=== PATIENT | female | born 1960 | race Caucasian/White ===

== ENCOUNTER 2019-04-21 09:25 | Outpatient (CLI) | payer OTHER, SELFPAY ==
--- NOTE | ~2019-04-21 | MMUS_ITS ---
EXAMINATION: MM screen torrey RT diag torrey LT, US axilla LT HISTORY: Palpable mass in left axilla TECHNIQUE: Left ML and bilateral MLO and cc 3-D tomosynthesis images of the breasts were performed an d synthetic 2-D images were generated. CAD analysis was submitted and interpreted. High resolution le ft axillary ultrasound was performed. COMPARISON: 11/02/2014 bilateral digital screening mammogram BREAST PARENCHYMAL COMPOSITION: The breasts are almost entirely fatty. FINDINGS: MAMMOGRAPHIC FINDINGS: The patient's chin overlies the left upper axillary region. No suspicious mass or architectural distortion, malignant calcification, skin thickening or retractio n or significant new or developing density is detected. ULTRASOUND: There is no evidence of focal abnormal solid or cystic lesion or abnormal shadowing in the left axill a. IMPRESSION: 1. No mammographic evidence of malignancy 2. Routine annual mammographic screening follow-up is recommended. BI-RADS Category 1: Negative Reviewed, dictated and finalized at location A. CLUTCH SPECIALIST IMPRESSION: 1. No mammographic evidence of malignancy 2. Routine annual mammographic screening follow-up is recommended. BI-RADS Category 1: Negative
--- NOTE | ~2019-04-21 | XR_ITS ---
EXAMINATION: XR chest 2V DATE: 04/21/2019 09:44 INDICATION: Cough. TECHNIQUE: Frontal and lateral views of the chest were obtained. COMPARISON: Chest 2 views 03/02/2018 FINDINGS: The chest demonstrates clear lungs without pneumonia, pleural effusion, or pneumothorax. Th e heart size is normal. There is old healed fracture of right sixth rib. IMPRESSION: 1. No acute cardiopulmonary disease. Reviewed, dictated and finalized at location A. GER TRADE
== END 2019-04-21 09:26 | disposition home or self-care (01) ==
LOC: CHSIMG 09:27
PROVIDERS: PCP Family Medicine; Visit Provider Family Medicine
DX: R05 Cough (principal); R22.2 Localized swelling, mass and lump, trunk
CPT/HCPCS: 71046; 76882; 77065; 77067

== ENCOUNTER 2019-08-16 08:43 | Outpatient (CLI) | payer OTHER, SELFPAY ==
--- NOTE | ~2019-08-16 | CT_ITS ---
EXAMINATION:CT chest wo con DATE: 08/16/2019 09:23 INDICATION: Pulmonary nodule. TECHNIQUE: Computed tomography (CT) of the chest was performed without intravenous contrast. Automate d exposure control and iterative reconstruction technique were employed. The dose-length product (DLP ) was 367.98 mGy-cm. COMPARISON: Chest CT 07/22/2018, 07/05/2017 FINDINGS: There is mild emphysema. There is a 3 mm nodule in right upper lobe, stable from 07/25/2018. There is a 3 mm nodule in left upper lobe, stable from 07/22/2018. There are a few scattered 2 mm nod ules in the lungs. There is a 5 mm nodule left major fissure, stable from 07/05/2017. No pleural effus ion. The heart size is normal. There are coronary artery calcifications. No pericardial effusion. The re is a small sliding hiatal hernia. There is a 3.2 cm mass in left adrenal gland measuring low-atten uation, stable from 07/05/2017, consistent with an adenoma. There are old healed bilateral rib fractur es. There is mild thoracic spondylosis. IMPRESSION: 1. Small pulmonary nodules, likely benign. 2. Mild emphysema. Reviewed, dictated and finalized at location E.
--- NOTE | ~2019-08-16 | XR_ITS ---
XR femur LT min 2V, XR knee LT min 4V 08/16/2019 09:23 (accession [id number]), 08/16/2019 09:22 (accession [id number]) INDICATION: Left knee and leg pain PROCEDURE: 2 views left femur and 4 views left knee COMPARISON: No prior studies for comparison. FINDINGS: Fracture, dislocation or subluxation is not identified. There is a transversely oriented sc rew in the distal femoral metaphysis The soft tissues appear within normal limits. No foreign bodies are identified. There is moderate-severe osteoarthritis of the left knee. IMPRESSION: 1: NO ACUTE BONE OR JOINT ABNORMALITY IDENTIFIED. 2: Moderate-severe osteoarthritis of the left knee. Reviewed, dictated and finalized at location A. IMPRESSION: 1: NO ACUTE BONE OR JOINT ABNORMALITY IDENTIFIED. 2: Moderate-severe osteoarthritis of the left knee.
--- NOTE | ~2019-08-16 | XR_ITS ---
XR tibia fibula LT 2V 08/16/2019 09:23 Indication: Left leg pain Procedure: 2 views left tibia/fibula Comparison: 10/16/2017 Findings: No acute fracture, subluxation or dislocation. There is moderate osteoarthritis of the left knee. No focal soft tissue abnormality. No radiopaque foreign bodies. Impression: 1: No acute bone or joint abnormality. Reviewed, dictated and finalized at location A. Impression: 1: No acute bone or joint abnormality.
== END 2019-08-16 08:44 | disposition home or self-care (01) ==
LOC: CHSIMG 08:45
PROVIDERS: PCP Family Medicine; Visit Provider Orthopaedic Surgery
DX: M25.562 Pain in left knee (principal); M79.652 Pain in left thigh; R05 Cough; J44.9 Chronic obstructive pulmonary disease, unspecified; F17.200 Nicotine dependence, unspecified, uncomplicated; R91.8 Other nonspecific abnormal finding of lung field
CPT/HCPCS: 71250; 73552; 73564; 73590

== ENCOUNTER 2020-02-18 08:00 | Outpatient (CLI) | payer OTHER, SELFPAY ==
--- NOTE | ~2020-02-18 | CT_ITS ---
EXAMINATION: CT abdomen pelvis w con DATE: 02/18/2020 08:49 INDICATION: Left lower quadrant abdominal pain for one month. Blood in stool 2 weeks ago. TECHNIQUE: Computed tomography (CT) of the abdomen and pelvis was performed with 100 cc Omnipaque 350 intravenous contrast. Automated exposure control and iterative reconstruction technique were employe d. Exam dose: 1377.30 mGy-cm total exam DLP. COMPARISON: 11/05/2016 CT abdomen pelvis FINDINGS: Normal heart size. The lung bases are clear of infiltrate or consolidation. No pericardial or pleural effusion. Small sliding hiatal hernia. The liver, gallbladder, bile ducts, spleen, pancreas and pancreatic duct appear normal. Normal morphology of the right adrenal gland. 2.5 x 3.3 cm left adrenal mass is noted. This was present on 11/05/2016, then measuring approximately 2.4 x 2.8 cm. This is likely an adrenal adenoma. Several 5 mm or smaller probable left renal cyst. No urinary tract calculus or hydroureteronephrosis. The urinary bladder is evacuated. Status post hys terectomy. There is atherosclerotic calcification of the abdominal aorta and iliac arteries and calcification of the origins of the renal arteries. No abdominal aortic aneurysm. No intraperitoneal or retroperitoneal or pelvic mass lesion or adenopathy or ascites is detected. There is sigmoid colon diverticulosis; no CT evidence of diverticulitis. Normal appendix. No bowel obstruction, bowel wall thickening, pneumatosis or intraperitoneal free air . No suspicious osteolytic or osteoblastic lesions are noted. IMPRESSION: Sigmoid diverticulosis; no CT evidence of diverticulitis Small sliding hiatal hernia Chronic left adrenal mass Reviewed, dictated and finalized at Location A. Reviewed, dictated and finalized at location A. ING SAW OPERATOR
[2020-02-18 08:25] LABS: Estimated Glomerular Filt Rate 54
== END 2020-02-18 08:01 | disposition home or self-care (01) ==
LOC: CHSIMG 08:01
PROVIDERS: PCP Family Medicine; Visit Provider Family Medicine
DX: R10.9 Unspecified abdominal pain (principal); R19.7 Diarrhea, unspecified
CPT/HCPCS: 36415; 74177; 82565; Q9965; Q9967

== ENCOUNTER 2022-03-18 12:20 | Emergency (ER) | payer OTHER, SELFPAY ==
--- NOTE | ~2022-03-18 | XR_ITS ---
EXAMINATION: XR shoulder RT min 2V DATE: 03/18/2022 13:08 INDICATION: Acromioclavicular joint separation TECHNIQUE: AP internally and externally rotated, AP oblique externally rotated and transscapular Y vi ews of the right shoulder were obtained. COMPARISON: Chest radiograph dated 04/21/2019 FINDINGS: Normal alignment. No acute fracture. Old fracture deformity of the posterior right sixth rib. Mild gl enohumeral and moderate acromioclavicular osteoarthritis. Visualized portions of the right lung are c lear. Soft tissues are unremarkable. IMPRESSION: Moderate glenohumeral and moderate acromioclavicular osteoarthritis. No acute osseous abnormality. Reviewed, dictated and finalized at location A. RING MACHINE FEEDER IMPRESSION: Moderate glenohumeral and moderate acromioclavicular osteoarthritis. No acute o sseous abnormality.
--- NOTE | ~2022-03-18 | CT_ITS ---
EXAMINATION: CT cervical spine wo con DATE: 03/18/2022 13:17 INDICATION: Chronic neck pain. Right upper extremity pain and numbness. TECHNIQUE: Computed tomography (CT) of the cervical spine was performed without intravenous contrast. Automated exposure control and iterative reconstruction technique were employed. The dose-length pro duct was 550.72 mGy-cm. COMPARISON: None FINDINGS: There is mild emphysema. There is mild kyphosis of cervical spine. Vertebral body heights a re normal. There is mildly decreased disc height at C5-C6 and C6-C7. The following disc levels are sp ecifically discussed: C2-C3: There is mild bilateral uncovertebral joint osteoarthritis. There is mild bilateral facet join t osteoarthritis. There is no neural foraminal stenosis. There is no central canal stenosis. C3-C4: There is mild left uncovertebral joint osteoarthritis. There is severe bilateral facet joint o steoarthritis. There is mild bilateral neural foraminal stenosis. There is mild central canal stenosi s. C4-C5: There is no uncovertebral joint osteoarthritis. There is mild right and severe left facet join t osteoarthritis. There is mild left neural foraminal stenosis. There is mild central canal stenosis. C5-C6: There is severe right and moderate left uncovertebral joint osteoarthritis. There is mild bila teral facet joint osteoarthritis. There is mild right neural foraminal stenosis. There is mild centra l canal stenosis. C6-C7: There is mild bilateral uncovertebral joint osteoarthritis. There is mild bilateral facet join t osteoarthritis. There is no neural foraminal stenosis. There is mild central canal stenosis. C7-T1: There is no uncovertebral joint osteoarthritis. There is mild right and moderate left facet willa int osteoarthritis. There is mild left neural foraminal stenosis. There is no central canal stenosis. IMPRESSION: 1. Mild cervical spondylosis. Reviewed, dictated and finalized at location A. TECHNICIAN
[2022-03-18 12:20] VITALS: BP 160/108; PULSE 83; PULSE 88; RESP 20; TEMP 36.4; O2SAT 98
[2022-03-18 12:32] VITALS: BP 160/108; PULSE 88; RESP 20; TEMP 36.4; O2SAT 98
--- NOTE | 2022-03-18 12:44 | ED.UPPEXIN ---
HPI - Extremity Injury (Upper) General Chief Complaint: Extremity Injury, Upper Stated Complaint: right arm pain Time Seen by Provider: 03/18/22 12:30 Source: patient Mode of arrival: ambulatory Limitations: no limitations History of Present Illness HPI narrative: 61-YEAR-OLD WHITE FEMALE WITH HISTORY OF CHRONIC NECK SHOULDER PAIN PERCOCET 3 TIMES A DAY PLANES INCREASING PAIN FROM HER USUAL 7 OVER 10 PAIN 10 10 OVER THE LAST 3 DAYS AFTER USING A NAIL GUN ALL DAY LONG 3 DAYS AGO AND TRYING TO LIFT A 4 GRIFFIN UP ON A TRAILER 2 DAYS AGO. THIS IS THE EXACT SAME PAIN SHE HAS IN HER NECK HER SHOULDER RADIATING DOWN HER ARM BUT JUST MUCH WORSE. DENIES ANY CHANGE IN HER CHRONIC COUGH. SHE HAS SHORTNESS OF BREATH JUST BECAUSE OF THE PAIN. SHE LAST TOOK PERCOCET THIS MORNING BEFORE COMING THE EMERGENCY DEPARTMENT. SHE SAYS IS NOT HELPING. SHE SAYS HER RIGHT HAND FEELS NUMB OF TODAY. MD complaint: injury to: right, shoulder (NECK), arm, elbow and forearm Place: home Severity: severe Severity scale (1-10): 10 Relieving factors: none Exacerbating factors: movement of extremity Associated symptoms: weakness, numbness and neck pain Related Data Home Medications Medication Instructions Recorded Confirmed clopidogrel 75 mg tablet 75 mg PO DAILY 03/18/22 03/18/22 hydrocodone 10 mg-acetaminophen 1 tablet PO TID 03/18/22 03/18/22 325 mg tablet pantoprazole 40 mg tablet,delayed 40 mg PO DAILY 03/18/22 03/18/22 release Allergies Allergy/AdvReac Type Severity Reaction Status Date / Time codeine Allergy Unknown Unknown Verified 03/18/22 12:27 morphine Allergy Unknown Unknown Verified 03/18/22 12:27 Penicillins Allergy Unknown Unknown Verified 03/18/22 12:27 Review of Systems Review of Systems: All systems reviewed & are unremarkable except as noted in HPI and below Constitutional: Constitutional: Reports no additional constitutional complaints, Denies fever(s) and Denies headache(s) Eyes: Eyes: Reports no additional eye complaints ENT: Reports system reviewed and no additional complaints, except as documented Cardiovascular: Cardiovascular: Denies chest pain, Denies rapid heart rate, Denies lightheadedness and Denies dyspnea on exertion Respiratory: Respiratory: Reports as per HPI, Reports no additional respiratory complaints, Denies pain with cough and Denies dyspnea Gastrointestinal: Gastrointestinal: Denies diarrhea, Denies nausea and Denies vomiting Musculoskeletal: Musculoskeletal: Reports no additional musculoskeletal complaints and Reports as per HPI Neurologic: Reports as per HPI [facility] Past Medical History Medical History (Updated 03/18/22 @ 13:56 by Woody Hemphill MD) Anxiety Constipation Depression Emphysema (subcutaneous) (surgical) resulting from a procedure Headache Osteoporosis Shortness of breath Sleep apnea Sleep disorder Tricompartment osteoarthritis of left knee Weight gain Family History Family History Other Hypertension Social History Social History (Updated 08/16/19 @ 15:03 by Dina Jefferson, RT(R)) Smoking packs per day: 1 Smoking cigarettes per day: 20.0 Years smoked: 20 Smoking pack-years: 20.00 Smoking status: Current every day smoker Alcohol intake: never Comments CARDIAC STENT 3 MONTHS AGO Exam Narrative: PATIENT LOOKS MUCH OLDER THAN STATED AGE 61. R DISTRESS TEARFUL COMPLAINING OF RIGHT SIDE OF HER NECK AND SHOULDER PAIN RADIATING DOWN TO HER RIGHT FOREARM. SHE HAS FULL RANGE OF MOTION OF HER NECK AND ARM. SHE HAS TENDERNESS DIFFUSELY HER NECK AND HER RIGHT TRAPEZIUS IN HER SHOULDER AND UPPER ARM. DELTOID AND DERM IS INTACT. IS DECREASED SENSATION OF HER HAND SUBJECTIVELY. RADIAL PULSES +2. LUNGS ARE CLEAR HEART IS REGULAR RATE AND RHYTHM WITHOUT MURMURS GALLOPS OR RUBS. EXTREMITIES NO CYANOSIS CLUBBING EYES CONJUNCTIVA PINK SCLERA NONICTERIC OROPHARYNX IS CLEAR WITH MOIST MUCOUS MEMBR
[2022-03-18] MEDS: HYDROmorphone HCL INJ (*CRX) 2 MG/ML VIAL 1 MG IM (12:47)
--- NOTE | 2022-03-18 12:51 | ECG_ITS ---
Measurements Intervals [place] Rate: 68 P: 67 SD: 114 QRS: 99 QRSD: 89 T: 71 QT: 391 QTc: 417 Interpretive Statements SINUS RHYTHM WITH SHORT SD INTERVAL ATRIAL PREMATURE COMPLEX RIGHT AXIS DEVIATION INCOMPLETE RIGHT BUNDLE BRANCH BLOCK BASELINE WANDER- I, II BORDERLINE ECG NO PREVIOUS ECG AVAILABLE FOR COMPARISON Electronically Signed On 03-18-2022 12:57:19 RESPIRATORY CARE INSTRUCTOR by Celso Truong D.O.
[2022-03-18 13:16] VITALS: BP 161/101; PULSE 82; RESP 18
== END 2022-03-18 13:59 | disposition home or self-care (01) ==
PROVIDERS: Emergency Provider Emergency Medicine; PCP Family Medicine
DX: M19.011 Primary osteoarthritis, right shoulder (principal); M47.812 Spondylosis without myelopathy or radiculopathy, cervical region; F17.210 Nicotine dependence, cigarettes, uncomplicated; Z79.02 Long term (current) use of antithrombotics/antiplatelets; Z95.5 Presence of coronary angioplasty implant and graft
CPT/HCPCS: 72125; 73030; 93005; 96372; 99284; J1170

== ENCOUNTER 2022-03-22 16:17 | Emergency (ER) | payer OTHER, SELFPAY ==
[2022-03-22 16:18] VITALS: BP 173/103; PULSE 90; RESP 20; TEMP 36.3; O2SAT 96
--- NOTE | 2022-03-22 16:32 | ED.UPPEXIN ---
HPI - Extremity Injury (Upper) General Chief Complaint: Extremity Problem,Nontraumatic Stated Complaint: pain in R arm and R hip Time Seen by Provider: 03/22/22 16:31 Source: patient Mode of arrival: ambulatory Limitations: no limitations History of Present Illness HPI narrative: 61-year-old female with a history of smoking,anxiety /depression presented to the ER on 03/18/2022 for right /shoulder/ upper extremity pain. She had a CT of the neck which revealed mild cervical spondylosis. She had an x-ray of the shoulder which revealed glenohumeral and acromioclavicular joint arthritis. The patient takes [place]/Percocet on a routine basis and ran out of her medicines. She received Dilaudid on 03/18/2022. She presents to the ER with ongoing right neck/ shoulder and upper extremity pain. 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 MD complaint: injury to: right, shoulder, arm, forearm and wrist Onset (ago): week(s) Other injuries: none Handedness: right Place: work Relieving factors: immobilization Exacerbating factors: movement of extremity Associated symptoms: denies other symptoms Related Data Home Medications Medication Instructions Recorded Confirmed clopidogrel 75 mg tablet 75 mg PO DAILY 03/18/22 03/22/22 hydrocodone 10 mg-acetaminophen 1 tablet PO TID 03/18/22 03/22/22 325 mg tablet pantoprazole 40 mg tablet,delayed 40 mg PO DAILY 03/18/22 03/22/22 release Allergies Allergy/AdvReac Type Severity Reaction Status Date / Time codeine Allergy Unknown Unknown Verified 03/18/22 12:27 morphine Allergy Unknown Unknown Verified 03/18/22 12:27 Penicillins Allergy Unknown Unknown Verified 03/18/22 12:27 Review of Systems Review of Systems: All systems reviewed & are unremarkable except as noted in HPI and below Constitutional: Constitutional: Reports as per HPI and Reports no additional constitutional complaints Eyes: Eyes: Reports as per HPI and Reports no additional eye complaints ENT: Reports system reviewed and no additional complaints, except as documented and Reports as per HPI Cardiovascular: Cardiovascular: Reports as per HPI and Reports no additional cardiovascular complaints Respiratory: Respiratory: Reports as per HPI, Reports cough and Reports dyspnea Gastrointestinal: Gastrointestinal: Reports as per HPI and Reports no additional gastrointestinal complaints Genitourinary: Genitourinary: Reports no additional female genitourinary complaints and Reports as per HPI Musculoskeletal: Musculoskeletal: Reports no additional musculoskeletal complaints and Reports as per HPI Integumentary/Breasts: Skin/Breast: Reports system reviewed and no additional complaints, except as docu and Reports as per HPI Neurologic: Reports system reviewed and no additional complaints, except as documented and Reports as per HPI Psychiatric: Psychiatric: Reports no additional psychiatric complaints and Reports as per HPI Endocrine: Endocrine: Reports no additional endocrine complaints and Reports as per HPI Hematologic/Lymphatic: Hematologic/Lymphatic: Reports no additional hematologic/lymphatic complaints and Reports as per HPI Allergic/Immunologic: Allergic/Immunologic: Reports no additional allergic/immunologic complaints and Reports as per HPI PMFSH Past Medical History Medical History Anxiety Constipation Depression Emphysema (subcutaneous) (surgical) resulting from a procedure Headache Osteoporosis Shortness of breath Sleep apnea Sleep disorder Tricompartment osteoarthritis of left knee Weight gain Family History Family History Other Hypertension Social History Social History Smoking packs per day: 1 Smoking cigarettes per day: 20.0 Years smoked: 20 Smoking pack-years: 20.00 Smoking status: Current every day smoker Alcohol intake:
[2022-03-22] MEDS: KETOROLAC 30 MG/ML VIAL (*BKC) IM (16:51)
[2022-03-22] MEDS: HYDROcodone/acetaminophen (*CRX) 5-325 MG TABLET 1 TAB PO (16:52)
[2022-03-22 17:04] VITALS: BP 178/91; PULSE 90; RESP 20; TEMP 37.1; O2SAT 98
== END 2022-03-22 17:45 | disposition home or self-care (01) ==
PROVIDERS: Emergency Provider Internal Medicine Critical Care Medicine
DX: M47.812 Spondylosis without myelopathy or radiculopathy, cervical region (principal); M19.011 Primary osteoarthritis, right shoulder; Z79.02 Long term (current) use of antithrombotics/antiplatelets; F41.9 Anxiety disorder, unspecified; F32.A Depression, unspecified; M81.0 Age-related osteoporosis without current pathological fracture; F17.210 Nicotine dependence, cigarettes, uncomplicated
CPT/HCPCS: 96372; 99283; A9270; J1885

== ENCOUNTER 2022-05-24 09:55 | Outpatient (CLI) | payer OTHER, SELFPAY ==
--- NOTE | ~2022-05-24 | MM_ITS ---
EXAMINATION: MM diagnostic torrey BI w justine HISTORY: Right breast pain. Painful blister-like lump on nipple for 2 days TECHNIQUE: ML, MLO and CC 3-D tomosynthesis images of both breasts were performed and synthetic 2-D i mages were generated. CAD analysis was submitted and interpreted. COMPARISON: April 21, 2019bilateral screening mammogram BREAST PARENCHYMAL COMPOSITION: The breasts are almost entirely fatty. FINDINGS: No suspicious mass or architectural distortion, malignant calcification, skin thickening or retraction or significant new or developing density is detected. Consider biopsy of the nipple lesion as clinically appropriate. IMPRESSION: 1. No mammographic evidence of malignancy; routine annual mammographic screening is recommended. 2. Consider nipple biopsy as clinically appropriate BI-RADS Category 1: Negative Reviewed, dictated and finalized at location A. IMPRESSION: 1. No mammographic evidence of malignancy; routine annual mammographic screenin g is recommended. 2. Consider nipple biopsy as clinically appropriate BI-RADS Category 1: Negative
== END 2022-05-24 09:56 | disposition home or self-care (01) ==
LOC: CHSIMG 09:57
PROVIDERS: PCP Family Medicine; Visit Provider Family Medicine
DX: N64.4 Mastodynia (principal)
CPT/HCPCS: 77062; 77066; G0279

== ENCOUNTER 2022-08-14 18:17 | Inpatient (IN) | payer OTHER, SELFPAY ==
[2022-08-14] VITALS (13 sets, daily range): BP systolic 154–170; BP diastolic 80–82; PULSE 71–105; RESP 17–20; TEMP 36.3; O2SAT 88–98; BMI 45.7
--- NOTE | ~2022-08-14 | XR_ITS ---
XR chest 2V DATE: 08/16/2022 10:14 INDICATION: Hypoxia TECHNIQUE: PA and lateral views COMPARISON: 08/14/2022 portable AP chest FINDINGS: No pulmonary infiltrate or consolidation. Heart size appears within normal range. No pleura l effusion or pulmonary vascular congestion or pneumothorax is detected. There is osteopenia. Old healed posterolateral right sixth rib fracture. IMPRESSION: No active cardiopulmonary disease Reviewed, dictated and finalized at location []
--- NOTE | ~2022-08-14 | XR_ITS ---
EXAMINATION: XR chest 1V portable INDICATION: Shortness of breath TECHNIQUE: Portable AP chest at 1852 hours COMPARISON: 04/21/2019 FINDINGS: The lungs are free of acute opacities. No pleural effusion or pneumothorax. The cardiomedia stinal silhouette is normal. A healed right sixth rib fracture is noted. IMPRESSION: 1. No acute cardiopulmonary abnormality. Reviewed, dictated and finalized at location F.
--- NOTE | 2022-08-14 18:41 | ECG_ITS ---
Measurements Intervals [place] Rate: 101 P: 53 DE: 122 QRS: 83 QRSD: 91 T: 58 QT: 342 QTc: 444 Interpretive Statements SINUS TACHYCARDIA WITH OCCASIONAL SUPRAVENTRICULAR PREMATURE COMPLEXES POSSIBLE RIGHT VENTRICULAR CONDUCTION DELAY [RSR (QR) IN V1/V2] ABNORMAL RHYTHM ECG COMPARED TO ECG 03/18/2022 12:51:29 HEART RATE IS INCREASED Electronically Signed On 08-15-2022 16:23:13 CDT by Bartolo Hester M.D.
--- NOTE | 2022-08-14 18:50 | ED.GENADULT ---
HPI - General Adult General Chief complaint: Shortness of Breath/Dyspnea Stated complaint: fatigue; fluid retention Time Seen by Provider: 08/14/22 18:29 History of Present Illness HPI narrative: the patient is a 62-year-old whom with history of COPD on inhalers but not nebulizer therapy or oxygen at home. She continues to smoke cigarettes. Last COPD exacerbation was 1 month ago which 1 she was placed on steroids and antibiotics. Osteoarthritis on [place] 10 mg, obstructive sleep apnea, anxiety, depression, coronary artery disease status post stent placement following a myocardial infarction, on Plavix therapy. He last saw her chemical educator yesterday who prescribed furosemide which she started today for mild pedal edema. The patient presents with a 7 day history of feeling weak and tired, sleepy, fatigued at home. She does have shortness of breath and has a cough productive of yellow phlegm with audible wheezing, and hoarse voice. Her oral intake has decreased over the last few days. Four days ago she had an episode of emesis with coughing but none since. Does have a headache. No rhinorrhea or nasal congestion. No significant chest pain, occasional sharp pain in the left sternal region lasts a few seconds. No abdominal pain. No diarrhea or constipation. No urinary symptoms. No fevers or chills or diaphoresis. Related Data Home Medications Medication Instructions Recorded Confirmed clopidogrel 75 mg tablet 75 mg PO DAILY 03/18/22 03/22/22 hydrocodone 10 mg-acetaminophen 1 tablet PO TID 03/18/22 03/22/22 325 mg tablet pantoprazole 40 mg tablet,delayed 40 mg PO DAILY 03/18/22 03/22/22 release Allergies Allergy/AdvReac Type Severity Reaction Status Date / Time codeine Allergy Unknown Unknown Verified 03/18/22 12:27 morphine Allergy Unknown Unknown Verified 03/18/22 12:27 Penicillins Allergy Unknown Unknown Verified 03/18/22 12:27 Review of Systems Review of Systems: All systems reviewed & are unremarkable except as noted in HPI and below Constitutional: Constitutional: Denies chills, Denies excessive sweating, Reports fatigue, Denies fever(s), Denies headache(s) and Reports weakness ( Generalized) Comments: excessive somnolence Eyes: Eyes: Denies change in vision and Denies photophobia ENT: Denies dysphagia, Denies dizziness, Reports headache(s), Denies lip swelling, Denies nasal congestion, Denies sore throat and Denies tongue swelling Cardiovascular: Cardiovascular: Reports chest pain ( sharp, lasts a few seconds, intermittent), Denies syncope, Denies rapid heart rate and Reports dyspnea Respiratory: Respiratory: Reports chest congestion, Reports cough ( productive of yellow sputum), Reports dyspnea and Reports wheezing Gastrointestinal: Gastrointestinal: Denies abdominal pain, Denies constipation, Denies dysphagia, Denies diarrhea, Denies nausea and Reports vomiting ( occasional) Genitourinary: Genitourinary: Denies hematuria, Denies urinary frequency, Denies dysuria and Denies urinary urgency Musculoskeletal: Musculoskeletal: Denies back pain, Denies myalgias, Denies arthralgias, Denies joint swelling and Denies numbness Integumentary/Breasts: Skin/Breast: Denies pruritus, Denies erythema and Denies rash Neurologic: Denies confusion, Denies dizziness, Denies syncope, Reports headache(s), Denies focal weakness, Denies numbness and Reports weakness Psychiatric: Psychiatric: Denies anxiety and Denies confusion Endocrine: Endocrine: Denies excessive sweating and Reports fatigue Hematologic/Lymphatic: Hematologic/Lymphatic: Denies easy bleeding and Denies easy bruising Allergic/Immunologic: Allergic/Immunologic: Denies lip swelling, Denies tongue swelling and Reports wheezing PMFSH Past Medical History Medical History Anxiety Constipation Depression Emphysema (subcutaneous) (surgical) resulting from a procedure Headache Osteoporosis Shortness o
[2022-08-14 18:53] LABS: Basophils Absolute Auto 0.06 K/mm3 (0.00-0.10); Basophils Percent Auto 0.4 % (0.0-1.0); Eosinophils Absolute Auto 0.01 K/mm3 (0.02-0.50); Eosinophils Percent Auto 0.1 % (1.0-6.0); Hematocrit 44.6 % (35.0-49.0); Hemoglobin 13.9 g/dL (12.0-15.0); Immature Granulocyte Percent A 0.6 % (0.0-0.0); Lymphocytes Percent Auto 6.6 % (18.0-42.0); Mean Corpuscular HGB Conc 31.2 g/dL (32.0-36.0); Mean Corpuscular Hemoglobin 26.1 pg (27.0-31.0); Mean Corpuscular Volume 83.7 fL (78.0-102.0); Monocytes Absolute Auto 0.76 K/mm3 (0.10-0.90); Monocytes Percent Auto 4.6 % (2.0-11.0); Neutrophils Absolute Auto 14.6 K/mm3 (1.7-7.2); Neutrophils Percent Auto 87.7 % (50.0-70.0); Platelet Count Result 309 K/mm3 (150-420); Red Blood Count 5.33 M/mm3 (4.20-5.40); Red Cell Distribution Width 13.4 % (11.6-14.4); White Blood Count 16.6 K/mm3 (4.8-10.8)
[2022-08-14 18:59] LABS: D Dimer 0.37 mg/L (0.19-0.50)
[2022-08-14 19:00] LABS: Device ROOM AIR; HCO3 ABG 28.1 mmol/L (23-29); Modified Allen's Test Pass; Oxygen Content ABG 18.4 %vol (16.0-22.0); Oxygen Saturation ABG 91.8 % (95-97); Oxyhemoglobin 87.6 % (94-100); PCO2 ABG 44.7 mmHg (35-45); PO2 ABG 52.5 mmHg (80-90); Site Drawn RIGHT RADIAL; pH ABG 7.42 (7.35-7.45)
--- NOTE | 2022-08-14 19:04 | PC.NURSE ---
Report to RODNEY Mckinney who assumes care of pt at this time.
[2022-08-14 19:05] LABS: Magnesium 1.9 mg/dL (1.8-2.4); Troponin I 13.1 ng/L (0.00-60.4)
[2022-08-14] MEDS: BENZONATATE 100 MG CAPSULE PO (19:07)
[2022-08-14] MEDS: methylPREDNISolone SOD SUCC 125 MG VIAL IV PUSH (19:07)
[2022-08-14] MEDS: guaiFENesin/DEXTROMETHORPHAN 5 ML UDC 10 ML PO (19:07)
[2022-08-14] MEDS: MAGNESIUM SULF 2 GM/WATER 50ML 2 GM/50 ML BAG IVPB (19:08)
[2022-08-14 19:10] LABS: Alanine Aminotransferase 19 U/L (14-59); Alkaline Phosphatase 152 U/L (46-116); Anion Gap 7 mmol/L (8-16); Aspartate Amino Transferase 23 U/L (15-37); Bilirubin,Total 0.5 mg/dL (0.00-1.00); Blood Urea Nitrogen 5 mg/dL (7-18); Calcium 8.9 mg/dL (8.5-10.1); Carbon Dioxide 32 mmol/L (21-32); Chloride 94 mmol/L (98-108); Estimated CRCL calculation 77 ml/min; Estimated Glomerular Filt Rate > 60; Glucose 161 mg/dL (70-99); Lactic Acid Reflex 2.4 mmol/L (0.4-2.0); NT Pro B Type Natriuretic Pept 775 pg/mL (0-125); Osmolality Calculated 276 mOsm/kg (285-295); Potassium 4.2 mmol/L (3.5-5.1); Sodium 133 mmol/L (136-145); Total Protein 7.5 g/dL (6.4-8.2)
[2022-08-14] MEDS: IPRATROPIUM 0.5 MG/ALBUTEROL SULFATE 2.5 MG AMPUL.NEB 3 ML INHALATION (19:28)
[2022-08-14] MEDS: SODIUM CHLORIDE 0.9% IV 1,000 ML 999 ML IV CONT (19:28)
[2022-08-14 19:38] LABS: Influenza A QL RT-PCR Negative (Negative); Influenza B QL RT-PCR Negative (Negative); SARS-CoV-2 RNA PCR Negative (Negative)
[2022-08-14 19:40] LABS: RSV RNA, RT-PCR Negative (Negative); Strep Group A RT-PCR NOT DETECTED (Negative)
[2022-08-14 20:08] LABS: Erythrocyte Sedimentation Rate 6 mm/hr (0-20)
[2022-08-14] MEDS: cefTRIAXone 2 GM/NS 100 ML 2 GM/100 ML BAG IVPB (20:16)
[2022-08-14] MEDS: AZITHROMYCIN 500 MG/NS 250 ML 500 MG/250 ML BAG 250 MG IVPB (21:02)
--- NOTE | 2022-08-14 21:04 | PC.NURSE ---
pt left with azithromycin and fluids running through IV
[2022-08-14 21:49] LABS: Reflex Lactic Acid Yes or No Add Lactic
[2022-08-14 22:27] LABS: Lactic Acid 1.2 mmol/L (0.4-2.0)
--- NOTE | 2022-08-14 23:15 | ADMGEN ---
Addendum entered by Twyla Dillon LPN 08/14/22 23:16: admission time 2109 Original Note: This patient, Karina Ricks, was admitted to 2nd Floor Room 205-2. Patient oriented to hospital policies and general routines including ID bracelet, bed and alarms, visiting hours, pain management, procedures, bathroom and other care routines, personal items, smoking policy, room service/diet, and visiting hours. Information on how to activate the Rapid Response Team has been discussed. Patient are encouraged to report perceived risks to care and to ask questions if they do not understand what they are told or what they should do.
[2022-08-15] VITALS (19 sets, daily range): BP systolic 136–151; BP diastolic 68–86; PULSE 76–134; RESP 18–22; TEMP 36.2–36.3; O2SAT 87–97
[2022-08-15] MEDS: IPRATROPIUM 0.5 MG/ALBUTEROL SULFATE 2.5 MG AMPUL.NEB 3 ML INHALATION ×6 (00:27→23:22)
[2022-08-15 05:11] LABS: Hematocrit 45.4 % (35.0-49.0); Hemoglobin 13.8 g/dL (12.0-15.0); Mean Corpuscular HGB Conc 30.4 g/dL (32.0-36.0); Mean Corpuscular Hemoglobin 25.6 pg (27.0-31.0); Mean Corpuscular Volume 84.2 fL (78.0-102.0); Platelet Count Result 277 K/mm3 (150-420); Red Blood Count 5.39 M/mm3 (4.20-5.40); Red Cell Distribution Width 13.4 % (11.6-14.4)
[2022-08-15] MEDS: methylPREDNISolone SOD SUCC 40 MG VIAL IV PUSH ×3 (05:21→20:41)
--- NOTE | 2022-08-15 05:21 | PC.NURSE ---
Pt given Solumedrol 40 mg IVP as ordered.
[2022-08-15 05:23] LABS: Anion Gap 9 mmol/L (8-16); Blood Urea Nitrogen 5 mg/dL (7-18); Calcium 8.5 mg/dL (8.5-10.1); Carbon Dioxide 30 mmol/L (21-32); Chloride 97 mmol/L (98-108); Estimated CRCL calculation 86 ml/min; Estimated Glomerular Filt Rate > 60; Glucose 175 mg/dL (70-99); Osmolality Calculated 283 mOsm/kg (285-295); Sodium 136 mmol/L (136-145)
--- NOTE | 2022-08-15 09:24 | PM.IMHP ---
H&P: HPI History of Present Illness Date/Time: 08/15/22 09:24 Chief Complaint: COPD exacerbation Narrative: ? This is a 62-year-old being admitted for COPD exacerbation patient is a daily smoker was a nebulizer at home patient was satting 88% on admission was placed on 2 L of oxygen patient has a past medical history obstructive sleep apnea, anxiety, depression, coronary artery disease, osteoarthritis, patient has had stents placed and a heart attack she was seen recently by spring former was placed on Lasix in which she has not gotten filled from the pharmacy. Patient is complaining of some weakness headache swelling and shortness of breath. Patient will be started on some IV antibiotics, nebulizers around the clock, she is currently on oxygen, we will do some IV Lasix to try to diurese her and have received physical therapy and occupational therapy and attempt to wean her off of the oxygen. Review of Systems Review of Systems: Shortness of breath, and weakness All systems reviewed & are unremarkable except as noted in HPI and below PMFSH Past Medical History Medical History (Updated 08/19/22 @ 11:06 by Carlee Tyler APRN) Anxiety Chronic obstructive pulmonary disease (COPD) Constipation Depression Emphysema (subcutaneous) (surgical) resulting from a procedure Headache Hypokalemia Osteoporosis Shortness of breath Sleep apnea Sleep disorder Tricompartment osteoarthritis of left knee Weight gain Family History Family History Other Hypertension Social History Social History Smoking packs per day: 1 Smoking cigarettes per day: 20.0 Years smoked: 20 Smoking pack-years: 20.00 Smoking status: Current every day smoker Alcohol intake: never Substance use: unknown Lack of Transportation: No Lack of Food: Never True Current Housing: I Have Housing Concerned About Future Housing: No Difficulty Paying Gas/Electric Bills: No Difficulty Paying for Meds: No Currently Unemployed: No Education: High School Diploma/GED Difficulty w/ Childcare or Family Care: No Spiritual care concerns: No Comments Past medical At time as signature, I have reviewed and agree with nursing past medical, social, surgical and family history. Please see nursing chart for further information. There is no relevant family history pertinent to the presenting complaint. Meds Home Medications and Allergies Home Medications Medication Instructions Recorded Confirmed Type clopidogrel 75 mg tablet 75 mg PO DAILY 03/18/22 08/14/22 History hydrocodone 10 mg-acetaminophen 1 tablet PO TID 03/18/22 08/14/22 History 325 mg tablet pantoprazole 40 mg tablet,delayed 40 mg PO DAILY 03/18/22 08/14/22 History release albuterol sulfate 90 mcg/actuation 2 inh inhalation PRN PRN Dyspnea 08/14/22 08/15/22 History aerosol inhaler aripiprazole 5 mg tablet 5 mg PO HS 08/14/22 08/15/22 History aspirin 81 mg tablet,delayed 81 mg PO DAILY 08/14/22 08/14/22 History release ergocalciferol (vitamin D2) 1,250 1,250 mcg PO DAILY 08/14/22 08/14/22 History mcg (50,000 unit) capsule (Vitamin D2) ferrous sulfate 325 mg (65 mg 325 mg DAILY 08/14/22 08/14/22 History iron) tablet (FeroSul) hydrochlorothiazide 25 mg tablet 25 mg DAILY 08/14/22 08/14/22 History levothyroxine 75 mcg tablet 75 mcg PO DAILY 08/14/22 08/14/22 History meloxicam 15 mg tablet 15 mg PO DAILY 08/14/22 08/14/22 History prednisone 20 mg tablet 20 mg PO DAILY 08/14/22 08/14/22 History promethazine 25 mg tablet 25 mg PO Q4H PRN NAUSEA/VOMITING 08/14/22 08/15/22 History propranolol 10 mg tablet 10 mg PO DAILY 08/14/22 08/14/22 History simvastatin 40 mg tablet 40 mg PO DAILY 08/14/22 08/14/22 History paroxetine HCl 40 mg tablet 60 mg PO DAILY 08/15/22 08/15/22 History Nebulizer Machine #1 ea 08/19/22 Rx buspirone 10 mg tablet 1
[2022-08-15] MEDS: SIMVASTATIN 10 MG TABLET 40 MG PO (10:10)
[2022-08-15] MEDS: ASPIRIN 81 MG ENTERIC TABLET PO (10:10)
[2022-08-15] MEDS: PANTOPRAZOLE SODIUM IV 40 MG VIAL IV PUSH (10:10)
[2022-08-15] MEDS: FUROSEMIDE INJ 20 MG/2 ML VIAL IV PUSH (10:10)
[2022-08-15] MEDS: POTASSIUM CHLORIDE 20 MEQ TABLET PO (10:11)
[2022-08-15] MEDS: hydroCHLOROthiazide 25 MG TABLET BY MOUTH (10:11)
[2022-08-15] MEDS: FERROUS SULFATE 324 MG TABLET BY MOUTH (10:11)
[2022-08-15] MEDS: CLOPIDOGREL BISULFATE 75 MG TABLET PO (10:11)
[2022-08-15] MEDS: PARoxetine 20 MG TABLET 60 MG PO (10:59)
[2022-08-15] MEDS: PROPRANOLOL HCL 10 MG TABLET PO (10:59)
[2022-08-15 12:03] LABS: PCO2 ABG 57.1 mmHg (35.0-45.0); PO2 ABG 77.4 mmHg (80.0-100.0); Total Hemoglobin 15.3 g/dL (12.0-18.0); pH ABG 7.342 (7.350-7.450)
[2022-08-15 12:04] LABS: Device NASAL CANNULA; Modified Allen's Test Pass; Site Drawn LEFT RADIAL
[2022-08-15] MEDS: AZITHROMYCIN 500 MG/NS 250 ML 500 MG/250 ML BAG 250 MG IVPB (19:01)
[2022-08-15] MEDS: ACETAMINOPHEN 325 MG TABLET 650 MG PO (20:40)
[2022-08-15] MEDS: ARIPiprazole 5 MG TABLET PO (20:40)
[2022-08-16] VITALS (17 sets, daily range): BP systolic 119–148; BP diastolic 71–94; PULSE 72–108; RESP 18–20; TEMP 36.1–36.4; O2SAT 89–97
[2022-08-16] MEDS: ONDANSETRON INJ 4 MG/2 ML VIAL IV PUSH (02:27)
[2022-08-16 04:54] LABS: Base Excess ABG 6.1 mmol/L (0-2); HCO3 ABG 33.8 mmol/L (23-29); Oxygen Content ABG 17.8 %vol (16.0-22.0); Oxygen Saturation ABG 87.6 % (95-97); Oxyhemoglobin 86.7 % (94-100); PCO2 ABG 61.7 mmHg (35-45); PO2 ABG 53.5 mmHg (80-90); Total Hemoglobin 14.6 g/dL (12.0-18.0); pH ABG 7.36 (7.35-7.45)
[2022-08-16 04:56] LABS: Device ROOM AIR; Hematocrit 44.2 % (35.0-49.0); Hemoglobin 13.5 g/dL (12.0-15.0); Mean Corpuscular HGB Conc 30.5 g/dL (32.0-36.0); Mean Corpuscular Hemoglobin 26.2 pg (27.0-31.0); Mean Corpuscular Volume 85.7 fL (78.0-102.0); Mean Platelet Volume 10.2 fl (9.2-11.8); Modified Allen's Test Pass; Platelet Count Result 329 K/mm3 (150-420); Red Blood Count 5.16 M/mm3 (4.20-5.40); Red Cell Distribution Width 13.4 % (11.6-14.4); Site Drawn LEFT RADIAL
[2022-08-16 05:10] LABS: Anion Gap 4 mmol/L (8-16); Blood Urea Nitrogen 14 mg/dL (7-18); Calcium 9.1 mg/dL (8.5-10.1); Carbon Dioxide 35 mmol/L (21-32); Chloride 97 mmol/L (98-108); Estimated CRCL calculation 75 ml/min; Estimated Glomerular Filt Rate > 60; Glucose 154 mg/dL (70-99); Osmolality Calculated 285 mOsm/kg (285-295); Potassium 4.1 mmol/L (3.5-5.1); Sodium 136 mmol/L (136-145)
--- NOTE | 2022-08-16 05:45 | PC.NURSE ---
Maik Bob NP, contacted regarding pt's critical WBC of 21.0; No new orders at this time.
[2022-08-16] MEDS: LEVOTHYROXINE SODIUM 75 MCG TABLET PO (05:53)
[2022-08-16] MEDS: methylPREDNISolone SOD SUCC 40 MG VIAL IV PUSH ×3 (05:53→20:44)
[2022-08-16] MEDS: IPRATROPIUM 0.5 MG/ALBUTEROL SULFATE 2.5 MG AMPUL.NEB 3 ML INHALATION ×2 (06:49→11:23)
[2022-08-16] MEDS: PROPRANOLOL HCL 10 MG TABLET PO (09:37)
[2022-08-16] MEDS: PANTOPRAZOLE SODIUM IV 40 MG VIAL IV PUSH (09:38)
[2022-08-16] MEDS: SIMVASTATIN 10 MG TABLET 40 MG PO (09:38)
[2022-08-16] MEDS: POTASSIUM CHLORIDE 20 MEQ TABLET PO (09:38)
[2022-08-16] MEDS: FUROSEMIDE INJ 20 MG/2 ML VIAL IV PUSH (09:38)
[2022-08-16] MEDS: ASPIRIN 81 MG ENTERIC TABLET PO (09:39)
[2022-08-16] MEDS: hydroCHLOROthiazide 25 MG TABLET BY MOUTH (09:39)
[2022-08-16] MEDS: FERROUS SULFATE 324 MG TABLET BY MOUTH (09:39)
[2022-08-16] MEDS: PARoxetine 20 MG TABLET 60 MG PO (09:39)
[2022-08-16] MEDS: CLOPIDOGREL BISULFATE 75 MG TABLET PO (09:39)
[2022-08-16] MEDS: polyethylene glycoL 3350 17 GM POWD.PACK PO (09:45)
--- NOTE | 2022-08-16 12:50 | WPDPN ---
Progress Note: A&P Assessment and Plan (1) Acute exacerbation of chronic obstructive pulmonary disease: Code(s): J44.1 - Chronic obstructive pulmonary disease with (acute) exacerbation Status: Acute Assessment and Plan: breathing treatment duo nebs changed to xopenex IV steroids IV antibiotics Oxygen check labs Elevated wBC 21 may be due to steroid CXR no pneumonia (2) Acute bronchitis with chronic obstructive pulmonary disease (COPD): Code(s): J44.0 - Chronic obstructive pulmonary disease with (acute) lower respiratory infection; J20.9 - Acute bronchitis, unspecified Status: Acute Assessment and Plan: breathing treatment duo nebs changed to xopenex IV steroids IV antibiotics Oxygen check labs (3) Hypoxia: Code(s): R09.02 - Hypoxemia Status: Acute Assessment and Plan: breathing treatment duo nebs changed to xopenex IV steroids IV antibiotics Oxygen check labs (4) Generalized weakness: Code(s): R53.1 - Weakness Status: Acute Assessment and Plan: Up to recliner chair for meals (5) Hypokalemia: Code(s): E87.6 - Hypokalemia Status: Acute Assessment and Plan: oral Potassium ordered monitor labs Subjective Date/time seen: 08/16/22 12:50 Interval history: Patient is not feeling well today and continues to require oxygen. Patient with movement has tachycardia and with coughing Chest xray does not show any pneumonia or pleural effusion . Patient will have a walk study completed today and is encouraged to use a IS. Patient has poor color and she is coughing up a lot and starting to cough up phlegm. I will continue to keep breathing treatment and steroids for patient today WBC increased which may be due to steroid use We will continue to monitro Exam Narrative: GENERAL:Illl-appearing, well-nourished, and in acute distress. HEAD:Normocephalic, atraumatic. EYES: PERRLA and EOMI. ENT: Nares clear, no rhinorrhea or epistaxis. Mucous membranes moist. CHEST: Course with wheezing to auscultation. mild respiratory distress occasionally HEART: Tachycardic rate and rhythm. . Normal peripheral pulses. ABDOMEN: Soft, nontender, nondistended, normal active bowel sounds. EXTREMITIES: Normal range of motion. No edema. SKIN: Warm, dry, no rash. NEURO: No focal deficits. Alert and oriented x3. Objective Data Vital Signs Vital Signs: Vital Signs - 24 hr 08/15/22 15:16 08/15/22 15:30 08/15/22 16:00 Temperature 97.1 F L Pulse Rate 88 88 96 Respiratory Rate 18 18 18 Blood Pressure 136/82 Pulse Oximetry 90 94 93 Oxygen Delivery Nasal Cannula Oxygen Flow Rate 2 2 08/15/22 16:00 08/15/22 19:35 08/15/22 19:50 Temperature Pulse Rate 100 94 100 Respiratory Rate 18 18 Blood Pressure Pulse Oximetry 89 L 92 Oxygen Delivery Oxygen Flow Rate 2 08/15/22 20:00 08/15/22 20:00 08/15/22 20:00 Temperature Pulse Rate 134 H 100 Respiratory Rate 18 Blood Pressure Pulse Oximetry 94 96 Oxygen Delivery Nasal Cannula Nasal Cannula Oxygen Flow Rate 1 2 08/15/22 23:23 08/15/22 23:31 08/15/22 23:00 Temperature Pulse Rate 76 76 Respiratory Rate 18 18 Blood Pressure Pulse Oximetry 92 92 94 Oxygen Delivery Nasal Cannula Oxygen Flow Rate 1 08/16/22 00:00 08/16/22 00:00 08/16/22 04:00 Temperature 97.5 F L Pulse Rate 76 79 100 Respiratory Rate 18 Blood Pressure 133/76 Pulse Oximetry 92 Oxygen Delivery Room Air Oxygen Flow Rate 08/16/22 06:50 08/16/22 07:01 08/16/22 07:38 Temperature Pulse Rate 74 95 102 H Respiratory Rate 18 18 18 Blood Pressure Pulse Oximetry 89 L 97 95 Oxygen Delivery Oxygen Flow Rate 3 08/16/22 09:37 08/16/22 11:33 08/16/22 08:00 Temperature 97 F L Pulse Rate 108 H 76 108 H Respiratory Rate 18 19 Blood Pressure 148/94 H Pulse Oximetry 92 91 Oxygen Delivery Nasal Cannula Oxygen Flow Rate 2 2
[2022-08-16] MEDS: AZITHROMYCIN 500 MG/NS 250 ML 500 MG/250 ML BAG 250 MG IVPB (18:24)
[2022-08-16] MEDS: LEVALBUTEROL NEB 1.25 MG/3 ML INHALATION ×2 (18:27→23:18)
[2022-08-16] MEDS: ARIPiprazole 5 MG TABLET PO (20:44)
--- NOTE | 2022-08-16 22:40 | PC.NURSE ---
Pt assisted to BR c SBA and use of a walker to steady herself to use BR, Pt tolerated walking well, urinated, and then back to chair. Pt then given sponge bath c warm soapy bath towels and clean sheets and clean gown placed on pt. Pt stated thank you so much for helping clean me and reports feeling so much better p having clean sheets and a bath. Pt back to bed per self, O2 in place at 1L and call bautista at pt side.
[2022-08-17] VITALS (19 sets, daily range): BP systolic 127–145; BP diastolic 56–93; PULSE 71–110; RESP 18–20; TEMP 36.2–36.6; O2SAT 89–99
[2022-08-17] MEDS: methylPREDNISolone SOD SUCC 40 MG VIAL IV PUSH ×3 (04:53→20:45)
[2022-08-17 05:17] LABS: Hematocrit 45.5 % (35.0-49.0); Hemoglobin 13.4 g/dL (12.0-15.0); Mean Corpuscular HGB Conc 29.5 g/dL (32.0-36.0); Mean Corpuscular Hemoglobin 25.1 pg (27.0-31.0); Mean Corpuscular Volume 85.4 fL (78.0-102.0); Mean Platelet Volume 9.9 fl (9.2-11.8); Platelet Count Result 323 K/mm3 (150-420); Red Blood Count 5.33 M/mm3 (4.20-5.40); Red Cell Distribution Width 13.3 % (11.6-14.4)
[2022-08-17] MEDS: LEVALBUTEROL NEB 1.25 MG/3 ML INHALATION ×4 (05:24→23:32)
[2022-08-17 05:27] LABS: Anion Gap 4 mmol/L (8-16); Blood Urea Nitrogen 18 mg/dL (7-18); Calcium 9.1 mg/dL (8.5-10.1); Carbon Dioxide 37 mmol/L (21-32); Chloride 96 mmol/L (98-108); Estimated CRCL calculation 77 ml/min; Estimated Glomerular Filt Rate > 60; Glucose 140 mg/dL (70-99); Osmolality Calculated 287 mOsm/kg (285-295); Potassium 4.3 mmol/L (3.5-5.1); Sodium 137 mmol/L (136-145)
[2022-08-17] MEDS: LEVOTHYROXINE SODIUM 75 MCG TABLET PO (06:28)
[2022-08-17] MEDS: POTASSIUM CHLORIDE 20 MEQ TABLET PO (08:28)
[2022-08-17] MEDS: PANTOPRAZOLE SODIUM IV 40 MG VIAL IV PUSH (08:28)
[2022-08-17] MEDS: polyethylene glycoL 3350 17 GM POWD.PACK PO (08:28)
[2022-08-17] MEDS: FUROSEMIDE INJ 20 MG/2 ML VIAL IV PUSH (08:28)
[2022-08-17] MEDS: SIMVASTATIN 10 MG TABLET 40 MG PO (08:29)
[2022-08-17] MEDS: FERROUS SULFATE 324 MG TABLET BY MOUTH (08:29)
[2022-08-17] MEDS: PROPRANOLOL HCL 10 MG TABLET PO (08:30)
[2022-08-17] MEDS: PARoxetine 20 MG TABLET 60 MG PO (08:30)
[2022-08-17] MEDS: hydroCHLOROthiazide 25 MG TABLET BY MOUTH (08:30)
[2022-08-17] MEDS: ASPIRIN 81 MG ENTERIC TABLET PO (08:30)
[2022-08-17] MEDS: CLOPIDOGREL BISULFATE 75 MG TABLET PO (08:30)
[2022-08-17] MEDS: ACETAMINOPHEN 325 MG TABLET 650 MG PO (08:31)
--- NOTE | 2022-08-17 11:00 | PM.IMPN ---
Progress Note: A&P Assessment and Plan (1) Acute exacerbation of chronic obstructive pulmonary disease: Code(s): J44.1 - Chronic obstructive pulmonary disease with (acute) exacerbation Status: Acute Assessment and Plan: breathing treatment duo nebs changed to xopenex IV steroids IV antibiotics Oxygen check labs Elevated wBC 21 may be due to steroid CXR no pneumonia (2) Acute bronchitis with chronic obstructive pulmonary disease (COPD): Code(s): J44.0 - Chronic obstructive pulmonary disease with (acute) lower respiratory infection; J20.9 - Acute bronchitis, unspecified Status: Acute Assessment and Plan: breathing treatment duo nebs changed to xopenex IV steroids IV antibiotics Oxygen check labs (3) Hypoxia: Code(s): R09.02 - Hypoxemia Status: Acute Assessment and Plan: breathing treatment duo nebs changed to xopenex IV steroids IV antibiotics Oxygen check labs (4) Generalized weakness: Code(s): R53.1 - Weakness Status: Acute Assessment and Plan: Up to recliner chair for meals (5) Hypokalemia: Code(s): E87.6 - Hypokalemia Status: Acute Assessment and Plan: oral Potassium ordered monitor labs Subjective Date/time seen: 08/17/22 11:00 Interval history: Patient is looking a lot better but lungs are still very course and wheezing with oxygen required. Patient is anxious to go home but I am afraid she will be right back in the emergecy room we will keep patient to continue to monitor . Plan is to continue breathing treatment and to make sure that patient is stable for discharge. Patient may possible be ready tomorrow heart rate is not as tachy when she get up out of the bed yesterday I switched patient from duo nebs to Xopenex. Exam Narrative: GENERAL:Illl-appearing, well-nourished, and in acute distress. HEAD:Normocephalic, atraumatic. EYES: PERRLA and EOMI. ENT: Nares clear, no rhinorrhea or epistaxis. Mucous membranes moist. CHEST: Course with wheezing to auscultation. mild respiratory distress occasionally HEART: Tachycardic rate and rhythm. . Normal peripheral pulses. ABDOMEN: Soft, nontender, nondistended, normal active bowel sounds. EXTREMITIES: Normal range of motion. No edema. SKIN: Warm, dry, no rash. NEURO: No focal deficits. Alert and oriented x3. Objective Data Vital Signs Vital Signs: Vital Signs - 24 hr 08/16/22 11:33 08/16/22 12:00 08/16/22 16:00 Temperature Pulse Rate 76 94 87 Respiratory Rate 18 Blood Pressure Pulse Oximetry 92 Oxygen Delivery Oxygen Flow Rate 2 08/16/22 16:00 08/16/22 18:28 08/16/22 18:33 Temperature 97.3 F L Pulse Rate 92 76 75 Respiratory Rate 18 20 20 Blood Pressure 119/71 Pulse Oximetry 91 96 96 Oxygen Delivery Nasal Cannula Oxygen Flow Rate 1 1 08/16/22 19:24 08/16/22 19:27 08/16/22 23:05 Temperature Pulse Rate 84 94 72 Respiratory Rate 20 Blood Pressure Pulse Oximetry 92 Oxygen Delivery Nasal Cannula Oxygen Flow Rate 1 08/16/22 23:19 08/16/22 23:27 08/17/22 00:00 Temperature 97.1 F L Pulse Rate 86 86 83 Respiratory Rate 20 20 20 Blood Pressure 127/79 Pulse Oximetry 94 94 92 Oxygen Delivery Nasal Cannula Oxygen Flow Rate 1 1 1 08/17/22 04:00 08/17/22 05:24 08/17/22 05:30 Temperature Pulse Rate 71 86 85 Respiratory Rate 20 20 Blood Pressure Pulse Oximetry 95 95 Oxygen Delivery Oxygen Flow Rate 1 1 08/17/22 08:00 08/17/22 08:00 08/17/22 08:30 Temperature 98 F Pulse Rate 82 88 84 Respiratory Rate 18 Blood Pressure 140/90 Pulse Oximetry 90 Oxygen Delivery Nasal Cannula Oxygen Flow Rate 1 08/17/22 10:36 Temperature 97.8 F Pulse Rate 78 Respiratory Rate 20 Blood Pressure 134/56 L Pulse Oximetry 93 Oxygen Delivery Nasal Cannula Oxygen Flow Rate 1 Intake/Output Intake/Output: Intake & Output 08/14/22 08/15/22 08/16/22
--- NOTE | 2022-08-17 16:23 | PC.NURSE ---
Pt is A&O x3 and walking well in room c her walker per self and has no difficulty. She wanted a shower and pt set up c assist to shower. She had no difficulty showering and bathing self. Pt back to chair s assist and call bautista in reach.
[2022-08-17] MEDS: AZITHROMYCIN 500 MG/NS 250 ML 500 MG/250 ML BAG 250 MG IVPB (18:58)
[2022-08-17] MEDS: ARIPiprazole 5 MG TABLET PO (20:45)
[2022-08-18] VITALS (16 sets, daily range): BP systolic 138–168; BP diastolic 90–94; PULSE 65–97; RESP 16–20; TEMP 36.2–36.6; O2SAT 90–96
[2022-08-18] MEDS: LEVALBUTEROL NEB 1.25 MG/3 ML INHALATION ×4 (04:53→23:22)
[2022-08-18 05:44] LABS: Basophils Absolute Auto 0.01 K/mm3 (0.00-0.10); Basophils Percent Auto 0.1 % (0.0-1.0); Hematocrit 43.1 % (35.0-49.0); Hemoglobin 13.4 g/dL (12.0-15.0); Immature Granulocyte Absolute 0.08 K/mm3 (0.00-0.00); Immature Granulocyte Percent A 0.9 % (0.0-0.0); Lymphocytes Percent Auto 12.7 % (18.0-42.0); Mean Corpuscular HGB Conc 31.1 g/dL (32.0-36.0); Mean Corpuscular Volume 83.7 fL (78.0-102.0); Mean Platelet Volume 9.8 fl (9.2-11.8); Monocytes Absolute Auto 0.42 K/mm3 (0.10-0.90); Monocytes Percent Auto 4.9 % (2.0-11.0); Neutrophils Percent Auto 81.4 % (50.0-70.0); Platelet Count Result 294 K/mm3 (150-420); Red Blood Count 5.15 M/mm3 (4.20-5.40); Red Cell Distribution Width 13.2 % (11.6-14.4); White Blood Count 8.6 K/mm3 (4.8-10.8)
[2022-08-18 06:05] LABS: Alanine Aminotransferase 19 U/L (14-59); Albumin Level 2.8 g/dL (3.4-5.0); Alkaline Phosphatase 101 U/L (46-116); Anion Gap 2 mmol/L (8-16); Aspartate Amino Transferase 13 U/L (15-37); Bilirubin,Total 0.3 mg/dL (0.00-1.00); Blood Urea Nitrogen 17 mg/dL (7-18); Calcium 8.9 mg/dL (8.5-10.1); Carbon Dioxide 36 mmol/L (21-32); Chloride 96 mmol/L (98-108); Estimated CRCL calculation 81 ml/min; Estimated Glomerular Filt Rate > 60; Glucose 152 mg/dL (70-99); Magnesium 1.8 mg/dL (1.8-2.4); Osmolality Calculated 282 mOsm/kg (285-295); Potassium 4.2 mmol/L (3.5-5.1); Sodium 134 mmol/L (136-145); Total Protein 6.6 g/dL (6.4-8.2)
[2022-08-18] MEDS: LEVOTHYROXINE SODIUM 75 MCG TABLET PO (06:28)
[2022-08-18] MEDS: SIMVASTATIN 10 MG TABLET 40 MG PO (08:13)
[2022-08-18] MEDS: polyethylene glycoL 3350 17 GM POWD.PACK PO (08:13)
[2022-08-18] MEDS: PARoxetine 20 MG TABLET 60 MG PO (08:13)
[2022-08-18] MEDS: hydroCHLOROthiazide 25 MG TABLET BY MOUTH (08:15)
[2022-08-18] MEDS: ASPIRIN 81 MG ENTERIC TABLET PO (08:15)
[2022-08-18] MEDS: PROPRANOLOL HCL 10 MG TABLET PO (08:15)
[2022-08-18] MEDS: CLOPIDOGREL BISULFATE 75 MG TABLET PO (08:16)
[2022-08-18] MEDS: POTASSIUM CHLORIDE 20 MEQ TABLET PO (08:17)
[2022-08-18] MEDS: predniSONE 40 MG, predniSONE 10 MG 50 MG PO (08:17)
[2022-08-18] MEDS: FERROUS SULFATE 324 MG TABLET BY MOUTH (08:20)
--- NOTE | 2022-08-18 09:12 | PM.IMPN ---
Progress Note: A&P Assessment and Plan (1) Acute exacerbation of chronic obstructive pulmonary disease: Code(s): J44.1 - Chronic obstructive pulmonary disease with (acute) exacerbation Status: Acute Assessment and Plan: CXR was independently reviewed by myself and no infectious process is noted. Continue with Xopenex scheduled Q6 hrs Steroids switched to oral yesterday. Continue today and plan to discharge home with a taper dose most likely tomorrow. IV abx of Azithromycin switched today to po 500 mg. Today is day #4 of abx therapy. Pt. maintaining saturations on room air with sats of 90-91%. Continue to monitor sats and provide prn oxygen. Will need 6 minute walk test tomorrow to determine if she needs home oxygen. Continue to monitor daily labs. WBC has returned to normal today at 8.6. (2) Acute bronchitis with chronic obstructive pulmonary disease (COPD): Code(s): J44.0 - Chronic obstructive pulmonary disease with (acute) lower respiratory infection; J20.9 - Acute bronchitis, unspecified Status: Chronic Assessment and Plan: See Plan for problem #1 (3) Hypoxia: Code(s): R09.02 - Hypoxemia Status: Resolved Assessment and Plan: Resolved using plan for #1. (4) Generalized weakness: Code(s): R53.1 - Weakness Status: Acute Assessment and Plan: Pt. has been independently ambulatory with a walker to ambulate and does so with a steady gait. Suspect weakness was from hypoxic state. (5) Hypokalemia: Code(s): E87.6 - Hypokalemia Status: Resolved Assessment and Plan: Resolved with Potassium of 4.2 this AM. Will recheck in AM prior to discharge. (6) Nicotine abuse: Code(s): Z72.0 - Tobacco use Status: Acute Assessment and Plan: 50 year pack smoker of cigarettes. Pt. has been without nicotine now for four days. She has refused the patch but is determined to stop smoking upon return home. Education regarding smoking cessation, the damage to the body caused by exposure to cigarette smoke and the physiology of COPD was explained to the patient and she was counseled and encouraged to cease. Time Spent With Patient Time with patient: 15 - 25 minutes Subjective Date/time seen: 08/18/22 09:12 Interval history: This pleasant 62-year-old female patient was examined at the bedside today in interval assessment after being admitted to the hospital for COPD exacerbation, acute bronchitis, hypoxia, generalized weakness, and hypokalemia. patient was reclining supplemental oxygenation this she does not normally require home upon admission and has been weaned from that over the course of the past couple of days. She reports that she is breathing easy year and does not feel as dyspneic as she normally does. Patient has oxygen saturations that are maintaining in the low 90s, 90-91% on room air, however she is winded when she gets up and ambulates. Patient states she slept poorly last evening and agrees that she is not ready to go home today. Patient's steroids were switched to oral dosing yesterday and we are switching the remainder of her IV medications to oral today. She will stay until tomorrow and be evaluated with a 6 minutes for home oxygen need. At this time she denies any chest pain, dyspnea, nausea, vomiting, diarrhea headache, dizziness or lightheadedness. Review of Systems Review of Systems: A 12 point review of systems was performed and is otherwise negative except as noted in HPI All systems reviewed & are unremarkable except as noted in HPI and below Exam Const: General: comfortable and no acute distress HENMT: Face/Nose/Sinus: Normal nares present Mouth: Yes moist mucous membranes Eyes: General: appearance normal, both eyes and all related structures Sclera: sclerae normal Pupils: Equal, round and reactive pupils present EOM: EOMs intact bilaterally Neck: Neck: supple and no JVD Resp: Eff
[2022-08-18] MEDS: FUROSEMIDE 20 MG TABLET PO (09:55)
[2022-08-18] MEDS: PANTOPRAZOLE 40 MG TABLET PO (09:55)
--- NOTE | 2022-08-18 11:51 | PC.NURSE ---
pt is up in chair, pt is aware and agreeable to staying for the 6 minute walk and that her meds have all been changed to po, visitor in room, call light in reach
[2022-08-18] MEDS: AZITHROMYCIN 250 MG TABLET 500 MG PO (17:27)
--- NOTE | 2022-08-18 18:20 | PC.NURSE ---
resp here and six minute walk done at this time.
--- NOTE | 2022-08-18 19:16 | SIXMINWLK ---
Beginning of study while pt standing 1811-HR 97, Sat 96% First minute of walking 1812- HR 115, Sat 93% 2nd minute of walking 1813- HR 113, Sat 92% 3rd minute of walking 1814-HR 117, Sat 94% 4th minute of walking 1815-HR 128, Sat 93% 5th minute of walking 1816-HR 133, Sat 95% 6th minute of walking 1817-HR 126, Sat 92% Pt talked the entire time while walking. There was a bit of dyspnea observed, but it appeared more due to lack of physical activity on a daily basis than dyspnea due to low oxygen.
[2022-08-18] MEDS: ARIPiprazole 5 MG TABLET PO (20:01)
[2022-08-19] VITALS (7 sets, daily range): BP systolic 138–157; BP diastolic 82–95; PULSE 61–92; RESP 16–20; TEMP 36–36.1; O2SAT 92–96
--- NOTE | 2022-08-19 05:01 | PC.NURSE ---
On 08/19/22, the TRAVEL REGISTERED NURSE PACU, Twyla Dillon, provided care and completed [facility] documentation on this patient. I have reviewed the TRAVEL REGISTERED NURSE PACU's documentation and agree with the findings.
[2022-08-19 05:12] LABS: Basophils Absolute Auto 0.04 K/mm3 (0.00-0.10); Basophils Percent Auto 0.4 % (0.0-1.0); Eosinophils Absolute Auto 0.02 K/mm3 (0.02-0.50); Eosinophils Percent Auto 0.2 % (1.0-6.0); Hematocrit 47.6 % (35.0-49.0); Hemoglobin 14.7 g/dL (12.0-15.0); Immature Granulocyte Absolute 0.14 K/mm3 (0.00-0.00); Immature Granulocyte Percent A 1.4 % (0.0-0.0); Lymphocytes Absolute Auto 3.73 K/mm3 (1.10-4.50); Lymphocytes Percent Auto 36.2 % (18.0-42.0); Mean Corpuscular HGB Conc 30.9 g/dL (32.0-36.0); Mean Corpuscular Hemoglobin 25.9 pg (27.0-31.0); Mean Platelet Volume 9.8 fl (9.2-11.8); Monocytes Absolute Auto 0.91 K/mm3 (0.10-0.90); Monocytes Percent Auto 8.8 % (2.0-11.0); Neutrophils Absolute Auto 5.5 K/mm3 (1.7-7.2); Platelet Count Result 323 K/mm3 (150-420); Red Blood Count 5.67 M/mm3 (4.20-5.40); Red Cell Distribution Width 13.3 % (11.6-14.4); White Blood Count 10.3 K/mm3 (4.8-10.8)
[2022-08-19] MEDS: LEVALBUTEROL NEB 1.25 MG/3 ML INHALATION (05:21)
[2022-08-19 05:22] LABS: Alanine Aminotransferase 23 U/L (14-59); Alkaline Phosphatase 107 U/L (46-116); Anion Gap 5 mmol/L (8-16); Aspartate Amino Transferase 13 U/L (15-37); Bilirubin,Total 0.3 mg/dL (0.00-1.00); Blood Urea Nitrogen 17 mg/dL (7-18); Calcium 8.9 mg/dL (8.5-10.1); Carbon Dioxide 37 mmol/L (21-32); Chloride 96 mmol/L (98-108); Estimated CRCL calculation 75 ml/min; Estimated Glomerular Filt Rate > 60; Glucose 120 mg/dL (70-99); Osmolality Calculated 288 mOsm/kg (285-295); Potassium 3.4 mmol/L (3.5-5.1); Sodium 138 mmol/L (136-145); Total Protein 6.8 g/dL (6.4-8.2)
[2022-08-19] MEDS: LEVOTHYROXINE SODIUM 75 MCG TABLET PO (06:29)
--- NOTE | 2022-08-19 07:13 | HOMEO2EVAL ---
Addendum entered by Kelly Costa, OUTDOOR ILLUMINATING ENGINEER 08/19/22 07:13: Home 02 evaluation performed by Alpa Acosta Original Note: Evaluation was performed at [facility] Home Oxygen Evaluation RC: Home Oxygen (O2) Evaluation Start: 08/16/22 11:09 Freq: ONCE Status: Active Protocol: RPE Activity Type Activity Date Activity User E-sign Co-sign Detail Recorded Client Recorded Date Recorded By Document 08/18/22 18:26 RAFAEL [id number] 08/18/22 18:37 RAFAEL 08/18/22 18:26 Home O2 Evaluation [Oxygen] -Test Phase Exercise -Oxygen Delivery Room Air [Pulse Oximetry] -Pulse Oximetry (90-100 %) 96 [Pulse Rate] -Pulse Rate (60-100 beats/min) 97 [Evaluation] -Activity Tolerance Excellent -Rating of Perceived Dyspnea (PD) +2 Mild, Some Difficulty, Noticeable to the Observer -Rate of Perceived Exertion (PE) 7 Query Text:Click the Protocol Button to View the RPE Scale [Exercise] -Ambulation Distance (feet) 2,296 -Ambulation Distance (meters) 699.78 [Comments] -Home Oxygen Evaluation Comments Beginning of study while pt standing 1811- HR 97, Sat 96% First minute of walking- HR 115, Sat 93% 2nd minute of walking- HR 113 , Sat 92% 3rd minute of walking-HR 117, Sat 94% 4th minute of walking-HR 128, Sat 93% 5th minute of walking-HR 133, Sat 95% 6th minute of walking-HR 126, Sat 92% Pt talked the entire time while walking. There was a bit of dyspnea observed, but it appeared more due to lack of physical activity on a daily basis than dyspnea due to low oxygen. [Charges] -Treatment Charges O2 Evaluation - Inpatient
[2022-08-19] MEDS: polyethylene glycoL 3350 17 GM POWD.PACK PO (08:57)
[2022-08-19] MEDS: PROPRANOLOL HCL 10 MG TABLET PO (08:57)
[2022-08-19] MEDS: PANTOPRAZOLE 40 MG TABLET PO (08:57)
[2022-08-19] MEDS: FERROUS SULFATE 324 MG TABLET BY MOUTH (08:57)
[2022-08-19] MEDS: predniSONE 40 MG, predniSONE 10 MG 50 MG PO (08:58)
[2022-08-19] MEDS: PARoxetine 20 MG TABLET 60 MG PO (08:58)
[2022-08-19] MEDS: CLOPIDOGREL BISULFATE 75 MG TABLET PO (08:59)
[2022-08-19] MEDS: ASPIRIN 81 MG ENTERIC TABLET PO (08:59)
[2022-08-19] MEDS: SIMVASTATIN 10 MG TABLET 40 MG PO (08:59)
[2022-08-19] MEDS: hydroCHLOROthiazide 25 MG TABLET BY MOUTH (09:00)
[2022-08-19] MEDS: FUROSEMIDE 20 MG TABLET PO (09:00)
[2022-08-19] MEDS: POTASSIUM CHLORIDE 20 MEQ TABLET PO (09:00)
[2022-08-19 10:00] LABS: Base Excess ABG 2.9 mEq/l (+/-2.0); HCO3 ABG 30.3 mEq/l (22.0-26.0); Oxygen Saturation ABG 94.5 % (95.0-100.0)
[2022-08-19] MEDS: POTASSIUM CHLORIDE 20 MEQ ER TABLET PO (10:36)
--- NOTE | 2022-08-19 11:16 | PM.DS ---
DS: Admitting Diagnosis Discharge Date 08/19/2022 Admitting Diagnosis Shortness of breath DS: Discharge Diagnosis Discharge Diagnosis Plan COPD exacerbation CHF exacerbation DS: Summary Hospital Course Reason for hospitalization: SOB Hospital Course: Ms. Ricks is a 62-year-old female who presented emergency room with complaints of increasing shortness of breath and fluid retention. Patient had recently been seen by her cnc machine programmer for edema and had been given 4 days of oral Lasix and 2 days of oral potassium. Patient states she got the medications filled, but was unable to start them because by the time her got them back home she was too short of breath and needed to be taken to the hospital. Patient states that she had significant edema to bilateral feet and legs up to her knees. Patient states she has a known history of coronary artery disease status post stent placement and congestive heart failure. Patient states she also has a known history of COPD. Patient states she had been having increasing shortness of breath but denied any cough with sputum production. Initially patient was placed on IV steroids, as well as nebulizer treatments, and azithromycin as well as Rocephin. Patient was placed on oral Lasix and potassium that she was supposed to be taking at home and had significant improvement in her edema. Throughout the hospitalization patient states that her shortness of breath significantly improved and at this point time she feels at baseline and is ready for discharge home. Did discuss in depth with patient that she will be placed on daily Lasix as well as potassium and she needs to call her cnc machine programmer for a follow-up since initially the Lasix and potassium more only supposed to be short-term. Patient was also given a prescription for a nebulizer as well as DuoNeb treatments that can be utilized every 6 hours as needed for shortness of breath or wheezing. Patient did undergo a 6 minute walk test to be evaluated for home oxygen and it was noted that patient did not need home oxygen at this time. At this point time patient is ready for discharge she will follow-up with her primary care provider within the next month and her cnc machine programmer as soon as possible. Patient is discharged in stable and improved condition. Status at Discharge Overall status at discharge: patient is back to baseline Time Spent with Patient Time attestation: Total time spent providing and/or coordinating discharge services: 45 minutes Exam Narrative: Constitutional: Patient is well-nourished in no acute distress. Patient is alert and oriented x3 HEENT: Moist mucous membranes. No scleral icterus. No lymphadenopathy. Neck: No carotid bruits noted no JVD noted Lungs: Lung sounds are decreased to auscultation bilaterally. No accessory muscle use. No rhonchi, rales, or wheezes noted. Cardiovascular: Apical pulse is regular rate and rhythm. S1-S2 noted, no S3 or S4 noted. No gallops, murmurs, or rubs noted. Abdomen: Soft, round, and nontender. No palpable masses. Extremities: No edema noted to bilateral lower extremities and patient agrees that her lower extremities no longer show any edema. Nontender. Skin: No rashes or lesions. Warm and dry. Skin is intact. Neurological: No focal neurological deficits. Cranial nerves II-XII grossly intact. Psychiatric: Cooperative, appropriate mood, and affect DS: Data Data Completed and Pending Completed studies during hospitalization: patient had laboratories and chest x-rays performed during hospitalization. Pending studies at discharge: None Labs on day of discharge: Labs from last 24 hours 08/19/22 08/15/22 04:55 11:05 WBC 10.3 RBC 5.67 H Hgb 14.7 Hct 47.6 MCV 84.0 MCH 25.9 L MCHC 30.9 L RDW 13.3 Plt Count 323 MPV 9.8 Immature Gran % (Auto) 1.4 H Neut % (Auto) 53.0 Lymph % (Auto) 36.2 [place] % (Auto) 8.8 Eos % (Auto) 0.2 L
--- NOTE | 2022-08-19 12:41 | PC.NURSE ---
Pt discharged to home with vss, steady gait, SOB resolved. Medication instructions given to pt. Pt taken to family car via WC by RN.
--- NOTE | 2022-08-20 10:13 | PC.NURSE ---
Pt states she received and understood her discharge instructions. Pt also states they took very good care of me, I was very happy with my stay there .
== END 2022-08-19 11:40 | disposition home or self-care (01) | DRG 140 ==
LOC: CHSED 20:05 → CHS2ND 20:51
PROVIDERS: Nurse Practitioner Adult Health; Nurse Practitioner Family; Admitting Provider Internal Medicine; Emergency Provider Emergency Medicine; PCP Family Medicine; Visit Provider Internal Medicine
DX: J44.1 Chronic obstructive pulmonary disease with (acute) exacerbation (principal); I50.9 Heart failure, unspecified; E87.6 Hypokalemia; J20.9 Acute bronchitis, unspecified; J44.0 Chronic obstructive pulmonary disease with (acute) lower respiratory infection; R09.02 Hypoxemia; M17.12 Unilateral primary osteoarthritis, left knee; M81.0 Age-related osteoporosis without current pathological fracture; G47.30 Sleep apnea, unspecified; F17.210 Nicotine dependence, cigarettes, uncomplicated; F41.9 Anxiety disorder, unspecified; F32.A Depression, unspecified; Z79.02 Long term (current) use of antithrombotics/antiplatelets; Z79.82 Long term (current) use of aspirin
CPT/HCPCS: 36415; 36600; 71045; 71046; 80048; 80053; 82805; 83605; 83735; 83880; 84484; 85025; 85027; 85380; 85652; 86140; 87040; 87637; 87651; 93005; 94618; 94640; 96361; 96365; 96367; 96374; 96375; 96376; 99285; A9270; C9113; G0378; G0379; J0456; J0696; J1940; J2405; J2920; J2930; J3475; J7030; J7512

== ENCOUNTER 2022-09-06 07:13 | Outpatient (CLI) | payer OTHER, SELFPAY ==
[2022-09-06 08:51] LABS: Alanine Aminotransferase 21 U/L (14-59); Albumin Level 3.1 g/dL (3.4-5.0); Alkaline Phosphatase 141 U/L (46-116); Anion Gap 7 mmol/L (8-16); Aspartate Amino Transferase 17 U/L (15-37); Bilirubin,Total 0.4 mg/dL (0.00-1.00); Blood Urea Nitrogen 9 mg/dL (7-18); Calcium 9.1 mg/dL (8.5-10.1); Carbon Dioxide 35 mmol/L (21-32); Chloride 91 mmol/L (98-108); Cholesterol 241 mg/dL (0-200); Estimated Glomerular Filt Rate > 60; Glucose 107 mg/dL (70-99); HDL Direct 78 mg/dL (40-60); LDL Cholesterol Calculated 142 mg/dL (<130); NT Pro B Type Natriuretic Pept 108 pg/mL (0-125); Osmolality Calculated 274 mOsm/kg (285-295); Potassium 3.9 mmol/L (3.5-5.1); Sodium 133 mmol/L (136-145); Total Protein 6.6 g/dL (6.4-8.2); Triglycerides 103 mg/dL (0-150)
== END 2022-09-06 07:14 | disposition home or self-care (01) ==
LOC: CHSLAB 07:18
PROVIDERS: PCP Family Medicine
DX: E78.2 Mixed hyperlipidemia (principal); I50.33 Acute on chronic diastolic (congestive) heart failure; Z79.899 Other long term (current) drug therapy
CPT/HCPCS: 36415; 80053; 80061; 83880

== ENCOUNTER 2022-09-19 18:05 | Emergency (ER) | payer OTHER, SELFPAY ==
--- NOTE | ~2022-09-19 | XR_ITS ---
EXAMINATION: XR abdomen obstructive series DATE: 09/19/2022 18:55 INDICATION: Constipation. TECHNIQUE: Upright and supine views of the abdomen on 3 radiographs were obtained. COMPARISON: CT abdomen and pelvis 02/18/2020 FINDINGS: There are no dilated loops of bowel. There is a small volume of stool in the colon. No free intraperitoneal gas. IMPRESSION: 1. Normal bowel gas pattern. Reviewed, dictated and finalized at location E.
[2022-09-19 18:19] VITALS: BP 165/108; PULSE 68; RESP 20; TEMP 36.7; O2SAT 98
[2022-09-19] MEDS: ONDANSETRON HCL ODT 4 MG TABLET PO (18:40)
--- NOTE | 2022-09-19 19:01 | ED.NAVMDI ---
HPI - Nausea/Vomiting/Diarrhea General Chief complaint: Nausea/Vomiting/Diarrhea Stated complaint: constipated, vomitting Time Seen by Provider: 09/19/22 18:07 Source: patient Mode of arrival: ambulatory Limitations: no limitations History of Present Illness HPI Narrative: This is a 62-year-old female that has had constipation for the last 5 days and today has developed some nausea and vomiting, the patient has history of chronic pain and is currently on narcotics for pain control. Otherwise there is no abdominal pain no flank pain no dysuria no fever chills no chest pain or shortness of breath. MD elicited complaint: nausea Onset (ago): day(s) Related Data Home Medications Medication Instructions Recorded Confirmed clopidogrel 75 mg tablet 75 mg PO DAILY 03/18/22 09/19/22 hydrocodone 10 mg-acetaminophen 1 tablet PO TID 03/18/22 09/19/22 325 mg tablet pantoprazole 40 mg tablet,delayed 40 mg PO DAILY 03/18/22 09/19/22 release albuterol sulfate 90 mcg/actuation 2 inh inhalation PRN PRN Dyspnea 08/14/22 09/19/22 aerosol inhaler aripiprazole 5 mg tablet 5 mg PO HS 08/14/22 09/19/22 aspirin 81 mg tablet,delayed 81 mg PO DAILY 08/14/22 09/19/22 release ergocalciferol (vitamin D2) 1,250 1,250 mcg PO 2XW 08/14/22 09/19/22 mcg (50,000 unit) capsule (Vitamin D2) ferrous sulfate 325 mg (65 mg 325 mg DAILY 08/14/22 09/19/22 iron) tablet (FeroSul) hydrochlorothiazide 25 mg tablet 25 mg DAILY 08/14/22 09/19/22 levothyroxine 75 mcg tablet 75 mcg PO DAILY 08/14/22 09/19/22 meloxicam 15 mg tablet 15 mg PO DAILY 08/14/22 09/19/22 promethazine 25 mg tablet 25 mg PO Q4H PRN NAUSEA/VOMITING 08/14/22 09/19/22 propranolol 10 mg tablet 10 mg PO DAILY 08/14/22 09/19/22 simvastatin 40 mg tablet 40 mg PO DAILY 08/14/22 09/19/22 paroxetine HCl 40 mg tablet 60 mg PO DAILY 08/15/22 09/19/22 diazepam 10 mg tablet 10 mg PO BID 09/19/22 09/19/22 Allergies Allergy/AdvReac Type Severity Reaction Status Date / Time codeine Allergy Severe Anaphylaxis Verified 09/19/22 18:24 Penicillins Allergy Severe Anaphylaxis Verified 09/19/22 18:24 morphine Allergy Unknown Unknown Verified 09/19/22 18:24 Review of Systems Review of Systems: All systems reviewed & are unremarkable except as noted in HPI and below PMFSH Past Medical History Medical History Anxiety Chronic obstructive pulmonary disease (COPD) Constipation Depression Emphysema (subcutaneous) (surgical) resulting from a procedure Headache Hypokalemia Osteoporosis Shortness of breath Sleep apnea Sleep disorder Tricompartment osteoarthritis of left knee Weight gain Family History Family History Other Hypertension Social History Social History Smoking packs per day: 1 Smoking cigarettes per day: 20.0 Years smoked: 20 Smoking pack-years: 20.00 Smoking status: Current every day smoker Alcohol intake: never Substance use: unknown Lack of Transportation: No Lack of Food: Never True Current Housing: I Have Housing Concerned About Future Housing: No Difficulty Paying Gas/Electric Bills: No Difficulty Paying for Meds: No Currently Unemployed: No Education: High School Diploma/GED Difficulty w/ Childcare or Family Care: No Spiritual care concerns: No Exam Const: General: healthy appearing Nutritional Appearance: well nourished Orientation/consciousness: patient oriented x3 Limitations: no limitations Neck: Neck: normal visual inspection Chest: Chest palpation & inspection: normal inspection of the chest Resp: Effort & Inspection: normal respiratory effort Cardio: Rate: regular rate Rhythm: regular rhythm GI: GI Palp: Yes Soft to palpation Auscultation: normal bowel sounds Urinary Catheter: Urinary Catheter: patent and draining Back/Spine/Pelvis: Back: no
[2022-09-19 19:27] VITALS: BP 162/62; PULSE 72; RESP 16; O2SAT 97
== END 2022-09-19 19:29 | disposition home or self-care (01) ==
PROVIDERS: Emergency Provider Emergency Medicine; PCP Family Medicine
DX: K59.03 Drug induced constipation (principal); R11.2 Nausea with vomiting, unspecified; J43.9 Emphysema, unspecified; F17.210 Nicotine dependence, cigarettes, uncomplicated; Z79.891 Long term (current) use of opiate analgesic; Z79.82 Long term (current) use of aspirin; Z79.1 Long term (current) use of non-steroidal anti-inflammatories (NSAID)
CPT/HCPCS: 74019; 99283; A9270

== ENCOUNTER 2022-09-23 14:39 | Emergency (ER) | payer OTHER, SELFPAY ==
[2022-09-23 14:53] VITALS: BP 152/93; PULSE 74; RESP 20; TEMP 36.3; O2SAT 96
--- NOTE | 2022-09-23 14:55 | ED.GENADULT ---
HPI - General Adult General Chief complaint: Shortness of Breath/Dyspnea Stated complaint: Fatigue Time Seen by Provider: 09/23/22 14:46 History of Present Illness HPI narrative: 62yo woman history of COPD, CHF, presenst with increased sleepiness and wheezing, which improves with her home nebulized albuterol. No cough or fever or chest pain. No leg swelling or pain so she thinks probably not her CHF. ROS notable for intermittent dysphagia when eating beef and increased vocal hoarseness. Related Data Home Medications Medication Instructions Recorded Confirmed clopidogrel 75 mg tablet 75 mg PO DAILY 03/18/22 09/19/22 hydrocodone 10 mg-acetaminophen 1 tablet PO TID 03/18/22 09/19/22 325 mg tablet pantoprazole 40 mg tablet,delayed 40 mg PO DAILY 03/18/22 09/19/22 release albuterol sulfate 90 mcg/actuation 2 inh inhalation PRN PRN Dyspnea 08/14/22 09/19/22 aerosol inhaler aripiprazole 5 mg tablet 5 mg PO HS 08/14/22 09/19/22 aspirin 81 mg tablet,delayed 81 mg PO DAILY 08/14/22 09/19/22 release ergocalciferol (vitamin D2) 1,250 1,250 mcg PO 2XW 08/14/22 09/19/22 mcg (50,000 unit) capsule (Vitamin D2) ferrous sulfate 325 mg (65 mg 325 mg DAILY 08/14/22 09/19/22 iron) tablet (FeroSul) hydrochlorothiazide 25 mg tablet 25 mg DAILY 08/14/22 09/19/22 levothyroxine 75 mcg tablet 75 mcg PO DAILY 08/14/22 09/19/22 meloxicam 15 mg tablet 15 mg PO DAILY 08/14/22 09/19/22 promethazine 25 mg tablet 25 mg PO Q4H PRN NAUSEA/VOMITING 08/14/22 09/19/22 propranolol 10 mg tablet 10 mg PO DAILY 08/14/22 09/19/22 simvastatin 40 mg tablet 40 mg PO DAILY 08/14/22 09/19/22 paroxetine HCl 40 mg tablet 60 mg PO DAILY 08/15/22 09/19/22 diazepam 10 mg tablet 10 mg PO BID 09/19/22 09/19/22 Allergies Allergy/AdvReac Type Severity Reaction Status Date / Time codeine Allergy Severe Anaphylaxis Verified 09/19/22 18:24 Penicillins Allergy Severe Anaphylaxis Verified 09/19/22 18:24 morphine Allergy Unknown Unknown Verified 09/19/22 18:24 Review of Systems Constitutional: Constitutional: Denies fever(s) ENT: Reports dysphagia Cardiovascular: Cardiovascular: Denies chest pain Respiratory: Respiratory: Reports dyspnea and Reports wheezing Gastrointestinal: Gastrointestinal: Denies abdominal pain PMFSH Past Medical History Medical History Anxiety Chronic obstructive pulmonary disease (COPD) Constipation Depression Emphysema (subcutaneous) (surgical) resulting from a procedure Headache Hypokalemia Osteoporosis Shortness of breath Sleep apnea Sleep disorder Tricompartment osteoarthritis of left knee Weight gain Family History Family History Other Hypertension Social History Social History Smoking packs per day: 1 Smoking cigarettes per day: 20.0 Years smoked: 20 Smoking pack-years: 20.00 Smoking status: Current every day smoker Alcohol intake: never Substance use: unknown Lack of Transportation: No Lack of Food: Never True Current Housing: I Have Housing Concerned About Future Housing: No Difficulty Paying Gas/Electric Bills: No Difficulty Paying for Meds: No Currently Unemployed: No Education: High School Diploma/GED Difficulty w/ Childcare or Family Care: No Spiritual care concerns: No Exam Const: General: healthy appearing and no acute distress Nutritional Appearance: well nourished Eyes: Conjunctivae: conjunctivae normal Neck: Neck: no meningeal signs Resp: Effort & Inspection: normal respiratory effort and not labored Other: very slight expiratory wheezing left lung, excellent air movement Cardio: Rate: regular rate Rhythm: regular rhythm GI: Inspection: non-distended Skin: General skin exam: normal color, no jaundice and no pallor Neuro: General: patient oriented x3, moves all extr
[2022-09-23 15:10] VITALS: O2SAT 96
[2022-09-23 15:14] VITALS: BP 127/70; PULSE 74; RESP 22; TEMP 36.8; O2SAT 97
== END 2022-09-23 15:25 | disposition home or self-care (01) ==
PROVIDERS: Emergency Provider Emergency Medicine; PCP Family Medicine
DX: J44.1 Chronic obstructive pulmonary disease with (acute) exacerbation (principal); R13.10 Dysphagia, unspecified; I50.9 Heart failure, unspecified; F17.210 Nicotine dependence, cigarettes, uncomplicated; Z79.891 Long term (current) use of opiate analgesic; Z79.82 Long term (current) use of aspirin
CPT/HCPCS: 99283

== ENCOUNTER 2023-02-01 22:46 | Emergency (ER) | payer OTHER, SELFPAY ==
[2023-02-01] VITALS (11 sets, daily range): BP systolic 130–135; BP diastolic 91–94; PULSE 71–79; RESP 15–22; TEMP 36.2; O2SAT 72–97
--- NOTE | ~2023-02-01 | XR_ITS ---
EXAMINATION: XR chest 2V DATE: 02/01/2023 23:36 INDICATION: Shortness of breath TECHNIQUE: AP and lateral views of the chest are obtained. COMPARISON: 08/16/2022 FINDINGS: The lungs are free of acute opacities. No pleural effusion or pneumothorax. The cardiomedia stinal silhouette is normal. There is mild thoracic spondylosis. IMPRESSION: 1. No acute cardiopulmonary abnormality. Reviewed, dictated and finalized at location F. GAN CLERK
--- NOTE | ~2023-02-01 | CT_ITS ---
EXAMINATION: CTA chest PE protocol DATE: 02/02/2023 02:25 INDICATION: Shortness of breath, COVID 19 positive TECHNIQUE: Computed tomography angiography (CTA) of the chest was performed with 100 mL Omnipaque-350 intravenous contrast timed to evaluate the pulmonary arteries. Coronal maximum intensity projection 3D-reconstructions were created by the technologist. The dose-length product (DLP) was 926.87 mGy-cm. Automated exposure control and iterative reconstruction technique were employed. COMPARISON: None. FINDINGS: The pulmonary arteries are well-opacified. No pulmonary embolism is identified. There are a irspace opacities of the lower lobes and right middle lobe. There is mild bilateral hilar and mediast inal lymphadenopathy. The heart size is normal. No pleural effusion or pneumothorax. There is a small sliding hiatal hernia. There is mild thoracic spondylosis. There is a 3.7 cm low-density mass of the left adrenal gland, consistent with an adenoma. IMPRESSION: 1. No pulmonary embolus. 2. Airspace opacities of the lower lobes and right middle lobe, consistent with pneumonia. 3. Mediastinal and bilateral hilar lymphadenopathy, likely reactive. Reviewed, dictated and finalized at location A. OLATOR OPERATOR
--- NOTE | 2023-02-01 22:48 | ED.URI ---
HPI - URI/Sore Throat General Chief Complaint: Upper Respiratory Infection Stated Complaint: cold s/s Time Seen by Provider: 02/01/23 22:47 Source: patient Mode of arrival: ambulatory Limitations: physical limitation History of Present Illness HPI Narrative: 62 yo F with PMHx of COPD, CHF, obesity, chronic pain, presents to ED complaining of being sick for 3 days. Said she is short of breath, coughing up yellow sputum, sleeping excessively, and having a headache that she described as migraine . On arrival her O2 sat was 72% on room air, which improved to 94% on 4L O2. She said she does not use O2 at home. She continues to smoke but stopped 2 days ago due to this illness. MD elicited complaint: cough Pertinent past history: COPD Onset (ago): day(s) Consistency: constant Severity: severe Description of mucous: yellow Able to tolerate fluids by mouth: Yes Exacerbating factors: nothing Relieving factors: nothing Associated symptoms: headache and shortness of breath Related Data Home Medications Medication Instructions Recorded Confirmed clopidogrel 75 mg tablet 75 mg PO DAILY 03/18/22 02/01/23 pantoprazole 40 mg tablet,delayed 40 mg PO DAILY 03/18/22 02/01/23 release albuterol sulfate 90 mcg/actuation 2 inh inhalation PRN PRN Dyspnea 08/14/22 02/01/23 aerosol inhaler aripiprazole 5 mg tablet 5 mg PO HS 08/14/22 02/01/23 aspirin 81 mg tablet,delayed 81 mg PO DAILY 08/14/22 02/01/23 release ergocalciferol (vitamin D2) 1,250 1,250 mcg PO 2XW 08/14/22 02/01/23 mcg (50,000 unit) capsule (Vitamin D2) hydrochlorothiazide 25 mg tablet 25 mg DAILY 08/14/22 02/01/23 levothyroxine 75 mcg tablet 75 mcg PO DAILY 08/14/22 02/01/23 propranolol 10 mg tablet 10 mg PO DAILY 08/14/22 02/01/23 simvastatin 40 mg tablet 40 mg PO DAILY 08/14/22 02/01/23 paroxetine HCl 40 mg tablet 60 mg PO DAILY 08/15/22 02/01/23 Allergies Allergy/AdvReac Type Severity Reaction Status Date / Time codeine Allergy Severe Anaphylaxis Verified 02/01/23 22:51 Penicillins Allergy Severe Anaphylaxis Verified 02/01/23 22:51 morphine Allergy Unknown Unknown Verified 02/01/23 22:51 Review of Systems Constitutional: Constitutional: Reports as per HPI and Reports no additional constitutional complaints Eyes: Eyes: Reports as per HPI and Reports no additional eye complaints ENT: Reports system reviewed and no additional complaints, except as documented and Reports as per HPI Cardiovascular: Cardiovascular: Reports as per HPI and Reports no additional cardiovascular complaints Respiratory: Respiratory: Reports as per HPI and Reports no additional respiratory complaints Gastrointestinal: Gastrointestinal: Reports as per HPI and Reports no additional gastrointestinal complaints Genitourinary: Genitourinary: Reports as per HPI Musculoskeletal: Musculoskeletal: Reports no additional musculoskeletal complaints and Reports as per HPI Integumentary/Breasts: Skin/Breast: Reports system reviewed and no additional complaints, except as docu and Reports as per HPI Neurologic: Reports system reviewed and no additional complaints, except as documented and Reports as per HPI Psychiatric: Psychiatric: Reports no additional psychiatric complaints and Reports as per HPI Endocrine: Endocrine: Reports no additional endocrine complaints and Reports as per HPI Hematologic/Lymphatic: Hematologic/Lymphatic: Reports no additional hematologic/lymphatic complaints and Reports as per HPI Allergic/Immunologic: Allergic/Immunologic: Reports no additional allergic/immunologic complaints and Reports as per HPI PMFSH Past Medical History Medical History Anxiety Chronic obstructive pulmonary disease (COPD) Constipation Depression Emphysema (subcutaneous) (surgical) resulting from a procedure Headache Hypokalemia Osteoporosis Shortness of breath Sleep apnea Sleep disorder Tricompartment osteoarthritis of left knee Weight
--- NOTE | 2023-02-01 22:50 | ECG_ITS ---
Measurements Intervals [place] Rate: 76 P: 65 WV: 127 QRS: 100 QRSD: 91 T: 71 QT: 374 QTc: 421 Interpretive Statements SINUS RHYTHM RIGHT AXIS DEVIATION INCOMPLETE RIGHT BUNDLE BRANCH BLOCK BASELINE ARTIFACT- I, II, III, AVR, AVL, AVF, V1-V3 BORDERLINE ECG COMPARED TO ECG 08/14/2022 18:35:58 SINUS RHYTHM NOW PRESENT INCOMPLETE RIGHT BUNDLE-BRANCH BLOCK NOW PRESENT Electronically Signed On 02-02-2023 9:23:44 INVEST[employer]ATOR [employer]UE by Celso Truong D.O.
[2023-02-01 23:14] LABS: Base Excess ABG 6.2 mmol/L (0-2); Carboxyhemoglobin 1.7 % (0-1.5); HCO3 ABG 32.9 mmol/L (23-29); Methemoglobin ABG 0.1 % (0-1.5); Oxygen Content ABG 17.9 %vol (16.0-22.0); Oxygen Saturation ABG 92.5 % (95-97); Oxyhemoglobin 90.8 % (94-100); PCO2 ABG 55.8 mmHg (35-45); PO2 ABG 65.2 mmHg (80-90); Reduced Hemoglobin 7.4 % (0-1.5); pH ABG 7.39 (7.35-7.45)
[2023-02-01] MEDS: methylPREDNISolone SOD SUCC 125 MG VIAL IV PUSH (23:16)
[2023-02-01] MEDS: IPRATROPIUM 0.5 MG/ALBUTEROL SULFATE 2.5 MG AMPUL.NEB 3 ML INHALATION (23:16)
[2023-02-01 23:22] LABS: Hematocrit 44.3 % (35.0-49.0); Hemoglobin 13.4 g/dL (12.0-15.0); Mean Corpuscular HGB Conc 30.2 g/dL (32.0-36.0); Mean Corpuscular Hemoglobin 24.5 pg (27.0-31.0); Mean Platelet Volume 10.4 fl (9.2-11.8); Platelet Count Result 243 K/mm3 (150-420); Red Blood Count 5.47 M/mm3 (4.20-5.40); Red Cell Distribution Width 14.5 % (11.6-14.4); White Blood Count 5.4 K/mm3 (4.8-10.8)
[2023-02-01 23:32] LABS: Device NASAL CANNULA; Modified Allen's Test Pass; Site Drawn RIGHT RADIAL
[2023-02-01 23:43] LABS: Lactic Acid Reflex 1.1 mmol/L (0.4-2.0)
[2023-02-01] MEDS: levoFLOXacin 750 MG/D5W 150 ML 750 MG/150 ML BAG 100 MG IVPB (23:46)
[2023-02-01 23:47] LABS: Alanine Aminotransferase 26 U/L (14-59); Albumin Level 2.7 g/dL (3.4-5.0); Alkaline Phosphatase 145 U/L (46-116); Anion Gap 3 mmol/L (8-16); Aspartate Amino Transferase 24 U/L (15-37); Bilirubin,Total 0.4 mg/dL (0.00-1.00); Blood Urea Nitrogen 8 mg/dL (7-18); Calcium 8.7 mg/dL (8.5-10.1); Carbon Dioxide 36 mmol/L (21-32); Chloride 95 mmol/L (98-108); Estimated CRCL calculation 68 ml/min; Estimated Glomerular Filt Rate > 60; Glucose 116 mg/dL (70-99); NT Pro B Type Natriuretic Pept 1206 pg/mL (0-125); Osmolality Calculated 277 mOsm/kg (285-295); Potassium 3.7 mmol/L (3.5-5.1); Sodium 134 mmol/L (136-145); Total Protein 7.3 g/dL (6.4-8.2); Troponin I 13.1 ng/L (0.00-60.4)
[2023-02-01 23:50] LABS: D Dimer 0.68 mg/L (0.19-0.50)
[2023-02-02] VITALS (26 sets, daily range): BP systolic 116–143; BP diastolic 68–86; PULSE 62–89; RESP 13–20; TEMP 36.6; O2SAT 84–97
[2023-02-02 00:04] LABS: Influenza A QL RT-PCR Negative (Negative); Influenza B QL RT-PCR Negative (Negative); SARS-CoV-2 RNA PCR Positive (Negative)
[2023-02-02 00:05] LABS: RSV RNA, RT-PCR Negative (Negative)
[2023-02-02] MEDS: FUROSEMIDE INJ 40 MG/4 ML VIAL IV PUSH (02:58)
== END 2023-02-02 05:15 | disposition short-term general hospital (02) ==
PROVIDERS: Emergency Provider Emergency Medicine; PCP Pediatrics
DX: U07.1 COVID-19 (principal); J44.1 Chronic obstructive pulmonary disease with (acute) exacerbation; J96.02 Acute respiratory failure with hypercapnia; J96.01 Acute respiratory failure with hypoxia; I50.9 Heart failure, unspecified; F17.210 Nicotine dependence, cigarettes, uncomplicated
CPT/HCPCS: 36415; 36600; 71046; 71275; 80053; 82375; 82805; 83050; 83605; 83880; 84484; 85027; 85380; 87637; 93005; 94640; 96365; 96374; 96375; 99291; J1940; J1956; J2930; Q9967

== ENCOUNTER 2023-05-02 01:41 | Observation (INO) | payer OTHER, SELFPAY ==
[2023-05-02] VITALS (9 sets, daily range): BP systolic 139–143; BP diastolic 78–110; PULSE 71–92; RESP 20–24; TEMP 35.8–36.6; O2SAT 89–97; BMI 47.0
--- NOTE | ~2023-05-02 | XR_ITS ---
Portable chest x-ray Comparison: 02/01/2023 Clinical History: Dyspnea Findings: Lungs are clear, without focal consolidation or pleural effusion. Cardiomediastinal silho uette is stable. Bones and soft tissues are unremarkable. Impression: Clear lungs. Reviewed, dictated and finalized at location . ACT INSTRUCTOR Impression: Clear lungs.
--- NOTE | 2023-05-02 01:44 | ECG_ITS ---
Measurements Intervals [place] Rate: 78 P: VA: 0 QRS: 91 QRSD: 94 T: 67 QT: 391 QTc: 447 Interpretive Statements SINUS RHYTHM WITH FREQUENT PACS BORDERLINE RIGHT AXIS DEVIATION [QRS AXIS > 90] INCOMPLETE RIGHT BUNDLE BRANCH BLOCK [90+ ms QRS DURATION, TERMINAL R IN V1/V2, 40+ ms S IN I/aVL/V4/V5/V6] ABNORMAL ECG COMPARED TO ECG 02/01/2023 22:58:18 MORE PACS, NO OTHER SIGNIFICANT CHANGE Electronically Signed On 05-02-2023 12:06:46 CHOCOLATE DIPPER by Bartolo Hester M.D.
[2023-05-02] MEDS: IPRATROPIUM 0.5 MG/ALBUTEROL SULFATE 2.5 MG AMPUL.NEB 3 ML INHALATION ×2 (01:53→05:36)
[2023-05-02] MEDS: MAGNESIUM SULF 2 GM/WATER 50ML 2 GM/50 ML BAG IVPB ×2 (02:03→09:14)
--- NOTE | 2023-05-02 02:08 | ED.SOB ---
HPI - SOB/Dyspnea General Chief Complaint: Shortness of Breath/Dyspnea Stated Complaint: shortness of breath Time Seen by Provider: 05/02/23 01:43 Source: patient and EMS Mode of arrival: EMS Limitations: physical limitation and clinical condition History of Present Illness HPI Narrative: This is a 62-year-old female that called EMS because of respiratory distress was having difficulty with breathing found to have O2 saturations in the 50s was on her home O2 3L, patient continues to use tobacco had some chest tightness some with some no coughing no abdominal pain no fever chills no nausea vomiting. EMS gave the patient a breathing treatment and IV steroids Rinne O2 sats responded came up to the 90s. MD elicited complaint: shortness of breath, cough and pain with inspiration Pertinent past history: COPD and congestive heart failure Onset (ago): hour(s) Context: smoke/fume exposure Timing: constant Severity: similar to previous episodes Exacerbating factors: coughing, inspiration and talking Relieving factors: oxygen, bronchodilators and upright position Known history of: COPD and congestive heart failure Associated symptoms: cough Treatment prior to arrival: oxygen and bronchodilator Related Data Home Medications Medication Instructions Recorded Confirmed clopidogrel 75 mg tablet 75 mg PO DAILY 03/18/22 02/01/23 pantoprazole 40 mg tablet,delayed 40 mg PO DAILY 03/18/22 02/01/23 release albuterol sulfate 90 mcg/actuation 2 inh inhalation PRN PRN Dyspnea 08/14/22 02/01/23 aerosol inhaler aripiprazole 5 mg tablet 5 mg PO HS 08/14/22 02/01/23 aspirin 81 mg tablet,delayed 81 mg PO DAILY 08/14/22 02/01/23 release ergocalciferol (vitamin D2) 1,250 1,250 mcg PO 2XW 08/14/22 02/01/23 mcg (50,000 unit) capsule (Vitamin D2) hydrochlorothiazide 25 mg tablet 25 mg DAILY 08/14/22 02/01/23 levothyroxine 75 mcg tablet 75 mcg PO DAILY 08/14/22 02/01/23 propranolol 10 mg tablet 10 mg PO DAILY 08/14/22 02/01/23 simvastatin 40 mg tablet 40 mg PO DAILY 08/14/22 02/01/23 paroxetine HCl 40 mg tablet 60 mg PO DAILY 08/15/22 02/01/23 Allergies Allergy/AdvReac Type Severity Reaction Status Date / Time codeine Allergy Severe Anaphylaxis Verified 02/01/23 22:51 Penicillins Allergy Severe Anaphylaxis Verified 02/01/23 22:51 morphine Allergy Unknown Unknown Verified 02/01/23 22:51 Review of Systems Review of Systems: All systems reviewed & are unremarkable except as noted in HPI and below PMFSH Past Medical History Medical History Anxiety Chronic obstructive pulmonary disease (COPD) Constipation Depression Emphysema (subcutaneous) (surgical) resulting from a procedure Headache Hypokalemia Osteoporosis Shortness of breath Sleep apnea Sleep disorder Tricompartment osteoarthritis of left knee Weight gain Family History Family History Other Hypertension Social History Social History Smoking packs per day: 1 Smoking cigarettes per day: 20.0 Years smoked: 20 Smoking pack-years: 20.00 Smoking status: Current every day smoker Alcohol intake: never Substance use: unknown Lack of Transportation: No Lack of Food: Never True Current Housing: I Have Housing Concerned About Future Housing: No Difficulty Paying Gas/Electric Bills: No Difficulty Paying for Meds: No Currently Unemployed: No Education: High School Diploma/GED Difficulty w/ Childcare or Family Care: No Spiritual care concerns: No Exam Const: General: no acute distress and ill appearing Nutritional Appearance: obese Orientation/consciousness: patient oriented x3 Limitations: no limitations HENMT: Head: normal to inspection Neck: Neck: normal visual inspection, no lymphadenopathy and no meningeal signs Chest: Chest palpation & inspection: normal inspection o
[2023-05-02 02:09] LABS: Basophils Absolute Auto 0.06 K/mm3 (0.00-0.10); Basophils Percent Auto 0.6 % (0.0-1.0); Eosinophils Absolute Auto 0.09 K/mm3 (0.02-0.50); Hematocrit 41.9 % (35.0-49.0); Hemoglobin 12.1 g/dL (12.0-15.0); Immature Granulocyte Absolute 0.03 K/mm3 (0.00-0.00); Immature Granulocyte Percent A 0.3 % (0.0-0.0); Lymphocytes Absolute Auto 1.82 K/mm3 (1.10-4.50); Lymphocytes Percent Auto 19.5 % (18.0-42.0); Mean Corpuscular HGB Conc 28.9 g/dL (32.0-36.0); Mean Corpuscular Volume 76.3 fL (78.0-102.0); Mean Platelet Volume 9.5 fl (9.2-11.8); Monocytes Absolute Auto 0.73 K/mm3 (0.10-0.90); Monocytes Percent Auto 7.8 % (2.0-11.0); Neutrophils Absolute Auto 6.6 K/mm3 (1.7-7.2); Neutrophils Percent Auto 70.8 % (50.0-70.0); Platelet Count Result 256 K/mm3 (150-420); Red Blood Count 5.49 M/mm3 (4.20-5.40); Red Cell Distribution Width 16.4 % (11.6-14.4); White Blood Count 9.3 K/mm3 (4.8-10.8)
[2023-05-02 02:27] LABS: D Dimer 0.37 mg/L (0.19-0.50); Partial Thromboplastin Time 27.9 SEC (23.90-30.70); Prothrombin Time 10.8 Seconds (9.50-12.10)
[2023-05-02 02:35] LABS: Base Excess ABG 7.3 mmol/L (0-2); HCO3 ABG 35.9 mmol/L (23-29); Oxygen Content ABG 16.8 %vol (16.0-22.0); Oxyhemoglobin 88.5 % (94-100); PO2 ABG 65.6 mmHg (80-90); Total Hemoglobin 13.5 g/dL (12.0-18.0); pH ABG 7.32 (7.35-7.45)
[2023-05-02 02:39] LABS: PCO2 ABG 70.6 mmHg (35-45)
[2023-05-02 02:40] LABS: Device NASAL CANNULA; Modified Allen's Test Pass; Site Drawn LEFT RADIAL
[2023-05-02 02:50] LABS: SARS-CoV-2 RNA PCR Negative (Negative)
[2023-05-02 02:53] LABS: Alanine Aminotransferase 19 U/L (14-59); Albumin Level 2.7 g/dL (3.4-5.0); Alkaline Phosphatase 132 U/L (46-116); Anion Gap 4 mmol/L (8-16); Aspartate Amino Transferase 15 U/L (15-37); Bilirubin,Total 0.5 mg/dL (0.00-1.00); Blood Urea Nitrogen 11 mg/dL (7-18); Calcium 8.8 mg/dL (8.5-10.1); Carbon Dioxide 36 mmol/L (21-32); Chloride 94 mmol/L (98-108); Estimated CRCL calculation 84 ml/min; Estimated Glomerular Filt Rate > 60; Glucose 152 mg/dL (70-99); Magnesium 1.7 mg/dL (1.8-2.4); NT Pro B Type Natriuretic Pept 577 pg/mL (0-125); Osmolality Calculated 280 mOsm/kg (285-295); Potassium 3.6 mmol/L (3.5-5.1); Sodium 134 mmol/L (136-145); Troponin I 10.2 ng/L (0.00-60.4)
[2023-05-02 02:54] LABS: Influenza A QL RT-PCR Negative (Negative); Influenza B QL RT-PCR Negative (Negative); RSV RNA, RT-PCR Negative (Negative)
[2023-05-02 02:59] LABS: Lactic Acid Reflex 0.9 mmol/L (0.4-2.0)
--- NOTE | 2023-05-02 03:55 | ADMGEN ---
This patient, Karina Ricks, was admitted to 2nd Floor Room 202-2. Patient oriented to hospital policies and general routines including ID bracelet, bed and alarms, visiting hours, pain management, procedures, bathroom and other care routines, personal items, smoking policy, room service/diet, and visiting hours. Information on how to activate the Rapid Response Team has been discussed. Patient encouraged to report perceived risks to care and to ask questions if they do not understand what they are told or what they should do.
[2023-05-02] MEDS: levoFLOXacin 500 MG/D5W 100 ML 500 MG/100 ML BAG 100 MG IVPB (04:08)
--- NOTE | 2023-05-02 04:18 | PC.NURSE ---
Patient states her PCP is Lilia Reilly out of [place]. Unable to update PCP in chart.
--- NOTE | 2023-05-02 04:20 | PC.NURSE ---
Pt states she had been on a trip to [place], and forgot her O2. She has been SOB x 4 days. Upon return home, pt states her SPO2 was at 96%, but she was still feeling SOB, applied O2 and called for EMS. Pt also states that she has an appointment with outside salesman on Friday d/t familial issue, is hoping to be discharged by then.
[2023-05-02] MEDS: methylPREDNISolone SOD SUCC 40 MG VIAL IV PUSH (05:06)
[2023-05-02] MEDS: LEVOTHYROXINE SODIUM 75 MCG TABLET PO (05:39)
[2023-05-02] MEDS: PARoxetine 20 MG TABLET 60 MG PO (09:15)
[2023-05-02] MEDS: CLOPIDOGREL BISULFATE 75 MG TABLET PO (09:15)
[2023-05-02] MEDS: PANTOPRAZOLE 40 MG TABLET PO (09:15)
[2023-05-02] MEDS: AZITHROMYCIN 250 MG TABLET 500 MG PO (09:15)
[2023-05-02] MEDS: busPIRone HCL 5 MG TABLET 10 MG PO (09:16)
[2023-05-02] MEDS: ASPIRIN 81 MG ENTERIC TABLET PO (09:16)
[2023-05-02] MEDS: SIMVASTATIN 10 MG TABLET 40 MG PO (09:16)
[2023-05-02] MEDS: hydroCHLOROthiazide 25 MG TABLET BY MOUTH (09:16)
[2023-05-02 10:13] LABS: Base Excess ABG 6.1 mmol/L (0-2); HCO3 ABG 34.6 mmol/L (23-29); Oxygen Content ABG 17.7 %vol (16.0-22.0); Oxyhemoglobin 89.1 % (94-100); PCO2 ABG 68.2 mmHg (35-45); PO2 ABG 64.9 mmHg (80-90); Total Hemoglobin 14.1 g/dL (12.0-18.0); pH ABG 7.32 (7.35-7.45)
[2023-05-02 10:14] LABS: Basophils Absolute Auto 0.01 K/mm3 (0.00-0.10); Basophils Percent Auto 0.2 % (0.0-1.0); Eosinophils Absolute Auto 0.01 K/mm3 (0.02-0.50); Eosinophils Percent Auto 0.2 % (1.0-6.0); Hematocrit 46.3 % (35.0-49.0); Immature Granulocyte Absolute 0.03 K/mm3 (0.00-0.00); Immature Granulocyte Percent A 0.5 % (0.0-0.0); Lymphocytes Absolute Auto 0.45 K/mm3 (1.10-4.50); Lymphocytes Percent Auto 7.8 % (18.0-42.0); Mean Corpuscular HGB Conc 28.1 g/dL (32.0-36.0); Mean Corpuscular Hemoglobin 21.3 pg (27.0-31.0); Mean Corpuscular Volume 75.8 fL (78.0-102.0); Mean Platelet Volume 9.6 fl (9.2-11.8); Monocytes Absolute Auto 0.03 K/mm3 (0.10-0.90); Monocytes Percent Auto 0.5 % (2.0-11.0); Neutrophils Absolute Auto 5.2 K/mm3 (1.7-7.2); Neutrophils Percent Auto 90.8 % (50.0-70.0); Platelet Count Result 275 K/mm3 (150-420); Red Blood Count 6.11 M/mm3 (4.20-5.40); Red Cell Distribution Width 16.2 % (11.6-14.4); White Blood Count 5.8 K/mm3 (4.8-10.8)
[2023-05-02 10:15] LABS: Device NASAL CANNULA; Modified Allen's Test Pass; Site Drawn LEFT RADIAL
[2023-05-02] MEDS: PROPRANOLOL HCL 20 MG TABLET PO (10:28)
--- NOTE | 2023-05-02 10:33 | PM.SD2 ---
Same Day Admit/Disch: HPI History of Present Illness Chief complaint: COPD EXACERBATION PNEUMONIA Narrative: Karina Ricks is a 62 year old female with a significant past medical history of chronic back pain, migraines, depression, anxiety, COPD, emphysema,hypertension, diverticulosis, hyperlipidemia, history of stage IV cervical cancer, hypothyroidism, hysterectomy, current every day smoker, marijuana abuse who presents to the hospital with chief complaint shortness of breath/dyspnea. She states that the onset of her shortness of breath was 4 days ago when she was in [place]. She states that it is very hard to travel with her oxygen tanks and did not take her oxygen tanks there to [place]. She has states that she has had a cough, congestion, shortness of breath, fever, headache, vomiting initially. Most of the symptoms have subsided. when she got back home she was still having quite a bit of shortness of breath and tried nebulized treatments x2 which did not give her much relief prompting her to get an evaluation here in the hospital. Workup in the hospital included a chest x-ray which did not show any focal consolidation or pleural effusion. Labs today included white blood cell count of 5.8, D-dimer was 0.37, initial blood gas shown a pH of 7.32, pCO2 of 70.6, PO2 of 65.6, bicarb was 35.9, sodium was 134, chloride 94, blood sugars ranging 116-152, serum osmolarity was 280, magnesium was 1.7, proBNP was 577, albumin was 2.7. Respiratory panel was negative for influenza a and B, RSV, and COVID. Blood cultures were obtained and are pending. Patient was given 2 g of Mag, DuoNeb treatments, a dose of Levaquin while in the ED. on examination today patient is alert and oriented x3, sitting in the bed. She denies any fever, chills, nausea, vomiting, diarrhea, abdominal pain, lightheadedness, dizziness, visual changes, headache, chest pain, or shortness of breath. She is currently on 3 L nasal cannula which she wears at baseline. She does not appear to be in any respiratory distress. She states that she is feeling much better than when she 1st came in and is requesting to go home as she has a legal matter that she has to get home to and deal with. Patient does have a nebulizer at home. She is stable for discharge at this time. I will send her home on a Solu-Medrol Dosepak and 5 days azithromycin this is been shown to help prevent COPD exacerbation. I did speak to the patient about smoking cessation and she says that she is wanting to quit. She has been a smoker for over 50 years, at least 1 pack per day. She says that she has cut back to half a pack per day and still smokes marijuana. I will send her home with a prescription for nicotine patches. [facility] Past Medical History Medical History Anxiety Chronic back pain Chronic obstructive pulmonary disease (COPD) Constipation Depression Diverticulosis Emphysema (subcutaneous) (surgical) resulting from a procedure Headache Hx of cervical cancer Hypokalemia Hypothyroidism Migraines Nicotine abuse Osteoporosis Shortness of breath Sleep apnea Sleep disorder Tricompartment osteoarthritis of left knee Weight gain Surgical History Surgical History H/O chest tube placement H/O right wrist surgery S/P ORIF (open reduction internal fixation) fracture left femur Family History Family History Other Hypertension Social History Social History Smoking packs per day: 0.5 Smoking cigarettes per day: 10.0 Years smoked: 40 Smoking pack-years: 20.00 Smoking status: Current every day smoker Tobacco type: cigarettes Second hand tobacco smoke exposure: Yes Additional smoking assessment comments: states she is trying to quit. Alcohol intake: never Substance use:
[2023-05-02 10:38] LABS: Alanine Aminotransferase 23 U/L (14-59); Albumin Level 2.8 g/dL (3.4-5.0); Alkaline Phosphatase 145 U/L (46-116); Anion Gap 7 mmol/L (8-16); Aspartate Amino Transferase 18 U/L (15-37); Bilirubin,Total 0.5 mg/dL (0.00-1.00); Blood Urea Nitrogen 10 mg/dL (7-18); Calcium 8.8 mg/dL (8.5-10.1); Carbon Dioxide 33 mmol/L (21-32); Chloride 93 mmol/L (98-108); Estimated CRCL calculation 87 ml/min; Estimated Glomerular Filt Rate > 60; Glucose 203 mg/dL (70-99); Magnesium 2.4 mg/dL (1.8-2.4); NT Pro B Type Natriuretic Pept 429 pg/mL (0-125); Osmolality Calculated 281 mOsm/kg (285-295); Potassium 4.4 mmol/L (3.5-5.1); Sodium 133 mmol/L (136-145); Total Protein 7.7 g/dL (6.4-8.2)
--- NOTE | 2023-05-02 11:45 | PC.NURSE ---
Patient discharged to home with personal portable O2 @ 3L per nasal cannula. Agreeable to all discharge instructions, verbalizes understanding. Assisted into personal vehicle for transport home.
--- NOTE | 2023-05-05 11:22 | PC.NURSE ---
Patient returned and was admitted 05/03/23
== END 2023-05-02 11:45 | disposition home or self-care (01) ==
LOC: CHSED 03:13 → CHS2ND 07:24
PROVIDERS: Admitting Provider Internal Medicine; Emergency Provider Emergency Medicine; Visit Provider Internal Medicine
DX: J96.02 Acute respiratory failure with hypercapnia (principal); J96.01 Acute respiratory failure with hypoxia; J44.1 Chronic obstructive pulmonary disease with (acute) exacerbation; Z99.81 Dependence on supplemental oxygen; F41.9 Anxiety disorder, unspecified; I11.0 Hypertensive heart disease with heart failure; I50.9 Heart failure, unspecified; G89.29 Other chronic pain; E78.5 Hyperlipidemia, unspecified; M54.9 Dorsalgia, unspecified; F32.A Depression, unspecified; K57.90 Diverticulosis of intestine, part unspecified, without perforation or abscess without bleeding; Z20.822 Contact with and (suspected) exposure to COVID-19; G43.909 Migraine, unspecified, not intractable, without status migrainosus; M81.0 Age-related osteoporosis without current pathological fracture; R94.31 Abnormal electrocardiogram [ECG] [EKG]; F17.210 Nicotine dependence, cigarettes, uncomplicated; F12.10 Cannabis abuse, uncomplicated; Z85.41 Personal history of malignant neoplasm of cervix uteri; Z90.710 Acquired absence of both cervix and uterus; Z79.02 Long term (current) use of antithrombotics/antiplatelets; Z79.51 Long term (current) use of inhaled steroids; Z79.82 Long term (current) use of aspirin; Z79.899 Other long term (current) drug therapy
CPT/HCPCS: 36415; 36600; 71045; 80053; 82805; 83605; 83735; 83880; 84484; 85025; 85380; 85610; 85730; 87040; 87637; 93005; 94640; 96365; 96367; 96375; 99285; A9270; G0378; G0379; J1956; J2920; J3475

== ENCOUNTER 2023-05-03 12:32 | Observation (INO) | payer OTHER, SELFPAY ==
[2023-05-03] VITALS (39 sets, daily range): BP systolic 134–164; BP diastolic 77–114; PULSE 61–97; RESP 12–36; TEMP 36.3–36.8; O2SAT 55–100; BMI 46.3
--- NOTE | ~2023-05-03 | XR_ITS ---
XR chest 1V portable 05/03/2023 12:48 Indication: Shortness of breath Procedure: AP portable chest Comparison: Comparison to multiple prior studies sequentially, with oldest reviewed study dated 09/2022. Findings: Cardiomegaly with mild pulmonary vascular congestion. No pleural effusion or pneumothorax. Impression: 1: Cardiomegaly with mild pulmonary vascular congestion. Reviewed, dictated and finalized at location A. M REP Impression: 1: Cardiomegaly with mild pulmonary vascular congestion.
--- NOTE | ~2023-05-03 | CT_ITS ---
EXAMINATION: CTA chest PE protocol DATE: 05/04/2023 13:29 CENTRAL LAB TECHNICIAN INDICATION: Shortness of breath. TECHNIQUE: Computed tomography angiography (CTA) of the chest was performed with 100 mL Omnipaque-350 intravenous contrast timed to evaluate the pulmonary arteries. Coronal maximum intensity projection 3D-reconstructions were created by the technologist. The dose-length product was 1048.13 mGy-cm. Auto mated exposure control and iterative reconstruction technique were employed. COMPARISON: CT dated 02/02/2023. FINDINGS: Study limited by contrast bolus timing. No large central pulmonary embolism. Enlarged pulmo nary arteries consistent with pulmonary hypertension. Borderline heart size. No thoracic lymphadenopa thy. No significant pleural or pericardial effusion. Small hiatal hernia. There is emphysema. No endo bronchial lesions. No focal airspace consolidation. IMPRESSION: 1. No large central pulmonary embolism. Evaluation of peripheral pulmonary arteries limited. 2: Emphysema. Reviewed, dictated and finalized at location A. RAL LAB TECHNICIAN IMPRESSION: 1. No large central pulmonary embolism. Evaluation of peripheral pulmonary cindy oksana limited. 2: Emphysema.
[2023-05-03] MEDS: methylPREDNISolone SOD SUCC 125 MG VIAL IV PUSH (12:33)
[2023-05-03] MEDS: IPRATROPIUM 0.5 MG/ALBUTEROL SULFATE 2.5 MG AMPUL.NEB 3 ML INHALATION ×2 (12:35→12:50)
--- NOTE | 2023-05-03 12:40 | ECG_ITS ---
Measurements Intervals [place] Rate: 76 P: 62 ND: 122 QRS: 88 QRSD: 93 T: 63 QT: 366 QTc: 413 Interpretive Statements SINUS RHYTHM WITH OCCASIONAL SUPRAVENTRICULAR PREMATURE COMPLEXES BASELINE ARTIFACT INCOMPLETE RIGHT BUNDLE BRANCH BLOCK [90+ ms QRS DURATION, TERMINAL R IN V1/V2, 40+ ms S IN I/aVL/V4/V5/V6] BORDERLINE ECG COMPARED TO ECG 05/02/2023 01:45:05 NO SIGNIFICANT CHANGES Electronically Signed On 05-03-2023 14:50:21 HOUSEHOLD REFRIGERATION MECHANIC by Ankit Cleveland M.D.
[2023-05-03 13:06] LABS: Base Excess ABG 6.5 mmol/L (0-2); Carboxyhemoglobin 2.1 % (0-1.5); HCO3 ABG 37.7 mmol/L (23-29); Methemoglobin ABG 0.4 % (0-1.5); Oxygen Content ABG 20.2 %vol (16.0-22.0); Oxygen Saturation ABG 99.5 % (95-97); PO2 ABG 252.8 mmHg (80-90); Reduced Hemoglobin 0.5 % (0-1.5); Total Hemoglobin 14.4 g/dL (12.0-18.0); pH ABG 7.23 (7.35-7.45)
[2023-05-03 13:07] LABS: Basophils Absolute Auto 0.03 K/mm3 (0.00-0.10); Basophils Percent Auto 0.2 % (0.0-1.0); Eosinophils Absolute Auto 0.01 K/mm3 (0.02-0.50); Eosinophils Percent Auto 0.1 % (1.0-6.0); Hematocrit 45.9 % (35.0-49.0); Hemoglobin 12.9 g/dL (12.0-15.0); Immature Granulocyte Absolute 0.07 K/mm3 (0.00-0.00); Immature Granulocyte Percent A 0.5 % (0.0-0.0); Lymphocytes Absolute Auto 1.55 K/mm3 (1.10-4.50); Lymphocytes Percent Auto 10.5 % (18.0-42.0); Mean Corpuscular HGB Conc 28.1 g/dL (32.0-36.0); Mean Corpuscular Hemoglobin 21.8 pg (27.0-31.0); Mean Corpuscular Volume 77.4 fL (78.0-102.0); Mean Platelet Volume 9.4 fl (9.2-11.8); Monocytes Percent Auto 4.8 % (2.0-11.0); Neutrophils Absolute Auto 12.3 K/mm3 (1.7-7.2); Neutrophils Percent Auto 83.9 % (50.0-70.0); Platelet Count Result 349 K/mm3 (150-420); Red Blood Count 5.93 M/mm3 (4.20-5.40); Red Cell Distribution Width 16.2 % (11.6-14.4); White Blood Count 14.7 K/mm3 (4.8-10.8)
[2023-05-03 13:07] LABS: PCO2 ABG 91.9 mmHg (35-45)
[2023-05-03 13:08] LABS: Device NASAL CANNULA; Modified Allen's Test Pass; Site Drawn RIGHT BRACHIAL
--- NOTE | 2023-05-03 13:11 | ED.SOB ---
HPI - SOB/Dyspnea General Chief Complaint: Shortness of Breath/Dyspnea Stated Complaint: COPD exasperation Time Seen by Provider: 05/03/23 12:37 Source: patient Mode of arrival: ambulatory Limitations: physical limitation History of Present Illness HPI Narrative: patient is a 60-year-old female with significant past medical history presents today for acute respiratory exacerbation. Patient has a history COPD and was just recently released from the hospital yesterday. She was here for the same reason for her acute respiratory exacerbation. She has flare-up episodes consistently. She continues to smoke even though she has such severe COPD. After given DuoNebs and pre non-rebreather mask her oxygen saturation went up to the upper 90s. She is on 3L O2 [place] at home. MD elicited complaint: shortness of breath Pertinent past history: COPD and congestive heart failure Onset (ago): hour(s) Context: occurred during exertion Timing: constant Severity: moderate Exacerbating factors: movement and coughing Relieving factors: oxygen, bronchodilators and upright position Known history of: COPD and congestive heart failure Associated symptoms: wheezing Treatment prior to arrival: oxygen Related Data Home oxygen amount: 3 liters Home Medications Medication Instructions Recorded Confirmed clopidogrel 75 mg tablet 75 mg PO DAILY 03/18/22 05/02/23 pantoprazole 40 mg tablet,delayed 40 mg PO DAILY 03/18/22 05/02/23 release albuterol sulfate 90 mcg/actuation 2 inh inhalation PRN PRN Dyspnea 08/14/22 05/02/23 aerosol inhaler aripiprazole 5 mg tablet 5 mg PO HS 08/14/22 05/02/23 aspirin 81 mg tablet,delayed 81 mg PO DAILY 08/14/22 05/02/23 release ergocalciferol (vitamin D2) 1,250 1,250 mcg PO 2XW 08/14/22 05/02/23 mcg (50,000 unit) capsule (Vitamin D2) hydrochlorothiazide 25 mg tablet 25 mg DAILY 08/14/22 05/02/23 levothyroxine 75 mcg tablet 75 mcg PO DAILY 08/14/22 05/02/23 propranolol 10 mg tablet 20 mg PO DAILY 08/14/22 05/02/23 simvastatin 40 mg tablet 40 mg PO DAILY 08/14/22 05/02/23 paroxetine HCl 40 mg tablet 60 mg PO DAILY 08/15/22 05/02/23 Allergies Allergy/AdvReac Type Severity Reaction Status Date / Time codeine Allergy Severe Anaphylaxis Verified 05/03/23 12:39 Penicillins Allergy Severe Anaphylaxis Verified 05/03/23 12:39 morphine Allergy Unknown Unknown Verified 05/03/23 12:39 Review of Systems Review of Systems: All systems reviewed & are unremarkable except as noted in HPI and below Constitutional: Constitutional: Reports as per HPI Eyes: Eyes: Reports no additional eye complaints ENT: Reports system reviewed and no additional complaints, except as documented Cardiovascular: Cardiovascular: Reports no additional cardiovascular complaints Respiratory: Respiratory: Reports as per HPI, Reports dyspnea and Reports wheezing Gastrointestinal: Gastrointestinal: Reports no additional gastrointestinal complaints Genitourinary: Genitourinary: Reports no additional female genitourinary complaints Musculoskeletal: Musculoskeletal: Reports no additional musculoskeletal complaints Integumentary/Breasts: Skin/Breast: Reports system reviewed and no additional complaints, except as docu Neurologic: Reports system reviewed and no additional complaints, except as documented Psychiatric: Psychiatric: Reports no additional psychiatric complaints Endocrine: Endocrine: Reports no additional endocrine complaints Hematologic/Lymphatic: Hematologic/Lymphatic: Reports no additional hematologic/lymphatic complaints Allergic/Immunologic: Allergic/Immunologic: Reports no additional allergic/immunologic complaints PMFSH Past Medical History Medical History Anxiety Chronic back pain Chronic obstructive pulmonary disease (COPD) Constipation Depression Diverticulosis Emphysema (subcutaneous) (surgical) resulting from a procedure Headache Hx of cervical cancer Hypokalem
[2023-05-03 13:21] LABS: Alanine Aminotransferase 27 U/L (14-59); Albumin Level 2.9 g/dL (3.4-5.0); Alkaline Phosphatase 139 U/L (46-116); Anion Gap 4 mmol/L (8-16); Aspartate Amino Transferase 20 U/L (15-37); Bilirubin,Total 0.4 mg/dL (0.00-1.00); Blood Urea Nitrogen 12 mg/dL (7-18); Calcium 8.9 mg/dL (8.5-10.1); Carbon Dioxide 39 mmol/L (21-32); Chloride 94 mmol/L (98-108); Estimated CRCL calculation 80 ml/min; Estimated Glomerular Filt Rate > 60; Glucose 144 mg/dL (70-99); Osmolality Calculated 286 mOsm/kg (285-295); Potassium 4.3 mmol/L (3.5-5.1); Sodium 137 mmol/L (136-145); Total Protein 7.7 g/dL (6.4-8.2)
[2023-05-03 16:40] LABS: Base Excess ABG 10.2 mmol/L (0-2); HCO3 ABG 40.6 mmol/L (23-29); Oxygen Content ABG 17.6 %vol (16.0-22.0); Oxygen Saturation ABG 92.9 % (95-97); Oxyhemoglobin 91.3 % (94-100); PO2 ABG 71.3 mmHg (80-90); Total Hemoglobin 13.7 g/dL (12.0-18.0); pH ABG 7.28 (7.35-7.45)
[2023-05-03 16:46] LABS: Modified Allen's Test Pass; Site Drawn LEFT RADIAL
[2023-05-03 16:47] LABS: Device BIPAP; PCO2 ABG 87.8 mmHg (35-45)
[2023-05-03 16:48] LABS: Expiratory Pressure 5 cmH2O; Inspiratory Pressure 12 cmH2O
--- NOTE | 2023-05-03 18:10 | ADMGEN ---
This patient, Karina Ricks, was admitted to 2nd Floor Room 205-1. Patient/family oriented to hospital policies and general routines including ID bracelet, bed and alarms, visiting hours, pain management, procedures, bathroom and other care routines, personal items, smoking policy, room service/diet, and visiting hours. Information on how to activate the Rapid Response Team has been discussed. Patient/Family are encouraged to report perceived risks to care and to ask questions if they do not understand what they are told or what they should do.
--- NOTE | 2023-05-03 18:20 | PC.NURSE ---
Upon arrival to the floor, vocational rehabilitation technician assisted patient to the restroom and into the bed. Pt 02 saturation was 55% on 6l nasal cannula. Notified. Pt was encouraged to take slow deep breaths. brought bipap to bedside and told patient that after she eats she needs to wear the bipap throughout the night.
[2023-05-03] MEDS: busPIRone HCL 5 MG TABLET 10 MG PO (20:31)
[2023-05-03] MEDS: ARIPiprazole 5 MG TABLET PO (20:31)
[2023-05-03] MEDS: NICOTINE (*PBKC) 21 MG PATCH 1 PATCH TRANSDERM (20:36)
[2023-05-04] VITALS (11 sets, daily range): BP systolic 155–162; BP diastolic 74–79; PULSE 65–95; RESP 14–28; TEMP 36.3–36.9; O2SAT 65–100
--- NOTE | 2023-05-04 00:24 | PC.NURSE ---
Dr. Hunter notified regarding pt's SAO2 of 88% and wheezing. New orders were received for duoneb treatments q 6 hrs.
[2023-05-04] MEDS: IPRATROPIUM 0.5 MG/ALBUTEROL SULFATE 2.5 MG AMPUL.NEB 3 ML INHALATION ×3 (00:25→10:12)
[2023-05-04] MEDS: methylPREDNISolone SOD SUCC 125 MG VIAL IV PUSH (03:35)
[2023-05-04] MEDS: ALBUTEROL SULFATE NEB 2.5 MG/3 ML INH 7.5 MG INHALATION (03:35)
[2023-05-04] MEDS: ACETAMINOPHEN 500 MG TABLET 1000 MG PO ×2 (03:43→09:25)
--- NOTE | 2023-05-04 05:26 | PCRCNOTE ---
Pt wore bipap throughout night with some challenges.Setting 02/11 BUR 12 with bleed in of 3-4L. Pt SpO2 post bipap placement was in mid 90s. Pt started to have coarse wheeze, desat, labored breathing, and start stating she could breath. Sched nebs ordered and given; respiratory changes to Ti. Despite neb given and bipap change, some time later pt complain of not being able to breath with audible wheeze and labored breathing. RT commun. with nursing about steroid. Nursing touch base with physician about med. RT commun. with physician w/ request for cont. neb, bipap settings change, and sched. neb to Q4. Pt states that they do have issues with claustrophobia and anxiety, but appear to be colin. bipap better post cont. neb and bipap change. Bipap setting 23/08 BUR 12 w/ 3-4 bleed. I have been trying keep pt SpO2 88-94% due to her being a retainer.
[2023-05-04] MEDS: LEVOTHYROXINE SODIUM 75 MCG TABLET PO (05:46)
--- NOTE | 2023-05-04 07:54 | PM.IMHP ---
H&P: HPI History of Present Illness Date/Time: 05/04/23 07:54 Chief Complaint: Shortness of breath/ dyspnea Narrative: this is a 62-year-old female with a significant past medical history of chronic back pain, migraines, depression, anxiety, COPD, emphysema, hypertension, diverticulosis, hyperlipidemia, history of stage IV cervical cancer status post hysterectomy, hypothyroidism, every day smoker, marijuana abuse who presents to the hospital with chief complaint of shortness of breath and dyspnea. She was recently discharged on 05/02/2023 for this same complaint. At that time she you was noncompliant with her oxygen at home and went to [place] without her O2 tanks. When she got back home she was still having quite a bit of shortness of breath and tried nebulized treatments x2 which did not give her much relief causing her to present to the hospital at that point she had a chest x-ray during that admission which was negative for any focal consolidation or pleural effusion. Her blood gas was showing a CO2 of 70.6 as well on that admission. She was given DuoNebs, Levaquin, 2 g of Mag while inpatient. She was sent home on Solu-Medrol Dosepak, azithromycin, and instructed to continue her DuoNebs. She then presented after midnight today with worsening shortness of breath and dyspnea. She continues to smoke even though she has severe COPD and was currently in an acute COPD exacerbation. [facility] Past Medical History Medical History Anxiety Chronic back pain Chronic obstructive pulmonary disease (COPD) Constipation Depression Diverticulosis Emphysema (subcutaneous) (surgical) resulting from a procedure Headache Hx of cervical cancer Hypokalemia Hypothyroidism Migraines Nicotine abuse Osteoporosis Shortness of breath Sleep apnea Sleep disorder Tricompartment osteoarthritis of left knee Weight gain Surgical History Surgical History H/O chest tube placement H/O right wrist surgery S/P ORIF (open reduction internal fixation) fracture left femur Family History Family History Other Hypertension Social History Social History Smoking packs per day: 0.5 Smoking cigarettes per day: 10.0 Years smoked: 40 Smoking pack-years: 20.00 Smoking status: Current every day smoker Tobacco type: cigarettes Second hand tobacco smoke exposure: Yes Additional smoking assessment comments: states she is trying to quit. Alcohol intake: never Substance use: never Substance use type: does not use Last use: today Do You Feel Safe in your Home?: Yes Lack of Transportation: No Lack of Food: Never True Current Housing: I Have Housing Concerned About Future Housing: No Difficulty Paying Gas/Electric Bills: No Difficulty Paying for Meds: No Currently Unemployed: No Education: High School Diploma/GED Difficulty w/ Childcare or Family Care: No Spiritual care concerns: No Meds Home Medications and Allergies Home Medications Medication Instructions Recorded Confirmed Type clopidogrel 75 mg tablet 75 mg PO DAILY 03/18/22 05/03/23 History pantoprazole 40 mg tablet,delayed 40 mg PO DAILY 03/18/22 05/03/23 History release albuterol sulfate 90 mcg/actuation 2 inh inhalation PRN PRN Dyspnea 08/14/22 05/03/23 History aerosol inhaler aripiprazole 5 mg tablet 5 mg PO HS 08/14/22 05/03/23 History aspirin 81 mg tablet,delayed 81 mg PO DAILY 08/14/22 05/03/23 History release ergocalciferol (vitamin D2) 1,250 1,250 mcg PO 2XW 08/14/22 05/03/23 History mcg (50,000 unit) capsule (Vitamin D2) hydrochlorothiazide 25 mg tablet 25 mg PO DAILY 08/14/22 05/03/23 History levothyroxine 75 mcg tablet 75 mcg PO DAILY 08/14/22 05/03/23 History propranolol 10 mg tablet 20 mg PO DAILY 08/14/2205/03
[2023-05-04 07:59] LABS: Base Excess ABG 11.7 mmol/L (0-2); HCO3 ABG 42.1 mmol/L (23-29); Oxygen Content ABG 17.3 %vol (16.0-22.0); Oxygen Saturation ABG 91.5 % (95-97); PO2 ABG 66.5 mmHg (80-90); Total Hemoglobin 13.7 g/dL (12.0-18.0)
[2023-05-04 08:05] LABS: Device BIPAP; Modified Allen's Test Pass; PCO2 ABG 88.2 mmHg (35-45); Site Drawn LEFT RADIAL
[2023-05-04 08:06] LABS: Expiratory Pressure 5 cmH2O; Inspiratory Pressure 12 cmH2O
[2023-05-04 08:10] LABS: Basophils Absolute Auto 0.01 K/mm3 (0.00-0.10); Basophils Percent Auto 0.1 % (0.0-1.0); Hematocrit 43.9 % (35.0-49.0); Hemoglobin 12.3 g/dL (12.0-15.0); Immature Granulocyte Absolute 0.05 K/mm3 (0.00-0.00); Immature Granulocyte Percent A 0.6 % (0.0-0.0); Lymphocytes Absolute Auto 0.62 K/mm3 (1.10-4.50); Mean Corpuscular Hemoglobin 21.9 pg (27.0-31.0); Mean Corpuscular Volume 78.3 fL (78.0-102.0); Mean Platelet Volume 10.1 fl (9.2-11.8); Monocytes Absolute Auto 0.12 K/mm3 (0.10-0.90); Monocytes Percent Auto 1.6 % (2.0-11.0); Neutrophils Absolute Auto 6.9 K/mm3 (1.7-7.2); Neutrophils Percent Auto 89.7 % (50.0-70.0); Platelet Count Result 301 K/mm3 (150-420); Red Blood Count 5.61 M/mm3 (4.20-5.40); White Blood Count 7.7 K/mm3 (4.8-10.8)
--- NOTE | 2023-05-04 08:17 | PC.NURSE ---
Pt changed from bipap to nc for breakfast. Initial 02 saturation was 65% on 3l. Increased oxygen to 5l nc. Pt slowly improved to 92%.
[2023-05-04 08:34] LABS: Alanine Aminotransferase 24 U/L (14-59); Albumin Level 2.8 g/dL (3.4-5.0); Alkaline Phosphatase 124 U/L (46-116); Anion Gap 3 mmol/L (8-16); Aspartate Amino Transferase 13 U/L (15-37); Bilirubin,Total 0.4 mg/dL (0.00-1.00); Blood Urea Nitrogen 14 mg/dL (7-18); Calcium 8.9 mg/dL (8.5-10.1); Carbon Dioxide 39 mmol/L (21-32); Chloride 95 mmol/L (98-108); Estimated CRCL calculation 80 ml/min; Estimated Glomerular Filt Rate > 60; Glucose 153 mg/dL (70-99); Osmolality Calculated 287 mOsm/kg (285-295); Potassium 4.4 mmol/L (3.5-5.1); Sodium 137 mmol/L (136-145); Total Protein 7.2 g/dL (6.4-8.2)
[2023-05-04] MEDS: PANTOPRAZOLE 40 MG TABLET PO (09:25)
[2023-05-04] MEDS: SIMVASTATIN 10 MG TABLET 40 MG PO (09:25)
[2023-05-04] MEDS: NICOTINE (*PBKC) 21 MG PATCH 1 PATCH TRANSDERM (09:25)
[2023-05-04] MEDS: hydroCHLOROthiazide 25 MG TABLET BY MOUTH (09:26)
[2023-05-04] MEDS: busPIRone HCL 5 MG TABLET 10 MG PO (09:26)
[2023-05-04] MEDS: PARoxetine 20 MG TABLET 60 MG PO (09:26)
[2023-05-04] MEDS: ASPIRIN 81 MG ENTERIC TABLET PO (09:26)
[2023-05-04] MEDS: CLOPIDOGREL BISULFATE 75 MG TABLET PO (09:26)
[2023-05-04] MEDS: PROPRANOLOL HCL 20 MG TABLET PO (09:30)
[2023-05-04] MEDS: methylPREDNISolone SOD SUCC 125 MG VIAL 60 MG IV PUSH (10:13)
--- NOTE | 2023-05-04 12:37 | PM.TDS ---
Transfer Discharge Sum: Prov Provider Date of admission: 05/03/23 17:13 Primary care physician: UNKNOWN,DOCTOR Admitting clinician: Anselmo Corley MD Attending physician on admission: Montserrat Raymond Attending physician on discharge: Montserrat Raymond Discharging clinician: Montserrat Raymond Anticipated date of transfer: 05/04/23 Receiving physician/facility: [facility], Dr. Barcenas accepting DS: Admitting Diagnosis Discharge Date 05/03/24 Admitting Diagnosis acute respiratory failure with hypoxia and hypercapnia COPD exacerbation dyspnea CHF hypertension hyperlipidemia hypothyroidism marijuana abuse tobacco abuse Transfer Discharge Sum: Med Medications Active and Home Medications: Home Medications clopidogrel 75 mg tablet 75 mg PO DAILY 03/18/22 [History Confirmed 05/03/23] pantoprazole 40 mg tablet,delayed release 40 mg PO DAILY 03/18/22 [History Confirmed 05/03/23] albuterol sulfate 90 mcg/actuation aerosol inhaler 2 inh inhalation PRN PRN Dyspnea 08/14/22 [History Confirmed 05/03/23] aripiprazole 5 mg tablet 5 mg PO HS 08/14/22 [History Confirmed 05/03/23] aspirin 81 mg tablet,delayed release 81 mg PO DAILY 08/14/22 [History Confirmed 05/03/23] ergocalciferol (vitamin D2) 1,250 mcg (50,000 unit) capsule (Vitamin D2) 1,250 mcg PO 2XW 08/14/22 [History Confirmed 05/03/23] hydrochlorothiazide 25 mg tablet 25 mg PO DAILY 08/14/22 [History Confirmed 05/03/23] levothyroxine 75 mcg tablet 75 mcg PO DAILY 08/14/22 [History Confirmed 05/03/23] propranolol 10 mg tablet 20 mg PO DAILY 08/14/22 [History Confirmed 05/03/23] simvastatin 40 mg tablet 40 mg PO DAILY 08/14/22 [History Confirmed 05/03/23] paroxetine HCl 40 mg tablet 60 mg PO DAILY 08/15/22 [History Confirmed 05/03/23] Nebulizer Machine #1 ea 08/19/22 [Rx Confirmed 05/03/23] buspirone 10 mg tablet 10 mg PO BID #1 tablet 08/19/22 [Rx Confirmed 05/03/23] ipratropium 0.5 mg-albuterol 3 mg (2.5 mg base)/3 mL nebulization soln 3 ml inhalation Q6H PRN shortness of breath or wheezing #90 mL 08/19/22 [Rx Confirmed 05/03/23] azithromycin 500 mg tablet 500 mg PO DAILY 5 days #5 tabs 05/02/23 [Rx Confirmed 05/03/23] nicotine 21 mg/24 hr daily transdermal patch 1 patch transdermal DAILY quit smoking #28 ea 05/02/23 [Rx Confirmed 05/03/23] Active Medications Acetaminophen (Acetaminophen 500 Mg Tablet) 1,000 mg PO Q6H PRN PRN Reason: Mild Pain (1-3) or Fever Last Admin: 05/04/23 09:25 Dose: 1,000 mg Albuterol/Ipratropium (Ipratropium 0.5 Mg/Albuterol Sulfate 2.5 Mg Ampul.Neb 3 Ml) 3 ml INHALATION Q4HRT ON LICENSE OF [facility] Last Admin: 05/04/23 10:12 Dose: 3 ml Aripiprazole (Aripiprazole 5 Mg Tablet) 5 mg PO HS ON LICENSE OF [facility] Last Admin: 05/03/23 20:31 Dose: 5 mg Aspirin (Aspirin 81 Mg Enteric Tablet) 81 mg PO DAILY ON LICENSE OF [facility] Last Admin: 05/04/23 09:26 Dose: 81 mg Buspirone HCl (Buspirone Hcl 5 Mg Tablet) 10 mg PO Q12HR ON LICENSE OF [facility] Last Admin: 05/04/23 09:26 Dose: 10 mg Clopidogrel Bisulfate (Clopidogrel Bisulfate 75 Mg Tablet) 75 mg PO DAILY ON LICENSE OF [facility] Last Admin: 05/04/23 09:26 Dose: 75 mg Hydrochlorothiazide (Hydrochlorothiazide 25 Mg Tablet) 25 mg BY MOUTH DAILY ON LICENSE OF [facility] Last Admin: 05/04/23 09:26 Dose: 25 mg Levothyroxine Sodium (Levothyroxine Sodium 75 Mcg Tablet) 75 mcg PO DAILY@0630 ON LICENSE OF [facility] Last Admin: 05/04/23 05:46 Dose: 75 mcg Methylprednisolone Sodium Succinate (Methylprednisolone Sod Succ 125 Mg Vial) 60 mg IV PUSH BID ON LICENSE OF [facility] Last Admin: 05/04/23 10:13 Dose: 60 mg Nicotine (Nicotine (*Pbkc) 21 Mg Patch) 1 patch TRANSDERM DAILY ON LICENSE OF [facility] Last Admin: 05/04/23 09:25 Dose: 1 patch Pantoprazole Sodium (Pantoprazole 40 Mg Tablet) 40 mg PO DAILY ON LICENSE OF [facility] Last Admin: 05/04/23 09:25 Dose: 40 mg Paroxetine HCl (Paroxetine 20 Mg Tablet) 60 mg PO DAILY THANG Last Admin: 05/04/23 09:26 Dose: 60 mg Propranolol HCl (Propranolol Hcl 20 Mg Tablet) 20 mg PO DAILY THANG Last Admin: 05/04/23 09:30 Dose: 20 mg Simvastatin (Simvastatin 10 Mg Tablet) 40 mg PO DAILY ON LICENSE OF [facility] Last A
--- NOTE | 2023-05-04 14:08 | PC.NURSE ---
Pt assisted to bsc with bipap in place. 02 saturation dropped to mid 60's and slowly raised to high 80/low 90's over about 4 minutes.
--- NOTE | 2023-05-04 14:25 | PC.NURSE ---
[facility].
[2023-05-04 15:18] LABS: Base Excess ABG 11.2 mmol/L (0-2); HCO3 ABG 40.2 mmol/L (23-29); Oxygen Content ABG 17.9 %vol (16.0-22.0); Oxygen Saturation ABG 97.1 % (95-97); Oxyhemoglobin 95.9 % (94-100); PO2 ABG 97.5 mmHg (80-90); Total Hemoglobin 13.2 g/dL (12.0-18.0); pH ABG 7.34 (7.35-7.45)
[2023-05-04 15:19] LABS: PCO2 ABG 76.9 mmHg (35-45)
[2023-05-04 15:20] LABS: Device BIPAP; Expiratory Pressure 5 cmH2O; Inspiratory Pressure 12 cmH2O; Modified Allen's Test Pass; Site Drawn RIGHT RADIAL
--- NOTE | 2023-05-04 15:30 | PC.NURSE ---
Report given to [facility]. Pt escorted out via stretcher with bipap and rt staff.
[2023-05-04 15:41] LABS: SARS-CoV-2 RNA PCR Negative (Negative)
[2023-05-04 15:42] LABS: Influenza A QL RT-PCR Negative (Negative); Influenza B QL RT-PCR Negative (Negative); RSV RNA, RT-PCR Negative (Negative)
== END 2023-05-04 15:30 | disposition short-term general hospital (02) ==
LOC: CHSED 13:41 → CHS2ND 17:18
PROVIDERS: Nurse Practitioner Acute Care; Admitting Provider Internal Medicine; Emergency Provider Family Medicine; Visit Provider Internal Medicine
DX: J96.02 Acute respiratory failure with hypercapnia (principal); J96.01 Acute respiratory failure with hypoxia; J44.1 Chronic obstructive pulmonary disease with (acute) exacerbation; F41.9 Anxiety disorder, unspecified; F32.A Depression, unspecified; G89.29 Other chronic pain; M54.9 Dorsalgia, unspecified; Z20.822 Contact with and (suspected) exposure to COVID-19; Z99.81 Dependence on supplemental oxygen; I11.0 Hypertensive heart disease with heart failure; I50.9 Heart failure, unspecified; I45.10 Unspecified right bundle-branch block; E78.5 Hyperlipidemia, unspecified; E03.9 Hypothyroidism, unspecified; M81.0 Age-related osteoporosis without current pathological fracture; M19.90 Unspecified osteoarthritis, unspecified site; F17.210 Nicotine dependence, cigarettes, uncomplicated; F12.90 Cannabis use, unspecified, uncomplicated; Z79.02 Long term (current) use of antithrombotics/antiplatelets; Z79.51 Long term (current) use of inhaled steroids; Z79.82 Long term (current) use of aspirin; Z79.899 Other long term (current) drug therapy
CPT/HCPCS: 36415; 36600; 71045; 71275; 80053; 82375; 82805; 83050; 83735; 85025; 85380; 87637; 93005; 94640; 96374; 96375; 99285; A9270; G0378; G0379; J0696; J2930; Q9967

== ENCOUNTER 2023-05-04 16:36 | Inpatient (IN) | payer OTHER, SELFPAY ==
[2023-05-04] VITALS (11 sets, daily range): BP systolic 139–146; BP diastolic 74–84; PULSE 74–100; RESP 18–23; TEMP 36.7–36.9; O2SAT 93–100; BMI 51.8
--- NOTE | ~2023-05-04 | US_ITS ---
EXAMINATION: US venous doppler [facility] DATE: 05/07/2023 14:08 INDICATION: Left chest pain. Deep vein thrombosis. TECHNIQUE: Grayscale ultrasound images without and with compression and Doppler ultrasound images of the bilateral lower extremity veins were obtained. COMPARISON: None. FINDINGS: The visualized portions of right common femoral vein, profunda (deep) femoral vein, femoral vein, pop liteal vein, posterior tibial veins, and greater saphenous vein outflow are patent. The peroneal vein s are not well visualized. The visualized portions of left common femoral vein, profunda femoral vein, femoral vein, popliteal v ein, posterior tibial veins, and greater saphenous vein outflow are patent. The peroneal veins are no t well visualized. IMPRESSION: 1. No deep venous thrombosis. Reviewed, dictated and finalized at location A. PRESSER
--- NOTE | 2023-05-04 16:21 | PM.IMHP ---
H&P: HPI History of Present Illness Date/Time: 05/04/23 16:20 Chief Complaint: Hypercapnic respiratory failure. Narrative: This is a morbidly obese female smoker with chronic respiratory failure on home oxygen, chronic obstructive pulmonary disease, obstructive sleep apnea, coronary artery disease, hypertension, hyperlipidemia, hypothyroidism, cervical cancer, depression, and anxiety who is being directly admitted to the IMU from an outside hospital for further treatment and evaluation of hypercapnic respiratory failure. The patient provides the following history. She recently traveled to [place] but did not take her oxygen tanks with her and over the course of that stay she became increasingly short of breath from baseline. When she returned home she started using her oxygen again and today couple of nebulizer treatments however was still short of breath and she sought treatment at the ED had an outside facility on 05/02/2023. ABG at that time showed a pH of 7.32 and a pCO2 of 70.6; chest x-ray was negative for acute process. She was treated with DuoNebs and magnesium sulfate with improvement. She requested discharge the same day as she had a legal matter to attend to; she was given prescriptions for a Medrol Dosepak and azithromycin. She returned to the ER a little over 24 hours after discharge with continued shortness of breath and ABG at that time showed a pH of 7.23, pCO2 91.9, HC03 37.7. She was started on BiPAP with some improvement her blood gas and she was admitted for further treatment. This morning her blood gases remained relatively unchanged and she is being transferred to [place] in this setting. At the time my evaluation, she is resting comfortably and reports feeling better. She has a chronic cough which is occasionally productive and that is unchanged. She denies fever, chills, sweats, sinus congestion, sore throat, chest pain, pleuritic pain, nausea, vomiting, diarrhea, lower extremity edema, and calf pain. Of note, the patient has not had a cigarette since and she intends to keep on with smoking cessation. Review of Systems Review of Systems: Twelve systems were reviewed and are negative except for as per HPI. [facility] Past Medical History Medical History Anxiety Cervical cancer Chronic back pain Chronic obstructive pulmonary disease Chronic respiratory failure with hypoxia, on home oxygen therapy Coronary artery disease Depression Diverticulosis Hypothyroidism Migraines Morbid obesity Nicotine abuse Obstructive sleep apnea Osteoarthritis Osteoporosis Surgical History Surgical History History of cardiac catheterization History of chest tube placement History of coronary artery stent placement History of hysterectomy History of open reduction and internal fixation (ORIF) procedure Repair left femur fracture. History of surgery on right wrist Family History Family History Other Hypertension Social History Social History (Updated 05/04/23 @ 21:04 by Lyubov Richmond PA-C) Social History: Surrogate medical decision maker: Ana Maria Ross, sibling. Code status: Full code. Smoking packs per day: 2 Smoking cigarettes per day: 40.0 Years smoked: 38 Smoking pack-years: 76.00 Smoking status: Former smoker Tobacco type: cigarettes Second hand tobacco smoke exposure: Yes Additional smoking assessment comments: Patient states she quit smoking last . Alcohol intake: never Substance use: current Substance use type: marijuana Last use: today Do You Feel Safe in your Home?: Yes Lack of Transportation: No Lack of Food: Never True Current Housing: I Have Housing Concerned About Future Housing: No Difficulty Paying Gas/Electric Bills: No Difficulty Paying for Meds: No Currently Unemployed: No
--- NOTE | 2023-05-04 16:25 | ADMGEN ---
This patient, Karina Ricks, was admitted to IMU Room 210-01. Patient/family oriented to hospital policies and general routines including ID bracelet, bed and alarms, visiting hours, pain management, procedures, bathroom and other care routines, personal items, smoking policy, room service/diet, and visiting hours. Information on how to activate the Rapid Response Team has been discussed. Patient/Family are encouraged to report perceived risks to care and to ask questions if they do not understand what they are told or what they should do.
[2023-05-04 17:04] LABS: Base Excess ABG 12.1 mEq/l (+/-2.0); Carboxyhemoglobin 0.4 % THb (0-2.0); Fractional Inspired Oxygen 32 %; HCO3 ABG 40.7 mEq/l (22.0-26.0); Methemoglobin ABG 0.4 %THb (0-1.5); Oxygen Content ABG 17.2 %vol (16.0-22.0); Oxygen Saturation ABG 91.8 % (95.0-100.0); Oxyhemoglobin 91.8 % THb (90.0-100.0); PO2 ABG 66.8 mmHg (80.0-100.0); PO2 FiO2 Ratio Arterial Blood 2.09 %; Reduced Hemoglobin 7.4 %THb (0-5.0); Total Hemoglobin 13.3 g/dL (12.0-18.0); pH ABG 7.364 (7.350-7.450)
[2023-05-04 17:09] LABS: Device BIPAP; Site Drawn RIGHT RADIAL
[2023-05-04 17:10] LABS: Expiratory Pressure 5 cmH2O; Inspiratory Pressure 17 cmH2O
[2023-05-04] MEDS: IPRATROPIUM 0.5 MG/ALBUTEROL SULFATE 2.5 MG AMPUL.NEB 3 ML INHALATION (20:50)
[2023-05-04 21:14] LABS: Hemoglobin A1C 6.5 % (<5.7)
[2023-05-04] MEDS: INSULIN ASPART (*BKC) 100 UNITS/ML SUB-Q (21:32)
[2023-05-04] MEDS: oxyCODONE/ACETAMINOPHEN (*CRX) 10-325 MG TABLET 1 TAB PO (21:33)
[2023-05-04] MEDS: guaiFENesin 12 HR 600 MG TABCR 1200 MG PO (21:33)
[2023-05-04] MEDS: ARIPiprazole 5 MG TABLET PO (21:33)
[2023-05-04] MEDS: busPIRone HCL 10 MG TABLET PO (21:34)
[2023-05-04 21:35] LABS: Glucose Point of Care 210 mg/dl (65-105)
[2023-05-04 21:56] LABS: Glucose Point of Care 222 mg/dl (65-105)
[2023-05-04] MEDS: methylPREDNISolone SOD SUCC 125 MG VIAL 60 MG IV PUSH (23:38)
[2023-05-05] VITALS (26 sets, daily range): BP systolic 131–180; BP diastolic 73–97; PULSE 66–102; RESP 12–23; TEMP 36–36.6; O2SAT 93–99
--- NOTE | 2023-05-05 | ECHO_ITS ---
Patient Info Name: Karina Ricks Age: 62 years : 1960 Gender: Female Ht: 62 in Wt: 283 lbs BSA: 2.45 m2 HR: 80 bpm BP: 143 / 79 mmHg Heart Rhythm: Sinus Rhythm Technical Quality: Fair Exam Date: 05/05/2023 2:21 PM Exam Location: Echo Lab Patient Status: Inpatient Admit Date: 05/05/2023 Staff Ordering Physician: Lyubov Richmond PA-C Salt Machine Operator: Key Hurst RDCS Attending Provider: Panfilo Barcenas MD Referring Physician: Yi MARTINEZ; Exam Type: CA echo dop bubble study w con Study Info Indications - pulmonary hypertension Complete two-dimentional, color flow and Doppler transthoracic echocardiogram is performed with agitated saline and with contrast to opacify the left ventricle and to improve the delineation of the left ventricle endocardial borders. Contrast/Agitated Saline Contrast/Ag. Saline: Agitated Saline Amount: 20.00 ml Administered By: Chantelle Morel RDCS Existing IV Access: Yes IV Access Condition: patent with no signs of infiltration Contrast/Ag. Saline: Definity Amount: 2.00 ml Administered By: Key Hurst RDCS Existing IV Access: Yes IV Access Condition: patent with no signs of infiltration Summary 1. Technically challenging exam because of obesity, definity contrast utilized. 2. Normal left and right ventricular size and contractility. 3. No valvular dysfunction identified. 4. Saline contrast injection demonstrates no [id number] shunting or evidence of pulmonary AV shunting. 5. Lack of tricuspid regurgitation precludes estimation of pulmonary artery pressure. 6. No other stigmata of significant pulmonary hypertension seen. Left Ventricle Left ventricular chamber dimension is normal. Left ventricular systolic function is hyperdynamic, estimated at >70%. The left ventricular diastolic function is normal. Right Ventricle Right ventricular chamber dimension is normal. Left Atria Left atrial chamber dimension is normal. Right Atria Right atrial chamber dimension is normal. Atrial Septum Intact interatrial septum visualized by agitated saline imaging. Aortic Valve The aortic valve is normal. Pulmonic Valve The pulmonic valve is not well visualized. Mitral Valve The mitral valve has normal leaflets. Tricuspid Valve The tricuspid valve leaflets are normal. Pericardium/Pleural The pericardium appears normal. Aorta The aortic root size at the sinus of Valsalva is normal. Left Ventricular Outflow Tract Name Value Normal LVOT 2D LVOT Diameter 1.9 cm LVOT Doppler LVOT Peak Gradient 5 mmHg LVOT Mean Gradient 3 mmHg LVOT VTI 23 cm LVOT VTI/AV VTI Ratio 0.9 LVOT Stroke Volume 66 ml LVOT CO 5.5 l/min LVOT CI 2.3 l/min/m2 Pulmonic Valve Name Value Normal
[2023-05-05] MEDS: IPRATROPIUM 0.5 MG/ALBUTEROL SULFATE 2.5 MG AMPUL.NEB 3 ML INHALATION ×4 (02:00→19:24)
[2023-05-05 04:42] LABS: Hematocrit 44.3 % (37.0-47.0); Hemoglobin 12.1 g/dL (12.0-15.0); Mean Corpuscular HGB Conc 27.3 g/dl (32-36); Mean Corpuscular Hemoglobin 21.8 pg (26-34); Mean Corpuscular Volume 79.7 fl (80-100); Mean Platelet Volume 9.9 fl (7.4-10.4); Platelet Count Result 312 k/mm3 (150-375); Red Blood Count 5.56 M/mm3 (4.2-5.4); Red Cell Distribution Width 16.4 % (11.5-14.5); White Blood Count 9.7 K/mm3 (4.5-10.0)
[2023-05-05 05:18] LABS: Blood Urea Nitrogen 17 mg/dL (7-17); Calcium 9.2 mg/dL (8.4-10.2); Carbon Dioxide > 40 mmol/L (22-30); Chloride 90 mmol/L (98-107); Estimated CRCL calculation 106 ml/min; Estimated Glomerular Filt Rate > 60; Glucose 142 mg/dL (65-110); Magnesium 2.1 mg/dL (1.6-2.3); Sodium 135 mmol/L (137-145)
[2023-05-05 05:27] LABS: Thyroid Stimulating Hormone Reflex 0.146 uIU/mL (0.465-4.68)
[2023-05-05] MEDS: methylPREDNISolone SOD SUCC 125 MG VIAL 60 MG IV PUSH ×3 (05:31→20:46)
[2023-05-05] MEDS: LEVOTHYROXINE SODIUM 75 MCG TABLET PO (05:32)
[2023-05-05] MEDS: oxyCODONE/ACETAMINOPHEN (*CRX) 10-325 MG TABLET 1 TAB PO ×4 (05:32→23:05)
[2023-05-05 05:44] LABS: Alveolar/Arterial O2 Gradient 59.5 mmHg; Base Excess ABG 11.2 mEq/l (+/-2.0); Carboxyhemoglobin 0.9 % THb (0-2.0); Fractional Inspired Oxygen 32 %; HCO3 ABG 40.6 mEq/l (22.0-26.0); Methemoglobin ABG 0.3 %THb (0-1.5); Oxygen Content ABG 17.5 %vol (16.0-22.0); Oxygen Saturation ABG 93.3 % (95.0-100.0); Oxyhemoglobin 92.8 % THb (90.0-100.0); PCO2 ABG 79.9 mmHg (35.0-45.0); PO2 ABG 75.2 mmHg (80.0-100.0); PO2 FiO2 Ratio Arterial Blood 2.35 %; Site Drawn RIGHT RADIAL; Total Hemoglobin 13.4 g/dL (12.0-18.0); pH ABG 7.324 (7.350-7.450)
[2023-05-05 05:45] LABS: Device NON-INVASIVE VENT; Modified Allen's Test Pass; Non-Invasive Expiratory Pressure 5 CMH2O; Non-Invasive Inspiratory Pressure 17 CMH2O; Non-Invasive Vent Rate 12 /MIN
[2023-05-05 07:15] LABS: Free T4 Free Thyroxine Reflex 1.17 ng/dL (0.78-2.19)
[2023-05-05 08:08] LABS: Total Triiodothyronine (T3) 0.85 NG/ML (0.97-1.69)
[2023-05-05 09:16] LABS: Glucose Point of Care 176 mg/dl (65-105)
--- NOTE | 2023-05-05 09:19 | P.PNIM_ITS ---
Progress Note: A&P Assessment and Plan (1) Acute respiratory failure with hypoxia and hypercapnia: Code(s): J96.01 - Acute respiratory failure with hypoxia; J96.02 - Acute respiratory failure with hypercapnia Status: Inactive Assessment and Plan: 05/05/2023: * patient was transferred from [place] due to respiratory acidosis and need for pulmonary consult * continue azithromycin and Rocephin per Pulmonary recommendation * continue DuoNebs * chest PT ordered * continue Solu-Medrol q.4 hours 60 mg IV * continue with BiPAP * patient will need a BiPAP for home use, will defer to Pulmonary for that * plan for echo today (2) COPD exacerbation: Code(s): J44.1 - Chronic obstructive pulmonary disease with (acute) exacerbation Status: Acute Assessment and Plan: 05/05/2023: * patient wears 3 L nasal cannula at baseline, she does not own a CPAP or a BiPAP * CO2 retention * pulmonology consulted * currently on BiPAP, will await further instruction from pulmonary standpoint * see above plan of care (3) Hyperglycemia: Code(s): R73.9 - Hyperglycemia, unspecified Status: Acute Assessment and Plan: 05/05/2023: * blood glucose ranging 142-222 * last hemoglobin A1c 6.5 * continue Accu-Cheks AC and HS * continue moderate dose sliding scale insulin * patient currently not on any home medications * blood sugar can be further elevated due to chronic steroids over the past month (4) Chronic respiratory failure with hypoxia, on home oxygen therapy: Code(s): J96.11 - Chronic respiratory failure with hypoxia; Z99.81 - Dependence on supplemental oxygen Status: Chronic Assessment and Plan: see above plan of care (5) Obstructive sleep apnea: Code(s): G47.33 - Obstructive sleep apnea (adult) (pediatric) Status: Chronic Assessment and Plan: see above plan of care (6) Depression: Code(s): F32.9 - Major depressive disorder, single episode, unspecified Status: Chronic Assessment and Plan: 05/05/2023: * Paxil and Abilify continued (7) Chronic back pain: Code(s): M54.9 - Dorsalgia, unspecified; G89.29 - Other chronic pain Status: Acute Assessment and Plan: 05/05/2023: * Percocet ordered 1 tab p.o. q.i.d. (8) Anxiety: Code(s): F41.9 - Anxiety disorder, unspecified Status: Chronic Assessment and Plan: 05/05/2023: * continue BuSpar (9) Nicotine abuse: Code(s): Z72.0 - Tobacco use Status: Acute Assessment and Plan: 05/05/2023 * patient is a half pack per day smoker times 50 years * nicotine patch ordered (10) Hypothyroidism: Code(s): E03.9 - Hypothyroidism, unspecified Status: Acute Assessment and Plan: 05/05/2023: * TSH 0.146, free T4 1.17, total T3 0.85 * will hold Synthroid * she will need further labs and testing on an outpatient basis (11) Morbid obesity: Code(s): E66.01 - Morbid (severe) obesity due to excess calories Status: Chronic Assessment and Plan: 05/05/2023: * BMI 52.1, 129.1 kg Time Spent With Patient Time with patient: Greater than 35 minutes Subjective Date/time seen: 05/05/23 09:19 Interval history: 05/04/23: (forwarded from chart) Karina Ricks is a 62 year old female with a significant past medical history of chronic back pain, migraines, depression, anxiety, COPD, emphysema, hypertension, diverticulosis, hyperlipidemia, history of s
--- NOTE | 2023-05-05 09:19 | PM.IMPN ---
Progress Note: A&P Assessment and Plan (1) Acute respiratory failure with hypoxia and hypercapnia: Code(s): J96.01 - Acute respiratory failure with hypoxia; J96.02 - Acute respiratory failure with hypercapnia Status: Inactive Assessment and Plan: 05/05/2023: patient was transferred from [place] due to respiratory acidosis and need for pulmonary consult continue azithromycin and Rocephin per Pulmonary recommendation continue DuoNebs chest PT ordered continue Solu-Medrol q.4 hours 60 mg IV continue with BiPAP patient will need a BiPAP for home use, will defer to Pulmonary for that plan for echo today (2) COPD exacerbation: Code(s): J44.1 - Chronic obstructive pulmonary disease with (acute) exacerbation Status: Acute Assessment and Plan: 05/05/2023: patient wears 3 L nasal cannula at baseline, she does not own a CPAP or a BiPAP CO2 retention pulmonology consulted currently on BiPAP, will await further instruction from pulmonary standpoint see above plan of care (3) Hyperglycemia: Code(s): R73.9 - Hyperglycemia, unspecified Status: Acute Assessment and Plan: 05/05/2023: blood glucose ranging 142-222 last hemoglobin A1c 6.5 continue Accu-Cheks AC and HS continue moderate dose sliding scale insulin patient currently not on any home medications blood sugar can be further elevated due to chronic steroids over the past month (4) Chronic respiratory failure with hypoxia, on home oxygen therapy: Code(s): J96.11 - Chronic respiratory failure with hypoxia; Z99.81 - Dependence on supplemental oxygen Status: Chronic Assessment and Plan: see above plan of care (5) Obstructive sleep apnea: Code(s): G47.33 - Obstructive sleep apnea (adult) (pediatric) Status: Chronic Assessment and Plan: see above plan of care (6) Depression: Code(s): F32.9 - Major depressive disorder, single episode, unspecified Status: Chronic Assessment and Plan: 05/05/2023: Paxil and Abilify continued (7) Chronic back pain: Code(s): M54.9 - Dorsalgia, unspecified; G89.29 - Other chronic pain Status: Acute Assessment and Plan: 05/05/2023: Percocet ordered 1 tab p.o. q.i.d. (8) Anxiety: Code(s): F41.9 - Anxiety disorder, unspecified Status: Chronic Assessment and Plan: 05/05/2023: continue BuSpar (9) Nicotine abuse: Code(s): Z72.0 - Tobacco use Status: Acute Assessment and Plan: 05/05/2023 patient is a half pack per day smoker times 50 years nicotine patch ordered (10) Hypothyroidism: Code(s): E03.9 - Hypothyroidism, unspecified Status: Acute Assessment and Plan: 05/05/2023: TSH 0.146, free T4 1.17, total T3 0.85 will hold Synthroid she will need further labs and testing on an outpatient basis (11) Morbid obesity: Code(s): E66.01 - Morbid (severe) obesity due to excess calories Status: Chronic Assessment and Plan: 05/05/2023: BMI 52.1, 129.1 kg Time Spent With Patient Time with patient: Greater than 35 minutes Subjective Date/time seen: 05/05/23 09:19 Interval history: 05/04/23: (forwarded from chart) Karina Ricks is a 62 year old female with a significant past medical history of chronic back pain, migraines, depression, anxiety, COPD, emphysema, hypertension, diverticulosis, hyperlipidemia, history of stage IV cervical cancer status post hysterectomy, hypothyroidism, every day smoker, marijuana abuse who presents to the hospital with chief complaint of shortness of breath and dyspnea.? She was recently discharged on 05/02/2023? for this same complaint.? At that time she you was noncompliant with her oxygen at home and went to [place] without her O2 tanks.? When she got back home she was still having quite a bit of shortness of breath and tried nebulized treatments x2 which
[2023-05-05] MEDS: SIMVASTATIN 20 MG TABLET 40 MG PO (09:46)
[2023-05-05] MEDS: AZITHROMYCIN 250 MG TABLET PO (09:47)
[2023-05-05] MEDS: PARoxetine 20 MG TABLET 60 MG PO (09:47)
[2023-05-05] MEDS: POTASSIUM CHLORIDE 20 MEQ ER TABLET PO (09:47)
[2023-05-05] MEDS: PANTOPRAZOLE 40 MG TABLET PO (09:47)
[2023-05-05] MEDS: busPIRone HCL 10 MG TABLET PO ×2 (09:47→20:45)
[2023-05-05] MEDS: CLOPIDOGREL BISULFATE 75 MG TABLET PO (09:47)
[2023-05-05] MEDS: PROPRANOLOL HCL 20 MG TABLET PO (09:47)
[2023-05-05] MEDS: hydroCHLOROthiazide 25 MG TABLET PO (09:48)
[2023-05-05] MEDS: ASPIRIN 81 MG ENTERIC TABLET PO (09:48)
[2023-05-05] MEDS: guaiFENesin 12 HR 600 MG TABCR 1200 MG PO ×2 (09:58→20:45)
[2023-05-05] MEDS: NICOTINE (*PBKC) 21 MG PATCH 1 PATCH TRANSDERM (09:58)
[2023-05-05 12:54] LABS: Glucose Point of Care 174 mg/dl (65-105)
[2023-05-05] MEDS: PERFLUTREN LIPID MICROSPHERES 1.5 ML VIAL DILUTED TO 10 ML TOTAL VOLUME IV PUSH (15:00)
--- NOTE | 2023-05-05 16:38 | IVDEFINITY ---
Prior to administration of IV Definity the patient was educated on the risks and benefits of the imaging enhancing agent including potential adverse side effects. The patient verbalized understanding. Allergies were verified. No exclusion criteria were identified and at least one of the following inclusion criteria were met: 1) physician request, 2) patient technically difficult to image (per the [place] [employer] guidelines of two or more segments not discernable within the apical view), or 3) questionable left ventricular function. ?
[2023-05-05] MEDS: INSULIN ASPART (*BKC) 100 UNITS/ML SUB-Q (16:42)
[2023-05-05 17:03] LABS: Glucose Point of Care 223 mg/dl (65-105)
[2023-05-05 20:39] LABS: Glucose Point of Care 173 mg/dl (65-105)
[2023-05-05] MEDS: ARIPiprazole 5 MG TABLET PO (20:45)
[2023-05-06] VITALS (30 sets, daily range): BP systolic 137–213; BP diastolic 70–134; PULSE 71–95; RESP 12–27; TEMP 35.8–36.6; O2SAT 82–99
[2023-05-06 01:03] LABS: Alveolar/Arterial O2 Gradient 48.7 mmHg; Base Excess ABG 15.6 mEq/l (+/-2.0); Carboxyhemoglobin 0.7 % THb (0-2.0); Fractional Inspired Oxygen 32 %; HCO3 ABG 45.9 mEq/l (22.0-26.0); Methemoglobin ABG 0.4 %THb (0-1.5); Oxygen Content ABG 18.5 %vol (16.0-22.0); Oxygen Saturation ABG 93.9 % (95.0-100.0); Oxyhemoglobin 93.6 % THb (90.0-100.0); PO2 ABG 77.3 mmHg (80.0-100.0); PO2 FiO2 Ratio Arterial Blood 2.42 %; Reduced Hemoglobin 5.3 %THb (0-5.0); pH ABG 7.339 (7.350-7.450)
[2023-05-06 01:05] LABS: Modified Allen's Test Pass; PCO2 ABG 87.3 mmHg (35.0-45.0); Site Drawn RIGHT RADIAL
[2023-05-06 01:06] LABS: Device NON-INVASIVE VENT; Non-Invasive Vent Rate 12 /MIN
[2023-05-06 01:07] LABS: Non-Invasive Expiratory Pressure 5 CMH2O; Non-Invasive Inspiratory Pressure 17 CMH2O
[2023-05-06] MEDS: IPRATROPIUM 0.5 MG/ALBUTEROL SULFATE 2.5 MG AMPUL.NEB 3 ML INHALATION ×4 (01:10→19:43)
--- NOTE | 2023-05-06 01:53 | PC.NURSE ---
Pt's bipap alarmed. RN to bedside. Pt confused and unsteady on her feet. Stat ABG obtained and Dr. Daily notified. Bipap settings changed per Dr. Daily. Pt called her friend Allan. RN explained situation to him with pt's permission. Allan states if this is a nursing problem, I will transfer her to [place]. RN explained again that the issue is the increase in CO2. Allan states I will come up there if this is a nursing problem. Allan was advised that pt could have one visitor and that if the pt's condition changed, her son, Kerwin, who is the next of kin, would be notified.
[2023-05-06] MEDS: methylPREDNISolone SOD SUCC 125 MG VIAL 60 MG IV PUSH ×3 (03:05→13:53)
[2023-05-06 03:14] LABS: Alveolar/Arterial O2 Gradient 58.7 mmHg; Base Excess ABG 17.2 mEq/l (+/-2.0); Carboxyhemoglobin 0.5 % THb (0-2.0); Fractional Inspired Oxygen 32 %; HCO3 ABG 47.5 mEq/l (22.0-26.0); Methemoglobin ABG 0.3 %THb (0-1.5); Oxygen Content ABG 17.1 %vol (16.0-22.0); Oxygen Saturation ABG 90.2 % (95.0-100.0); Oxyhemoglobin 90.8 % THb (90.0-100.0); PO2 ABG 65.1 mmHg (80.0-100.0); PO2 FiO2 Ratio Arterial Blood 2.03 %; Reduced Hemoglobin 8.4 %THb (0-5.0); Total Hemoglobin 13.4 g/dL (12.0-18.0); pH ABG 7.344 (7.350-7.450)
[2023-05-06 03:15] LABS: Device NON-INVASIVE VENT; Modified Allen's Test Pass; PCO2 ABG 89.2 mmHg (35.0-45.0); Site Drawn RIGHT RADIAL
[2023-05-06 03:16] LABS: Non-Invasive Expiratory Pressure 5 CMH2O; Non-Invasive Inspiratory Pressure 19 CMH2O; Non-Invasive Vent Rate 20 /MIN
--- NOTE | 2023-05-06 05:10 | PM.EVENT ---
Event Note Event Note Event Note: Nursing staff called as the patient was found to have older BiPAP apart and was not on BiPAP. The patient had the ?deer in headlights look?. The patient was having decreased breath sounds in all pichardo. She seemed to have increased work of breathing. Her only complaint was being thirsty and was upset that the nursing staff would not let her drink as much water as she wanted. The patient's behavior was also changing patient was becoming anxious and restless. She seemed more confused. She was more difficult to redirect. Stat ABG was performed which demonstrated worsening pCO2. A changes were made to BiPAP from 17/5 to 19/5 with an increase in rate up to 18. The patient was re-evaluated afterwards your ABG demonstrated worsening pCO2 and pH was stable. However the patient was becoming more difficult to redirect and seemed more confused. Although the patient was alert and oriented to person place and year she was confused as to the month. She had incontinence of her bladder with for the 1st time. I went to the bedside and made adjustments to the BiPAP and discuss patient's case with both respiratory therapy and nursing staff. After multiple adjustments of BiPAP patient's tidal volumes had improved with pressures of 22/8 and her rate was increased to 24. Repeat ABG was performed about an hour and half to 2 hours later. The patient was more difficult to arouse at that time but her pCO2 improved down to 71 and her pH was stable. Patient was arousable with the attempt of the repeat ABG and mentation seemed relatively stable. Patient was reporting headache at the time and blood pressures were noted to be elevated at 188/117 was even higher values noted in the opposite arm. An order was given for hydralazine with p.r.n. hydralazine ordered every 4 hours as needed for systolic blood pressures greater than 160. Patient's blood pressures were not elevated like this previously. 1. Acute on chronic hypercapnic hypoxic respiratory failure--continue q.6 hours IV Solu-Medrol. ABG was repeated will continue continue BiPAP. Patient remains NPO. Patient is still at high risk for potential intubation. Continue scheduled nebulizer treatments. 2. Uncontrolled hypertension--will provide IV hydralazine as needed. Patient will likely need addition of oral antihypertensive therapy. The patient's home hydrochlorothiazide had been placed on hold on admission due to hyponatremia. 75 minutes spent in critical care activities. Due to a high probability of clinically significant, life threatening deterioration, the patient required my highest level of preparedness to intervene emergently and I personally spent this critical care time directly and personally managing the patient. This critical care time included obtaining a history; examining the patient; pulse oximetry; ordering and review of studies; arranging urgent treatment with development of a management plan; evaluation of patient's response to treatment; frequent reassessment; and discussions with other providers. It was exclusive of separately billable procedures and treating other patients and teaching time. Please see Assessment and Plan section and the rest of the note for further information on patient assessment and treatment.
[2023-05-06 05:15] LABS: Alveolar/Arterial O2 Gradient 65.5 mmHg; Base Excess ABG 9.9 mEq/l (+/-2.0); Carboxyhemoglobin 0.3 % THb (0-2.0); Fractional Inspired Oxygen 30 %; HCO3 ABG 38.2 mEq/l (22.0-26.0); Methemoglobin ABG 0.3 %THb (0-1.5); Oxygen Content ABG 16.5 %vol (16.0-22.0); Oxygen Saturation ABG 90.8 % (95.0-100.0); Oxyhemoglobin 90.1 % THb (90.0-100.0); PO2 ABG 64.7 mmHg (80.0-100.0); PO2 FiO2 Ratio Arterial Blood 2.16 %; Reduced Hemoglobin 9.3 %THb (0-5.0); pH ABG 7.348 (7.350-7.450)
[2023-05-06 05:18] LABS: Device NON-INVASIVE VENT; Modified Allen's Test Pass; PCO2 ABG 71.2 mmHg (35.0-45.0); Site Drawn RIGHT RADIAL
[2023-05-06 05:19] LABS: Non-Invasive Expiratory Pressure 8 CMH2O; Non-Invasive Inspiratory Pressure 22 CMH2O; Non-Invasive Vent Rate 24 /MIN
[2023-05-06 08:19] LABS: Glucose Point of Care 177 mg/dl (65-105)
[2023-05-06] MEDS: guaiFENesin 12 HR 600 MG TABCR 1200 MG PO ×2 (09:05→21:18)
[2023-05-06] MEDS: PANTOPRAZOLE 40 MG TABLET PO (09:06)
[2023-05-06] MEDS: hydroCHLOROthiazide 25 MG TABLET PO (09:06)
[2023-05-06] MEDS: CLOPIDOGREL BISULFATE 75 MG TABLET PO (09:06)
[2023-05-06] MEDS: PARoxetine 20 MG TABLET 60 MG PO (09:06)
[2023-05-06] MEDS: POTASSIUM CHLORIDE 20 MEQ ER TABLET PO (09:06)
[2023-05-06] MEDS: busPIRone HCL 10 MG TABLET PO ×2 (09:06→21:17)
[2023-05-06] MEDS: SIMVASTATIN 20 MG TABLET 40 MG PO (09:06)
[2023-05-06] MEDS: ASPIRIN 81 MG ENTERIC TABLET PO (09:06)
[2023-05-06] MEDS: PROPRANOLOL HCL 20 MG TABLET PO (09:07)
[2023-05-06] MEDS: AZITHROMYCIN 250 MG TABLET PO (09:07)
[2023-05-06] MEDS: TOLNAFTATE 1% POWDER 45 GM BTL 1 APPLIC TOPICAL ×2 (09:21→21:18)
--- NOTE | 2023-05-06 11:47 | P.PNIM_ITS ---
Progress Note: A&P Assessment and Plan (1) Acute respiratory failure with hypoxia and hypercapnia: Code(s): J96.01 - Acute respiratory failure with hypoxia; J96.02 - Acute respiratory failure with hypercapnia Status: Inactive Assessment and Plan: 05/05/2023: * patient was transferred from [place] due to respiratory acidosis and need for pulmonary consult * continue azithromycin and Rocephin per Pulmonary recommendation * continue DuoNebs * chest PT ordered * continue Solu-Medrol q.4 hours 60 mg IV * continue with BiPAP * patient will need a BiPAP for home use, will defer to Pulmonary for that * plan for echo today 05/06/2023: * Echo today showing normal EF of greater than 70, no pulmonary hypertension or diastolic dysfunction * Pulmonology consulted as she will need of BiPAP for at-home use and will need to be followed by first line production supervisor outpatient * Continue with current treatment plan * CTA of the chest was negative for any PE * Pulmonology is ordering venous Dopplers to check for DVTs * Patient switched to oral prednisone this morning Solu-Medrol was discontinued * Will continue azithromycin and Rocephin * Pulmonary made some BiPAP changes for tonight we will repeat ABG in the mo rning. (2) COPD exacerbation: Code(s): J44.1 - Chronic obstructive pulmonary disease with (acute) exacerbation Status: Acute Assessment and Plan: 05/05/2023: * patient wears 3 L nasal cannula at baseline, she does not own a CPAP or a BiPAP * CO2 retention * pulmonology consulted * currently on BiPAP, will await further instruction from pulmonary standpoint * see above plan of care 05/06/2023: * Continue with current treatment (3) Hyperglycemia: Code(s): R73.9 - Hyperglycemia, unspecified Status: Acute Assessment and Plan: 05/05/2023: * blood glucose ranging 142-222 * last hemoglobin A1c 6.5 * continue Accu-Cheks AC and HS * continue moderate dose sliding scale insulin * patient currently not on any home medications * blood sugar can be further elevated due to chronic steroids over the past month 05/06/2023: * Continue current treatment plan (4) Chronic respiratory failure with hypoxia, on home oxygen therapy: Code(s): J96.11 - Chronic respiratory failure with hypoxia; Z99.81 - Dependence on supple mental oxygen Status: Chronic Assessment and Plan: see above plan of care (5) Obstructive sleep apnea: Code(s): G47.33 - Obstructive sleep apnea (adult) (pediatric) Status: Chronic Assessment and Plan: see above plan of care (6) Depression: Code(s): F32.9 - Major depressive disorder, single episode, unspecified Status: Chronic Assessment and Plan: 05/05/2023: * Paxil and Abilify continued 05/06/2023: * Continue with current treatment (7) Chronic back pain: Code(s): M54.9 - Dorsalgia, unspecified; G89.29 - Other chronic pain Status: Acute Assessment and Plan: 05/05/2023: * Percocet ordered 1 tab p.o. q.i.d. 05/06/2023: * Continue with current treatment plan (8) Anxiety: Code(s): F41.9 - Anxiety disorder, unspecified Status: Chronic Assessment and Plan: 05/05/2023: * continue BuSpar 05/06/2023: * Continue with current treatment plan (9) Nicotine abuse: Code(s): Z72.0 - Tobacco use Status: Acute Assessment and Plan: 05/05/2023 * patient is a half pack per day smoker times 50 years *
--- NOTE | 2023-05-06 11:47 | PM.IMPN ---
Progress Note: A&P Assessment and Plan (1) Acute respiratory failure with hypoxia and hypercapnia: Code(s): J96.01 - Acute respiratory failure with hypoxia; J96.02 - Acute respiratory failure with hypercapnia Status: Inactive Assessment and Plan: 05/05/2023: patient was transferred from [place] due to respiratory acidosis and need for pulmonary consult continue azithromycin and Rocephin per Pulmonary recommendation continue DuoNebs chest PT ordered continue Solu-Medrol q.4 hours 60 mg IV continue with BiPAP patient will need a BiPAP for home use, will defer to Pulmonary for that plan for echo today 05/06/2023: Echo today showing normal EF of greater than 70, no pulmonary hypertension or diastolic dysfunction Pulmonology consulted as she will need of BiPAP for at-home use and will need to be followed by research aide outpatient Continue with current treatment plan CTA of the chest was negative for any PE Pulmonology is ordering venous Dopplers to check for DVTs Patient switched to oral prednisone this morning Solu-Medrol was discontinued Will continue azithromycin and Rocephin Pulmonary made some BiPAP changes for tonight we will repeat ABG in the morning. (2) COPD exacerbation: Code(s): J44.1 - Chronic obstructive pulmonary disease with (acute) exacerbation Status: Acute Assessment and Plan: 05/05/2023: patient wears 3 L nasal cannula at baseline, she does not own a CPAP or a BiPAP CO2 retention pulmonology consulted currently on BiPAP, will await further instruction from pulmonary standpoint see above plan of care 05/06/2023: Continue with current treatment (3) Hyperglycemia: Code(s): R73.9 - Hyperglycemia, unspecified Status: Acute Assessment and Plan: 05/05/2023: blood glucose ranging 142-222 last hemoglobin A1c 6.5 continue Accu-Cheks AC and HS continue moderate dose sliding scale insulin patient currently not on any home medications blood sugar can be further elevated due to chronic steroids over the past month 05/06/2023: Continue current treatment plan (4) Chronic respiratory failure with hypoxia, on home oxygen therapy: Code(s): J96.11 - Chronic respiratory failure with hypoxia; Z99.81 - Dependence on supplemental oxygen Status: Chronic Assessment and Plan: see above plan of care (5) Obstructive sleep apnea: Code(s): G47.33 - Obstructive sleep apnea (adult) (pediatric) Status: Chronic Assessment and Plan: see above plan of care (6) Depression: Code(s): F32.9 - Major depressive disorder, single episode, unspecified Status: Chronic Assessment and Plan: 05/05/2023: Paxil and Abilify continued 05/06/2023: Continue with current treatment (7) Chronic back pain: Code(s): M54.9 - Dorsalgia, unspecified; G89.29 - Other chronic pain Status: Acute Assessment and Plan: 05/05/2023: Percocet ordered 1 tab p.o. q.i.d. 05/06/2023: Continue with current treatment plan (8) Anxiety: Code(s): F41.9 - Anxiety disorder, unspecified Status: Chronic Assessment and Plan: 05/05/2023: continue BuSpar 05/06/2023: Continue with current treatment plan (9) Nicotine abuse: Code(s): Z72.0 - Tobacco use Status: Acute Assessment and Plan: 05/05/2023 patient is a half pack per day smoker times 50 years nicotine patch ordered 05/06/2023: Continue with current treatment plan (10) Hypothyroidism: Code(s): E03.9 - Hypothyroidism, unspecified Status: Acute Assessment and Plan: 05/05/2023: TSH 0.146, free T4 1.17, total T3 0.85 will hold Synthroid she will need further labs and testing on an outpatient basis 05/06/2023: Continue with current treatment plan (11) Morbid obesity: Code(s): E66.01 - Morbid (severe) obesity due to excess calories
[2023-05-06 12:08] LABS: Glucose Point of Care 156 mg/dl (65-105)
[2023-05-06 13:14] LABS: Alveolar/Arterial O2 Gradient 70.1 mmHg; Base Excess ABG 17.4 mEq/l (+/-2.0); Fractional Inspired Oxygen 30 %; HCO3 ABG 45.5 mEq/l (22.0-26.0); Oxygen Content ABG 17.4 %vol (16.0-22.0); Oxygen Saturation ABG 91.4 % (95.0-100.0); Oxyhemoglobin 90.4 % THb (90.0-100.0); PO2 FiO2 Ratio Arterial Blood 2.07 %; Total Hemoglobin 13.7 g/dL (12.0-18.0); pH ABG 7.433 (7.350-7.450)
[2023-05-06 13:16] LABS: Device NON-INVASIVE VENT; Modified Allen's Test Pass; Non-Invasive Inspiratory Pressure 22 CMH2O; Non-Invasive Vent Rate 24 /MIN; PCO2 ABG 69.6 mmHg (35.0-45.0); Site Drawn RIGHT RADIAL
[2023-05-06 13:17] LABS: Non-Invasive Expiratory Pressure 8 CMH2O
--- NOTE | 2023-05-06 15:20 | PM.CNPUL ---
Assessment and Plan Assessment and plan (1) Chronic respiratory failure with hypoxia, on home oxygen therapy: Code(s): J96.11 - Chronic respiratory failure with hypoxia; Z99.81 - Dependence on supplemental oxygen Status: Chronic (2) Acute respiratory failure with hypercapnia: Code(s): J96.02 - Acute respiratory failure with hypercapnia Status: Acute Assessment and Plan: The patient, a 62-year-old female with a history of severe obesity and COPD, has been treated at [facility] for an acute exacerbation of her chronic hypercapnic respiratory failure and associated breathlessness. Despite treatment, her symptoms, including shortness of breath and hypercapnic respiratory failure, have persisted for several weeks. Recent arterial blood gas tests show normal pH but elevated pCO2 levels. It is my suspicion that her chronic hypercapnic respiratory failure is more likely due to obesity hypoventilation rather than COPD. Unfortunately, there are no available pulmonary function tests for reference. A chest CT scan reveals mild emphysematous changes. The patient's treatment plan will involve continued BiPAP support with adjusted settings, which she will use at night and as needed during the day. I have discontinued her IV steroids and will transition her to oral prednisone starting tomorrow morning. She will be screened for MRSA and a lower extremity study will be conducted to rule out DVT. Her current antibiotic regimen will be maintained. Given the persistence of her hypercapnic respiratory failure, she will likely need home ventilatory support. I will continue to monitor her condition and provide updates. (3) Morbid obesity: Code(s): E66.01 - Morbid (severe) obesity due to excess calories Status: Chronic (4) Obstructive sleep apnea: Code(s): G47.33 - Obstructive sleep apnea (adult) (pediatric) Status: Chronic (5) COPD exacerbation: Code(s): J44.1 - Chronic obstructive pulmonary disease with (acute) exacerbation Status: Acute (6) Anxiety: Code(s): F41.9 - Anxiety disorder, unspecified Status: Chronic History of Present Illness History of Present Illness Consult date: 05/06/23 Chief complaint: Hypercapnic respiratory failure Narrative: A 62-year-old female, with a medical history that includes severe obesity, COPD, chronic back pain, migraines, depression, anxiety, emphysema, hypertension, hyperlipidemia, stage IV cervical cancer (post-hysterectomy), hypothyroidism, and marijuana abuse, was transferred from [facility] due to respiratory failure. She has been experiencing shortness of breath for several weeks and was previously treated at [facility] for similar symptoms. Despite in-house and at-home treatments, her [id number] hypercapnic respiratory failure did not improve, leading to her readmission at [facility]. Her current treatment plan includes nebulized bronchodilators, antibiotics, IV steroids, and BiPAP support for her respiratory failure. Presently, she remains on BiPAP support, with recent arterial blood gases revealing normal pH but elevated pCO2 at 69 mmHg. The patient reports some improvement in her breathing and has been using the BiPAP support consistently. The patient has a known history of COPD and has been using maintenance bronchodilators. She underwent a sleep study around 4-5 years ago but did not receive any treatment following this. Unfortunately, the records of this sleep study and any pulmonary function tests are unavailable for review. A recent chest CT scan revealed mild emphysematous changes without any lung infiltrates or evidence of a pulmonary embolism. An echocardiogram showed a normal ejection fraction (EF) and a moderately enlarged left atrium, and probably normal pulmonary artery systolic pressure. Review of Systems Review of Systems: All systems reviewed & are unremarkable except as noted in HPI and below (HPI and
[2023-05-06] MEDS: hydrALAZINE HCL 20 MG/ML VIAL 10 MG IV PUSH ×2 (16:38→21:18)
[2023-05-06 17:08] LABS: Glucose Point of Care 181 mg/dl (65-105)
[2023-05-06 19:53] LABS: Glucose Point of Care 223 mg/dl (65-105)
[2023-05-06] MEDS: ARIPiprazole 5 MG TABLET PO (21:17)
[2023-05-06] MEDS: INSULIN ASPART (*BKC) 100 UNITS/ML SUB-Q (21:18)
[2023-05-07] VITALS (28 sets, daily range): BP systolic 121–182; BP diastolic 63–127; PULSE 63–96; RESP 16–22; TEMP 35.5–36.5; O2SAT 91–100
[2023-05-07] MEDS: IPRATROPIUM 0.5 MG/ALBUTEROL SULFATE 2.5 MG AMPUL.NEB 3 ML INHALATION ×5 (01:53→20:47)
[2023-05-07 08:13] LABS: Glucose Point of Care 152 mg/dl (65-105)
[2023-05-07] MEDS: PROPRANOLOL HCL 20 MG TABLET PO (08:46)
[2023-05-07] MEDS: guaiFENesin 12 HR 600 MG TABCR 1200 MG PO ×2 (08:46→21:29)
[2023-05-07] MEDS: PARoxetine 20 MG TABLET 60 MG PO (08:47)
[2023-05-07] MEDS: hydroCHLOROthiazide 25 MG TABLET PO (08:47)
[2023-05-07] MEDS: POTASSIUM CHLORIDE 20 MEQ ER TABLET PO (08:47)
[2023-05-07] MEDS: SIMVASTATIN 20 MG TABLET 40 MG PO (08:47)
[2023-05-07] MEDS: AZITHROMYCIN 250 MG TABLET PO (08:47)
[2023-05-07] MEDS: busPIRone HCL 10 MG TABLET PO ×2 (08:47→21:29)
[2023-05-07] MEDS: CLOPIDOGREL BISULFATE 75 MG TABLET PO (08:48)
[2023-05-07] MEDS: PANTOPRAZOLE 40 MG TABLET PO (08:48)
[2023-05-07] MEDS: predniSONE 20 MG TABLET 40 MG PO (08:48)
[2023-05-07] MEDS: ASPIRIN 81 MG ENTERIC TABLET PO (08:48)
[2023-05-07 08:49] LABS: Fractional Inspired Oxygen 32 %; HCO3 VBG 40.6 mEq/l (24.0-30.0); PO2 VBG 35.2 mmHg (35.0-45.0)
[2023-05-07] MEDS: TOLNAFTATE 1% POWDER 45 GM BTL 1 APPLIC TOPICAL ×2 (08:49→21:30)
[2023-05-07 08:54] LABS: Basophils Percent Auto 0.2 % (0.2-1.2); Hematocrit 51.4 % (37.0-47.0); Hemoglobin 14.3 g/dL (12.0-15.0); Immature Granulocyte Absolute 0.04 K/mm3 (0.00-0.031); Immature Granulocyte Percent A 0.5 % (0-0.5); Lymphocytes Absolute Auto 1.31 K/mm3 (0.9-3.2); Lymphocytes Percent Auto 15.1 % (18.3-44.2); Mean Corpuscular HGB Conc 27.8 g/dl (32-36); Mean Corpuscular Hemoglobin 21.8 pg (26-34); Mean Corpuscular Volume 78.5 fl (80-100); Mean Platelet Volume 9.7 fl (7.4-10.4); Monocytes Absolute Auto 0.7 K/mm3 (0.1-0.6); Monocytes Percent Auto 7.6 % (2.6-8.5); Neutrophils Absolute Auto 6.7 K/mm3 (1.3-6.7); Neutrophils Percent Auto 76.6 % (45.5-73.1); Platelet Count Result 326 k/mm3 (150-375); Red Blood Count 6.55 M/mm3 (4.2-5.4); Red Cell Distribution Width 18.5 % (11.5-14.5); White Blood Count 8.7 K/mm3 (4.5-10.0)
[2023-05-07 08:54] LABS: pH VBG 7.416 (7.300-7.400)
[2023-05-07 08:55] LABS: PCO2 VBG 64.7 mmHg (42.0-48.0)
[2023-05-07 08:56] LABS: Device NASAL CANNULA
[2023-05-07 09:18] LABS: Alanine Aminotransferase 20 U/L (6-35); Albumin Level 3.7 g/dL (3.5-5.1); Alkaline Phosphatase 97 U/L (38-126); Aspartate Amino Transferase 20 U/L (14-36); Bilirubin,Total 0.8 mg/dL (0.2-1.3); Blood Urea Nitrogen 22 mg/dL (7-17); Calcium 9.5 mg/dL (8.4-10.2); Carbon Dioxide > 40 mmol/L (22-30); Chloride 91 mmol/L (98-107); Estimated CRCL calculation 101 ml/min; Estimated Glomerular Filt Rate > 60; Glucose 175 mg/dL (65-110); Magnesium 2.3 mg/dL (1.6-2.3); Phosphorus 3.4 mg/dL (2.5-4.5); Sodium 134 mmol/L (137-145)
[2023-05-07 09:57] LABS: Anisocytosis 1+ (NORMAL); Hypochromasia 1+ (NORMAL); Platelet Estimate Adequate (Adequate)
[2023-05-07 09:58] LABS: Schistocytes None Seen (NORMAL)
--- NOTE | 2023-05-07 10:44 | PM.PNPUL ---
Progress Note: A&P Assessment and Plan (1) Acute respiratory failure with hypercapnia: Code(s): J96.02 - Acute respiratory failure with hypercapnia Status: Acute Assessment and Plan: The patient, a 62-year-old female with a history of severe obesity and COPD, has been treated at [facility] for an acute exacerbation of her chronic hypercapnic respiratory failure and associated breathlessness. Despite treatment, her symptoms, including shortness of breath and hypercapnic respiratory failure, have persisted for several weeks. Recent arterial blood gas tests show normal pH but elevated pCO2 levels. It is my suspicion that her chronic hypercapnic respiratory failure is more likely due to obesity hypoventilation rather than COPD. Unfortunately, there are no available pulmonary function tests for reference. A chest CT scan reveals mild emphysematous changes. The patient's treatment plan will involve continued BiPAP support with adjusted settings, which she will use at night and as needed during the day. She will continue with current antibiotic regimen and oral steroid regimen for now. Given the clinical scenario, this case is consistent with obesity hypoventilation syndrome, which refers to the combination of obesity and hypoventilation that may lead to hypercapnia. To manage this condition the patient is a candidate for noninvasive ventilatory support at home. Unlike the traditional usage of BiPAP support, this different mode of treatment provides consistent ventilatory support adapted to the patient's needs, enhancing CO2 elimination, improving symptoms and quality of life associated with obesity hypoventilation and also decreases rate of hospitalizations. (2) Chronic respiratory failure with hypoxia, on home oxygen therapy: Code(s): J96.11 - Chronic respiratory failure with hypoxia; Z99.81 - Dependence on supplemental oxygen Status: Chronic (3) Morbid obesity: Code(s): E66.01 - Morbid (severe) obesity due to excess calories Status: Chronic (4) COPD exacerbation: Code(s): J44.1 - Chronic obstructive pulmonary disease with (acute) exacerbation Status: Acute Subjective Date/time seen: 05/07/23 10:44 Interval history: Patient has no new respiratory symptoms. Slept well last night on BiPAP. About to transition to nasal cannula this a.m. Review of Systems Review of Systems: All systems reviewed & are unremarkable except as noted in HPI and below (HPI and below) Exam Narrative: GENERAL APPEARANCE: Well developed, well nourished, alert and cooperative, and appears to be in in mild respiratory distress while on BiPAP support SKIN: Inspection of the skin reveals no rashes, ulcerations or petechiae. HEENT: Sclerae anicteric and conjunctivae pink and moist. Extraocular movements were intact and pupils were equal, round, and reactive to light. NECK: Supple. There was no thyroid enlargement, and no tenderness, or masses were felt. LUNGS: Clear lungs bilaterally, rare wheezes CARDIAC: There was a regular rate and rhythm without any murmurs, gallops, rubs. ABDOMEN: Soft and nontender with normal bowel sounds. There was no organomegaly. LYMPH NODES: No lymphadenopathy was appreciated in the neck. EXTREMITIES: No cyanosis, clubbing or edema. NEUROLOGIC: Alert and oriented x 3. Normal affect. Objective Data Vital Signs Vital Signs: Vital Signs - 24 hr 05/06/23 11:16 05/06/23 12:30 05/06/23 13:00 Temperature 35.8 C L Pulse Rate 74 81 Respiratory Rate 27 H 25 H 24 H Blood Pressure 186/134 H Pulse Oximetry 97 93 Oxygen Delivery BiPAP Oxygen Flow Rate Fraction of Inspired Oxygen 05/06/23 13:20 05/06/23 12:00 05/06/23 12:00 Temperature Pulse Rate 89 77 77 Respiratory Rate 23 H 23 H Blood Pressure Pulse Oximetry 93 Oxygen Delivery BiPAP Oxygen Flow Rate Fraction of Inspired Oxygen 30 05/06/23 16:28 05/06/23 16:50 05/06/23 14:00 Tem
[2023-05-07] MEDS: hydrALAZINE HCL 20 MG/ML VIAL 10 MG IV PUSH (12:20)
--- NOTE | 2023-05-07 12:23 | P.PNIM_ITS ---
Progress Note: A&P Assessment and Plan (1) Acute respiratory failure with hypoxia and hypercapnia: Code(s): J96.01 - Acute respiratory failure with hypoxia; J96.02 - Acute respiratory failure with hypercapnia Status: Acute Assessment and Plan: 05/05/2023: * patient was transferred from [place] due to respiratory acidosis and need for pulmonary consult * continue azithromycin and Rocephin per Pulmonary recommendation * continue DuoNebs * chest PT ordered * continue Solu-Medrol q.4 hours 60 mg IV * continue with BiPAP * patient will need a BiPAP for home use, will defer to Pulmonary for that * plan for echo today 05/06/2023: * Echo today showing normal EF of greater than 70, no pulmonary hypertension or diastolic dysfunction * Pulmonology consulted as she will need of BiPAP for at-home use and will need to be followed by clutch mechanic outpatient * Continue with current treatment plan * CTA of the chest was negative for any PE * Pulmonology is ordering venous Dopplers to check for DVTs * Patient switched to oral prednisone this morning Solu-Medrol was discontinued * Will continue azithromycin and Rocephin * Pulmonary made some BiPAP changes for tonight we will repeat ABG in the [facility]. 05/07: VBG was obtained while patient was still on appt, overall slightly alkalotic with pCO2 of 64.7 and bicarb 40.6. Ordered afternoon ABG as patient seemed slightly somnolent/drowsy while on nasal cannula Pulmonary documents patient will likely need AVAPS on discharge but currently he settings are for BiPAP. (2) COPD exacerbation: Code(s): J44.1 - Chronic obstructive pulmonary disease with (acute) exacerbation Status: Acute Assessment and Plan: 05/05/2023: * patient wears 3 L nasal cannula at baseline, she does not own a CPAP or a BiPAP * CO2 retention * pulmonology consulted * currently on BiPAP, will await further instruction from pulmonary standpoint * see above plan of care 05/06/2023: * Continue with current treatment 05/07: patient with extensive wheeze and end-expiratory slight grunt. Ordered IV magnesium to relax smooth muscles around airways pulmonology increased frequency of DuoNebs to q.4 (3) Hyperglycemia: Code(s): R73.9 - Hyperglycemia, unspecified Status: Acute Assessment and Plan: 05/05/2023: * blood glucose ranging 142-222 * last hemoglobin A1c 6.5 * continue Accu-Cheks AC and HS * continue moderate dose sliding scale insulin * patient currently not on any home medications * blood sugar can be further elevated due to chronic steroids over the past month 05/06/2023: * Continue current treatment plan 05/07: poor oral intake, add IV fluids (4) Chronic respiratory failure with hypoxia, on home oxygen therapy: Code(s): J96.11 - Chronic respiratory failure with hypoxia; Z99.81 - Dependence on supplemental oxygen Status: Chronic Assessment and Plan: see above plan of care (5) Obstructive sleep apnea: Code(s): G47.33 - Obstructive sleep apnea (adult) (pediatric) Status: Chronic Assessment and Plan: see above plan of care (6) Depression: Code(s): F32.9 - Major depressive disorder, single episode, unspecified Status: Chronic Assessment and Plan: 05/05/2023: * Paxil and Abilify continued 05/06/2023: * Continue with current treatment (7) Chronic back pain: Code(s): M54.9 - Dorsalgia, unspecified; G89.29 - Other chronic pain Status: Acute Assessment and Plan:
--- NOTE | 2023-05-07 12:23 | PM.IMPN ---
Progress Note: A&P Assessment and Plan (1) Acute respiratory failure with hypoxia and hypercapnia: Code(s): J96.01 - Acute respiratory failure with hypoxia; J96.02 - Acute respiratory failure with hypercapnia Status: Acute Assessment and Plan: 05/05/2023: patient was transferred from [place] due to respiratory acidosis and need for pulmonary consult continue azithromycin and Rocephin per Pulmonary recommendation continue DuoNebs chest PT ordered continue Solu-Medrol q.4 hours 60 mg IV continue with BiPAP patient will need a BiPAP for home use, will defer to Pulmonary for that plan for echo today 05/06/2023: Echo today showing normal EF of greater than 70, no pulmonary hypertension or diastolic dysfunction Pulmonology consulted as she will need of BiPAP for at-home use and will need to be followed by television host outpatient Continue with current treatment plan CTA of the chest was negative for any PE Pulmonology is ordering venous Dopplers to check for DVTs Patient switched to oral prednisone this morning Solu-Medrol was discontinued Will continue azithromycin and Rocephin Pulmonary made some BiPAP changes for tonight we will repeat ABG in the morning. 05/07: VBG was obtained while patient was still on appt, overall slightly alkalotic with pCO2 of 64.7 and bicarb 40.6. Ordered afternoon ABG as patient seemed slightly somnolent/drowsy while on nasal cannula Pulmonary documents patient will likely need AVAPS on discharge but currently he settings are for BiPAP. (2) COPD exacerbation: Code(s): J44.1 - Chronic obstructive pulmonary disease with (acute) exacerbation Status: Acute Assessment and Plan: 05/05/2023: patient wears 3 L nasal cannula at baseline, she does not own a CPAP or a BiPAP CO2 retention pulmonology consulted currently on BiPAP, will await further instruction from pulmonary standpoint see above plan of care 05/06/2023: Continue with current treatment 05/07: patient with extensive wheeze and end-expiratory slight grunt. Ordered IV magnesium to relax smooth muscles around airways pulmonology increased frequency of DuoNebs to q.4 (3) Hyperglycemia: Code(s): R73.9 - Hyperglycemia, unspecified Status: Acute Assessment and Plan: 05/05/2023: blood glucose ranging 142-222 last hemoglobin A1c 6.5 continue Accu-Cheks AC and HS continue moderate dose sliding scale insulin patient currently not on any home medications blood sugar can be further elevated due to chronic steroids over the past month 05/06/2023: Continue current treatment plan 05/07: poor oral intake, add IV fluids (4) Chronic respiratory failure with hypoxia, on home oxygen therapy: Code(s): J96.11 - Chronic respiratory failure with hypoxia; Z99.81 - Dependence on supplemental oxygen Status: Chronic Assessment and Plan: see above plan of care (5) Obstructive sleep apnea: Code(s): G47.33 - Obstructive sleep apnea (adult) (pediatric) Status: Chronic Assessment and Plan: see above plan of care (6) Depression: Code(s): F32.9 - Major depressive disorder, single episode, unspecified Status: Chronic Assessment and Plan: 05/05/2023: Paxil and Abilify continued 05/06/2023: Continue with current treatment (7) Chronic back pain: Code(s): M54.9 - Dorsalgia, unspecified; G89.29 - Other chronic pain Status: Acute Assessment and Plan: 05/05/2023: Percocet ordered 1 tab p.o. q.i.d. 05/06/2023: Continue with current treatment plan (8) Anxiety: Code(s): F41.9 - Anxiety disorder, unspecified Status: Chronic Assessment and Plan: 05/05/2023: continue BuSpar 05/06/2023: Continue with current treatment plan (9) Nicotine abuse: Code(s): Z72.0 - Tobacco use Status: Acute Assessment and Plan: 05/05/2023 patient is a
[2023-05-07 12:54] LABS: Glucose Point of Care 122 mg/dl (65-105)
[2023-05-07 14:40] LABS: Alveolar/Arterial O2 Gradient 93.3 mmHg; Base Excess ABG 11.9 mEq/l (+/-2.0); Fractional Inspired Oxygen 32 %; HCO3 ABG 38.2 mEq/l (22.0-26.0); Oxygen Content ABG 19.7 %vol (16.0-22.0); Oxygen Saturation ABG 94.6 % (95.0-100.0); Oxyhemoglobin 92.8 % THb (90.0-100.0); PCO2 ABG 55.1 mmHg (35.0-45.0); PO2 ABG 70.4 mmHg (80.0-100.0); Total Hemoglobin 15.1 g/dL (12.0-18.0); pH ABG 7.459 (7.350-7.450)
[2023-05-07 14:41] LABS: Device NASAL CANNULA; Modified Allen's Test Pass; Site Drawn RIGHT RADIAL
[2023-05-07] MEDS: MAGNESIUM SULF 2 GM/WATER 50ML 2 GM/50 ML BAG IVPB (14:48)
[2023-05-07] MEDS: LACTATED RINGERS 1,000 ML 100 ML IV CONT (14:48)
[2023-05-07 16:07] LABS: Glucose Point of Care 150 mg/dl (65-105)
[2023-05-07 20:34] LABS: Glucose Point of Care 126 mg/dl (65-105)
[2023-05-07] MEDS: BUDESONIDE RESPULE NEB 0.5 MG/2 ML AMP INHALATION (20:46)
[2023-05-07] MEDS: ARIPiprazole 5 MG TABLET PO (21:29)
[2023-05-07 23:36] LABS: MRSA (PCR) DETECTED (NOT DETECTE)
[2023-05-08] VITALS (28 sets, daily range): BP systolic 109–150; BP diastolic 47–85; PULSE 69–103; RESP 12–20; TEMP 36.5–36.7; O2SAT 92–100
[2023-05-08] MEDS: LACTATED RINGERS 1,000 ML 100 ML IV CONT (02:52)
[2023-05-08 08:22] LABS: Glucose Point of Care 117 mg/dl (65-105)
[2023-05-08] MEDS: BUDESONIDE RESPULE NEB 0.5 MG/2 ML AMP INHALATION ×2 (08:34→20:20)
[2023-05-08] MEDS: IPRATROPIUM 0.5 MG/ALBUTEROL SULFATE 2.5 MG AMPUL.NEB 3 ML INHALATION ×4 (08:34→20:20)
--- NOTE | 2023-05-08 09:03 | PM.PNPUL ---
Progress Note: A&P Assessment and Plan (1) Acute respiratory failure with hypercapnia: Code(s): J96.02 - Acute respiratory failure with hypercapnia Status: Acute Assessment and Plan: The patient, a 62-year-old female with a history of severe obesity and COPD, has been treated at [facility] for an acute exacerbation of her chronic hypercapnic respiratory failure and associated breathlessness. Despite treatment, her symptoms, including shortness of breath and hypercapnic respiratory failure, have persisted for several weeks. Recent arterial blood gas tests show normal pH but elevated pCO2 levels. It is my suspicion that her chronic hypercapnic respiratory failure is more likely due to obesity hypoventilation rather than COPD. Unfortunately, there are no available pulmonary function tests for reference. A chest CT scan reveals mild emphysematous changes. No evidence of DVT in lower extremities study The patient's treatment plan will involve continued BiPAP support with adjusted settings, which she will use at night and as needed during the day. Continue with a current prednisone regimen, nebulized Pulmicort nebulized short-acting bronchodilators; out of bed to chair. Await approval of home ventilator. Will follow along with you. (2) Chronic respiratory failure with hypoxia, on home oxygen therapy: Code(s): J96.11 - Chronic respiratory failure with hypoxia; Z99.81 - Dependence on supplemental oxygen Status: Chronic (3) Morbid obesity: Code(s): E66.01 - Morbid (severe) obesity due to excess calories Status: Chronic (4) COPD exacerbation: Code(s): J44.1 - Chronic obstructive pulmonary disease with (acute) exacerbation Status: Acute Subjective Date/time seen: 05/08/23 09:03 Interval history: Patient has no new respiratory symptoms. She stated she feels better today. Use BiPAP support last night. Not using BiPAP support during the day. Request for home ventilator has been submitted. Review of Systems Review of Systems: All systems reviewed & are unremarkable except as noted in HPI and below (HPI and below) Exam Narrative: GENERAL APPEARANCE: Well developed, well nourished, alert and cooperative, and appears to be in in mild respiratory distress while on BiPAP support SKIN: Inspection of the skin reveals no rashes, ulcerations or petechiae. HEENT: Sclerae anicteric and conjunctivae pink and moist. Extraocular movements were intact and pupils were equal, round, and reactive to light. NECK: Supple. There was no thyroid enlargement, and no tenderness, or masses were felt. LUNGS: Clear lungs bilaterally, rare wheezes CARDIAC: There was a regular rate and rhythm without any murmurs, gallops, rubs. ABDOMEN: Soft and nontender with normal bowel sounds. There was no organomegaly. LYMPH NODES: No lymphadenopathy was appreciated in the neck. EXTREMITIES: No cyanosis, clubbing or edema. NEUROLOGIC: Alert and oriented x 3. Normal affect. Objective Data Vital Signs Vital Signs: Vital Signs - 24 hr 05/07/23 10:00 05/07/23 11:14 05/07/23 11:49 Temperature 35.9 C L Pulse Rate 70 63 89 Respiratory Rate 20 20 Blood Pressure 182/127 H Pulse Oximetry 94 Oxygen Delivery Oxygen Flow Rate Fraction of Inspired Oxygen 05/07/23 11:57 05/07/23 12:00 05/07/23 12:00 Temperature Pulse Rate 81 85 81 Respiratory Rate 20 20 Blood Pressure Pulse Oximetry 94 Oxygen Delivery Nasal Cannula Oxygen Flow Rate 3 Fraction of Inspired Oxygen 30 05/07/23 15:44 05/07/23 16:11 05/07/23 16:11 Temperature 35.5 C L Pulse Rate 71 96 Respiratory Rate 22 H 20 Blood Pressure 143/84 H Pulse Oximetry 94 94 Oxygen Delivery Nasal Cannula Oxygen Flow Rate 3 Fraction of Inspired Oxygen 05/07/23 16:19 05/07/23 16:00 05/07/23 16:00 Temperature Pulse Rate 92 73 92 Respiratory Rate 20 20 Blood Pressure Pulse Oximetry 94 Oxygen Deliver
[2023-05-08] MEDS: SIMVASTATIN 20 MG TABLET 40 MG PO (09:08)
[2023-05-08] MEDS: PROPRANOLOL HCL 20 MG TABLET PO (09:08)
[2023-05-08] MEDS: guaiFENesin 12 HR 600 MG TABCR 1200 MG PO ×2 (09:08→20:02)
[2023-05-08] MEDS: ASPIRIN 81 MG ENTERIC TABLET PO (09:08)
[2023-05-08] MEDS: predniSONE 20 MG TABLET 40 MG PO (09:08)
[2023-05-08] MEDS: busPIRone HCL 10 MG TABLET PO ×2 (09:09→20:02)
[2023-05-08] MEDS: AZITHROMYCIN 250 MG TABLET PO (09:09)
[2023-05-08] MEDS: TOLNAFTATE 1% POWDER 45 GM BTL 1 APPLIC TOPICAL ×2 (09:09→20:10)
[2023-05-08] MEDS: PARoxetine 20 MG TABLET 60 MG PO (09:09)
[2023-05-08] MEDS: PANTOPRAZOLE 40 MG TABLET PO (09:09)
[2023-05-08] MEDS: POTASSIUM CHLORIDE 20 MEQ ER TABLET PO (09:09)
[2023-05-08] MEDS: CLOPIDOGREL BISULFATE 75 MG TABLET PO (09:09)
[2023-05-08] MEDS: hydroCHLOROthiazide 25 MG TABLET PO (09:09)
[2023-05-08 11:46] LABS: Glucose Point of Care 147 mg/dl (65-105)
--- NOTE | 2023-05-08 12:02 | HOMEO2EVAL ---
Evaluation was performed at [facility]
--- NOTE | 2023-05-08 12:15 | P.PNIM_ITS ---
Progress Note: A&P Assessment and Plan (1) Acute respiratory failure with hypoxia and hypercapnia: Code(s): J96.01 - Acute respiratory failure with hypoxia; J96.02 - Acute respiratory failure with hypercapnia Status: Acute Assessment and Plan: 05/05/2023: * patient was transferred from [place] due to respiratory acidosis and need for pulmonary consult * continue azithromycin and Rocephin per Pulmonary recommendation * continue DuoNebs * chest PT ordered * continue Solu-Medrol q.4 hours 60 mg IV * continue with BiPAP * patient will need a BiPAP for home use, will defer to Pulmonary for that * plan for echo today 05/06/2023: * Echo today showing normal EF of greater than 70, no pulmonary hypertension or diastolic dysfunction * Pulmonology consulted as she will need of BiPAP for at-home use and will need to be followed by double spindle shaper operator outpatient * Continue with current treatment plan * CTA of the chest was negative for any PE * Pulmonology is ordering venous Dopplers to check for DVTs * Patient switched to oral prednisone this morning Solu-Medrol was discontinued * Will continue azithromycin and Rocephin * Pulmonary made some BiPAP changes for tonight we will repeat ABG in the morning. 05/07: VBG was obtained while patient was still on appt, overall slightly alkalotic with pCO2 of 64.7 and bicarb 40.6. Ordered afternoon ABG as patient seemed slightly somnolent/drowsy while on nasal cannula Pulmonary documents patient will likely need AVAPS on discharge but currently he settings are for BiPAP. : awaiting home noninvasive ventilator availability, hopefully discharge tomorrow?? (2) COPD exacerbation: Code(s): J44.1 - Chronic obstructive pulmonary disease with (acute) exacerbation Status: Acute Assessment and Plan: 05/05/2023: * patient wears 3 L nasal cannula at baseline, she does not own a CPAP or a BiPAP * CO2 retention * pulmonology consulted * currently on BiPAP, will await further instruction from pulmonary standpoint * see above plan of care 05/06/2023: * Continue with current treatment 05/07: patient with extensive wheeze and end-expiratory slight grunt. Ordered IV magnesium to relax smooth muscles around airways pulmonology increased frequency of DuoNebs to q.4 : work of breathing and wheezing is better than yesterday, ventilator changes made by pulmonology, awaiting AVAPS for home (3) Hyperglycemia: Code(s): R73.9 - Hyperglycemia, unspecified Status: Acute Assessment and Plan: 05/05/2023: * blood glucose ranging 142-222 * last hemoglobin A1c 6.5 * continue Accu-Cheks AC and HS * continue moderate dose sliding scale insulin * patient currently not on any home medications * blood sugar can be further elevated due to chronic steroids over the past month 05/06/2023: * Continue current treatment plan 05/07: poor oral intake, add IV fluids : Improving but still slightly elevated glucose before meals. Patient eating and drinking well, IV fluids discontinued. (4) Chronic respiratory failure with hypoxia, on home oxygen therapy: Code(s): J96.11 - Chronic respiratory failure with hypoxia; Z99.81 - Dependence on supplemental oxygen Status: Chronic Assessment and Plan: see above plan of care (5) Obstructive sleep apnea: Code(s): G47.33 - Obstructive sleep apnea (adult) (pediatric) Status: Chronic Assessment and Plan: see above plan of care (6) Depression: Code(s): F32.9 - Major depressive d
--- NOTE | 2023-05-08 12:15 | PM.IMPN ---
Progress Note: A&P Assessment and Plan (1) Acute respiratory failure with hypoxia and hypercapnia: Code(s): J96.01 - Acute respiratory failure with hypoxia; J96.02 - Acute respiratory failure with hypercapnia Status: Acute Assessment and Plan: 05/05/2023: patient was transferred from [place] due to respiratory acidosis and need for pulmonary consult continue azithromycin and Rocephin per Pulmonary recommendation continue DuoNebs chest PT ordered continue Solu-Medrol q.4 hours 60 mg IV continue with BiPAP patient will need a BiPAP for home use, will defer to Pulmonary for that plan for echo today 05/06/2023: Echo today showing normal EF of greater than 70, no pulmonary hypertension or diastolic dysfunction Pulmonology consulted as she will need of BiPAP for at-home use and will need to be followed by front office coordinator outpatient Continue with current treatment plan CTA of the chest was negative for any PE Pulmonology is ordering venous Dopplers to check for DVTs Patient switched to oral prednisone this morning Solu-Medrol was discontinued Will continue azithromycin and Rocephin Pulmonary made some BiPAP changes for tonight we will repeat ABG in the morning. 05/07: VBG was obtained while patient was still on appt, overall slightly alkalotic with pCO2 of 64.7 and bicarb 40.6. Ordered afternoon ABG as patient seemed slightly somnolent/drowsy while on nasal cannula Pulmonary documents patient will likely need AVAPS on discharge but currently he settings are for BiPAP. : awaiting home noninvasive ventilator availability, hopefully discharge tomorrow?? (2) COPD exacerbation: Code(s): J44.1 - Chronic obstructive pulmonary disease with (acute) exacerbation Status: Acute Assessment and Plan: 05/05/2023: patient wears 3 L nasal cannula at baseline, she does not own a CPAP or a BiPAP CO2 retention pulmonology consulted currently on BiPAP, will await further instruction from pulmonary standpoint see above plan of care 05/06/2023: Continue with current treatment 05/07: patient with extensive wheeze and end-expiratory slight grunt. Ordered IV magnesium to relax smooth muscles around airways pulmonology increased frequency of DuoNebs to q.4 : work of breathing and wheezing is better than yesterday, ventilator changes made by pulmonology, awaiting AVAPS for home (3) Hyperglycemia: Code(s): R73.9 - Hyperglycemia, unspecified Status: Acute Assessment and Plan: 05/05/2023: blood glucose ranging 142-222 last hemoglobin A1c 6.5 continue Accu-Cheks AC and HS continue moderate dose sliding scale insulin patient currently not on any home medications blood sugar can be further elevated due to chronic steroids over the past month 05/06/2023: Continue current treatment plan 05/07: poor oral intake, add IV fluids : Improving but still slightly elevated glucose before meals. Patient eating and drinking well, IV fluids discontinued. (4) Chronic respiratory failure with hypoxia, on home oxygen therapy: Code(s): J96.11 - Chronic respiratory failure with hypoxia; Z99.81 - Dependence on supplemental oxygen Status: Chronic Assessment and Plan: see above plan of care (5) Obstructive sleep apnea: Code(s): G47.33 - Obstructive sleep apnea (adult) (pediatric) Status: Chronic Assessment and Plan: see above plan of care (6) Depression: Code(s): F32.9 - Major depressive disorder, single episode, unspecified Status: Chronic Assessment and Plan: 05/05/2023: Paxil and Abilify continued 05/06/2023: Continue with current treatment (7) Chronic back pain: Code(s): M54.9 - Dorsalgia, unspecified; G89.29 - Other chronic pain Status: Acute Assessment and Plan: 05/05/2023: Percocet ordered 1 tab p.o. q.i.d. 05/06/2023: Continue with current treatment plan
--- NOTE | 2023-05-08 14:13 | PCRCNOTE ---
PAPER WORK FAXED TO [facility] FOR TRILOGY SET UP, WAITING FOR APPROVAL.
[2023-05-08 16:27] LABS: Glucose Point of Care 195 mg/dl (65-105)
[2023-05-08] MEDS: ARIPiprazole 5 MG TABLET PO (20:02)
[2023-05-08 21:00] LABS: Glucose Point of Care 151 mg/dl (65-105)
[2023-05-09] VITALS (24 sets, daily range): BP systolic 100–134; BP diastolic 66–87; PULSE 69–98; RESP 14–22; TEMP 36.4–36.7; O2SAT 92–100
[2023-05-09 07:47] LABS: Basophils Percent Auto 0.1 % (0.2-1.2); Eosinophils Percent Auto 0.5 % (0-4.4); Hematocrit 45.4 % (37.0-47.0); Hemoglobin 12.8 g/dL (12.0-15.0); Immature Granulocyte Absolute 0.04 K/mm3 (0.00-0.031); Immature Granulocyte Percent A 0.5 % (0-0.5); Lymphocytes Absolute Auto 2.45 K/mm3 (0.9-3.2); Lymphocytes Percent Auto 27.9 % (18.3-44.2); Mean Corpuscular HGB Conc 28.2 g/dl (32-36); Mean Corpuscular Hemoglobin 21.7 pg (26-34); Mean Corpuscular Volume 76.9 fl (80-100); Mean Platelet Volume 9.7 fl (7.4-10.4); Monocytes Absolute Auto 0.7 K/mm3 (0.1-0.6); Monocytes Percent Auto 8.1 % (2.6-8.5); Neutrophils Absolute Auto 5.5 K/mm3 (1.3-6.7); Neutrophils Percent Auto 62.9 % (45.5-73.1); Platelet Count Result 346 k/mm3 (150-375); White Blood Count 8.8 K/mm3 (4.5-10.0)
[2023-05-09 07:59] LABS: Alanine Aminotransferase 17 U/L (6-35); Albumin Level 3.3 g/dL (3.5-5.1); Alkaline Phosphatase 84 U/L (38-126); Anion Gap 0 mmol/L (8-16); Aspartate Amino Transferase 18 U/L (14-36); Blood Urea Nitrogen 19 mg/dL (7-17); Calcium 8.7 mg/dL (8.4-10.2); Carbon Dioxide 39 mmol/L (22-30); Chloride 94 mmol/L (98-107); Estimated CRCL calculation 101 ml/min; Estimated Glomerular Filt Rate > 60; Glucose 119 mg/dL (65-110); Magnesium 2.2 mg/dL (1.6-2.3); Potassium 3.7 mmol/L (3.4-5.0); Sodium 133 mmol/L (137-145)
[2023-05-09 08:15] LABS: Glucose Point of Care 114 mg/dl (65-105)
[2023-05-09 08:17] LABS: Hypochromasia 1+ (NORMAL); Platelet Estimate Adequate (Adequate); Schistocytes None Seen (NORMAL)
[2023-05-09] MEDS: IPRATROPIUM 0.5 MG/ALBUTEROL SULFATE 2.5 MG AMPUL.NEB 3 ML INHALATION ×4 (08:35→20:15)
[2023-05-09] MEDS: BUDESONIDE RESPULE NEB 0.5 MG/2 ML AMP INHALATION ×2 (08:35→20:15)
[2023-05-09] MEDS: predniSONE 10 MG TABLET 30 MG PO (08:58)
[2023-05-09] MEDS: CLOPIDOGREL BISULFATE 75 MG TABLET PO (08:58)
[2023-05-09] MEDS: ASPIRIN 81 MG ENTERIC TABLET PO (08:58)
[2023-05-09] MEDS: POTASSIUM CHLORIDE 20 MEQ ER TABLET PO (08:59)
[2023-05-09] MEDS: SIMVASTATIN 20 MG TABLET 40 MG PO (08:59)
[2023-05-09] MEDS: PARoxetine 20 MG TABLET 60 MG PO (08:59)
[2023-05-09] MEDS: guaiFENesin 12 HR 600 MG TABCR 1200 MG PO ×2 (08:59→21:01)
[2023-05-09] MEDS: busPIRone HCL 10 MG TABLET PO ×2 (08:59→21:01)
[2023-05-09] MEDS: PANTOPRAZOLE 40 MG TABLET PO (08:59)
[2023-05-09] MEDS: hydroCHLOROthiazide 25 MG TABLET PO (08:59)
[2023-05-09] MEDS: PROPRANOLOL HCL 20 MG TABLET PO (08:59)
[2023-05-09] MEDS: TOLNAFTATE 1% POWDER 45 GM BTL 1 APPLIC TOPICAL ×2 (09:02→21:02)
--- NOTE | 2023-05-09 09:58 | PM.PNPUL ---
Progress Note: A&P Assessment and Plan (1) Acute respiratory failure with hypercapnia: Code(s): J96.02 - Acute respiratory failure with hypercapnia Status: Acute Assessment and Plan: The patient, a 62-year-old female with a history of severe obesity and COPD, has been treated at [facility] for an acute exacerbation of her chronic hypercapnic respiratory failure and associated breathlessness. Despite treatment, her symptoms, including shortness of breath and hypercapnic respiratory failure, have persisted for several weeks. Recent arterial blood gas tests show normal pH but elevated pCO2 levels. It is my suspicion that her chronic hypercapnic respiratory failure is more likely due to obesity hypoventilation rather than COPD. Unfortunately, there are no available pulmonary function tests for reference. A chest CT scan reveals mild emphysematous changes. No evidence of DVT in lower extremities study. Respiratory status improving slowly. While waiting for approval of home ventilator will continue with current regimen. Will follow along with you. (2) Chronic respiratory failure with hypoxia, on home oxygen therapy: Code(s): J96.11 - Chronic respiratory failure with hypoxia; Z99.81 - Dependence on supplemental oxygen Status: Chronic (3) Morbid obesity: Code(s): E66.01 - Morbid (severe) obesity due to excess calories Status: Chronic (4) COPD exacerbation: Code(s): J44.1 - Chronic obstructive pulmonary disease with (acute) exacerbation Status: Acute Subjective Date/time seen: 05/09/23 09:58 Interval history: Patient has no new respiratory symptoms. Spends most of the day on just nasal cannula. Using BiPAP support at night. Less shortness of breath and less coughing. Afebrile Review of Systems Review of Systems: All systems reviewed & are unremarkable except as noted in HPI and below (HPI and below) Exam Narrative: GENERAL APPEARANCE: Well developed, well nourished, alert and cooperative, and appears to be in in mild respiratory distress while on BiPAP support SKIN: Inspection of the skin reveals no rashes, ulcerations or petechiae. HEENT: Sclerae anicteric and conjunctivae pink and moist. Extraocular movements were intact and pupils were equal, round, and reactive to light. NECK: Supple. There was no thyroid enlargement, and no tenderness, or masses were felt. LUNGS: Clear lungs bilaterally, rare wheezes CARDIAC: There was a regular rate and rhythm without any murmurs, gallops, rubs. ABDOMEN: Soft and nontender with normal bowel sounds. There was no organomegaly. LYMPH NODES: No lymphadenopathy was appreciated in the neck. EXTREMITIES: No cyanosis, clubbing or edema. NEUROLOGIC: Alert and oriented x 3. Normal affect. Objective Data Vital Signs Vital Signs: Vital Signs - 24 hr 05/08/23 11:52 05/08/23 12:31 05/08/23 12:39 Temperature 36.5 C Pulse Rate 70 73 75 Respiratory Rate 16 20 20 Blood Pressure 118/80 Pulse Oximetry 100 Oxygen Delivery Oxygen Flow Rate Fraction of Inspired Oxygen 05/08/23 12:00 05/08/23 12:00 05/08/23 14:00 Temperature Pulse Rate 69 75 78 Respiratory Rate 20 Blood Pressure Pulse Oximetry 100 Oxygen Delivery Nasal Cannula Oxygen Flow Rate 3 Fraction of Inspired Oxygen 30 05/08/23 16:00 05/08/23 16:00 05/08/23 16:00 Temperature 36.6 C Pulse Rate 69 69 82 Respiratory Rate 20 12 Blood Pressure 132/82 Pulse Oximetry 100 97 Oxygen Delivery Nasal Cannula Oxygen Flow Rate 3 Fraction of Inspired Oxygen 30 05/08/23 16:53 05/08/23 17:00 05/08/23 18:00 Temperature Pulse Rate 82 86 98 Respiratory Rate 20 20 Blood Pressure Pulse Oximetry Oxygen Delivery Oxygen Flow Rate Fraction of Inspired Oxygen 05/08/23 20:22 05/08/23 20:22 05/08/23 20:22 Temperature Pulse Rate 96 96 96 Respiratory Rate 18 18 Blood Pressure Pulse Oximetry 95 95 Oxygen
--- NOTE | 2023-05-09 11:31 | P.PNIM_ITS ---
Progress Note: A&P Assessment and Plan (1) Acute respiratory failure with hypoxia and hypercapnia: Code(s): J96.01 - Acute respiratory failure with hypoxia; J96.02 - Acute respiratory failure with hypercapnia Status: Acute Assessment and Plan: 05/05/2023: * patient was transferred from [place] due to respiratory acidosis and need for pulmonary consult * continue azithromycin and Rocephin per Pulmonary recommendation * continue DuoNebs * chest PT ordered * continue Solu-Medrol q.4 hours 60 mg IV * continue with BiPAP * patient will need a BiPAP for home use, will defer to Pulmonary for that * plan for echo today 05/06/2023: * Echo today showing normal EF of greater than 70, no pulmonary hypertension or diastolic dysfunction * Pulmonology consulted as she will need of BiPAP for at-home use and will need to be followed by reverse unit operator fisherman outpatient * Continue with current treatment plan * CTA of the chest was negative for any PE * Pulmonology is ordering venous Dopplers to check for DVTs * Patient switched to oral prednisone this morning Solu-Medrol was discontinued * Will continue azithromycin and Rocephin * Pulmonary made some BiPAP changes for tonight we will repeat ABG in the morning. 05/07: VBG was obtained while patient was still on appt, overall slightly alkalotic with pCO2 of 64.7 and bicarb 40.6. Ordered afternoon ABG as patient seemed slightly somnolent/drowsy while on nasal cannula Pulmonary documents patient will likely need AVAPS on discharge but currently he settings are for BiPAP. : awaiting home noninvasive ventilator availability 05/08: pulmonology ordering noninvasive ventilator today, wants patient to receive equipment at the hospital and utilize it while obtaining ApneaLink prior to discharge. Unknown when device may be delivered. Continue supplemental oxyg enation (2) COPD exacerbation: Code(s): J44.1 - Chronic obstructive pulmonary disease with (acute) exacerbation Status: Acute Assessment and Plan: 05/05/2023: * patient wears 3 L nasal cannula at baseline, she does not own a CPAP or a BiPAP * CO2 retention * pulmonology consulted * currently on BiPAP, will await further instruction from pulmonary standpoint * see above plan of care 05/06/2023: * Continue with current treatment 05/07: patient with extensive wheeze and end-expiratory slight grunt. Ordered IV magnesium to relax smooth muscles around airways pulmonology increased frequency of DuoNebs to q.4 : work of breathing and wheezing is better than yesterday, ventilator changes made by pulmonology, awaiting AVAPS for home 05/08: nonlabored work of breathing tolerated BiPAP overnight, on nasal cannula during the day (3) Hyperglycemia: Code(s): R73.9 - Hyperglycemia, unspecified Status: Acute Assessment and Plan: 05/05/2023: * blood glucose ranging 142-222 * last hemoglobin A1c 6.5 * continue Accu-Cheks AC and HS * continue moderate dose sliding scale insulin * patient currently not on any home medications * blood sugar can be further elevated due to chronic steroids over the past month 05/06/2023: * Continue current treatment plan 05/07: poor oral intake, add IV fluids : Improving but still slightly elevated glucose before meals. Patient eating and drinking well, IV fluids discontinued. (4) Chronic respiratory failure with hypoxia, on home oxygen therapy: Code(s): J96.11 - Chronic respiratory failure with hypoxia; Z99.81 - Dependence on supplemental oxygen Status: Chronic As
--- NOTE | 2023-05-09 11:31 | PM.IMPN ---
Progress Note: A&P Assessment and Plan (1) Acute respiratory failure with hypoxia and hypercapnia: Code(s): J96.01 - Acute respiratory failure with hypoxia; J96.02 - Acute respiratory failure with hypercapnia Status: Acute Assessment and Plan: 05/05/2023: patient was transferred from [place] due to respiratory acidosis and need for pulmonary consult continue azithromycin and Rocephin per Pulmonary recommendation continue DuoNebs chest PT ordered continue Solu-Medrol q.4 hours 60 mg IV continue with BiPAP patient will need a BiPAP for home use, will defer to Pulmonary for that plan for echo today 05/06/2023: Echo today showing normal EF of greater than 70, no pulmonary hypertension or diastolic dysfunction Pulmonology consulted as she will need of BiPAP for at-home use and will need to be followed by nurse examiner outpatient Continue with current treatment plan CTA of the chest was negative for any PE Pulmonology is ordering venous Dopplers to check for DVTs Patient switched to oral prednisone this morning Solu-Medrol was discontinued Will continue azithromycin and Rocephin Pulmonary made some BiPAP changes for tonight we will repeat ABG in the morning. 05/07: VBG was obtained while patient was still on appt, overall slightly alkalotic with pCO2 of 64.7 and bicarb 40.6. Ordered afternoon ABG as patient seemed slightly somnolent/drowsy while on nasal cannula Pulmonary documents patient will likely need AVAPS on discharge but currently he settings are for BiPAP. : awaiting home noninvasive ventilator availability 05/08: pulmonology ordering noninvasive ventilator today, wants patient to receive equipment at the hospital and utilize it while obtaining ApneaLink prior to discharge. Unknown when device may be delivered. Continue supplemental oxygenation (2) COPD exacerbation: Code(s): J44.1 - Chronic obstructive pulmonary disease with (acute) exacerbation Status: Acute Assessment and Plan: 05/05/2023: patient wears 3 L nasal cannula at baseline, she does not own a CPAP or a BiPAP CO2 retention pulmonology consulted currently on BiPAP, will await further instruction from pulmonary standpoint see above plan of care 05/06/2023: Continue with current treatment 05/07: patient with extensive wheeze and end-expiratory slight grunt. Ordered IV magnesium to relax smooth muscles around airways pulmonology increased frequency of DuoNebs to q.4 : work of breathing and wheezing is better than yesterday, ventilator changes made by pulmonology, awaiting AVAPS for home 05/08: nonlabored work of breathing tolerated BiPAP overnight, on nasal cannula during the day (3) Hyperglycemia: Code(s): R73.9 - Hyperglycemia, unspecified Status: Acute Assessment and Plan: 05/05/2023: blood glucose ranging 142-222 last hemoglobin A1c 6.5 continue Accu-Cheks AC and HS continue moderate dose sliding scale insulin patient currently not on any home medications blood sugar can be further elevated due to chronic steroids over the past month 05/06/2023: Continue current treatment plan 05/07: poor oral intake, add IV fluids : Improving but still slightly elevated glucose before meals. Patient eating and drinking well, IV fluids discontinued. (4) Chronic respiratory failure with hypoxia, on home oxygen therapy: Code(s): J96.11 - Chronic respiratory failure with hypoxia; Z99.81 - Dependence on supplemental oxygen Status: Chronic Assessment and Plan: see above plan of care (5) Obstructive sleep apnea: Code(s): G47.33 - Obstructive sleep apnea (adult) (pediatric) Status: Chronic Assessment and Plan: see above plan of care (6) Depression: Code(s): F32.9 - Major depressive disorder, single episode, unspecified Status: Chronic Assessment and Plan: 05/05/2023: Gwen continued
[2023-05-09 12:31] LABS: Glucose Point of Care 145 mg/dl (65-105)
--- NOTE | 2023-05-09 14:43 | PCRCNOTE ---
UPDATE ON HOME NIV...NEW ORDER FORM SIGNED AND FAXED BACK TO [facility] FOR ASTRAL NIV, TRILOGY NIV NOT AVAILABLE. PT APPROVED, AWAITING SETUP. CONTACT SORAYA AT [facility] FOR ASSIST AT DISCHARGE, CELL # [phone]
--- NOTE | 2023-05-09 14:55 | PC.NURSE ---
Attempted to call report on the pt Ena RN at lunch at this time. Staff will have RN call upon return from lunch
--- NOTE | 2023-05-09 16:34 | PC.NURSE ---
Called the Nitesh WASHROOM OPERATOR to clarify if the pt [facility] et SPO2 monitoring. Per Nitesh WASHROOM OPERATOR send the pt with SPO2 only. geological technical officer given report on events. The pt is enroute with no manifestations of distress noted.
[2023-05-09 17:12] LABS: Glucose Point of Care 139 mg/dl (65-105)
[2023-05-09 20:11] LABS: Glucose Point of Care 167 mg/dl (65-105)
[2023-05-09] MEDS: ARIPiprazole 5 MG TABLET PO (21:01)
[2023-05-10] VITALS (14 sets, daily range): BP systolic 105–114; BP diastolic 72–74; PULSE 71–102; RESP 2–20; TEMP 36.1–36.6; O2SAT 92–97
[2023-05-10] MEDS: BUDESONIDE RESPULE NEB 0.5 MG/2 ML AMP INHALATION ×2 (07:31→21:13)
[2023-05-10] MEDS: IPRATROPIUM 0.5 MG/ALBUTEROL SULFATE 2.5 MG AMPUL.NEB 3 ML INHALATION ×4 (07:32→21:11)
[2023-05-10 07:45] LABS: Glucose Point of Care 140 mg/dl (65-105)
[2023-05-10] MEDS: hydroCHLOROthiazide 25 MG TABLET PO (08:23)
[2023-05-10] MEDS: predniSONE 10 MG TABLET 30 MG PO (08:23)
[2023-05-10] MEDS: ASPIRIN 81 MG ENTERIC TABLET PO (08:27)
[2023-05-10] MEDS: PROPRANOLOL HCL 20 MG TABLET PO (08:27)
[2023-05-10] MEDS: POTASSIUM CHLORIDE 20 MEQ ER TABLET PO (08:27)
[2023-05-10] MEDS: PANTOPRAZOLE 40 MG TABLET PO (08:27)
[2023-05-10] MEDS: CLOPIDOGREL BISULFATE 75 MG TABLET PO (08:27)
[2023-05-10] MEDS: busPIRone HCL 10 MG TABLET PO ×2 (08:27→20:54)
[2023-05-10] MEDS: PARoxetine 20 MG TABLET 60 MG PO (08:28)
[2023-05-10] MEDS: guaiFENesin 12 HR 600 MG TABCR 1200 MG PO ×2 (08:28→20:54)
[2023-05-10] MEDS: TOLNAFTATE 1% POWDER 45 GM BTL 1 APPLIC TOPICAL ×2 (08:28→20:54)
[2023-05-10] MEDS: SIMVASTATIN 20 MG TABLET 40 MG PO (08:28)
[2023-05-10 11:33] LABS: Glucose Point of Care 146 mg/dl (65-105)
[2023-05-10] MEDS: ARIPiprazole 5 MG TABLET PO (20:54)
[2023-05-10 21:04] LABS: Glucose Point of Care 187 mg/dl (65-105)
[2023-05-11] VITALS (14 sets, daily range): BP systolic 106–123; BP diastolic 65–89; PULSE 76–106; RESP 16–23; TEMP 36.2–36.3; O2SAT 95–97
[2023-05-11] MEDS: BUDESONIDE RESPULE NEB 0.5 MG/2 ML AMP INHALATION ×2 (07:24→21:04)
[2023-05-11] MEDS: IPRATROPIUM 0.5 MG/ALBUTEROL SULFATE 2.5 MG AMPUL.NEB 3 ML INHALATION ×4 (07:24→21:04)
[2023-05-11 07:41] LABS: Glucose Point of Care 116 mg/dl (65-105)
[2023-05-11] MEDS: hydroCHLOROthiazide 25 MG TABLET PO (08:15)
[2023-05-11] MEDS: POTASSIUM CHLORIDE 20 MEQ ER TABLET PO (08:15)
[2023-05-11] MEDS: PARoxetine 20 MG TABLET 60 MG PO (08:15)
[2023-05-11] MEDS: predniSONE 10 MG TABLET 30 MG PO (08:15)
[2023-05-11] MEDS: guaiFENesin 12 HR 600 MG TABCR 1200 MG PO ×2 (08:16→20:36)
[2023-05-11] MEDS: PROPRANOLOL HCL 20 MG TABLET PO (08:16)
[2023-05-11] MEDS: SIMVASTATIN 20 MG TABLET 40 MG PO (08:16)
[2023-05-11] MEDS: TOLNAFTATE 1% POWDER 45 GM BTL 1 APPLIC TOPICAL ×2 (08:17→21:00)
[2023-05-11] MEDS: ASPIRIN 81 MG ENTERIC TABLET PO (08:17)
[2023-05-11] MEDS: CLOPIDOGREL BISULFATE 75 MG TABLET PO (08:17)
[2023-05-11] MEDS: busPIRone HCL 10 MG TABLET PO ×2 (08:17→20:36)
[2023-05-11] MEDS: PANTOPRAZOLE 40 MG TABLET PO (08:17)
[2023-05-11 11:46] LABS: Glucose Point of Care 154 mg/dl (65-105)
--- NOTE | 2023-05-11 11:54 | PC.NURSE ---
This nurse was made aware that the patient had guests who brought the patient marijuana edibles. Patient was offering staff members edibles because they didn't taste good . Patient educated regarding policy of marijuana use and possession on property. When this nurse asked if patient was in the possession of marijuana edibles patient stated, I just chewed them up and spit them out because they tasted nasty . Patient voiced understanding when educated that possession and use of marijuana is not permitted per policy. Patient visitors were not present in the room at the time of education but patient noted she would inform any visitors that marijuana is not permitted on the property.
--- NOTE | 2023-05-11 11:56 | PM.IMPN ---
Progress Note: A&P Assessment and Plan (1) Acute respiratory failure with hypoxia and hypercapnia: Code(s): J96.01 - Acute respiratory failure with hypoxia; J96.02 - Acute respiratory failure with hypercapnia Status: Acute Assessment and Plan: 05/08: pulmonology ordering noninvasive ventilator today, wants patient to receive equipment at the hospital and utilize it while obtaining ApneaLink prior to discharge. Unknown when device may be delivered. Continue supplemental oxygenation 05/10: Unchanged plan (2) COPD exacerbation: Code(s): J44.1 - Chronic obstructive pulmonary disease with (acute) exacerbation Status: Acute Assessment and Plan: 05/08: nonlabored work of breathing tolerated BiPAP overnight, on nasal cannula during the day (3) Hyperglycemia: Code(s): R73.9 - Hyperglycemia, unspecified Status: Acute Assessment and Plan: : Improving but still slightly elevated glucose before meals. Patient eating and drinking well, IV fluids discontinued. (4) Chronic respiratory failure with hypoxia, on home oxygen therapy: Code(s): J96.11 - Chronic respiratory failure with hypoxia; Z99.81 - Dependence on supplemental oxygen Status: Chronic Assessment and Plan: see above plan of care (5) Obstructive sleep apnea: Code(s): G47.33 - Obstructive sleep apnea (adult) (pediatric) Status: Chronic Assessment and Plan: see above plan of care (6) Depression: Code(s): F32.9 - Major depressive disorder, single episode, unspecified Status: Chronic Assessment and Plan: 05/05/2023: Paxil and Abilify continued 05/06/2023: Continue with current treatment (7) Chronic back pain: Code(s): M54.9 - Dorsalgia, unspecified; G89.29 - Other chronic pain Status: Acute Assessment and Plan: 05/05/2023: Percocet ordered 1 tab p.o. q.i.d. 05/06/2023: Continue with current treatment plan (8) Anxiety: Code(s): F41.9 - Anxiety disorder, unspecified Status: Chronic Assessment and Plan: 05/05/2023: continue BuSpar 05/06/2023: Continue with current treatment plan (9) Nicotine abuse: Code(s): Z72.0 - Tobacco use Status: Acute Assessment and Plan: 05/05/2023 patient is a half pack per day smoker times 50 years nicotine patch ordered 05/06/2023: Continue with current treatment plan (10) Hypothyroidism: Code(s): E03.9 - Hypothyroidism, unspecified Status: Acute Assessment and Plan: 05/05/2023: TSH 0.146, free T4 1.17, total T3 0.85 will hold Synthroid she will need further labs and testing on an outpatient basis 05/06/2023: Continue with current treatment plan (11) Morbid obesity: Code(s): E66.01 - Morbid (severe) obesity due to excess calories Status: Chronic Assessment and Plan: 05/05/2023: BMI 52.1, 129.1 kg 05/07: Poor appetite, poor oral fluid intake, start IV fluids. : IV fluids discontinued, patient eating and drinking well Time Spent With Patient Time with patient: 15 - 25 minutes Subjective Date/time seen: 05/11/23 11:56 Interval history: Patient denied any needs or events overnight. She will call tomorrow about home non-invasive ventilator. Plan will be to perform ApneaLink with home machine then DC on Friday. Charge nurse notified me that patient's friend brought in THC edibles that patient was using and offering to staff. Charge nurse spoke to patient regarding this. Review of Systems Review of Systems: All systems reviewed & are unremarkable except as noted in HPI and below Exam Narrative: GENERAL: nonlabored respirations, patient Awake alert oriented and appearing much better HEAD: Normocephalic, atraumatic. ENT:? Mucous membranes dry. CHEST: normal respiratory rate, mostly clear throughout. Supplemental oxygen remains in place by nasal cannula and by Pap ma
[2023-05-11 16:48] LABS: Glucose Point of Care 145 mg/dl (65-105)
[2023-05-11] MEDS: ARIPiprazole 5 MG TABLET PO (20:36)
[2023-05-11] MEDS: INSULIN ASPART (*BKC) 100 UNITS/ML SUB-Q (20:37)
[2023-05-11 20:53] LABS: Glucose Point of Care 205 mg/dl (65-105)
[2023-05-12] VITALS (10 sets, daily range): BP systolic 104; BP diastolic 63; PULSE 77–94; RESP 18–20; TEMP 36.6; O2SAT 83–99
[2023-05-12 07:02] LABS: Basophils Percent Auto 0.1 % (0.2-1.2); Eosinophils Absolute Auto 0.1 K/mm3 (0-0.3); Eosinophils Percent Auto 0.7 % (0-4.4); Hematocrit 43.7 % (37.0-47.0); Hemoglobin 11.9 g/dL (12.0-15.0); Immature Granulocyte Absolute 0.08 K/mm3 (0.00-0.031); Immature Granulocyte Percent A 0.8 % (0-0.5); Lymphocytes Absolute Auto 2.36 K/mm3 (0.9-3.2); Lymphocytes Percent Auto 22.4 % (18.3-44.2); Mean Corpuscular HGB Conc 27.2 g/dl (32-36); Mean Corpuscular Hemoglobin 21.9 pg (26-34); Mean Corpuscular Volume 80.3 fl (80-100); Mean Platelet Volume 10.3 fl (7.4-10.4); Monocytes Absolute Auto 0.9 K/mm3 (0.1-0.6); Monocytes Percent Auto 8.9 % (2.6-8.5); Neutrophils Absolute Auto 7.1 K/mm3 (1.3-6.7); Neutrophils Percent Auto 67.1 % (45.5-73.1); Platelet Count Result 304 k/mm3 (150-375); Red Blood Count 5.44 M/mm3 (4.2-5.4); Red Cell Distribution Width 17.7 % (11.5-14.5); White Blood Count 10.5 K/mm3 (4.5-10.0)
[2023-05-12 07:10] LABS: Alanine Aminotransferase 24 U/L (6-35); Albumin Level 3.1 g/dL (3.5-5.1); Alkaline Phosphatase 81 U/L (38-126); Aspartate Amino Transferase 24 U/L (14-36); Bilirubin,Total 0.6 mg/dL (0.2-1.3); Blood Urea Nitrogen 18 mg/dL (7-17); Calcium 8.6 mg/dL (8.4-10.2); Carbon Dioxide > 40 mmol/L (22-30); Chloride 94 mmol/L (98-107); Estimated CRCL calculation 77 ml/min; Estimated Glomerular Filt Rate > 60; Glucose 100 mg/dL (65-110); Potassium 3.6 mmol/L (3.4-5.0); Sodium 134 mmol/L (137-145)
[2023-05-12 07:43] LABS: Glucose Point of Care 99 mg/dl (65-105)
[2023-05-12 08:28] LABS: Anisocytosis 1+ (NORMAL); Hypochromasia 1+ (NORMAL); Platelet Estimate Adequate (Adequate); Schistocytes None Seen (NORMAL)
[2023-05-12] MEDS: busPIRone HCL 10 MG TABLET PO (08:29)
[2023-05-12] MEDS: SIMVASTATIN 20 MG TABLET 40 MG PO (08:29)
[2023-05-12] MEDS: predniSONE 10 MG TABLET 30 MG PO (08:29)
[2023-05-12] MEDS: guaiFENesin 12 HR 600 MG TABCR 1200 MG PO (08:29)
[2023-05-12] MEDS: POTASSIUM CHLORIDE 20 MEQ ER TABLET PO (08:29)
[2023-05-12] MEDS: CLOPIDOGREL BISULFATE 75 MG TABLET PO (08:29)
[2023-05-12] MEDS: PROPRANOLOL HCL 20 MG TABLET PO (08:29)
[2023-05-12] MEDS: PARoxetine 20 MG TABLET 60 MG PO (08:29)
[2023-05-12] MEDS: ASPIRIN 81 MG ENTERIC TABLET PO (08:29)
[2023-05-12] MEDS: hydroCHLOROthiazide 25 MG TABLET PO (08:30)
[2023-05-12] MEDS: TOLNAFTATE 1% POWDER 45 GM BTL 1 APPLIC TOPICAL (08:30)
[2023-05-12] MEDS: PANTOPRAZOLE 40 MG TABLET PO (08:30)
[2023-05-12] MEDS: BUDESONIDE RESPULE NEB 0.5 MG/2 ML AMP INHALATION (08:57)
[2023-05-12] MEDS: IPRATROPIUM 0.5 MG/ALBUTEROL SULFATE 2.5 MG AMPUL.NEB 3 ML INHALATION (08:57)
--- NOTE | 2023-05-12 10:03 | PCNWS ---
Weekly nutritional screen. Patient is tolerating current heart healthy diet with adequate intake at 75-100%. No weight loss reported. No nutritional needs at this time.
--- NOTE | 2023-05-12 11:34 | PM.PNPUL ---
Progress Note: A&P Assessment and Plan (1) COPD exacerbation: Code(s): J44.1 - Chronic obstructive pulmonary disease with (acute) exacerbation Status: Acute Assessment and Plan: Currently she is in no respiratory distress and states she is breathing back at her baseline. She is on 2 L with saturations 98%. She states she has a cough with yellow phlegm but this is normal for her. She has been walking the halls. White blood cell count 10.5, creatinine 0.8. Today is day 8 of steroids. She has finished Antibiotics. the patient tells me that she will quit smoking. From a pulmonary perspective patient can be discharged home on these pulmonary medications: Beta agonist and muscarinic antagonist that insurance will cover (Anoro Ellipta 62.5/25 at 1 puff Q day, stiolto respimat 2.5/2.5 at 1 puff BID, bevespi aerosphere 9 mcg/4.8 at 2 puffs BID, combivent respimat at 2 puffs Q 4 HR or separate albuterol and atrovent inhalers at 2 puffs Q 4 HR). Rescue albuterol 2 puffs q.4 hours p.r.n. shortness of breath or wheezing. When she naps or sleeps noninvasive ventilator through [employer] with an astral machine and a a set rate of 14, target tidal volume 500, EPAP minimum 5. EPAP maximum 15, pressure support minimum 5, pressure support maximum 25 with 3 l bleed in. [employer] has called the patient and stated that they will come to her house today to set this up and cannot bring the machine to the hospital. Oxygen at rest and with ambulation per home O2 assessment which I have ordered. Tobacco cessation. The patient tells me she is done with cigarettes. Her significant other has gone home and thrown out all cigarettes from the house and cleaned up all ashtrays. I told her this is the most important thing that can be done for her. Follow-up in the Pulmonary Clinic in 4 weeks. I gave her our business card and informed our production scheduler. patient will need outpatient PFTs and an overnight oximetry on 3 L on her noninvasive ventilator machine. Discussed with Noble Baez, will sign off, call with questions (2) Acute respiratory failure with hypercapnia: Code(s): J96.02 - Acute respiratory failure with hypercapnia Status: Acute Assessment and Plan: The patient, a 62-year-old female with a history of severe obesity and COPD, has been treated at [facility] for an acute exacerbation of her chronic hypercapnic respiratory failure and associated breathlessness. Despite treatment, her symptoms, including shortness of breath and hypercapnic respiratory failure, have persisted for several weeks. Recent arterial blood gas tests show normal pH but elevated pCO2 levels. It is my suspicion that her chronic hypercapnic respiratory failure is more likely due to obesity hypoventilation rather than COPD. Unfortunately, there are no available pulmonary function tests for reference. A chest CT scan reveals mild emphysematous changes. No evidence of DVT in lower extremities study. 05/09/23: Respiratory status improving slowly. While waiting for approval of home ventilator will continue with current regimen. Will follow along with you. 05/12/23: patient did well on the hospital noninvasive ventilator last night. She is tolerating the mask well. When she naps or sleeps noninvasive ventilator through [employer] with an astral machine and a a set rate of 14, target tidal volume 500, EPAP minimum 5. EPAP maximum 15, pressure support minimum 5, pressure support maximum 25 with 3 l bleed in. [employer] has called the patient and stated that they will come to her house today to set this up and cannot bring the machine to the hospital. Subjective Date/time seen: 05/12/23 11:34 Interval history: A 62-year-old female, with a medical history that includes severe obesity, COPD, chronic back pain, migraines, depression, anxiety, emphysema, hypertension, hyperlipidemia, stage IV cervical cancer (post-hysterectomy), hypothyroidism, and marijuana abuse,
[2023-05-12 11:39] LABS: Glucose Point of Care 139 mg/dl (65-105)
--- NOTE | 2023-05-12 12:39 | PM.DS ---
DS: Admitting Diagnosis Discharge Date 05/12/2023 Admitting Diagnosis Acute respiratory failure with hypercapnia, COPD exacerbation, chronic respiratory failure with hypoxia on home oxygen therapy, hyperglycemia, obstructive sleep apnea DS: Discharge Diagnosis Discharge Diagnosis (1) Acute respiratory failure with hypoxia and hypercapnia: Code(s): J96.01 - Acute respiratory failure with hypoxia; J96.02 - Acute respiratory failure with hypercapnia Status: Acute (2) COPD exacerbation: Code(s): J44.1 - Chronic obstructive pulmonary disease with (acute) exacerbation Status: Acute (3) Hyperglycemia: Code(s): R73.9 - Hyperglycemia, unspecified Status: Acute (4) Chronic respiratory failure with hypoxia, on home oxygen therapy: Code(s): J96.11 - Chronic respiratory failure with hypoxia; Z99.81 - Dependence on supplemental oxygen Status: Chronic (5) Obstructive sleep apnea: Code(s): G47.33 - Obstructive sleep apnea (adult) (pediatric) Status: Chronic (6) Depression: Code(s): F32.9 - Major depressive disorder, single episode, unspecified Status: Chronic (7) Chronic back pain: Code(s): M54.9 - Dorsalgia, unspecified; G89.29 - Other chronic pain Status: Acute (8) Anxiety: Code(s): F41.9 - Anxiety disorder, unspecified Status: Chronic (9) Nicotine abuse: Code(s): Z72.0 - Tobacco use Status: Acute (10) Hypothyroidism: Code(s): E03.9 - Hypothyroidism, unspecified Status: Acute (11) Morbid obesity: Code(s): E66.01 - Morbid (severe) obesity due to excess calories Status: Chronic DS: Summary Hospital Course Hospital Course: Patient was transferred to this facility from [facility] with hypercapnic respiratory failure and COPD exacerbation requiring the use of increasing doses of BiPAP. Patient had traveled out of state but did not take her oxygen. Pulmonology was consulted and managed BIPAP settings. They also arranged for home non-invasive ventilator set up. On day of discharge home oxygen evaluation was completed and patient required 3 liters/minute of oxygen which was continued upon discharge and will be the starting point to bleed in with NIV at home. Home equipment was not available until today. Anoro be prescribed upon discharge. I contacted preferred pharmacy and they stated her insurance will cover Anoro. Time spent discussing smoking cessation with patient: more than 10 minutes Status at Discharge Cognitive/behavioral status at discharge: Awake alert oriented Functional status at discharge: independent ambulation Overall status at discharge: patient is back to baseline Time Spent with Patient Time attestation: Total time spent providing and/or coordinating discharge services: 40 minutes Time spent: Greater than 30 minutes Exam Narrative: GENERAL: nonlabored respirations, patient Awake alert oriented and appearing much better HEAD: Normocephalic, atraumatic. ENT:? Mucous membranes dry. CHEST: normal respiratory rate, mostly clear throughout. Supplemental oxygen remains in place by nasal cannula and by Pap mask overnight HEART: Regular rate and rhythm. ? Normal peripheral pulses. ABDOMEN: Soft, nontender, nondistended. bowel sounds present and equal throughout EXTREMITIES: Normal range of motion. No peripheral edema. SKIN: Warm dry normal color NEURO: awake alert oriented, moving around easily, no neurologic deficits noted PSYCH: improved mood normal affect DS: Data Data Completed and Pending Labs on day of discharge: Labs from last 24 hours 05/12/23 05/12/23 05/12/23 11:32 07:41 06:02 WBC 10.5 H RBC 5.44 H Hgb 11.9 L Hct 43.7 MCV 80.3 MCH 21.9 L MCHC 27.2 L RDW 17.7 H Plt Count 304 MPV 10.3 Immature Gran % (Auto) 0.8 H Neut % (Auto) 67.1 Lymph % (Auto) 22.4 Labette % (Auto) 8.9 H Eos % (
--- NOTE | 2023-05-12 13:43 | PCRCNOTE ---
Home O2 eval complete. Patient requires 3lpm with rest and activity. Patient has Home O2 at 3lpm with rest and activity. RN notified.
== END 2023-05-12 13:52 | disposition home or self-care (01) | DRG 133 ==
LOC: ANHIMU 05-07 15:02 → ANH3MEDSUR 05-09 16:40
PROVIDERS: Internal Medicine; Nurse Practitioner Acute Care; Physician Assistant; Admitting Provider Internal Medicine; PCP Family Medicine; Visit Provider Nurse Practitioner
DX: J96.02 Acute respiratory failure with hypercapnia (principal); E66.2 Morbid (severe) obesity with alveolar hypoventilation; J44.1 Chronic obstructive pulmonary disease with (acute) exacerbation; J96.21 Acute and chronic respiratory failure with hypoxia; I25.10 Atherosclerotic heart disease of native coronary artery without angina pectoris; I10 Essential (primary) hypertension; E78.5 Hyperlipidemia, unspecified; E03.9 Hypothyroidism, unspecified; K57.30 Diverticulosis of large intestine without perforation or abscess without bleeding; R73.9 Hyperglycemia, unspecified; M81.0 Age-related osteoporosis without current pathological fracture; M19.90 Unspecified osteoarthritis, unspecified site; M54.9 Dorsalgia, unspecified; G89.29 Other chronic pain; F32.A Depression, unspecified; F41.9 Anxiety disorder, unspecified; Z99.81 Dependence on supplemental oxygen; Z68.42 Body mass index [BMI] 45.0-49.9, adult; Z95.5 Presence of coronary angioplasty implant and graft; Z85.41 Personal history of malignant neoplasm of cervix uteri; Z87.891 Personal history of nicotine dependence; Z79.02 Long term (current) use of antithrombotics/antiplatelets; Z79.82 Long term (current) use of aspirin
CPT/HCPCS: 36415; 36600; 80048; 80053; 82375; 82803; 82805; 82948; 83036; 83050; 83735; 84100; 84439; 84443; 84480; 85025; 85027; 87641; 93970; 94002; 94003; 94618; 94640; 94660; 96375; A9270; C8929; G0378; G0379; J0360; J0696; J1815; J2930; J3475; J7120; J7512; Q9957

== ENCOUNTER 2023-09-05 09:59 | Outpatient (CLI) | payer OTHER, SELFPAY ==
[2023-09-05] VITALS (8 sets, daily range): PULSE 86–118; O2SAT 87–96
--- NOTE | 2023-09-05 11:35 | SIXMINWLK ---
Six Minute Walk Test PFT: Six Minute Walk Start: 09/05/23 10:57 Freq: Status: Active Protocol: RPE Activity Type Activity Date Activity User E-sign Co-sign Detail Recorded Client Recorded Date Recorded By Document 09/05/23 10:22 RES [id number] 09/05/23 11:29 RES Document 09/05/23 10:23 RES [id number] 09/05/23 11:35 RES Document 09/05/23 10:23 RES [id number] 09/05/23 11:29 RES Document 09/05/23 10:24 RES [id number] 09/05/23 11:35 RES Document 09/05/23 10:25 RES [id number] 09/05/23 11:35 RES Document 09/05/23 10:26 RES [id number] 09/05/23 11:35 RES Document 09/05/23 10:27 RES [id number] 09/05/23 11:35 RES Document 09/05/23 10:28 RES [id number] 09/05/23 11:35 RES 09/05/23 09/05/23 09/05/23 10:22 10:23 10:23 Six Minute Walk Gender F F F Age 63 63 63 Race White White White Test Phase Resting Exercise Exercise Oxygen Delivery Room Air Nasal Cannula Room Air Oxygen Flow Rate (L/min) 3 Fraction of Inspired Oxygen (%) 21 32 21 Pulse Oximetry (90-100 %) 93 90 88 L Pulse Rate (60-100 beats/min) 86 110 H 109 H Activity Tolerance Good Good Good Rating of Perceived Dyspnea (PD) +1 Mild, +3 Moderate +2 Mild, Some Noticeable to Difficulty, But Difficulty, the Participant Can Continue Noticeable to but Not to an the Observer Observer Rate of Perceived Exertion (1) Very Light (2-3) Light (2-3) Light Activity Activity Activity Number of Complete Laps (1 Lap = 100 Feet) Total Distance Walked (Feet) Total Distance Walked (Meters) Six Minute Walk Comments At this time I placed patient on 2 lpm due to sats of 88%. patients sats still were low at 87%. I increased patient to her home settings of 3lpm and sats increased to 90% 06/28/24 06/28/24 06/28/24 10:24 10:25 10:26 Six Minute Walk Gender F F F Age [age] Race White White White Test Phase Exercise Exercise Exercise Oxygen Delivery Nasal Cannula Nasal Cannula Nasal Cannula Oxygen Flow Rate (L/min) 3 3 3 Fraction of Inspired Oxygen (%) 32 32 32 Pulse Oximetry (90-100 %) 92 95 94 Pulse Rate (60-100 beats/min) 115 H 117 H 118 H Activity Tolerance Good Good Good Rating of Perceived Dyspnea (PD) +3 Moderate +3 Moderate +3 Moderate Difficulty, But Difficulty, But Difficulty, But Can Continue Can Continue Can Continue Rate of Perceived Exertion (2-3) Light (2-3) Light (2-3) Light Activity Activity Activity Number of Complete Laps (1 Lap = 100 Feet) Total Distance Walked (Feet) Total Distance Walked (Meters) Six Minute Walk Comments 09/05/23 09/05/23 10:27 10:28 Six Minute Walk Gender F F Age [age] Race White White Test Phase Exercise Resting Oxygen Delivery Nasal Cannula Nasal Cannula Oxygen Flow Rate (L/min) 3 3 Fraction of Inspired Oxygen (%) 32 32 Pulse Oximetry (90-100 %) 96 96 Pulse Rate (60-100 beats/min) 115 H 108 H Activity Tolerance Good Good Rating of Perceived Dyspnea (PD) +3 Moderate +3 Moderate Difficulty, But Difficulty, But Can Continue Can Continue Rate of Perceived Exertion (2-3) Light (2-3) Light Activity Activity Number of Complete Laps (1 Lap = 100 5 Feet) Total Distance Walked (Feet) 500 Total Distance Walked (Meters) 152.39 Six Minute Walk Comments
--- NOTE | 2023-09-05 11:41 | SIXMINWLK ---
Six Minute Walk Test PFT: Six Minute Walk Start: 09/05/23 10:57 Freq: Status: Active Protocol: RPE Activity Type Activity Date Activity User E-sign Co-sign Detail Recorded Client Recorded Date Recorded By Document 09/05/23 10:22 RES [id number] 09/05/23 11:29 RES Document 09/05/23 10:23 RES [id number] 09/05/23 11:35 RES Document 09/05/23 10:24 RES [id number] 09/05/23 11:29 RES Document 09/05/23 10:25 RES [id number] 09/05/23 11:35 RES Document 09/05/23 10:26 RES [id number] 09/05/23 11:35 RES Document 09/05/23 10:27 RES [id number] 09/05/23 11:35 RES Document 09/05/23 10:28 RES [id number] 09/05/23 11:35 RES Document 09/05/23 10:29 RES [id number] 09/05/23 11:35 RES Document 09/05/23 11:37 RES [id number] 09/05/23 11:37 RES Document 09/05/23 11:38 RES [id number] 09/05/23 11:40 RES Document 09/05/23 11:40 RES [id number] 09/05/23 11:40 RES Document 09/05/23 11:40 RES [id number] 09/05/23 11:41 RES 09/05/23 09/05/23 09/05/23 10:22 10:23 10:24 Six Minute Walk Gender F F F Age [age] Race White White White Test Phase Resting Exercise Exercise Oxygen Delivery Room Air Nasal Cannula Room Air Oxygen Flow Rate (L/min) 3 3 Fraction of Inspired Oxygen (%) 21 32 32 Pulse Oximetry (90-100 %) 93 90 88 L Pulse Rate (60-100 beats/min) 86 110 H 109 H Activity Tolerance Good Good Good Rating of Perceived Dyspnea (PD) +1 Mild, +3 Moderate +2 Mild, Some Noticeable to Difficulty, But Difficulty, the Participant Can Continue Noticeable to but Not to an the Observer Observer Rate of Perceived Exertion (1) Very Light (2-3) Light (2-3) Light Activity Activity Activity Number of Complete Laps (1 Lap = 100 Feet) Total Distance Walked (Feet) Total Distance Walked (Meters) Six Minute Walk Comments At this time I placed patient on 2 lpm due to sats of 88%. patients sats still were low at 87%. I increased patient to her home settings of 3lpm and sats increased to 90% 09/05/23 09/05/23 09/05/23 10:25 10:26 10:27 Six Minute Walk Gender F F F Age [age] Race White White White Test Phase Exercise Exercise Exercise Oxygen Delivery Nasal Cannula Nasal Cannula Nasal Cannula Oxygen Flow Rate (L/min) 3 3 3 Fraction of Inspired Oxygen (%) 32 32 32 Pulse Oximetry (90-100 %) 92 95 94 Pulse Rate (60-100 beats/min) 115 H 117 H 118 H Activity Tolerance Good Good Good Rating of Perceived Dyspnea (PD) +3 Moderate +3 Moderate +3 Moderate Difficulty, But Difficulty, But Difficulty, But Can Continue Can Continue Can Continue Rate of Perceived Exertion (2-3) Light (2-3) Light (2-3) Light Activity Activity Activity Number of Complete Laps (1 Lap = 100 Feet) Total Distance Walked (Feet) Total Distance Walked (Meters) Six Minute Walk Comments 09/05/23 09/05/23 09/05/23 10:28 10:29 11:37 Six Minute Walk Gender F F F Age [age] Race White White White Test Phase Exercise Resting Oxygen Delivery Nasal Cannula Nasal Cannula Oxygen Flow Rate (L/min) 3 3 Fraction of Inspired Oxygen (%) 32 32 Pulse Oximetry (90-100 %) 96 96 Pulse Rate (60-100 beats/min) 115 H 108 H Activity Tolerance Good Good Rating of Perceived Dyspnea (PD) +3 Moderate +3 Moderate Difficulty, But Difficulty, But Can Continue Can Continue Rate of Perceived Exertion (2-3) Light (2-3) Light Activity Activity Number of Complete Laps (1 Lap = 100 5 Feet) Total Distance Walked (Feet) 500 Total Distance Walked (Meters) 152.39 Six Minute Walk Comments 09/05/23 09/05/23 09/05/23 11:38 11:40 11:40 Six Minute Walk Gender F F F Age [age] Race Caucas
--- NOTE | 2023-09-08 09:11 | WPDPFTINT ---
PFT Procedure Performed PFT Procedure Performed Spirometry with Pre/Post Bronchodilator Plethysmography (Lung Vol) Diffusing Cap (DLCO) Flow Vol Loop PFT Interpretation DOS: 09/05/2023 REQUESTING: Bartolo Pham MD REASON FOR TESTING: COPD PULMONARY FUNCTION TESTS Results are reliable and reproducible. Spirometry: The pre-bronchodilator FEV1 is 0.99 L, 46%, severely reduced. The pre-bronchodilator FVC is 2.00 L, 75%, normal. The FEV1/FVC ratio is 50%, reduced consistent with airflow obstruction. After bronchodilator, the FEV1 is 1.24 L, 57%, 25% increase which is significant.. The FVC is 2.13 L after bronchodilator, 80%, +6%. The FEV1/FVC ratio is 58%. Lung volumes: The total lung capacity is 4.39, 96%, normal. The residual volume is 2.37 L, 139%, increased, consistent with air trapping. The RV/TLC is 54%. Airway resistance is increased. Diffusion: DLCO is 10, 37%, severely reduced. The DLCO/VA is 3.10, 83%, normal. Flow volume loop: The flow volume loop shows coving of the expiratory limb consistent with airflow obstruction. IMPRESSION: This study shows a severe obstructive ventilatory impairment with excellent response to bronchodilator, normal lung capacity, mild air trapping, severe diffusion impairment that normalizes for alveolar volume. No prior studies are available for comparison. Carolina Tam MD
--- NOTE | 2023-09-08 11:02 | WPDSIXMINUTE ---
Six Minute Walk Procedure Procedure Performed Pulmonary Stress Test (6 min walk) Six Minute Walk Six Minute Walk: DOS: 09/05/2023 REQUESTING: Bartolo Pham MD REASON FOR TESTING: COPD SIX MINUTE WALK This test was conducted per ATS guidelines. The initial saturation was 93% on room air, and the heart rate was 86 bpm. The patient walked with a drop in her saturation to 88% and increase in heart rate to 110 bpm at the 2 minute romeo. The tech placed oxygen at 3 L/minute. The patient completed the walk, 500 feet/152.4 meters. Final saturation was 96% and heart rate was 108 beats per minute. completing []. The saturation at the end of testing was [], and the heart rate was []. IMPRESSION: This study showed no need for supplemental O2 at rest, and a requirement ofr 3 L/min with exertion. Carolina Tam MD
--- NOTE | 2023-09-08 11:56 | SIXMINWLK ---
Six Minute Walk Test PFT: Six Minute Walk Start: 09/05/23 10:57 Freq: Status: Discharge Protocol: RPE Activity Type Activity Date Activity User E-sign Co-sign Detail Recorded Client Recorded Date Recorded By Document 09/05/23 10:22 RES [id number] 09/05/23 11:29 RES Document 09/05/23 10:24 RES [id number] 09/05/23 11:35 RES Document 09/05/23 10:23 RES [id number] 09/05/23 11:29 RES Document 09/05/23 10:23 RES [id number] 09/08/23 11:39 KLA Document 09/05/23 10:25 RES [id number] 09/05/23 11:35 RES Document 09/05/23 10:26 RES [id number] 09/05/23 11:35 RES Document 09/05/23 10:27 RES [id number] 09/05/23 11:35 RES Document 09/05/23 10:28 RES [id number] 09/05/23 11:35 RES Document 09/05/23 10:29 RES [id number] 09/05/23 11:35 RES 09/05/23 09/05/23 09/05/23 10:22 10:24 10:23 Six Minute Walk Gender F F F Age [age] Race White White White Test Phase Resting Exercise Exercise Oxygen Delivery Room Air Nasal Cannula Room Air Oxygen Flow Rate (L/min) 3 Fraction of Inspired Oxygen (%) 21 32 Pulse Oximetry (90-100 %) 93 90 88 L Pulse Rate (60-100 beats/min) 86 110 H 109 H Activity Tolerance Good Good Good Rating of Perceived Dyspnea (PD) +1 Mild, +3 Moderate +2 Mild, Some Noticeable to Difficulty, But Difficulty, the Participant Can Continue Noticeable to but Not to an the Observer Observer Rate of Perceived Exertion (1) Very Light (2-3) Light (2-3) Light Activity Activity Activity Number of Complete Laps (1 Lap = 100 Feet) Total Distance Walked (Feet) Total Distance Walked (Meters) Six Minute Walk Comments At this time I placed patient on 2 lpm due to sats of 88%. patients sats still were low at 87%. I increased patient to her home settings of 3lpm and sats increased to 90% 09/05/23 09/05/23 09/05/23 10:23 10:25 10:26 Six Minute Walk Gender F F F Age [age] Race White White White Test Phase Exercise Exercise Exercise Oxygen Delivery Nasal Cannula Nasal Cannula Nasal Cannula Oxygen Flow Rate (L/min) 2 3 3 Fraction of Inspired Oxygen (%) 32 32 Pulse Oximetry (90-100 %) 87 L 92 95 Pulse Rate (60-100 beats/min) 109 H 115 H 117 H Activity Tolerance Good Good Rating of Perceived Dyspnea (PD) +2 Mild, Some +3 Moderate +3 Moderate Difficulty, Difficulty, But Difficulty, But Noticeable to Can Continue Can Continue the Observer Rate of Perceived Exertion (2-3) Light (2-3) Light Activity Activity Number of Complete Laps (1 Lap = 100 Feet) Total Distance Walked (Feet) Total Distance Walked (Meters) Six Minute Walk Comments 09/05/23 09/05/23 09/05/23 10:27 10:28 10:29 Six Minute Walk Gender F F F Age 63 63 63 Race White White White Test Phase Exercise Exercise Resting Oxygen Delivery Nasal Cannula Nasal Cannula Nasal Cannula Oxygen Flow Rate (L/min) 3 3 3 Fraction of Inspired Oxygen (%) 32 32 32 Pulse Oximetry (90-100 %) 94 96 96 Pulse Rate (60-100 beats/min) 118 H 115 H 108 H Activity Tolerance Good Good Good Rating of Perceived Dyspnea (PD) +3 Moderate +3 Moderate +3 Moderate Difficulty, But Difficulty, But Difficulty, But Can Continue Can Continue Can Continue Rate of Perceived Exertion (2-3) Light (2-3) Light (2-3) Light Activity Activity Activity Number of Complete Laps (1 Lap = 100 5 Feet) Total Distance Walked (Feet) 500 Total Distance Walked (Meters) 152.39 Six Minute Walk Comments
== END 2023-09-05 10:00 | disposition home or self-care (01) ==
LOC: CHSCARD 10:00
PROVIDERS: Visit Provider Internal Medicine Pulmonary Disease
DX: J44.9 Chronic obstructive pulmonary disease, unspecified (principal); R94.2 Abnormal results of pulmonary function studies
CPT/HCPCS: 94060; 94618; 94726; 94729

== ENCOUNTER 2023-11-11 11:00 | Outpatient (RCR) | payer SELFPAY | END 2023-11-12 14:59 | disposition home or self-care (01) | PROVIDERS: PCP Family Medicine; Referring Provider Internal Medicine Pulmonary Disease; Visit Provider Internal Medicine Pulmonary Disease | DX: J44.9 Chronic obstructive pulmonary disease, unspecified (principal) | CPT/HCPCS: 94625 ==

== ENCOUNTER 2023-11-19 13:20 | Emergency (ER) | payer OTHER, SELFPAY ==
[2023-11-19] VITALS (9 sets, daily range): BP systolic 110–197; BP diastolic 91–110; PULSE 63–101; RESP 12–20; TEMP 36.2–36.8; O2SAT 91–97
--- NOTE | ~2023-11-19 | CT_ITS ---
EXAMINATION: CTA chest PE protocol DATE: 11/19/2023 15:05 INDICATION: Chest pain. Shortness of breath. TECHNIQUE: Computed tomography angiography (CTA) of the chest was performed with 100 mL Omnipaque-350 intravenous contrast timed to evaluate the pulmonary arteries. Coronal maximum intensity projection 3D-reconstructions were created by the technologist. Automated exposure control and iterative reconst ruction technique were employed. The dose-length product was 932.79 mGy-cm. COMPARISON: Chest CT 05/04/2023 FINDINGS: There is mild emphysema. There is mild atelectasis bilaterally. No pleural effusion. Cardio megaly is noted. No pericardial effusion. The central pulmonaries are enlarged, consistent with pulmo nary arterial hypertension. There is no pulmonary embolus. There is mild mediastinal and bilateral hi lar lymphadenopathy. There is a small sliding hiatal hernia. There is a chronic 2.7 cm mass in left a drenal gland measuring low attenuation, consistent with an adenoma. There is mild thoracic spondylosi s. IMPRESSION: 1. No pulmonary embolus. 2. Mild emphysema. 3. Mild mediastinal and bilateral hilar lymphadenopathy, likely reactive. 4. Small sliding hiatal hernia. Reviewed, dictated and finalized at location A.
--- NOTE | ~2023-11-19 | XR_ITS ---
EXAMINATION: XR chest 1V portable DATE: 11/19/2023 13:52 INDICATION: Chest pain. TECHNIQUE: A single frontal view of the chest was obtained on 2 radiographs. COMPARISON: Chest view 05/03/2023, chest CT 05/04/2023 FINDINGS: There is no pneumonia, pleural effusion, or pneumothorax. Cardiomegaly is noted. There is a n old healed rib fracture. IMPRESSION: 1. Cardiomegaly. Reviewed, dictated and finalized at location A. IMPRESSION: 1. Cardiomegaly.
--- NOTE | 2023-11-19 13:26 | ED.CHESTPAIN ---
HPI - Chest Pain General Chief Complaint: Chest Pain Stated Complaint: chest pain Time Seen by Provider: 11/19/23 13:21 Source: patient Mode of arrival: ambulatory Limitations: no limitations History of Present Illness HPI narrative: 63-year-old female, smoker, cocaine abuse with a history of hypertension, diabetes mellitus, hypothyroidism, dyslipidemia, obesity, SHANTHI, severe obstructive lung disease, GERD, arthritis with neck and back pain, CAD status post stent, CHF( HFpEF) leg swelling, colonic polyps presents to the ED with -- chest pain which woke her up from a sleep at 3:00 a.m.. The pain radiates to the jaw. She had nausea and vomiting. No shortness of breath. No lightheadedness. Pain was noted to be 8/10. Currently the pain is 5/10. The patient had a negative stress test in January of last year. The patient has been noncompliant with her medications. MD complaint: chest pain Onset (ago): hour(s) ( Started 10 hours ago) Timing of current episode: constant Prior episodes: Yes Onset: during rest Pain location: substernal Pain radiation: jaw/teeth Severity: severe Pain scale (0-10): 8 Quality: aching Relieving factors: nothing Exacerbating factors: nothing Associated symptoms: nausea and vomiting Treatment prior to arrival: none Risk Factors Coronary artery disease risk factors: diabetes, smoking history, hyperlipidemia, hypertension and cocaine use Thoracic aortic dissection risk factors: longstanding hypertension Pulmonary embolism risk factors: morbid obesity Related Data On Oral Contraceptives: No Home Medications Medication Instructions Recorded Confirmed clopidogrel 75 mg tablet 75 mg PO DAILY 03/18/22 11/19/23 pantoprazole 40 mg tablet,delayed 40 mg PO DAILY 03/18/22 11/19/23 release aripiprazole 5 mg tablet 5 mg PO HS 08/14/22 11/19/23 aspirin 81 mg tablet,delayed 81 mg PO DAILY 08/14/22 11/19/23 release ergocalciferol (vitamin D2) 1,250 1,250 mcg PO 2XW 08/14/22 11/19/23 mcg (50,000 unit) capsule (Vitamin D2) hydrochlorothiazide 25 mg tablet 25 mg PO DAILY 08/14/22 11/19/23 levothyroxine 75 mcg tablet 75 mcg PO DAILY 08/14/22 11/19/23 propranolol 10 mg tablet 20 mg PO DAILY 08/14/22 11/19/23 simvastatin 40 mg tablet 40 mg PO DAILY 08/14/22 11/19/23 paroxetine HCl 40 mg tablet 60 mg PO DAILY 08/15/22 11/19/23 Allergies Allergy/AdvReac Type Severity Reaction Status Date / Time codeine Allergy Severe Anaphylaxis Verified 11/19/23 15:03 Penicillins Allergy Severe Anaphylaxis Verified 11/19/23 15:03 morphine Allergy Unknown Unknown Verified 11/19/23 15:03 Review of Systems Review of Systems: All systems reviewed & are unremarkable except as noted in HPI and below Constitutional: Constitutional: Reports as per HPI and Reports no additional constitutional complaints Eyes: Eyes: Reports as per HPI and Reports no additional eye complaints ENT: Reports system reviewed and no additional complaints, except as documented and Reports as per HPI Cardiovascular: Cardiovascular: Reports as per HPI, Reports no additional cardiovascular complaints, Reports chest pain and Reports radiating jaw, neck or arm pain Respiratory: Respiratory: Reports as per HPI and Reports no additional respiratory complaints Gastrointestinal: Gastrointestinal: Reports as per HPI, Reports no additional gastrointestinal complaints, Reports nausea and Reports vomiting Genitourinary: Genitourinary: Reports no additional female genitourinary complaints Musculoskeletal: Musculoskeletal: Reports no additional musculoskeletal complaints and Reports as per HPI Integumentary/Breasts: Skin/Breast: Reports system reviewed and no additional complaints, except as docu and Reports as per HPI Neurologic: Reports system reviewed and no additional complaints, except as documented and Reports as per HPI Psychiatric: Psychiatric: Reports no additional psychiatric complaints, Reports as per HPI and Reports anxiety Endocrine: Endocrine:
--- NOTE | 2023-11-19 13:31 | ECG_ITS ---
Test Date: 2023-11-19 13:28:23 Measurements Intervals [place] Rate: 62 P: 74 MT: 139 QRS: 93 QRSD: 81 T: 88 QT: 408 QTc: 415 Interpretive Statements SINUS RHYTHM RIGHT AXIS DEVIATION INCOMPLETE RIGHT BUNDLE BRANCH BLOCK BASELINE ARTIFACT- I, II, III, AVR, AVL, AVF, V1-V6 BORDERLINE ECG No previous ECG available for comparison Electronically Signed On 11-19-2023 14:01:26 CDT by Celso Truong D.O.
[2023-11-19 13:59] LABS: Basophils Absolute Auto 0.04 K/mm3 (0.00-0.10); Basophils Percent Auto 0.5 % (0.0-1.0); Eosinophils Absolute Auto 0.21 K/mm3 (0.02-0.50); Eosinophils Percent Auto 2.6 % (1.0-6.0); Hematocrit 38.1 % (35.0-49.0); Hemoglobin 11.2 g/dL (12.0-15.0); Immature Granulocyte Absolute 0.05 K/mm3 (0.00-0.00); Immature Granulocyte Percent A 0.6 % (0.0-0.0); Lymphocytes Absolute Auto 2.28 K/mm3 (1.10-4.50); Lymphocytes Percent Auto 27.9 % (18.0-42.0); Mean Corpuscular HGB Conc 29.4 g/dL (32-36); Mean Corpuscular Hemoglobin 21.9 pg (27.0-31.0); Mean Corpuscular Volume 74.4 fL (78.0-102.0); Mean Platelet Volume 9.3 fl (9.2-11.8); Monocytes Percent Auto 7.4 % (2.0-11.0); Neutrophils Absolute Auto 4.98 K/mm3 (1.70-7.20); Platelet Count Result 330 K/mm3 (150-420); Red Blood Count 5.12 M/mm3 (4.20-5.40); White Blood Count 8.2 K/mm3 (4.8-10.8)
[2023-11-19] MEDS: ASPIRIN 81 MG CHEWABLE TABLET 324 MG PO (14:09)
[2023-11-19 14:14] LABS: Partial Thromboplastin Time 25.9 Sec (23.9-30.70)
--- NOTE | 2023-11-19 14:15 | PC.NURSE ---
PT REPORTS PAIN HAS IMPROVED 2/10 AT THIS TIME. PT STATES SHE IS HAVING INTERMITTENT PAIN THAT RESOLVES ON ITS OWN. SIG OTHER IS AT BEDSIDE. PT IS AWAITING RESULTS AT THIS TIME. WARM BLANKET HAS BEEN PROVIDED. WILL CONTINUE TO MONITOR.
[2023-11-19 14:19] LABS: D Dimer 0.75 mg/L (0.19-0.50)
[2023-11-19 14:23] LABS: Lactic Acid Reflex 1.3 mmol/L (0.4-2.0)
[2023-11-19 14:25] LABS: Alanine Aminotransferase 16 U/L (14-59); Albumin Level 2.9 g/dL (3.4-5.0); Alkaline Phosphatase 136 U/L (46-116); Anion Gap 6 mmol/L (4-12); Aspartate Amino Transferase 17 U/L (15-37); Bilirubin,Total 0.4 mg/dL (0.00-1.00); Blood Urea Nitrogen 9 mg/dL (7-18); Calcium 9.2 mg/dL (8.5-10.1); Carbon Dioxide 32 mmol/L (21-32); Chloride 101 mmol/L (98-108); Estimated CRCL calculation 70 ml/min; Estimated Glomerular Filt Rate > 60; Glucose 106 mg/dL (70-99); Lipase 29 U/L (16-77); NT Pro B Type Natriuretic Pept 285 pg/mL (0-125); Osmolality Calculated 286 mOsm/kg (285-295); Sodium 139 mmol/L (136-145); Total Protein 7.2 g/dL (6.4-8.2)
[2023-11-19 14:28] LABS: Troponin I 4.5 ng/L (0.00-60.4)
[2023-11-19 14:34] LABS: SARS-CoV-2 RNA PCR Negative (Negative)
[2023-11-19 14:35] LABS: Influenza A QL RT-PCR Negative (Negative); Influenza B QL RT-PCR Negative (Negative); RSV RNA, RT-PCR Negative (Negative)
[2023-11-19 14:49] LABS: Thyroid Stimulating Hormone 4.72 uIU/mL (0.36-3.74)
[2023-11-19] MEDS: LACTATED RINGERS 500 ML 999 ML IV CONT (15:26)
--- NOTE | 2023-11-19 15:30 | PC.NURSE ---
PT HAS RETURNED FROM CT, HAS IVF INFUSING ORDERED WITHOUT DIFFICULTY. SIG OTHER AT BEDSIDE. 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 PT REPORTS NO PAIN AT THIS TIME. NO RESP DISTRESS NOTED. PT IS LYING BACK ON STRETCHER WITHOUT DIFFICULTY. WILL CONTINUE TO MONITOR.
[2023-11-19 15:33] LABS: Add Urine Microscopic? NO; Appearance Urine Clear (Clear); Bilirubin Urine Negative (Negative); Blood Urine Negative (Negative); Color Urine Yellow (Yellow); Glucose Urine UA Negative (Negative); Ketones Urine Negative (Negative); Leukocyte Esterase Ur Negative LEU/UL (Negative); Nitrate Urine Negative (Negative); Protein Urine Negative (Negative); Urobilinogen Urine Negative mg/dL (0.2-1.0)
--- NOTE | 2023-11-19 15:50 | PC.NURSE ---
PT REPORTS SHE IS PAIN FREE AT THIS TIME, HAS CALLED [facility] AND HAS FOLLOW UP SCHEDULED FOR 11/30/23 AT 1300. SHE WOULD LIKE HER CHART TO BE SENT TO HER FOR FOLLOW UP. PT REPORTS SHE IS READY TO GO HOME. NAD NOTED. PT WAS AMBULATORY OUT OF BED, NO SHORTNESS OF BREATH NOTED.
--- NOTE | 2023-11-19 16:19 | PC.NURSE ---
PT IS AGREEABLE TO HAVE 2ND TROPONIN REDRAWN AT 1700. NO CHANGE IN STATUS. LIGHTS ARE OFF AT PT REQUEST, SHE IS CURRENTLY RESTING COMFORTABLY. WILL CONTINUE TO MONITOR.
--- NOTE | 2023-11-19 17:00 | ECG_ITS ---
Test Date: 2023-11-19 16:36:28 Measurements Intervals [place] Rate: 65 P: 76 CT: 138 QRS: 97 QRSD: 94 T: 78 QT: 413 QTc: 432 Interpretive Statements SINUS RHYTHM RIGHT AXIS DEVIATION INCOMPLETE RIGHT BUNDLE BRANCH BLOCK BASELINE WANDER- I, II, III, AVF, V2-V3 BORDERLINE ECG Compared to ECG 11/19/2023 13:28:23 No significant changes Electronically Signed On 11-19-2023 19:27:15 CDT by Celso Truong D.O.
--- NOTE | 2023-11-19 17:04 | PC.NURSE ---
PT REPORTS SHE DOES NOT WANT TO BE TRANSFERRED AT THIS TIME, STATES HER PAIN IS GONE, SHE IS BREATHING MUCH BETTER. SORAYA WITH [facility] CALLS, STATING A BED IS AVAILABLE AT [facility] IF PT IS WILLING TO GO. PT DECLINES TRANSFER, STATES SHE WILL WAIT FOR HER REPEAT TROPONIN RESULTS AND SIGN OUT AMA, IF SX RETURN OR WORSEN SHE WILL RETURN TO ER. PT STATES SHE ALREADY HAS A FOLLOW UP WITH CARDIOLOGY THIS MONTH. NAD NOTED. WILL CONTINUE TO MONITOR.
[2023-11-19 17:08] LABS: Troponin I 4.9 ng/L (0.00-60.4)
== END 2023-11-19 17:45 | disposition left against medical advice (07) ==
PROVIDERS: Emergency Provider Internal Medicine Critical Care Medicine; PCP Family Medicine
DX: I25.9 Chronic ischemic heart disease, unspecified (principal); I10 Essential (primary) hypertension; E11.9 Type 2 diabetes mellitus without complications; J44.9 Chronic obstructive pulmonary disease, unspecified; I25.10 Atherosclerotic heart disease of native coronary artery without angina pectoris; E03.9 Hypothyroidism, unspecified; Z87.891 Personal history of nicotine dependence; Z79.899 Other long term (current) drug therapy; Z20.822 Contact with and (suspected) exposure to COVID-19
CPT/HCPCS: 36415; 71045; 71275; 80053; 81003; 83605; 83690; 83880; 84443; 84484; 85025; 85380; 85730; 87637; 93005; 96360; 99284; A9270; J7120; Q9967

== ENCOUNTER 2023-12-31 23:55 | Observation (INO) | payer OTHER, SELFPAY ==
--- NOTE | ~2023-12-31 | XR_ITS ---
EXAMINATION: XR chest 1V portable DATE: 01/01/2024 00:32 INDICATION: Shortness of breath. TECHNIQUE: A single frontal view of the chest was obtained. COMPARISON: Chest single view 11/19/2023, chest CT 11/19/2023 FINDINGS: There is no pneumonia, pleural effusion, or pneumothorax. Cardiomegaly is noted. There are prominent pericardial fat pads. There is an old healed right rib fracture. IMPRESSION: 1. Cardiomegaly. Reviewed, dictated and finalized at location A. IMPRESSION: 1. Cardiomegaly.
--- NOTE | ~2023-12-31 | CT_ITS ---
EXAMINATION: CTA chest PE protocol DATE: 01/01/2024 11:51 INDICATION: Chest pain. Hypoxia. Dyspnea. TECHNIQUE: Computed tomography angiography (CTA) of the chest was performed with 100 mL Omnipaque-350 intravenous contrast timed to evaluate the pulmonary arteries. Coronal maximum intensity projection 3D-reconstructions were created by the technologist. Automated exposure control and iterative reconst ruction technique were employed. The dose-length product was 959.16 mGy-cm. COMPARISON: Chest CT 11/19/2023 FINDINGS: There is mild emphysema. There is mild atelectasis bilaterally. There are centrilobular nod ules and tree-in-bud opacities in the upper lobes and lower lobes. There are airspace opacities in li ngula and lateral segment right middle lobe. No pleural effusion. There is left atrial enlargement of the heart. There are coronary artery calcifications. No pericardial effusion. There is no pulmonary embolus. There is mild bilateral hilar lymphadenopathy, likely reactive. There is a small sliding hia vinayak hernia. There is a 3.5 cm mass in left adrenal gland measuring low attenuation, consistent with a n adenoma. There are old healed right rib fractures. There is mild chronic anterior wedging of multip le mid thoracic vertebral bodies. IMPRESSION: 1. No pulmonary embolus. 2. Bilateral pneumonia. 3. Mild emphysema. 4. Mild bilateral hilar lymphadenopathy, likely reactive. Reviewed, dictated and finalized at location A.
[2023-12-31 23:55] VITALS: BP 136/92; PULSE 95; RESP 36; TEMP 36.4; O2SAT 74; O2SAT 96
[2023-12-31 23:57] VITALS: BP 136/92; PULSE 90; O2SAT 95
[2024-01-01] VITALS (27 sets, daily range): BP systolic 106–141; BP diastolic 59–92; PULSE 62–90; RESP 18–20; TEMP 35.7–36.6; O2SAT 92–98; BMI 47.2
--- NOTE | 2024-01-01 00:02 | ED.SOB ---
HPI - SOB/Dyspnea General Chief Complaint: Shortness of Breath/Dyspnea Stated Complaint: shortness of breath Time Seen by Provider: 01/01/24 00:01 Source: patient Mode of arrival: ambulatory Limitations: no limitations History of Present Illness HPI Narrative: 63-year-old female with a history of ex-smoking, cocaine use, hypertension, diabetes mellitus, dyslipidemia, hypothyroidism, SHANTHI, COPD ( FEV1 of 0.99. FEV1 FVC ratio of 50%, and a positive broncho dilator response.)HFpEF, CAD status post stent, negative stress test in 2022, anxiety presented to the ED with a 4 day history of -- shortness of breath -- cough with mucopurulent sputum -- left lower pleuritic chest pain. No fever or chills no leg swelling patient thinks she got recently exposed to an upper respiratory infection. Her family members have had upper respiratory infection. The patient was noted to have an oxygen saturation of 73% on room air. The patient uses 4 liters/minute of supplemental oxygen at home. On placing her on supplemental oxygen her oxygen saturation increased to 96%. MD elicited complaint: shortness of breath, cough and pain with inspiration Pertinent past history: COPD and congestive heart failure Onset (ago): day(s) ( Four days) Context: recent illness Timing: constant Exacerbating factors: exertion Relieving factors: oxygen and bronchodilators Known history of: COPD and congestive heart failure Associated symptoms: denies other symptoms, cough, wheezing and sputum production Treatment prior to arrival: none Related Data Home oxygen amount: 4 liters Home Medications Medication Instructions Recorded Confirmed clopidogrel 75 mg tablet 75 mg PO DAILY 03/18/22 12/02/23 pantoprazole 40 mg tablet,delayed 40 mg PO DAILY 03/18/22 12/02/23 release aripiprazole 5 mg tablet 5 mg PO HS 08/14/22 12/02/23 aspirin 81 mg tablet,delayed 81 mg PO DAILY 08/14/22 12/02/23 release ergocalciferol (vitamin D2) 1,250 1,250 mcg PO 2XW 08/14/22 12/02/23 mcg (50,000 unit) capsule (Vitamin D2) hydrochlorothiazide 25 mg tablet 25 mg PO DAILY 08/14/22 12/02/23 levothyroxine 75 mcg tablet 75 mcg PO DAILY 08/14/22 12/02/23 propranolol 10 mg tablet 20 mg PO DAILY 08/14/22 12/02/23 simvastatin 40 mg tablet 40 mg PO DAILY 08/14/22 12/02/23 paroxetine HCl 40 mg tablet 60 mg PO DAILY 08/15/22 12/02/23 Allergies Allergy/AdvReac Type Severity Reaction Status Date / Time codeine Allergy Severe Anaphylaxis Verified 12/02/23 14:18 Penicillins Allergy Severe Anaphylaxis Verified 12/02/23 14:18 morphine Allergy Unknown Unknown Verified 12/02/23 14:18 Review of Systems Review of Systems: All systems reviewed & are unremarkable except as noted in HPI and below Constitutional: Constitutional: Reports as per HPI and Reports no additional constitutional complaints Eyes: Eyes: Reports as per HPI and Reports no additional eye complaints ENT: Reports system reviewed and no additional complaints, except as documented and Reports as per HPI Cardiovascular: Cardiovascular: Reports as per HPI and Reports no additional cardiovascular complaints Respiratory: Respiratory: Reports as per HPI, Reports cough, Reports dyspnea and Reports wheezing Gastrointestinal: Gastrointestinal: Reports as per HPI and Reports no additional gastrointestinal complaints Genitourinary: Genitourinary: Reports no additional female genitourinary complaints Musculoskeletal: Musculoskeletal: Reports no additional musculoskeletal complaints and Reports as per HPI Integumentary/Breasts: Skin/Breast: Reports system reviewed and no additional complaints, except as docu and Reports as per HPI Neurologic: Reports system reviewed and no additional complaints, except as documented and Reports as per HPI Psychiatric: Psychiatric: Reports no additional psychiatric complaints and Reports as per HPI Endocrine: Endocrine: Reports no additional endocrine complaints and Reports as per HPI Hematologic/Lymphatic: Hematologic/Lymphatic: Reports no additional hematologic/lymphatic complaints and Reports as per HPI Allergic/Immunologic: Allergic/Immunologic: Reports no additional allergic/immunologic complaints and Reports as per HPI [facility] Past Medical History Medical History Anxiety Cervical cancer Chronic back pain Chronic obstructive pulmonary disease Chronic respiratory failure with hypoxia, on home oxygen therapy Coronary artery disease Depression Diverticulosis Hypothyroidism Migraines Morbid obesity Nicotine abuse Obstructive sleep apnea Osteoarthritis Osteoporosis Surgical History Surgical History History of cardiac catheterization History of chest tube placement History of coronary artery stent placement History of hysterectomy History of open reduction and internal fixation (ORIF) procedure Repair left femur fracture. History of surgery on right wrist Family History Family History Other Hypertension Social History Social History Social History: Surrogate medical decision maker: Ana Maria Ross, sibling. Code status: Full code. Smoking packs per day: 2 Smoking cigarettes per day: 40.0 Years smoked: 38 Smoking pack-years: 76.00 Smoking status: Former smoker Tobacco type: cigarettes Second hand tobacco smoke exposure: Yes Additional smoking assessment comments: Patient states she quit smoking last . Alcohol intake: never Substance use: current Substance use type: marijuana Last use: today Do You Feel Safe in your Home?: Yes Lack of Transportation: No Lack of Food: Never True Current Housing: I Have Housing Concerned About Future Housing: No Difficulty Paying Gas/Electric Bills: No Difficulty Paying for Meds: No Currently Unemployed: No Education: High School Diploma/GED Difficulty w/ Childcare or Family Care: No Spiritual care concerns: No Exam Narrative: oxygen saturation of 96% on 4 L of O2. Blood pressure 136/92. heart rate of 95 Const: General: ill appearing Nutritional Appearance: well nourished Orientation/consciousness: patient oriented x3 Limitations: no limitations HENMT: Head: normal to inspection Ears: external ears normal Face/Nose/Sinus: Normal external nose present Face and sinus: normal facial exam Mouth: Yes Normal oral and palatal mucosa present Throat: posterior oropharynx normal Eyes: Conjunctivae: conjunctivae normal Pupils: Equal, round and reactive pupils present EOM: EOMs intact bilaterally Direct Ophthalmoscopy: no photophobia Neck: Neck: normal visual inspection, no lymphadenopathy and no meningeal signs Chest: Chest palpation & inspection: normal inspection of the chest Resp: Effort & Inspection: uses accessory muscles Auscultation: wheezes and diminished lung sounds Cardio: Rate: regular rate Rhythm: regular rhythm GI: GI Palp: Yes Soft to palpation Auscultation: normal bowel sounds Other: no tenderness / rigidity/ rebound. : General: Yes no CVA tenderness Back/Spine/Pelvis: Back: no CVA tenderness Skin: General skin exam: normal color Rashes: no rashes Wounds: no wounds Neuro: General: patient oriented x3, moves all extremities, no meningeal signs, no focal motor deficits and CN's II-XI intact bilaterally Cranial nerves: Yes Nystagmus not present Speech: normal speech Gait exam (Neuro): Normal gait present Extrem: General: normal to inspection and no clubbing, cyanosis or edema Psych: Mental Status: mental status grossly normal Affect: Anxious affect present Course Course Emergency Course: Worsening shortness of breath secondary to COPD/ CHF exacerbation-- Patient received DuoNeb, Lasix 20 mg, Solu-Medrol 125, Rocephin and Zithromax. Her breathing is marginally increased. Will admit her for IV antibiotics and steroids. Vital Signs Vital signs: Vital Signs Temperature 36.4 C L 12/31/23 23:55 Pulse Rate 95 12/31/23 23:55 Respiratory Rate 36 H 12/31/23 23:55 Blood Pressure 136/92 H 12/31/23 23:55 Pulse Oximetry 96 12/31/23 23:55 Oxygen Delivery Room Air 12/31/23 23:55 Oxygen Flow Rate 4 12/31/23 23:55 Temperature 36.4 C L 12/31/23 23:55 Pulse Rate 82 01/01/24 01:16 Respiratory Rate 36 H 12/31/23 23:55 Blood Pressure 130/80 01/01/24 01:16 Pulse Oximetry 96 01/01/24 01:16 Oxygen Delivery Nasal Cannula 01/01/24 01:16 Oxygen Flow Rate 5 01/01/24 01:16 MDM - SOB/Dyspnea MDM Narrative Medical decision making narrative: COPD/CHF exacerbation Differential Diagnosis Differential diagnosis: Likely community acquired pneumonia and pulmonary embolism Medical Records Attestation: I reviewed the patient's medical records. Lab Data Attestation: I reviewed the patient's lab results. 01/01/24 00:05 01/01/24 00:05 Labs: Lab Results 01/01/24 01/01/24 Range/Units 00:05 00:15 WBC 16.2 H (4.8-10.8) K/mm3 RBC 5.61 H (4.20-5.40) M/mm3 Hgb 12.4 (12.0-15.0) g/dL Hct 41.6 (35.0-49.0) % MCV 74.2 L (78.0-102.0) fL MCH 22.1 L (27.0-31.0) pg MCHC 29.8 L (32-36) g/dL RDW 15.8 H (11.6-14.4) % Plt Count 372 (150-420) K/mm3 MPV 9.8 (9.2-11.8) fl Immature Gran % (Auto) 1.9 H (0.0-0.0) % Neut % (Auto) 79.0 H (50.0-70.0) % Lymph % (Auto) 10.5 L (18.0-42.0) % [place] % (Auto) 7.4 (2.0-11.0) % Eos % (Auto) 0.8 L (1.0-6.0) % Baso % (Auto) 0.4 (0.0-1.0) % Lymph # (Auto) 1.70 (1.10-4.50) K/mm3 [place] # (Auto) 1.19 H (0.10-0.90) K/mm3 Eos # (Auto) 0.13 (0.02-0.50) K/mm3 Baso # (Auto) 0.06 (0.00-0.10) K/mm3 Abs Immat Gran (auto) 0.30 H (0.00-0.00) K/mm3 Absolute Neuts (auto) 12.81 H (1.70-7.20) K/mm3 Absolute Nucleated RBC 0.00 (0.00-0.00) K/mm3 Nucleated RBC % 0.0 (0-0.0) % Sodium 131 L (136-145) mmol/L Potassium 3.1 L (3.5-5.1) mmol/L Chloride 91 L (98-108) mmol/L Carbon Dioxide 33 H (21-32) mmol/L Anion Gap 7 (4-12) mmol/L BUN 8 (7-18) mg/dL Creatinine 1.11 H (0.55-1.02) mg/dL Estim Creat Clear Calc 57 ml/min Estimated GFR 50 L (59 - ) Glucose 152 H (70-99) mg/dL Calculated Osmolality 273 L (285-295) mOsm/kg Lactic Acid 1.1 (0.4-2.0) mmol/L Calcium 9.3 (8.5-10.1) mg/dL Total Bilirubin 0.7 (0.00-1.00) mg/dL AST 11 L (15-37) U/L ALT 14 (14-59) U/L Alkaline Phosphatase 147 H (46-116) U/L Troponin I 5.6 (0.00-60.4) ng/L NT-Pro-B Natriuret Pep 393 H (0-125) pg/mL Total Protein 8.2 (6.4-8.2) g/dL Albumin 2.9 L (3.4-5.0) g/dL Influenza A (RT-PCR) Negative (Negative) Influenza B (RT-PCR) Negative (Negative) RSV (RT-PCR) Negative (Negative) SARS-CoV-2 RNA (RT-PCR) Negative (Negative) Imaging Data Attestation: I personally reviewed and interpreted this imaging study as follows: My impression: Chest x-ray revealed cardiomegaly. No lung infiltrates noted. ECG Data EKG #1: ECG completion date: 01/01/24 ECG completion time: 00:05 Interpretation: normal sinus rhythm. Normal axis. Incomplete bundle-branch block pattern. Nonspecific T-wave inversions. Patient had a similar EKG on 11/19/2023. Discharge Plan Discharge Clinical Impression: Acute exacerbation of chronic obstructive pulmonary disease CHF exacerbation Qualifiers: Heart failure type: unspecified Qualified Code(s): I50.9 - Heart failure, unspecified Patient Disposition: Acute Care Hospital [facility] Condition: Stable Prescriptions: No Action clopidogrel 75 mg tablet 75 mg PO DAILY pantoprazole 40 mg tablet,delayed release (DR/EC) 40 mg PO DAILY aspirin 81 mg tablet,delayed release (DR/EC) 81 mg PO DAILY simvastatin 40 mg tablet 40 mg PO DAILY levothyroxine 75 mcg tablet 75 mcg PO DAILY propranolol 10 mg tablet 20 mg PO DAILY hydrochlorothiazide 25 mg tablet 25 mg PO DAILY ergocalciferol (vitamin D2) [Vitamin D2] 1,250 mcg (50,000 unit) capsule 1,250 mcg PO 2XW Rx Instructions: take friday and friday aripiprazole 5 mg tablet 5 mg PO HS paroxetine HCl 40 mg tablet 60 mg PO DAILY (DME) Nebulizer Machine See Rx Instructions .Route .MEDSUPPLY Qty: 1 0RF Rx Instructions: As directed buspirone 10 mg tablet 10 mg PO BID Qty: 1 0RF Anoro Ellipta 62.5-25 mcg/actuation blister with device 1 inh inhalation DAILY Qty: 60 6RF albuterol sulfate 90 mcg/actuation HFA aerosol inhaler 2 inh INHALATION Q4H PRN (Reason: Dyspnea or wheezing) Qty: 6.7 6RF Rx Instructions: as directed ipratropium-albuterol 0.5 mg-3 mg(2.5 mg base)/3 mL solution for nebulization 3 ml inhalation Q4H PRN (Reason: shortness of breath or wheezing) Qty: 90 3RF Follow-up/Referrals: UNKNOWN,DOCTOR [Primary Care Provider] - Time of Disposition: 01:31
--- NOTE | 2024-01-01 00:18 | ECG_ITS ---
Test Date: 2024-01-01 00:05:06 Measurements Intervals [place] Rate: 85 P: 51 [place]: 127 QRS: 86 QRSD: 101 T: 78 QT: 345 QTc: 412 Interpretive Statements SINUS RHYTHM INCOMPLETE RIGHT BUNDLE BRANCH BLOCK NONSPECIFIC T-WAVE ABNORMALITY Compared to ECG 11/19/2023 16:36:28 NO SIGNIFICANT CHANGES Electronically Signed On 01-01-2024 09:34:44 CDT by Morris Iglesias M.D.
--- NOTE | 2024-01-01 00:22 | PC.NURSE ---
COVID PCR obtained and taken to lab
[2024-01-01] MEDS: methylPREDNISolone SOD SUCC 125 MG VIAL IV PUSH (00:27)
[2024-01-01] MEDS: IPRATROPIUM 0.5 MG/ALBUTEROL SULFATE 2.5 MG AMPUL.NEB 3 ML INHALATION ×3 (00:27→16:42)
--- NOTE | 2024-01-01 00:30 | PC.NURSE ---
resting on stretcher. reports that she is starting to feel better. call light in reach
[2024-01-01 00:32] LABS: Basophils Absolute Auto 0.06 K/mm3 (0.00-0.10); Basophils Percent Auto 0.4 % (0.0-1.0); Eosinophils Absolute Auto 0.13 K/mm3 (0.02-0.50); Eosinophils Percent Auto 0.8 % (1.0-6.0); Hematocrit 41.6 % (35.0-49.0); Hemoglobin 12.4 g/dL (12.0-15.0); Immature Granulocyte Percent A 1.9 % (0.0-0.0); Lymphocytes Percent Auto 10.5 % (18.0-42.0); Mean Corpuscular HGB Conc 29.8 g/dL (32-36); Mean Corpuscular Hemoglobin 22.1 pg (27.0-31.0); Mean Corpuscular Volume 74.2 fL (78.0-102.0); Mean Platelet Volume 9.8 fl (9.2-11.8); Monocytes Absolute Auto 1.19 K/mm3 (0.10-0.90); Monocytes Percent Auto 7.4 % (2.0-11.0); Neutrophils Absolute Auto 12.81 K/mm3 (1.70-7.20); Platelet Count Result 372 K/mm3 (150-420); Red Blood Count 5.61 M/mm3 (4.20-5.40); Red Cell Distribution Width 15.8 % (11.6-14.4); White Blood Count 16.2 K/mm3 (4.8-10.8)
[2024-01-01] MEDS: cefTRIAXone 1 GM in SODIUM CHLORIDE 0.9% IV 50 ML IVPB (00:35)
[2024-01-01 00:46] LABS: Lactic Acid Reflex 1.1 mmol/L (0.4-2.0)
[2024-01-01 00:55] LABS: Alanine Aminotransferase 14 U/L (14-59); Albumin Level 2.9 g/dL (3.4-5.0); Alkaline Phosphatase 147 U/L (46-116); Anion Gap 7 mmol/L (4-12); Aspartate Amino Transferase 11 U/L (15-37); Bilirubin,Total 0.7 mg/dL (0.00-1.00); Blood Urea Nitrogen 8 mg/dL (7-18); Calcium 9.3 mg/dL (8.5-10.1); Carbon Dioxide 33 mmol/L (21-32); Chloride 91 mmol/L (98-108); Estimated CRCL calculation 57 ml/min; Estimated Glomerular Filt Rate 50; Glucose 152 mg/dL (70-99); Osmolality Calculated 273 mOsm/kg (285-295); Potassium 3.1 mmol/L (3.5-5.1); Sodium 131 mmol/L (136-145); Total Protein 8.2 g/dL (6.4-8.2); Troponin I 5.6 ng/L (0.00-60.4)
[2024-01-01 00:56] LABS: Influenza A QL RT-PCR Negative (Negative); Influenza B QL RT-PCR Negative (Negative); RSV RNA, RT-PCR Negative (Negative); SARS-CoV-2 RNA PCR Negative (Negative)
[2024-01-01 01:00] LABS: NT Pro B Type Natriuretic Pept 393 pg/mL (0-125)
[2024-01-01] MEDS: AZITHROMYCIN 500 MG/NS 250 ML 500 MG/250 ML BAG 250 MG IVPB ×2 (01:07→21:00)
--- NOTE | 2024-01-01 01:30 | PC.NURSE ---
dr campo at the bedside. wob non labored at this time. states she is feeling better. call light in reach.
--- NOTE | 2024-01-01 02:29 | ADMGEN ---
This patient, Karina Ricks, was admitted to 2nd Floor Room 203-2. Patient oriented to hospital policies and general routines including ID bracelet, bed and alarms, visiting hours, pain management, procedures, bathroom and other care routines, personal items, smoking policy, room service/diet, and visiting hours. Information on how to activate the Rapid Response Team has been discussed. Patient are encouraged to report perceived risks to care and to ask questions if they do not understand what they are told or what they should do.
[2024-01-01] MEDS: SPIRONOLACTONE 25 MG TABLET PO (02:50)
[2024-01-01] MEDS: FUROSEMIDE INJ 20 MG/2 ML VIAL IV PUSH (02:50)
[2024-01-01 05:52] LABS: Anion Gap 9 mmol/L (4-12); Blood Urea Nitrogen 9 mg/dL (7-18); Calcium 9.6 mg/dL (8.5-10.1); Carbon Dioxide 31 mmol/L (21-32); Chloride 95 mmol/L (98-108); Estimated CRCL calculation 51 ml/min; Estimated Glomerular Filt Rate 45; Glucose 204 mg/dL (70-99); Osmolality Calculated 284 mOsm/kg (285-295); Potassium 3.3 mmol/L (3.5-5.1); Sodium 135 mmol/L (136-145)
[2024-01-01 05:53] LABS: Thyroid Stimulating Hormone 0.75 uIU/mL (0.36-3.74); Troponin I < 4.0 ng/L (0.00-60.4)
[2024-01-01] MEDS: LEVOTHYROXINE SODIUM 75 MCG TABLET PO (06:35)
[2024-01-01 08:01] LABS: Glucose Point of Care 202 mg/dl (65-105)
[2024-01-01] MEDS: INSULIN HUMAN LISPRO (*BKC) 1,000 UNITS/10 ML VIAL SUB-Q (08:51)
[2024-01-01] MEDS: UMECLIDINIUM/VILANTEROL 62.5-25 MCG ELLIPTA 1 PUFF INHALATION (08:51)
[2024-01-01] MEDS: methylPREDNISolone SOD SUCC 40 MG VIAL IV PUSH ×2 (08:52→16:56)
[2024-01-01] MEDS: SIMVASTATIN 10 MG TABLET 40 MG PO (08:53)
[2024-01-01] MEDS: POTASSIUM CHLORIDE 20 MEQ ER TABLET 40 MEQ PO (08:53)
[2024-01-01] MEDS: PARoxetine 20 MG TABLET 60 MG PO (08:53)
[2024-01-01] MEDS: PANTOPRAZOLE 40 MG TABLET PO (08:53)
[2024-01-01] MEDS: CLOPIDOGREL BISULFATE 75 MG TABLET PO (08:54)
[2024-01-01] MEDS: ASPIRIN 81 MG ENTERIC TABLET PO (08:54)
[2024-01-01] MEDS: ENOXAPARIN 40 MG/0.4 ML SYRINGE SUB-Q (08:55)
[2024-01-01] MEDS: busPIRone HCL 10 MG TABLET PO ×2 (08:55→16:56)
[2024-01-01] MEDS: PROPRANOLOL HCL 20 MG TABLET PO (08:55)
--- NOTE | 2024-01-01 09:42 | P.HP_ITS ---
H&P: HPI History of Present Illness Date/Time: 01/01/24 09:42 Chief Complaint: SOB Narrative: Patient is a 63-year-old female who presented to the emergency department with worsening shortness of breath and chest pressure. Patient does have a past medical history of CAD, mi, COPD, diabetes, SHANTHI and hypothyroidism. patient stated symptoms began about 2-3 days ago after they moved her [id number] to a group home felt she had picked up a viral infection. patient endorses worsening shortness of breath, atypical chest pain inspiration, productive cough with greenish sputum. Patient denied any fever, chills, nausea, vomiting, abdominal pain, or dizziness. patient reports she does currently wear 4 L of supplemental oxygen at home however is not compliant also wears NIV at night for her SHANTHI. Patient did have leukocytosis with chest x-ray showing cardiomegaly, hyponatremia and hypokalemia likely secondary to her hydrochlorothiazide home medications. patient was given duo nebulizer, met hylprednisone, azithromycin 20 mg IV push of Lasix in the emergency department with mild improvement. patient was admitted to the medical unit for continued treatment of COPD exacerbation patient did report she stopped smoking back in April 29, 2023. Review of Systems Review of Systems: All systems reviewed & are unremarkable except as noted in HPI and below PMFSH Past Medical History Medical History (Updated 01/01/24 @ 09:53 by Carline Champagne APRN) Anxiety Cervical cancer Chronic back pain Chronic obstructive pulmonary disease Chronic respiratory failure with hypoxia, on home oxygen therapy Coronary artery disease Depression Diverticulosis Hypothyroidism Migraines Morbid obesity Nicotine abuse Obstructive sleep apnea Osteoarthritis Osteoporosis Surgical History Surgical History History of cardiac catheterization History of chest tube placement History of coronary artery stent placement History of hysterectomy History of open reduction and internal fixation (ORIF) procedure Repair left femur fracture. History of surgery on right wrist Family History Family History Other Hypertension Social History Social History Social History: Surrogate medical decision maker: Ana Maria Ross, sibling. Code status: Full code. Smoking packs per day: 1.5 Smoking cigarettes per day: 30.0 Years smoked: 40 Smoking pack-years: 60.00 Smoking status: Former smoker Tobacco type: cigarettes Second hand tobacco smoke exposure: Yes Smoking end date: 04/10/23 Additional smoking assessment comments: Patient states she quit smoking last . Alcohol intake: former Substance use: current Substance use type: marijuana Last use: 12/31/2023 Do You Feel Safe in your Home?: Yes Lack of Transportation: No Lack of Food: Sometimes True Current Housing: I Have Housing Concerned About Future Housing: No Difficulty Paying Gas/Electric Bills: No Difficulty Paying for Meds: No Currently Unemployed: No Education: Grade School Difficulty w/ Childcare or Family Care: No Spiritual care concerns: No Meds Home Medications and Allergies Home Medications Medication Instructions Recorded Confirmed Type clopidogrel 75 mg tablet 75 mg PO DAILY 03/18/22 01/01/24 History pantoprazole 40 mg tablet,delayed 40 mg PO DAILY 03/18/22 01/01/24 History release aspirin 81 mg tablet,delayed 81 mg PO DAILY 08/14/22 01/01/24 History release levothyroxine 75 mcg tablet 75 mcg PO DAILY 08/14/22 01/01/24 History propranolol 10 mg tablet 20 mg PO DAILY 08/14/22 01/01/24 History simvastatin 40 mg tablet 40 mg PO DAILY 08/14/22 01/01/24 History paroxetine HCl 40 mg tablet 60 mg PO DAILY 08/15/22 01/01/24 History Nebulizer Machine #1 ea 08/19/22 01/01/24 Rx buspirone 10 mg tablet 10 mg PO BID #1 tablet 08/19/22 01/01/24 Rx albuterol sulfate 90 mcg/actuation 2 inh inhalation Q4H PRN Dyspnea 09/02/23 01/01/24 Rx aerosol inhaler or wheezing #6.7 grams ipratropium 0.5 mg-albuterol 3 mg 3 ml inhalation Q4H PRN shortness 09/02/23 01/01/24 Rx (2.5 mg base)/3 mL nebulization of breath or wheezing #90 mL soln umeclidinium 62.5 mcg-vilanterol 1 inh inhalation DAILY #60 ea 09/02/23 01/01/24 Rx 25 mcg/actuation powdr for inhalation (Anoro Ellipta) aripiprazole 5 mg tablet 5 mg PO HS 01/01/24 01/01/24 History famotidine 40 mg tablet 40 mg PO DAILY 01/01/24 01/01/24 History ferrous sulfate 325 mg (65 mg 325 mg PO BID 01/01/24 01/01/24 History iron) tablet potassium chloride 20 mEq 20 meq PO BID 01/01/24 01/01/24 History tablet,extended release Allergies Allergy/AdvReac Type Severity Reaction Status Date / Time codeine Allergy Severe Anaphylaxis Verified 12/02/23 14:18 Penicillins Allergy Severe Anaphylaxis Verified 12/02/23 14:18 morphine Allergy Unknown Unknown Verified 12/02/23 14:18 Vital Signs Vital Signs - 24 hr 12/31/23 23:55 12/31/23 23:55 12/31/23 23:57 Temperature 97.5 F L Pulse Rate 95 90 Respiratory Rate 36 H Blood Pressure 136/92 H 136/92 H Pulse Oximetry 96 74 L 95 Oxygen Delivery Room Air Nasal Cannula Oxygen Flow Rate 4 5 01/01/24 00:01 01/01/24 00:16 01/01/24 00:40 Temperature Pulse Rate 90 90 87 Respiratory Rate Blood Pressure 141/87 H 140/73 Pulse Oximetry 94 96 95 Oxygen Delivery Nasal Cannula Nasal Cannula Nasal Cannula Oxygen Flow Rate 5 5 5 01/01/24 00:42 01/01/24 00:46 01/01/24 01:01 Temperature Pulse Rate 86 84 83 Respiratory Rate Blood Pressure 115/79 120/71 106/89 Pulse Oximetry 96 96 98 Oxygen Delivery Nasal Cannula Nasal Cannula Nasal Cannula Oxygen Flow Rate 5 5 5 01/01/24 01:16 01/01/24 01:31 01/01/24 01:46 Temperature Pulse Rate 82 82 89 Respiratory Rate 20 20 Blood Pressure 130/80 129/81 134/86 Pulse Oximetry 96 96 97 Oxygen Delivery Nasal Cannula Nasal Cannula Nasal Cannula Oxygen Flow Rate 5 5 5 01/01/24 02:01 01/01/24 03:08 01/01/24 03:26 Temperature 97.8 F 97.8 F Pulse Rate 81 68 Respiratory Rate 18 Blood Pressure 119/78 127/75 Pulse Oximetry 96 97 96 Oxygen Delivery Nasal Cannula Nasal Cannula Nasal Cannula Oxygen Flow Rate 5 4 4 01/01/24 04:00 01/01/24 07:20 01/01/24 08:00 Temperature 96.3 F L Pulse Rate 75 70 64 Respiratory Rate 20 Blood Pressure 124/92 H Pulse Oximetry 95 Oxygen Delivery Nasal Cannula Oxygen Flow Rate 4 01/01/24 08:55 Temperature Pulse Rate 70 Respiratory Rate Blood Pressure Pulse Oximetry Oxygen Delivery Oxygen Flow Rate Exam Narrative: * GENERAL: Alert and oriented x 3. No acute distress. pleasant obese female * EYES: EOMI. No scleral icterus. PERRLA. * HEENT: Moist mucous membranes. * LUNGS: mild wheezing throughout auscultation bilaterally. No accessory muscle use. * CARDIOVASCULAR: Regular rate and rhythm. No murmur. No JVD. S1-S2 * ABDOMEN: Soft, non tenderness and non-distended. No palpable masses. * EXTREMITIES: No edema. Non-tender * SKIN: No rashes or lesions. Skin warm, dry. * NEUROLOGIC: No focal neurological deficits. CN II-XII grossly intact * PSYCHIATRIC: Appropriate mood and affect. Good judgement and insight. No visual or auditory hallucinations. No suicidal or homicidal ideation. H&P: Results Labs Labs: Short CBC 01/01/24 Range/Units 00:05 WBC 16.2 H (4.8-10.8) K/mm3 Hgb 12.4 (12.0-15.0) g/dL Hct 41.6 (35.0-49.0) % Plt Count 372 (150-420) K/mm3 BMP 01/01/24 01/01/24 00:05 05:16 Sodium 131 L 135 L Potassium 3.1 L 3.3 L Chloride 91 L 95 L Carbon Dioxide 33 H 31 BUN 8 9 Creatinine 1.11 H 1.22 H Glucose 152 H 204 H Calcium 9.3 9.6 Cardiac Enzymes 01/01/24 01/01/24 Range/Units 00:05 05:16 Troponin I 5.6 < 4.0 (0.00-60.4) ng/L Liver Function 01/01/24 Range/Units 00:05 Total Bilirubin 0.7 (0.00-1.00) mg/dL AST 11 L (15-37) U/L ALT 14 (14-59) U/L Alkaline Phosphatase 147 H (46-116) U/L Albumin 2.9 L (3.4-5.0) g/dL Imaging Chest x-ray: Radiologist's impression: FINDINGS: There is no pneumonia, pleural effusion, or pneumothorax. Cardiomegaly is noted. There are prominent pericardial fat pads. There is an old healed right rib fracture. IMPRESSION: 1. Cardiomegaly. Assessment and Plan Assessment and plan (1) Chronic respiratory failure with hypoxia, on home oxygen therapy: Code(s): J96.11 - Chronic respiratory failure with hypoxia; Z99.81 - Dependence on supplemental oxygen Status: Chronic Assessment and Plan: * secondary to COPD exacerbation/76% SPO2 POA * Bronchodilators. * Chest x-ray reviewed showing cardiomegaly * incentive spirometry while awake. * steroids initiated * mucolytics * azithromycin 500 * supplemental oxygen therapy to maintain oxygen 92% (Wears 4L NC at home non- compliance) * Pneumonia and flu vaccination advised. * Pulmonary rehab if indicated. * Disease management following GOLD guidelines. * quit smoking April of 2023 * Patient wears NIV at night does not know her settings * Follow-up with um nurse as an outpatient * CTA pending to rule out PE (2) COPD exacerbation: Code(s): J44.1 - Chronic obstructive pulmonary disease with (acute) exacerbation Status: Acute Assessment and Plan: * SEE ABOVE (3) Obstructive sleep apnea: Code(s): G47.33 - Obstructive sleep apnea (adult) (pediatric) Status: Chronic Assessment and Plan: * Wears NIV at night unknown settings * noncompliant * was following with pulmonology outpatient (4) Hypothyroidism: Code(s): E03.9 - Hypothyroidism, unspecified Status: Acute Assessment and Plan: * resume levothyroxine (5) Anxiety: Code(s): F41.9 - Anxiety disorder, unspecified Status: Chronic Assessment and Plan: * Resumed home paxil and buspirone (6) Hypokalemia: Code(s): E87.6 - Hypokalemia Status: Resolved Assessment and Plan: * 3.1 POA * 80meq * F/U BMP * monitor and replenish to keep >4.0 (7) Hyponatremia: Code(s): E87.1 - Hypo-osmolality and hyponatremia Status: Acute Assessment and Plan: * likely secondary to patient's hydrochlorothiazide * patient reports leg cramps daily * discontinue will likely start low-dose BB for BP control (8) Morbid obesity: Code(s): E66.01 - Morbid (severe) obesity due to excess calories Status: Acute Assessment and Plan: * encourage increased on physical activity and lifestyle modifications * Stress monitoring and eating disorder evaluation. * encourage outpatient weight loss clinic * BMI . * Diet exercise counseling done. (9) Coronary artery disease: Code(s): I25.10 - Atherosclerotic heart disease of [place] coronary artery without angina pectoris Status: Acute Assessment and Plan: * Troponin negative * previous [place] with stent placement * CXR showing cardiomegaly * resume Plavix, statin * encourage compliance with home medications, supplemental oxygen and NIV at night (10) Hyperglycemia: Code(s): R73.9 - Hyperglycemia, unspecified Status: Acute Assessment and Plan: * elevated blood sugar 200 will be secondary to steroid administration * previous A1c 6 point current A1c 6 * was previously on metformin but stopped taking * encourage diet and exercise Plan Code status: Full code per patient DVT prophylaxis: Lovenox Stress ulcer prophylaxis: Pepcid PT/OT notes: Ambulatory Disposition: patient was admitted to the medical unit for COPD exacerbation will continue with current treatment plan patient is ambulatory and plan will be to return home at discharge patient did request information on a primary care physician patient will need medication reconciliation and follow-up. Quality VTE Prophylaxis VTE prophylaxis: pharmacologic ordered -Patient's previous records reviewed on admission -ER notes reviewed in detail on admission -discussed all findings and current treatment plan with patient/Family/POA -Consultations reviewed for recommendations -Patient's disposition for safe discharge discussed with keycase assembler Dictation performed by [employer] direct speech recognition software, therefore simonizer variants and typographical errors may occur. Hospitalist MIPS Advance Care Plan I have confirmed that the patient's Advanced Care Plan is present, code status is documented, or surrogate decision maker is listed in patient medical record.: Yes Medication Reconciliation I have utilized all available resources to obtain, update and review the patients current medications (includes all prescriptions, OTC, herbals, cannabis, and nutritional supplements).: Yes The patient is not eligible for med reconciliation; the patient is in a emergent medical situation where delaying treatment would jeopardize the patients health.: No
[2024-01-01 10:05] LABS: Magnesium 2.3 mg/dL (1.8-2.4)
[2024-01-01] MEDS: SODIUM CHLORIDE 0.9% IV 500 ML 100 ML IV CONT (10:26)
[2024-01-01] MEDS: guaiFENesin 12 HR 600 MG TABCR 1200 MG PO ×2 (10:27→21:07)
--- NOTE | 2024-01-01 11:04 | PC.NURSE ---
Patient taken down for CT via wheelchair by [employer].
--- NOTE | 2024-01-01 11:23 | PC.NURSE ---
Patient has returned from Ct scan, call light in reach and side rails up for safety
[2024-01-01 12:02] LABS: Glucose Point of Care 169 mg/dl (65-105)
[2024-01-01 17:05] LABS: Glucose Point of Care 167 mg/dl (65-105)
[2024-01-01] MEDS: ARIPiprazole 5 MG TABLET PO (21:06)
[2024-01-01] MEDS: LORATADINE 10 MG TABLET PO (21:07)
[2024-01-01 22:07] LABS: Glucose Point of Care 212 mg/dl (65-105)
[2024-01-02] VITALS (16 sets, daily range): BP systolic 100–139; BP diastolic 52–94; PULSE 63–88; RESP 16–20; TEMP 35.9–36.6; O2SAT 92–99
[2024-01-02] MEDS: IPRATROPIUM 0.5 MG/ALBUTEROL SULFATE 2.5 MG AMPUL.NEB 3 ML INHALATION ×4 (00:58→16:36)
--- NOTE | 2024-01-02 04:40 | PC.NURSE ---
Pt called and said she needed something for coughing; Irina Champagne NP, notified and orders were received for Tessalon Pearls 100 mg PO q 8 hrs PRN.
[2024-01-02] MEDS: BENZONATATE 100 MG CAPSULE PO (04:56)
[2024-01-02 05:39] LABS: Hemoglobin 11.4 g/dL (12.0-15.0); Mean Corpuscular HGB Conc 29.2 g/dL (32-36); Mean Corpuscular Hemoglobin 21.8 pg (27.0-31.0); Mean Corpuscular Volume 74.7 fL (78.0-102.0); Mean Platelet Volume 10.2 fl (9.2-11.8); Platelet Count Result 338 K/mm3 (150-420); Red Blood Count 5.22 M/mm3 (4.20-5.40); Red Cell Distribution Width 15.6 % (11.6-14.4); White Blood Count 13.1 K/mm3 (4.8-10.8)
[2024-01-02] MEDS: LEVOTHYROXINE SODIUM 75 MCG TABLET PO (05:51)
[2024-01-02 06:07] LABS: Alanine Aminotransferase 15 U/L (14-59); Albumin Level 2.3 g/dL (3.4-5.0); Alkaline Phosphatase 110 U/L (46-116); Anion Gap 7 mmol/L (4-12); Aspartate Amino Transferase 11 U/L (15-37); Bilirubin,Total 0.2 mg/dL (0.00-1.00); Blood Urea Nitrogen 15 mg/dL (7-18); Calcium 9.2 mg/dL (8.5-10.1); Carbon Dioxide 31 mmol/L (21-32); Chloride 100 mmol/L (98-108); Estimated CRCL calculation 62 ml/min; Estimated Glomerular Filt Rate 56; Glucose 148 mg/dL (70-99); Osmolality Calculated 289 mOsm/kg (285-295); Potassium 4.2 mmol/L (3.5-5.1); Sodium 138 mmol/L (136-145); Total Protein 7.2 g/dL (6.4-8.2)
--- NOTE | 2024-01-02 08:29 | P.PNIM_ITS ---
Progress Note: A&P Assessment and Plan (1) Chronic respiratory failure with hypoxia, on home oxygen therapy: Code(s): J96.11 - Chronic respiratory failure with hypoxia; Z99.81 - Dependence on supplemental oxygen Status: Chronic Assessment and Plan: * secondary to COPD exacerbation and bilateral Pneumonia/76% SPO2 POA * Bronchodilators. * Chest x-ray reviewed showing cardiomegaly * incentive spirometry while awake. * steroids initiated BID severe emphysema * mucolytics * azithromycin 500/ Rocephin * supplemental oxygen therapy to maintain oxygen 92% (Wears 4L NC at home non- compliance) * Pneumonia and flu vaccination advised. * Pulmonary rehab if indicated. * quit smoking April of 2023 * Patient wears NIV at night does not know her settings * Follow-up with engine cleaner as an outpatient * CTA No PE/bilateral Pneumonia (2) Pneumonia: Qualifiers: Laterality: left Lung location: lower lobe of lung Pneumonia type: due to unspecified organism Qualified Code(s): J18.9 - Pneumonia, unspecified organism Code(s): J18.9 - Pneumonia, unspecified organism Status: Acute Assessment and Plan: * SEE ABOVE * CTA bilateral Pneumonia * No PE * continue with azithromycin and Rocephin * will do steroids BID due to emphysema severity * encourage incentive spirometer * WBC is trending down (3) COPD exacerbation: Code(s): J44.1 - Chronic obstructive pulmonary disease with (acute) exacerbation Status: Acute Assessment and Plan: * SEE ABOVE (4) Obstructive sleep apnea: Code(s): G47.33 - Obstructive sleep apnea (adult) (pediatric) Status: Chronic Assessment and Plan: * Wears NIV at night unknown settings * noncompliant * was following with pulmonology outpatient (5) Hypothyroidism: Code(s): E03.9 - Hypothyroidism, unspecified Status: Acute Assessment and Plan: * resume levothyroxine (6) Anxiety: Code(s): F41.9 - Anxiety disorder, unspecified Status: Chronic Assessment and Plan: * Resumed home paxil and buspirone (7) Hypokalemia: Code(s): E87.6 - Hypokalemia Status: Resolved Assessment and Plan: * 3.1 POA * 80meq * F/U BMP * monitor and replenish to keep >4.0 RESOLVED (8) Hyponatremia: Code(s): E87.1 - Hypo-osmolality and hyponatremia Status: Acute Assessment and Plan: * likely secondary to patient's hydrochlorothiazide * patient reports leg cramps daily * discontinue will likely start low-dose BB for BP control RESOLVED (9) Morbid obesity: Code(s): E66.01 - Morbid (severe) obesity due to excess calories Status: Acute Assessment and Plan: * encourage increased on physical activity and lifestyle modifications * Stress monitoring and eating disorder evaluation. * encourage outpatient weight loss clinic * BMI . * Diet exercise counseling done. (10) Coronary artery disease: Code(s): I25.10 - Atherosclerotic heart disease of [place] coronary artery without angina pectoris Status: Acute Assessment and Plan: * Troponin negative * previous [place] with stent placement * CXR showing cardiomegaly * resume Plavix, statin * encourage compliance with home medications, supplemental oxygen and NIV at night 01/02/2024: * May be beneficial to start Jardiance at discharge (11) Hyperglycemia: Code(s): R73.9 - Hyperglycemia, unspecified Status: Acute Assessment and Plan: * elevated blood sugar 200 will be secondary to steroid administration * previous A1c 6 point current A1c 6 * was previously on metformin but stopped taking * encourage diet and exercise 01/02/2024: * May be beneficial to start Jardiance at discharge Plan Code status: Full code per patient DVT prophylaxis: Lovenox Stress ulcer prophylaxis: Pepcid PT/OT notes: Ambulatory Disposition: patient was admitted to the medical unit for COPD exacerbation and bilateral pneumonia will continue with current treatment plan patient is ambulatory and plan will be to return home at discharge patient did request information on a primary care physician which has been established with follow- up appointment. Time Spent With Patient Time with patient: 15 - 25 minutes Subjective Date/time seen: 01/02/24 08:29 Interval history: patient is a 63-year-old female who was admitted to the medical unit for acute on chronic respiratory failure secondary to pneumonia and COPD exacerbation 01/02/2024: Patient still with dyspnea, productive cough and atypical chest pain from coughi ng. Patient denied fever or chills. CTA did show bilateral multilobular pneumonia. Patient reports she still does not feel at her baseline. Review of Systems Review of Systems: All systems reviewed & are unremarkable except as noted in HPI and below Exam Narrative: * GENERAL: Alert and oriented x 3. No acute distress. pleasant obese female * EYES: PERRLA. * HEENT: Moist mucous membranes. * LUNGS: mild wheezing throughout auscultation diminished bilaterally. Use of accessory muscle use and productive cough * CARDIOVASCULAR: Regular rate and rhythm. No murmur. S1-S2 * ABDOMEN: Soft, non tenderness and non-distended. No palpable masses. * EXTREMITIES: Mild BLE edema. Non-tender * SKIN: No rashes or lesions. Skin warm, dry. * NEUROLOGIC: No focal neurological deficits. * PSYCHIATRIC: Appropriate mood and affect. Good judgement and insight. Objective Data Vital Signs Vital Signs: Vital Signs - 24 hr 01/01/24 08:55 01/01/24 08:30 01/01/24 11:43 Temperature Pulse Rate 70 62 Respiratory Rate 20 Blood Pressure Pulse Oximetry 96 96 Oxygen Delivery Nasal Cannula Oxygen Flow Rate 4 4 01/01/24 11:51 01/01/24 12:00 01/01/24 13:35 Temperature 96.3 F L Pulse Rate 65 75 62 Respiratory Rate 20 18 Blood Pressure 121/71 Pulse Oximetry 98 92 Oxygen Delivery Nasal Cannula Oxygen Flow Rate 4 01/01/24 16:40 01/01/24 16:50 01/01/24 16:35 Temperature Pulse Rate 68 72 82 Respiratory Rate 20 20 Blood Pressure Pulse Oximetry 95 98 Oxygen Delivery Oxygen Flow Rate 4 01/01/24 16:35 01/01/24 20:00 01/01/24 20:00 Temperature 96.6 F L 97.6 F Pulse Rate 70 64 69 Respiratory Rate 18 20 Blood Pressure 119/81 111/59 L Pulse Oximetry 95 97 Oxygen Delivery Nasal Cannula Nasal Cannula Oxygen Flow Rate 4 4 01/01/24 23:05 01/02/24 00:00 01/02/24 00:58 Temperature 97.9 F Pulse Rate 70 Respiratory Rate 19 Blood Pressure 113/67 Pulse Oximetry 97 97 Oxygen Delivery Nasal Cannula Oxygen Flow Rate 4 4 01/02/24 01:10 01/02/24 00:00 01/02/24 04:00 Temperature 96.8 F L Pulse Rate 74 70 Respiratory Rate 20 Blood Pressure 100/52 L Pulse Oximetry 99 99 Oxygen Delivery Nasal Cannula Oxygen Flow Rate 4 4 01/02/24 05:38 01/02/24 05:49 01/02/24 04:00 Temperature Pulse Rate 73 78 69 Respiratory Rate 16 18 Blood Pressure Pulse Oximetry 98 99 Oxygen Delivery Oxygen Flow Rate 4 4 01/02/24 07:26 01/02/24 07:56 Temperature 96.7 F L Pulse Rate 63 66 Respiratory Rate 18 Blood Pressure 115/63 Pulse Oximetry 97 Oxygen Delivery Nasal Cannula Oxygen Flow Rate 4 Intake/Output Intake/Output: Intake & Output 12/30/23 12/31/23 01/01/24 01/02/24 23:59 23:59 23:59 23:59 Intake Total 2410 560 Output Total 850 Balance 1560 560 Meds/Results Medications: Active Medications Generic Name Dose Route Start Last Admin Trade Name Freq PRN Reason Stop Dose Admin Acetaminophen 650 mg 01/01/24 01:31 Acetaminophen 325 Mg Tablet PO Q4H PRN Mild Pain (1-3) or Fever Albuterol/Ipratropium 3 ml 01/01/24 12:30 01/02/24 05:37 Ipratropium 0.5 Mg/Albuterol Sulfate 2.5 Mg Ampul.Neb 3 Ml INHALATION 3 ml Q6HRT THANG Administration Aripiprazole 5 mg 01/01/24 21:00 01/01/24 21:06 Aripiprazole 5 Mg Tablet PO 5 mg HS THANG Administration Aspirin 81 mg 01/01/24 09:00 01/01/24 08:54 Aspirin 81 Mg Enteric Tablet PO 81 mg DAILY THANG Administration Benzonatate 100 mg 01/02/24 04:39 01/02/24 04:56 Benzonatate 100 Mg Capsule PO 100 mg TID PRN Administration Cough Buspirone HCl 10 mg 01/01/24 09:00 01/01/24 16:56 Buspirone Hcl 10 Mg Tablet PO 10 mg BID THANG Administration Clopidogrel Bisulfate 75 mg 01/01/24 09:00 01/01/24 08:54 Clopidogrel Bisulfate 75 Mg Tablet PO 75 mg DAILY THANG Administration Dextrose 12.5 gm 01/01/24 01:49 Dextrose 50% 25 Gm/50 Ml Syringe IV PUSH PRN PRN Hypoglycemia Protocol Enoxaparin Sodium 40 mg 01/01/24 09:00 01/01/24 08:55 Enoxaparin 40 Mg/0.4 Ml Syringe SUB-Q 40 mg DAILY THANG Administration Famotidine 40 mg 01/02/24 09:00 Famotidine 20 Mg Tablet PO DAILY [facility] Ferrous Sulfate 325 mg 01/02/24 09:00 Ferrous Sulfate [address] BY MOUTH BID [facility] Glucagon 1 mg 01/01/24 01:49 Glucagon For Inj 1 Mg Vial IM PRN PRN Hypoglycemia Protocol Glucose 15 gm 01/01/24 01:49 Glucose Oral Gel 15 Gm Of Glucse In 37.5 Gm Tube PO PRN PRN Hypoglycemia Protocol Guaifenesin 1,200 mg 01/01/24 09:05 01/01/24 21:07 Guaifenesin 12 Hr 600 Mg Tabcr PO 1,200 mg Q12HR THANG Administration Dextrose 1,000 mls @ 100 mls/hr 01/01/24 01:49 Dextrose 5% 1,000 Ml IVPB PRN PRN Hypoglycemia Protocol Azithromycin 500 mg in 250 mls @ 250 mls/hr 01/01/24 20:00 01/01/24 22:02 Zithromax IVPB Infused Q24H THANG Infusion Ceftriaxone Sodium 1 gm in 50 mls @ 100 mls/hr 01/01/24 19:00 01/01/24 21:15 Rocephin 1 Gm/Ns 50 Ml IVPB Infused Q24H THANG Infusion Insulin Human Lispro 2 - 5 units 01/01/24 08:00 01/01/24 17:00 Insulin Human Lispro (*Bkc) 1,000 Units/10 Ml Vial SUB-Q Not Given TIDWM [facility] Protocol Levothyroxine Sodium 75 mcg 01/01/24 06:30 01/02/24 05:51 Levothyroxine Sodium 75 Mcg Tablet PO 75 mcg DAILY@0630 THANG Administration Loratadine 10 mg 01/01/24 21:00 01/01/24 21:07 Loratadine 10 Mg Tablet PO 10 mg QHS THANG Administration Ondansetron HCl 4 mg 01/01/24 01:31 Ondansetron Inj 4 Mg/2 Ml Vial IV PUSH Q6H PRN Nausea And Vomiting Pantoprazole Sodium 40 mg 01/01/24 09:00 01/01/24 08:53 Pantoprazole 40 Mg Tablet PO 40 mg DAILY THANG Administration Paroxetine HCl 60 mg 01/01/24 09:00 01/01/24 08:53 Paroxetine 20 Mg Tablet PO 60 mg DAILY THANG Administration Potassium Chloride 20 meq 01/02/24 09:00 Potassium Chloride 20 Meq Er Tablet PO BID THANG Propranolol HCl 20 mg 01/01/24 09:00 01/01/24 08:55 Propranolol Hcl 20 Mg Tablet PO 20 mg DAILY THANG Administration Simvastatin 40 mg 01/01/24 09:00 01/01/24 08:53 Simvastatin 10 Mg Tablet PO 40 mg DAILY THANG Administration Umeclidinium/Vilanterol 1 puff 01/01/24 09:00 01/01/24 08:51 Umeclidinium/Vilanterol 62.5-25 Mcg Ellipta INHALATION 1 puff DAILY THANG Administration Radiology Results: ITS Impressions Chest X-Ray 01/01/24 06:08 IMPRESSION: 1. Cardiomegaly. Chest CTA 01/01/24 11:59 IMPRESSION: 1. No pulmonary embolus. 2. Bilateral pneumonia. 3. Mild emphysema. 4. Mild bilateral hilar lymphadenopathy, likely reactive. Labs Labs: Laboratory Results - last 24 hr 01/01/24 01/01/24 01/01/24 05:09 05:16 11:57 WBC RBC Hgb Hct MCV MCH MCHC RDW Plt Count MPV Sodium Potassium Chloride Carbon Dioxide Anion Gap BUN Creatinine Estim Creat Clear Calc Estimated GFR Glucose POC Capillary Glucose 169 H Hemoglobin A1c 6.0 H Calculated Osmolality Calcium Magnesium 2.3 Total Bilirubin AST ALT Alkaline Phosphatase Total Protein Albumin 01/01/24 01/01/24 01/02/24 16:59 22:05 05:20 WBC 13.1 H RBC 5.22 Hgb 11.4 L Hct 39.0 MCV 74.7 L MCH 21.8 L MCHC 29.2 L RDW 15.6 H Plt Count 338 MPV 10.2 Sodium 138 Potassium 4.2 Chloride 100 Carbon Dioxide 31 Anion Gap 7 BUN 15 Creatinine 1.00 Estim Creat Clear Calc 62 Estimated GFR 56 L Glucose 148 H POC Capillary Glucose 167 H 212 H Hemoglobin A1c Calculated Osmolality 289 Calcium 9.2 Magnesium Total Bilirubin 0.2 AST 11 L ALT 15 Alkaline Phosphatase 110 Total Protein 7.2 Albumin 2.3 L Quality VTE Prophylaxis VTE prophylaxis: pharmacologic ordered -Patient's previous records reviewed on admission -ER notes reviewed in detail on admission -discussed all findings and current treatment plan with patient/Family/POA -Consultations reviewed for recommendations -Patient's disposition for safe discharge discussed with director case Dictation performed by [employer] direct speech recognition software, therefore chiller operator variants and typographical errors may occur. Hospitalist MIPS Advance Care Plan I have confirmed that the patient's Advanced Care Plan is present, code status is documented, or surrogate decision maker is listed in patient medical record.: Yes Medication Reconciliation I have utilized all available resources to obtain, update and review the patients current medications (includes all prescriptions, OTC, herbals, cannabis, and nutritional supplements).: Yes The patient is not eligible for med reconciliation; the patient is in a emergent medical situation where delaying treatment would jeopardize the patients health.: No
[2024-01-02] MEDS: UMECLIDINIUM/VILANTEROL 62.5-25 MCG ELLIPTA 1 PUFF INHALATION (08:36)
[2024-01-02] MEDS: ENOXAPARIN 40 MG/0.4 ML SYRINGE SUB-Q (08:37)
[2024-01-02] MEDS: PARoxetine 20 MG TABLET 60 MG PO (08:37)
[2024-01-02] MEDS: POTASSIUM CHLORIDE 20 MEQ ER TABLET PO ×2 (08:38→18:09)
[2024-01-02] MEDS: ASPIRIN 81 MG ENTERIC TABLET PO (08:38)
[2024-01-02] MEDS: PANTOPRAZOLE 40 MG TABLET PO (08:38)
[2024-01-02] MEDS: SIMVASTATIN 10 MG TABLET 40 MG PO (08:39)
[2024-01-02] MEDS: FERROUS SULFATE 325 MG TABLET DR BY MOUTH ×2 (08:40→18:09)
[2024-01-02] MEDS: CLOPIDOGREL BISULFATE 75 MG TABLET PO (08:40)
[2024-01-02] MEDS: guaiFENesin 12 HR 600 MG TABCR 1200 MG PO ×2 (08:40→20:25)
[2024-01-02] MEDS: FAMOTIDINE 20 MG TABLET 40 MG PO (08:40)
[2024-01-02] MEDS: PROPRANOLOL HCL 20 MG TABLET PO (08:41)
[2024-01-02] MEDS: busPIRone HCL 10 MG TABLET PO ×2 (08:42→18:09)
[2024-01-02] MEDS: methylPREDNISolone SOD SUCC 40 MG VIAL IV PUSH ×2 (08:55→18:09)
[2024-01-02 11:43] LABS: Glucose Point of Care 152 mg/dl (65-105)
[2024-01-02 17:05] LABS: Glucose Point of Care 118 mg/dl (65-105)
[2024-01-02] MEDS: ARIPiprazole 5 MG TABLET PO (20:25)
[2024-01-02] MEDS: LORATADINE 10 MG TABLET PO (20:25)
[2024-01-02] MEDS: AZITHROMYCIN 500 MG/NS 250 ML 500 MG/250 ML BAG 250 MG IVPB (20:26)
[2024-01-02 20:42] LABS: Glucose Point of Care 191 mg/dl (65-105)
[2024-01-03] VITALS (7 sets, daily range): BP systolic 116–135; BP diastolic 59–97; PULSE 58–89; RESP 16–20; TEMP 35.3–36.2; O2SAT 93–100
[2024-01-03] MEDS: IPRATROPIUM 0.5 MG/ALBUTEROL SULFATE 2.5 MG AMPUL.NEB 3 ML INHALATION ×2 (00:32→05:56)
--- NOTE | 2024-01-03 02:45 | PC.NURSE ---
assumed care. report received from Montserrat STEVENS.
[2024-01-03 05:27] LABS: Hematocrit 38.1 % (35.0-49.0); Hemoglobin 11.1 g/dL (12.0-15.0); Mean Corpuscular HGB Conc 29.1 g/dL (32-36); Mean Corpuscular Hemoglobin 21.9 pg (27.0-31.0); Mean Corpuscular Volume 75.3 fL (78.0-102.0); Mean Platelet Volume 10.6 fl (9.2-11.8); Platelet Count Result 349 K/mm3 (150-420); Red Blood Count 5.06 M/mm3 (4.20-5.40); Red Cell Distribution Width 15.8 % (11.6-14.4); White Blood Count 12.4 K/mm3 (4.8-10.8)
[2024-01-03 05:51] LABS: Alanine Aminotransferase 16 U/L (14-59); Albumin Level 2.5 g/dL (3.4-5.0); Alkaline Phosphatase 109 U/L (46-116); Anion Gap 4 mmol/L (4-12); Aspartate Amino Transferase 10 U/L (15-37); Bilirubin,Total 0.2 mg/dL (0.00-1.00); Blood Urea Nitrogen 19 mg/dL (7-18); Calcium 9.1 mg/dL (8.5-10.1); Carbon Dioxide 32 mmol/L (21-32); Chloride 102 mmol/L (98-108); Estimated CRCL calculation 64 ml/min; Estimated Glomerular Filt Rate 58; Glucose 163 mg/dL (70-99); Osmolality Calculated 292 mOsm/kg (285-295); Potassium 4.7 mmol/L (3.5-5.1); Sodium 138 mmol/L (136-145); Total Protein 7.1 g/dL (6.4-8.2)
[2024-01-03] MEDS: LEVOTHYROXINE SODIUM 75 MCG TABLET PO (05:57)
--- NOTE | 2024-01-03 07:00 | PC.NURSE ---
report given to ulisses ortiz
[2024-01-03 08:02] LABS: Glucose Point of Care 139 mg/dl (65-105)
[2024-01-03] MEDS: UMECLIDINIUM/VILANTEROL 62.5-25 MCG ELLIPTA 1 PUFF INHALATION (08:45)
[2024-01-03] MEDS: SIMVASTATIN 10 MG TABLET 40 MG PO (08:45)
[2024-01-03] MEDS: POTASSIUM CHLORIDE 20 MEQ ER TABLET PO (08:46)
[2024-01-03] MEDS: ENOXAPARIN 40 MG/0.4 ML SYRINGE SUB-Q (08:46)
[2024-01-03] MEDS: methylPREDNISolone SOD SUCC 40 MG VIAL IV PUSH (08:47)
[2024-01-03] MEDS: guaiFENesin 12 HR 600 MG TABCR 1200 MG PO (08:51)
[2024-01-03] MEDS: PARoxetine 20 MG TABLET 60 MG PO (08:51)
[2024-01-03] MEDS: busPIRone HCL 10 MG TABLET PO (08:52)
[2024-01-03] MEDS: ASPIRIN 81 MG ENTERIC TABLET PO (08:52)
[2024-01-03] MEDS: PROPRANOLOL HCL 20 MG TABLET PO (08:53)
[2024-01-03] MEDS: FAMOTIDINE 20 MG TABLET 40 MG PO (08:53)
[2024-01-03] MEDS: PANTOPRAZOLE 40 MG TABLET PO (08:53)
[2024-01-03] MEDS: FERROUS SULFATE 325 MG TABLET DR BY MOUTH (08:53)
[2024-01-03] MEDS: CLOPIDOGREL BISULFATE 75 MG TABLET PO (08:54)
[2024-01-03] MEDS: HYDROcodone/acetaminophen (*CRX) 5-325 MG TABLET 1 TAB PO (09:36)
--- NOTE | 2024-01-03 09:51 | PM.DS ---
DS: Admitting Diagnosis Discharge Date 01/03/2024 Admitting Diagnosis Acute on chronic respiratory failure with hypoxia secondary to pneumonia and COPD exacerbation DS: Discharge Diagnosis Discharge Diagnosis (1) Chronic respiratory failure with hypoxia, on home oxygen therapy: Code(s): J96.11 - Chronic respiratory failure with hypoxia; Z99.81 - Dependence on supplemental oxygen Status: Chronic (2) Pneumonia: Qualifiers: Laterality: left Lung location: lower lobe of lung Pneumonia type: due to unspecified organism Qualified Code(s): J18.9 - Pneumonia, unspecified organism Code(s): J18.9 - Pneumonia, unspecified organism Status: Acute (3) COPD exacerbation: Code(s): J44.1 - Chronic obstructive pulmonary disease with (acute) exacerbation Status: Acute (4) Obstructive sleep apnea: Code(s): G47.33 - Obstructive sleep apnea (adult) (pediatric) Status: Chronic (5) Hypothyroidism: Code(s): E03.9 - Hypothyroidism, unspecified Status: Acute (6) Anxiety: Code(s): F41.9 - Anxiety disorder, unspecified Status: Chronic (7) Hypokalemia: Code(s): E87.6 - Hypokalemia Status: Resolved (8) Hyponatremia: Code(s): E87.1 - Hypo-osmolality and hyponatremia Status: Acute (9) Morbid obesity: Code(s): E66.01 - Morbid (severe) obesity due to excess calories Status: Acute (10) Coronary artery disease: Code(s): I25.10 - Atherosclerotic heart disease of [place] coronary artery without angina pectoris Status: Acute (11) Hyperglycemia: Code(s): R73.9 - Hyperglycemia, unspecified Status: Acute Plan Disposition: patient discharged home DS: Summary Hospital Course Reason for hospitalization: acute on chronic respiratory failure with hypoxia secondary to pneumonia and COPD exacerbation Hospital Course: Patient is a 63-year-old female who presented to the emergency department with worsening shortness of breath and chest pressure. Patient does have a past medical history of CAD, mi, COPD, diabetes, SHANTHI and hypothyroidism. patient stated symptoms began about 2-3 days ago after they moved her [id number] to a detention felt she had picked up a viral infection. patient endorses worsening shortness of breath, atypical chest pain inspiration, productive cough with greenish sputum. Patient denied any fever, chills, nausea, vomiting, abdominal pain, or dizziness. patient reports she does currently wear 4 L of supplemental oxygen at home however is not compliant also wears NIV at night for her SHANTHI. Patient did have leukocytosis with chest x-ray showing cardiomegaly, hyponatremia and hypokalemia likely secondary to her hydrochlorothiazide home medications. patient was given duo nebulizer, methylprednisone, azithromycin,20 mg IV push of Lasix in the emergency department with mild improvement. patient was admitted to the medical unit for continued treatment of COPD exacerbation patient did report she stopped smoking back in April 29, 2023. due to patient's worsening hypoxia I did do a CTA to rule out pulmonary emboli which was negative however CT of chest did show bilateral pneumonia at which time I am again treatment for CAP. patient was started on azithromycin and Rocephin as well as a mucolytic, and DuoNebs. I did continue patient's steroids due to her underlying severe emphysema and COPD exacerbation. Patient was improving with medication and oxygen requirements were weaned back to her baseline 4 L nasal cannula home. patient with some hyperglycemia which could have likely been secondary to steroid however A1c was 6.0 patient previously had taking metformin but this was years ago at this time initiated patient on Jardiance for diabetes and cardiovascular benefits. Patient states that she had lost her primary as well, which we did establish her with a new primary. patient with overall improvement still with mild productive cough otherwise denied any fevers or chills leukocytosis improving. encourage medication and oxygen compliance and follow-up with her forensic locksmith. Status at Discharge Functional status at discharge: independent ambulation Overall status at discharge: patient is back to baseline Time Spent with Patient Time attestation: Total time spent providing and/or coordinating discharge services: Time spent: Greater than 30 minutes Exam Narrative: GENERAL: Alert and oriented x 3. No acute distress. pleasant obese female EYES: PERRLA. HEENT: Moist mucous membranes. LUNGS: mild wheezing throughout auscultation diminished bilaterally. Use of accessory muscle use and productive cough All improving CARDIOVASCULAR: Regular rate and rhythm. No murmur. S1-S2 ABDOMEN: Soft, non tenderness and non-distended. No palpable masses. EXTREMITIES: Mild BLE edema. Non-tender SKIN: No rashes or lesions. Skin warm, dry. NEUROLOGIC: No focal neurological deficits. PSYCHIATRIC: Appropriate mood and affect. Good judgement and insight. DS: Data Data Completed and Pending Labs on day of discharge: Labs from last 24 hours 01/03/24 01/03/24 01/02/24 07:57 04:58 20:36 WBC 12.4 H RBC 5.06 Hgb 11.1 L Hct 38.1 MCV 75.3 L MCH 21.9 L MCHC 29.1 L RDW 15.8 H Plt Count 349 MPV 10.6 Sodium 138 Potassium 4.7 Chloride 102 Carbon Dioxide 32 Anion Gap 4 BUN 19 H Creatinine 0.97 Estim Creat Clear Calc 64 Estimated GFR 58 L Glucose 163 H POC Capillary Glucose 139 H 191 H Calculated Osmolality 292 Calcium 9.1 Total Bilirubin 0.2 AST 10 L ALT 16 Alkaline Phosphatase 109 Total Protein 7.1 Albumin 2.5 L 01/02/24 01/02/24 16:57 11:36 WBC RBC Hgb Hct MCV MCH MCHC RDW Plt Count MPV Sodium Potassium Chloride Carbon Dioxide Anion Gap BUN Creatinine Estim Creat Clear Calc Estimated GFR Glucose POC Capillary Glucose 118 H 152 H Calculated Osmolality Calcium Total Bilirubin AST ALT Alkaline Phosphatase Total Protein Albumin Additional Comments Additional comments: Radiology Results: ITS Impressions Chest X-Ray 01/01/24 06:08 IMPRESSION: 1. Cardiomegaly. Chest CTA 01/01/24 11:59 IMPRESSION: 1. No pulmonary embolus. 2. Bilateral pneumonia. 3. Mild emphysema. 4. Mild bilateral hilar lymphadenopathy, likely reactive. Discharge Plan Discharge Attending physician on discharge: Eliel Corley Discharging Clinician: Carline Champagne Anticipated Discharge Date/Time: 01/03/24 09:33 Patient Disposition: Home, Self-Care Activity: may shower, unlimited and as tolerated Diet: heart healthy Discharge Instructions: You are being discharged after treatment for Pneumonia I have prescribed Oral antibiotics please take as prescribed. I have also updated your home medication list to reflect which medication to continue and which medication to stop. Please review information attached on pneumonia and when to seek medical attention. I encourage you to continue to use your Incentive spirometer and we are oxygen as prescribed. You are scheduled to have a follow-up appointment with your new primary care Physician on 01/08/24. You were found to be borderline diabetic and I have started you on Jardiance which is for diabetes as well as benefits for cardiovascular disease. How can you care for yourself at home? ? Keep track of any new symptoms or changes in your symptoms. ? Rest until you feel better. ? Be safe with medicines. Take your medicines exactly as prescribed. Call your doctor if you think you are having a problem with your medicine. ? Do not drive after taking a prescription pain medicine. ? Ensure to follow-up with primary care physician as indicated and provide updated medication list provided to you at discharge. When should you call for help? Call 911 anytime you think you may need emergency care. For example, call if: ? You passed out (lost consciousness). Call your doctor now or seek immediate medical care if: ? You have new symptoms like fever, difficulty breathing, Chest pain, vomiting, or rash. ? You have new or different pain. ? You are confused and are having trouble thinking clearly. ? Your symptoms are getting worse. Watch closely for changes in your health, and be sure to contact your doctor if: ? You do not get better as expected. Patient Instructions: Antibiotic Form, Empagliflozin (By mouth), Emphysema (DC), COPD (Chronic Obstructive Pulmonary Disease) (DC), Community Acquired Pneumonia (DC), Nutrition Guidelines for People with COPD (DC) Patient Language: Mongolian Stand Alone Forms: General Discharge Information Follow-up/Referrals: Rebeca Jansen NP [Primary Care Provider] - 01/08/24 10:45 am Lincoln,Lilia Kelley MD [Physician] - Discharge Medications: New hydrocodone-acetaminophen 5-325 mg Tablet 1 tablet PO Q6-8H PRN (Reason: Pain Rated 7-10) Qty: 20 0RF guaifenesin [Mucus Relief ER] 600 mg Tablet Extended Release 12hr 1,200 mg PO Q12HR Qty: 14 0RF prednisone 20 mg tablet 40 mg PO DAILY Qty: 6 0RF Jardiance 10 mg tablet 10 mg PO DAILY Qty: 30 0RF levofloxacin 750 mg tablet 750 mg PO DAILY Qty: 5 0RF Continued clopidogrel 75 mg tablet 75 mg PO DAILY pantoprazole 40 mg tablet,delayed release (DR/EC) 40 mg PO DAILY aspirin 81 mg tablet,delayed release (DR/EC) 81 mg PO DAILY simvastatin 40 mg tablet 40 mg PO DAILY levothyroxine 75 mcg tablet 75 mcg PO DAILY propranolol 10 mg tablet 20 mg PO DAILY paroxetine HCl 40 mg tablet 60 mg PO DAILY buspirone 10 mg tablet 10 mg PO BID Qty: 1 0RF famotidine 40 mg tablet 40 mg PO DAILY ferrous sulfate 325 mg (65 mg iron) Tablet 325 mg PO BID aripiprazole 5 mg tablet 5 mg PO HS potassium chloride 20 mEq tablet extended release 20 meq PO BID Anoro Ellipta 62.5-25 mcg/actuation blister with device 1 inh inhalation DAILY Qty: 60 6RF albuterol sulfate 90 mcg/actuation HFA aerosol inhaler 2 inh INHALATION Q4H PRN (Reason: Dyspnea or wheezing) Qty: 6.7 6RF Rx Instructions: as directed ipratropium-albuterol 0.5 mg-3 mg(2.5 mg base)/3 mL solution for nebulization 3 ml inhalation Q4H PRN (Reason: shortness of breath or wheezing) Qty: 90 3RF No Action (DME) Nebulizer Machine See Rx Instructions .Route .MEDSUPPLY Qty: 1 0RF Rx Instructions: As directed Date of admission: 01/01/24 01:31 Primary Care Provider: Rebeca Jansen Admitting Provider: Eliel Corley Attending physician on admission: Carline Champagne Condition: Stable Quality VTE Prophylaxis VTE prophylaxis: pharmacologic ordered -Patient's previous records reviewed on admission -ER notes reviewed in detail on admission -discussed all findings and current treatment plan with patient/Family/POA -Consultations reviewed for recommendations -Patient's disposition for safe discharge discussed with patient case coordinator Dictation performed by [employer] direct speech recognition software, therefore physician assistant certified variants and typographical errors may occur. Hospitalist MIPS Heart Failure (Exclusion) Patient has history of Heart Transplant or Left Ventricular Assistive Device?: No IF YES, STOP HERE Heart Failure (Qualifier) Patient has current or prior documentation of LVEF less than or equal to 40%, or mod/servere depressed LVSF?: No IF NO, STOP HERE
[2024-01-03 11:54] LABS: Glucose Point of Care 127 mg/dl (65-105)
--- NOTE | 2024-01-03 13:06 | PC.NURSE ---
Patient's IV and telemetry discontinued in anticipation of discharge. Discharge instructions given to patient and patient voiced understanding. Personal items sent home with patient. Patient left unit in w/c and left hospital property in privately owned vehicle.
== END 2024-01-03 13:00 | disposition home or self-care (01) ==
LOC: CHSED 01-01 01:31 → CHS2ND 01-01 06:13
PROVIDERS: Admitting Provider Internal Medicine; Emergency Provider Internal Medicine Critical Care Medicine; PCP Nurse Practitioner Family; Visit Provider Nurse Practitioner Family
DX: J18.9 Pneumonia, unspecified organism (principal); J96.21 Acute and chronic respiratory failure with hypoxia; J44.1 Chronic obstructive pulmonary disease with (acute) exacerbation; J44.0 Chronic obstructive pulmonary disease with (acute) lower respiratory infection; J43.9 Emphysema, unspecified; Z99.81 Dependence on supplemental oxygen; Z91.199 Patient's noncompliance with other medical treatment and regimen due to unspecified reason; I11.0 Hypertensive heart disease with heart failure; I50.30 Unspecified diastolic (congestive) heart failure; G47.33 Obstructive sleep apnea (adult) (pediatric); I25.10 Atherosclerotic heart disease of native coronary artery without angina pectoris; I25.2 Old myocardial infarction; E66.01 Morbid (severe) obesity due to excess calories; Z68.42 Body mass index [BMI] 45.0-49.9, adult; E87.6 Hypokalemia; E87.1 Hypo-osmolality and hyponatremia; E11.65 Type 2 diabetes mellitus with hyperglycemia; M54.9 Dorsalgia, unspecified; E78.5 Hyperlipidemia, unspecified; E03.9 Hypothyroidism, unspecified; M81.0 Age-related osteoporosis without current pathological fracture; M19.90 Unspecified osteoarthritis, unspecified site; G43.909 Migraine, unspecified, not intractable, without status migrainosus; K57.90 Diverticulosis of intestine, part unspecified, without perforation or abscess without bleeding; F41.9 Anxiety disorder, unspecified; F32.9 Major depressive disorder, single episode, unspecified; Z20.822 Contact with and (suspected) exposure to COVID-19; Z79.51 Long term (current) use of inhaled steroids; Z79.82 Long term (current) use of aspirin; Z79.899 Other long term (current) drug therapy; Z87.891 Personal history of nicotine dependence; Z88.0 Allergy status to penicillin; Z88.5 Allergy status to narcotic agent; Z85.41 Personal history of malignant neoplasm of cervix uteri; Z95.5 Presence of coronary angioplasty implant and graft
CPT/HCPCS: 36415; 71045; 71275; 80048; 80053; 82948; 83036; 83605; 83735; 83880; 84443; 84484; 85025; 85027; 87637; 93005; 94640; 96365; 96367; 96368; 96375; 99285; A9270; G0378; J0456; J0696; J1650; J1815; J1940; J2919; J7040; Q9967

== ENCOUNTER 2024-02-10 17:40 | Observation (INO) | payer OTHER, SELFPAY ==
[2024-02-10] VITALS (32 sets, daily range): BP systolic 98–150; BP diastolic 60–89; PULSE 73–110; RESP 14–28; TEMP 36.3–36.7; O2SAT 85–97; BMI 49.1
--- NOTE | ~2024-02-10 | XR_ITS ---
XR chest 1V portable Ordering provider: Rodrigo Novak MD History: 63 years Female with . sob . Comparison: None. FINDINGS: MEDIASTINUM: The cardiac silhouette is slightly enlarged. Congestive evelyn. LUNGS: No effusions or pneumothorax. Opacification in the left lower lobe area. Bilateral interstitia l changes. OTHER: No free air under the diaphragm. IMPRESSION: Left lower lobe atelectasis versus pneumonia. Cardiomegaly with congestive evelyn and interstitial changes which may indicate cardiac decompensation with pulmonary edema versus pneumonitis. Reviewed, dictated and finalized at location [facility] IMPRESSION: Left lower lobe atelectasis versus pneumonia. Cardiomegaly with congestive evelyn and interstitial changes which may indicate c ardiac decompensation with pulmonary edema versus pneumonitis.
--- NOTE | 2024-02-10 17:43 | ED.URI ---
HPI - URI/Sore Throat General Chief Complaint: Shortness of Breath/Dyspnea Stated Complaint: sob Time Seen by Provider: 02/10/24 17:41 Source: patient Mode of arrival: ambulatory Limitations: no limitations History of Present Illness HPI Narrative: Patient is a 63-year-old female with with shortness of breath and cough for the past 3 days. In general she does not feel well and came to the ER for further evaluation. patient has known COPD and CHF. MD elicited complaint: cough and nasal congestion Pertinent past history: COPD and other ( CHF) Onset (ago): day(s) (3) Consistency: constant Severity: moderate Pain scale (0-10): 0 Description of mucous: yellow Able to tolerate fluids by mouth: Yes Exacerbating factors: nothing Relieving factors: nothing Context: sick contacts Associated symptoms: nasal congestion, cough and shortness of breath Treatments prior to arrival: none Related Data Home Medications Medication Instructions Recorded Confirmed clopidogrel 75 mg tablet 75 mg PO DAILY 03/18/22 02/10/24 pantoprazole 40 mg tablet,delayed 40 mg PO DAILY 03/18/22 02/10/24 release aspirin 81 mg tablet,delayed 81 mg PO DAILY 08/14/22 02/10/24 release levothyroxine 75 mcg tablet 75 mcg PO DAILY 08/14/22 02/10/24 propranolol 10 mg tablet 20 mg PO DAILY 08/14/22 02/10/24 simvastatin 40 mg tablet 40 mg PO DAILY 08/14/22 02/10/24 paroxetine HCl 40 mg tablet 60 mg PO DAILY 08/15/22 02/10/24 aripiprazole 5 mg tablet 5 mg PO HS 01/01/24 02/10/24 famotidine 40 mg tablet 40 mg PO DAILY 01/01/24 02/10/24 ferrous sulfate 325 mg (65 mg 325 mg PO BID 01/01/24 02/10/24 iron) tablet potassium chloride 20 mEq 20 meq PO BID 01/01/24 02/10/24 tablet,extended release Allergies Allergy/AdvReac Type Severity Reaction Status Date / Time codeine Allergy Severe Anaphylaxis Verified 02/10/24 19:12 Penicillins Allergy Severe Anaphylaxis Verified 02/10/24 19:12 morphine Allergy Unknown Unknown Verified 02/10/24 19:12 Review of Systems Review of Systems: All systems reviewed & are unremarkable except as noted in HPI and below Constitutional: Constitutional: Reports no additional constitutional complaints Eyes: Eyes: Reports no additional eye complaints ENT: Reports system reviewed and no additional complaints, except as documented Cardiovascular: Cardiovascular: Reports no additional cardiovascular complaints Respiratory: Respiratory: Reports no additional respiratory complaints Gastrointestinal: Gastrointestinal: Reports no additional gastrointestinal complaints Genitourinary: Genitourinary: Reports no additional female genitourinary complaints Musculoskeletal: Musculoskeletal: Reports no additional musculoskeletal complaints Integumentary/Breasts: Skin/Breast: Reports system reviewed and no additional complaints, except as docu Neurologic: Reports system reviewed and no additional complaints, except as documented Psychiatric: Psychiatric: Reports no additional psychiatric complaints Endocrine: Endocrine: Reports no additional endocrine complaints Hematologic/Lymphatic: Hematologic/Lymphatic: Reports no additional hematologic/lymphatic complaints Allergic/Immunologic: Allergic/Immunologic: Reports no additional allergic/immunologic complaints PMFSH Past Medical History Medical History Anxiety Cervical cancer Chronic back pain Chronic obstructive pulmonary disease Chronic respiratory failure with hypoxia, on home oxygen therapy Coronary artery disease Depression Diverticulosis Hypothyroidism Migraines Morbid obesity Nicotine abuse Obstructive sleep apnea Osteoarthritis Osteoporosis Surgical History Surgical History History of cardiac catheterization History of chest tube placement History of coronary artery stent placement History of hysterectomy History of open reduction and internal fixation (ORIF) procedure Repair left femur fracture. History of surgery on right wrist Family History Family History Other Hypertension Social History Social History Social History: Surrogate medical decision maker: Ana Maria Vandana, sibling. Code status: Full code. Smoking packs per day: 1.5 Smoking cigarettes per day: 30.0 Years smoked: 40 Smoking pack-years: 60.00 Smoking status: Former smoker Tobacco type: cigarettes Second hand tobacco smoke exposure: Yes Smoking end date: 04/10/23 Additional smoking assessment comments: Patient states she quit smoking last . Alcohol intake: former Substance use: current Substance use type: marijuana Last use: 12/31/2023 Do You Feel Safe in your Home?: Yes Lack of Transportation: No Lack of Food: Sometimes True Current Housing: I Have Housing Concerned About Future Housing: No Difficulty Paying Gas/Electric Bills: No Difficulty Paying for Meds: No Currently Unemployed: No Education: Grade School Difficulty w/ Childcare or Family Care: No Spiritual care concerns: No Exam Const: General: ill appearing Nutritional Appearance: well nourished Orientation/consciousness: patient oriented x3 HENMT: Head: normal to inspection Ears: external ears normal Face/Nose/Sinus: Normal external nose present Eyes: Conjunctivae: conjunctivae normal Pupils: Equal, round and reactive pupils present EOM: EOMs intact bilaterally Direct Ophthalmoscopy: no photophobia Neck: Neck: normal visual inspection Chest: Chest palpation & inspection: normal inspection of the chest Resp: Effort & Inspection: abnormal respiratory effort, labored, no retractions, tachypneic and no use of accessory muscles Auscultation: not clear to auscultation bilaterally, no crackles, rales, rhonchi, wheezes, breath sounds present and diminished lung sounds Cardio: Rate: regular rate Rhythm: regular rhythm Heart sounds: no murmurs GI: Inspection: non-distended GI Palp: Yes Soft to palpation and No Tenderness to palpation present (GI) Auscultation: normal bowel sounds : General: Yes bladder normal to palpation Back/Spine/Pelvis: Back: no CVA tenderness Skin: General skin exam: normal color Rashes: no rashes Wounds: no wounds Neuro: General: patient oriented x3 Cranial nerves: Yes Nystagmus not present Speech: normal speech Extrem: General: normal to inspection Psych: Mental Status: mental status grossly normal Affect: normal affect Attitude: cooperative Course Course Emergency Course: Vital Signs Vital signs: Vital Signs Temperature 36.7 C 02/10/24 17:41 Pulse Rate 110 H 02/10/24 17:41 Respiratory Rate 22 H 02/10/24 17:41 Blood Pressure 150/89 H 02/10/24 17:41 Pulse Oximetry 90 02/10/24 17:41 Oxygen Delivery Room Air 02/10/24 17:41 Temperature 36.3 C L 02/10/24 19:01 Pulse Rate 85 02/10/24 20:46 Respiratory Rate 14 02/10/24 20:46 Blood Pressure 123/84 02/10/24 20:46 Pulse Oximetry 93 02/10/24 20:46 Oxygen Delivery Room Air 02/10/24 18:55 Oxygen Flow Rate 3 02/10/24 20:46 MDM - URI/Sore Throat MDM Narrative Medical decision making narrative: Patient is a 63-year-old female with upper respiratory complaints as well as lower respiratory complaints and we will do a respiratory workup at this time. COVID is positive. She is slightly hypoxic and we will go ahead and do further workup at this time. patient appears to have a flare of her CHF at this time as well as COPD. There is also a pneumonia process. There is hypoxemia. She will be admitted for further treatment and evaluation. Lab Data Attestation: I reviewed the patient's lab results. 02/10/24 19:22 02/10/24 19:22 Labs: Lab Results 02/10/24 02/10/24 Range/Units 17:43 19:22 WBC 8.8 (4.8-10.8) K/mm3 RBC 5.36 (4.20-5.40) M/mm3 Hgb 12.0 (12.0-15.0) g/dL Hct 39.8 (35.0-49.0) % MCV 74.3 L (78.0-102.0) fL MCH 22.4 L (27.0-31.0) pg MCHC 30.2 L (32-36) g/dL RDW 16.8 H (11.6-14.4) % Plt Count 292 (150-420) K/mm3 MPV 9.3 (9.2-11.8) fl Immature Gran % (Auto) 0.5 H (0.0-0.0) % Neut % (Auto) 83.0 H (50.0-70.0) % Lymph % (Auto) 7.9 L (18.0-42.0) % [place] % (Auto) 7.3 (2.0-11.0) % Eos % (Auto) 0.6 L (1.0-6.0) % Baso % (Auto) 0.7 (0.0-1.0) % Lymph # (Auto) 0.69 L (1.10-4.50) K/mm3 [place] # (Auto) 0.64 (0.10-0.90) K/mm3 Eos # (Auto) 0.05 (0.02-0.50) K/mm3 Baso # (Auto) 0.06 (0.00-0.10) K/mm3 Abs Immat Gran (auto) 0.04 H (0.00-0.00) K/mm3 Absolute Neuts (auto) 7.27 H (1.70-7.20) K/mm3 Absolute Nucleated RBC 0.00 (0.00-0.00) K/mm3 Nucleated RBC % 0.0 (0-0.0) % Sodium 133 L (136-145) mmol/L Potassium 3.4 L (3.5-5.1) mmol/L Chloride 96 L (98-108) mmol/L Carbon Dioxide 32 (21-32) mmol/L Anion Gap 5 (4-12) mmol/L BUN 5 L (7-18) mg/dL Creatinine 0.96 (0.55-1.02) mg/dL Estim Creat Clear Calc Not Reportable Estimated GFR 59 (59 - ) Glucose 128 H (70-99) mg/dL Calculated Osmolality 275 L (285-295) mOsm/kg Lactic Acid 1.9 (0.4-2.0) mmol/L Calcium 9.1 (8.5-10.1) mg/dL Total Bilirubin 0.6 (0.00-1.00) mg/dL AST 16 (15-37) U/L ALT 17 (14-59) U/L Alkaline Phosphatase 133 H (46-116) U/L Troponin I 9.6 (0.00-60.4) ng/L Total Protein 6.8 (6.4-8.2) g/dL Albumin 2.7 L (3.4-5.0) g/dL Influenza A (RT-PCR) Negative (Negative) Influenza B (RT-PCR) Negative (Negative) RSV (RT-PCR) Negative (Negative) SARS-CoV-2 RNA (RT-PCR) Positive A (Negative) Imaging Data Attestation: I personally reviewed and interpreted this imaging study as follows: Radiologist's impression: Chest x-ray shows IMPRESSION: Left lower lobe atelectasis versus pneumonia. Cardiomegaly with congestive evelyn and interstitial changes which may indicate cardiac decompensation with pulmonary edema versus pneumonitis ECG Data EKG #1: Attestation: I personally reviewed and interpreted this ECG as follows: ECG completion date: 02/10/24 ECG completion time: 20:37 EKG Interpretation: normal rate, sinus rhythm, no ectopy, non-specific ST changes, normal QRS, normal QT and NL axis Discharge Plan Discharge Clinical Impression: Acute exacerbation of chronic obstructive pulmonary disease, Hypoxia, COVID Pneumonia Qualifiers: Pneumonia type: due to unspecified organism Laterality: left Lung location: lower lobe of lung Qualified Code(s): J18.9 - Pneumonia, unspecified organism Acute exacerbation of CHF (congestive heart failure) Qualifiers: Heart failure type: unspecified Qualified Code(s): I50.9 - Heart failure, unspecified Patient Disposition: Acute Care Hospital [facility] Condition: Stable Prescriptions: No Action clopidogrel 75 mg tablet 75 mg PO DAILY pantoprazole 40 mg tablet,delayed release (DR/EC) 40 mg PO DAILY aspirin 81 mg tablet,delayed release (DR/EC) 81 mg PO DAILY simvastatin 40 mg tablet 40 mg PO DAILY levothyroxine 75 mcg tablet 75 mcg PO DAILY propranolol 10 mg tablet 20 mg PO DAILY paroxetine HCl 40 mg tablet 60 mg PO DAILY (DME) Nebulizer Machine See Rx Instructions .Route .MEDSUPPLY Qty: 1 0RF Rx Instructions: As directed buspirone 10 mg tablet 10 mg PO BID Qty: 1 0RF famotidine 40 mg tablet 40 mg PO DAILY ferrous sulfate 325 mg (65 mg iron) Tablet 325 mg PO BID aripiprazole 5 mg tablet 5 mg PO HS potassium chloride 20 mEq tablet extended release 20 meq PO BID hydrocodone-acetaminophen 5-325 mg Tablet 1 tablet PO Q6-8H PRN (Reason: Pain Rated 7-10) Qty: 20 0RF guaifenesin [Mucus Relief ER] 600 mg Tablet Extended Release 12hr 1,200 mg PO Q12HR Qty: 14 0RF prednisone 20 mg tablet 40 mg PO DAILY Qty: 6 0RF levofloxacin 750 mg tablet 750 mg PO DAILY Qty: 5 0RF Anoro Ellipta 62.5-25 mcg/actuation blister with device 1 inh inhalation DAILY Qty: 60 6RF albuterol sulfate 90 mcg/actuation HFA aerosol inhaler 2 inh INHALATION Q4H PRN (Reason: Dyspnea or wheezing) Qty: 6.7 6RF Rx Instructions: as directed ipratropium-albuterol 0.5 mg-3 mg(2.5 mg base)/3 mL solution for nebulization 3 ml inhalation Q4H PRN (Reason: shortness of breath or wheezing) Qty: 90 3RF benzonatate 200 mg capsule 200 mg PO BID PRN (Reason: cough) Qty: 20 0RF azelastine 137 mcg (0.1 %) spray,non-aerosol 2 spray intranasal Q12H Qty: 30 0RF Rx Instructions: administer into each nostril cyclobenzaprine 10 mg tablet 10 mg PO .HS PRN (Reason: muscle spasm) Qty: 30 2RF Rx Instructions: Can cause drowsiness. Jardiance 10 mg tablet 10 mg PO DAILY Qty: 30 0RF Follow-up/Referrals: Rebeca Jansen PATIENT ACCESS REPRESENTATIVE [Primary Care Provider] - Time of Disposition: 20:57
[2024-02-10 18:38] LABS: SARS-CoV-2 RNA PCR Positive (Negative)
[2024-02-10 18:44] LABS: Influenza A QL RT-PCR Negative (Negative); Influenza B QL RT-PCR Negative (Negative); RSV RNA, RT-PCR Negative (Negative)
--- NOTE | 2024-02-10 19:10 | ECG_ITS ---
Test Date: 2024-02-10 20:15:53 Measurements Intervals [place] Rate: 81 P: 58 DC: 127 QRS: 82 QRSD: 90 T: 70 QT: 369 QTc: 430 Interpretive Statements SINUS RHYTHM NONSPECIFIC ST & T-WAVE ABNORMALITY ABNORMAL ECG Compared to ECG 01/01/2024 00:05:06 Incomplete right bundle-branch block no longer present T-wave abnormality still present Electronically Signed On 02-11-2024 11:04:06 [employer] PHYSIOLOGIST by Woody Leyva M.D.
[2024-02-10 19:31] LABS: Basophils Absolute Auto 0.06 K/mm3 (0.00-0.10); Basophils Percent Auto 0.7 % (0.0-1.0); Eosinophils Absolute Auto 0.05 K/mm3 (0.02-0.50); Eosinophils Percent Auto 0.6 % (1.0-6.0); Hematocrit 39.8 % (35.0-49.0); Immature Granulocyte Absolute 0.04 K/mm3 (0.00-0.00); Immature Granulocyte Percent A 0.5 % (0.0-0.0); Lymphocytes Absolute Auto 0.69 K/mm3 (1.10-4.50); Lymphocytes Percent Auto 7.9 % (18.0-42.0); Mean Corpuscular HGB Conc 30.2 g/dL (32-36); Mean Corpuscular Hemoglobin 22.4 pg (27.0-31.0); Mean Corpuscular Volume 74.3 fL (78.0-102.0); Mean Platelet Volume 9.3 fl (9.2-11.8); Monocytes Absolute Auto 0.64 K/mm3 (0.10-0.90); Monocytes Percent Auto 7.3 % (2.0-11.0); Neutrophils Absolute Auto 7.27 K/mm3 (1.70-7.20); Platelet Count Result 292 K/mm3 (150-420); Red Blood Count 5.36 M/mm3 (4.20-5.40); Red Cell Distribution Width 16.8 % (11.6-14.4); White Blood Count 8.8 K/mm3 (4.8-10.8)
[2024-02-10 19:49] LABS: Alanine Aminotransferase 17 U/L (14-59); Albumin Level 2.7 g/dL (3.4-5.0); Alkaline Phosphatase 133 U/L (46-116); Anion Gap 5 mmol/L (4-12); Aspartate Amino Transferase 16 U/L (15-37); Bilirubin,Total 0.6 mg/dL (0.00-1.00); Blood Urea Nitrogen 5 mg/dL (7-18); Calcium 9.1 mg/dL (8.5-10.1); Carbon Dioxide 32 mmol/L (21-32); Chloride 96 mmol/L (98-108); Estimated Glomerular Filt Rate 59; Glucose 128 mg/dL (70-99); Osmolality Calculated 275 mOsm/kg (285-295); Potassium 3.4 mmol/L (3.5-5.1); Sodium 133 mmol/L (136-145); Total Protein 6.8 g/dL (6.4-8.2); Troponin I 9.6 ng/L (0.00-60.4)
[2024-02-10 19:51] LABS: Lactic Acid Reflex 1.9 mmol/L (0.4-2.0)
[2024-02-10] MEDS: ALBUTEROL SULFATE (*SP) INHALER 10 PUFF INHALATION (20:12)
[2024-02-10] MEDS: methylPREDNISolone SOD SUCC 125 MG VIAL IM (20:12)
[2024-02-10] MEDS: levoFLOXacin 750 MG/D5W 150 ML 750 MG/150 ML BAG 100 MG IVPB (21:20)
[2024-02-10] MEDS: POTASSIUM CHLORIDE 20 MEQ ER TABLET PO (21:20)
[2024-02-11] VITALS: BP 126/80; PULSE 73; PULSE 95; RESP 16; TEMP 36.6; O2SAT 90
--- NOTE | 2024-02-11 00:31 | ADMGEN ---
This patient, Karina Ricks, was admitted to 2nd Floor Room 201-1. Patient/family oriented to hospital policies and general routines including ID bracelet, bed and alarms, pain management, procedures, bathroom and other care routines, personal items, smoking policy, room service/diet, and visiting hours. Information on how to activate the Rapid Response Team has been discussed. Patient/Family are encouraged to report perceived risks to care and to ask questions if they do not understand what they are told or what they should do.
[2024-02-11] MEDS: levoFLOXacin 500 MG/D5W 100 ML 500 MG/100 ML BAG 100 MG IVPB (00:59)
[2024-02-11] MEDS: HYDROcodone/acetaminophen (*CRX) 5-325 MG TABLET 1 TAB PO (01:00)
[2024-02-11] MEDS: busPIRone HCL 10 MG TABLET PO ×2 (01:02→09:19)
[2024-02-11] MEDS: FUROSEMIDE INJ 20 MG/2 ML VIAL IV PUSH ×2 (01:06→09:20)
[2024-02-11 04:00] VITALS: BP 106/60; PULSE 70; PULSE 74; RESP 18; TEMP 36.1; O2SAT 95
[2024-02-11 05:30] VITALS: O2SAT 90
[2024-02-11 05:37] LABS: Basophils Absolute Auto 0.02 K/mm3 (0.00-0.10); Basophils Percent Auto 0.4 % (0.0-1.0); Eosinophils Absolute Auto 0.02 K/mm3 (0.02-0.50); Eosinophils Percent Auto 0.4 % (1.0-6.0); Hematocrit 42.2 % (35.0-49.0); Hemoglobin 12.7 g/dL (12.0-15.0); Immature Granulocyte Absolute 0.04 K/mm3 (0.00-0.00); Immature Granulocyte Percent A 0.7 % (0.0-0.0); Lymphocytes Percent Auto 5.5 % (18.0-42.0); Mean Corpuscular HGB Conc 30.1 g/dL (32-36); Mean Corpuscular Hemoglobin 22.4 pg (27.0-31.0); Mean Corpuscular Volume 74.6 fL (78.0-102.0); Mean Platelet Volume 9.9 fl (9.2-11.8); Monocytes Absolute Auto 0.05 K/mm3 (0.10-0.90); Monocytes Percent Auto 0.9 % (2.0-11.0); Neutrophils Absolute Auto 5.06 K/mm3 (1.70-7.20); Neutrophils Percent Auto 92.1 % (50.0-70.0); Platelet Count Result 297 K/mm3 (150-420); Red Blood Count 5.66 M/mm3 (4.20-5.40); Red Cell Distribution Width 16.4 % (11.6-14.4); White Blood Count 5.5 K/mm3 (4.8-10.8)
[2024-02-11 05:56] LABS: Alanine Aminotransferase 21 U/L (14-59); Albumin Level 2.7 g/dL (3.4-5.0); Alkaline Phosphatase 138 U/L (46-116); Anion Gap 4 mmol/L (4-12); Aspartate Amino Transferase 17 U/L (15-37); Bilirubin,Total 0.4 mg/dL (0.00-1.00); Blood Urea Nitrogen 6 mg/dL (7-18); Calcium 9.3 mg/dL (8.5-10.1); Carbon Dioxide 33 mmol/L (21-32); Chloride 100 mmol/L (98-108); Estimated CRCL calculation 69 ml/min; Estimated Glomerular Filt Rate > 60; Glucose 169 mg/dL (70-99); Osmolality Calculated 285 mOsm/kg (285-295); Potassium 3.5 mmol/L (3.5-5.1); Sodium 137 mmol/L (136-145); Total Protein 7.2 g/dL (6.4-8.2)
[2024-02-11 06:11] LABS: Lactic Acid Reflex 0.9 mmol/L (0.4-2.0)
[2024-02-11] MEDS: methylPREDNISolone SOD SUCC 40 MG VIAL 80 MG IV PUSH (06:41)
[2024-02-11] MEDS: LEVOTHYROXINE SODIUM 75 MCG TABLET PO (06:41)
[2024-02-11 08:00] VITALS: BP 101/73; PULSE 68; PULSE 78; PULSE 83; RESP 14; TEMP 36.5; O2SAT 95
[2024-02-11 08:26] LABS: Hemoglobin A1C 6.4 % (<5.7)
[2024-02-11 09:02] LABS: D Dimer 0.51 mg/L (0.19-0.50)
--- NOTE | 2024-02-11 09:03 | PC.NURSE ---
Lab called d-dimer results of 0.51, Made LOGGING SHOVEL OPERATOR aware.
[2024-02-11] MEDS: ENOXAPARIN 40 MG/0.4 ML SYRINGE SUB-Q (09:18)
[2024-02-11] MEDS: FAMOTIDINE 20 MG TABLET 40 MG PO (09:18)
[2024-02-11] MEDS: PANTOPRAZOLE 40 MG TABLET PO (09:18)
[2024-02-11] MEDS: SIMVASTATIN 10 MG TABLET 40 MG PO (09:18)
[2024-02-11 09:19] VITALS: PULSE 83
[2024-02-11] MEDS: ASPIRIN 81 MG ENTERIC TABLET PO (09:19)
[2024-02-11] MEDS: CLOPIDOGREL BISULFATE 75 MG TABLET PO (09:19)
[2024-02-11] MEDS: PROPRANOLOL HCL 20 MG TABLET PO (09:19)
[2024-02-11] MEDS: EMPAGLIFLOZIN 10 MG TABLET PO (09:19)
[2024-02-11] MEDS: FERROUS SULFATE 325 MG TABLET DR PO (09:20)
[2024-02-11] MEDS: PARoxetine 20 MG TABLET 60 MG PO (09:20)
[2024-02-11] MEDS: guaiFENesin 12 HR 600 MG TABCR 1200 MG PO (09:21)
[2024-02-11] MEDS: MULTIVITAMINS THERAPEUTIC TAB (*BKC) 1 TABLET PO (09:21)
[2024-02-11] MEDS: REMDESIVIR 200 MG/NS 250 ML 200 MG/250 ML BAG 250 MG IVPB (09:22)
--- NOTE | 2024-02-11 11:08 | P.SS_ITS ---
Same Day Admit/Disch: HPI History of Present Illness Chief complaint: Pneumonia/CHF exacerbation/COPD exacerbation/Covid Narrative: Karina Ricks is a 63 year old female who presented to the emergency department with shortness of breaths. Patient does have a history of chronic respiratory failure with hypoxia secondary to COPD. Patient was found to be COVID positive and chest x-ray showing pulmonary edema versus pneumonitis. In the emergency department patient was given methylprednisone and Levaquin and admitted for further evaluation and treatment. I did transition patient to 1 dose Decadron IV as well as loading dose of remdesivir however patient overnight had overall improvement with her continue duo nebulizers and IV Lasix that was given. Patient with no WBC, afebrile, and currently on 3 L supplemental oxygen which is betted then her normal 4L supplemental oxygen at home. patient states she felt back to her baseline and preferred to return home. patient was discharged to home with treatment for COPD exacerbation which included azithromycin and oral steroids and educated on supportive care for COVID. patient was encouraged to seek medical attention if symptoms persisted, worsened if she developed any worsening shortness of breath or respiratory distress. patient's D-dimer 0.051 did not meet per [place] for any further testing patient's respiratory status back to baseline in denied any chest pain. reviewed discharge plan with patient patient understood and agreed with discharge plan. I also encouraged immediate smoking cessation PMFSH Past Medical History Medical History Anxiety Cervical cancer Chronic back pain Chronic obstructive pulmonary disease Chronic respiratory failure with hypoxia, on home oxygen therapy Coronary artery disease Depression Diverticulosis Hypothyroidism Migraines Morbid obesity Nicotine abuse Obstructive sleep apnea Osteoarthritis Osteoporosis Surgical History Surgical History History of cardiac catheterization History of chest tube placement History of coronary artery stent placement History of hysterectomy History of open reduction and internal fixation (ORIF) procedure Repair left femur fracture. History of surgery on right wrist Family History Family History Other Hypertension Social History Social History Social History: Surrogate medical decision maker: Ana Maria Ross, sibling. Code status: Full code. Smoking packs per day: 1.5 Smoking cigarettes per day: 30.0 Years smoked: 40 Smoking pack-years: 60.00 Smoking status: Former smoker Tobacco type: cigarettes Second hand tobacco smoke exposure: Yes Smoking end date: 04/10/23 Additional smoking assessment comments: Patient states she quit smoking last . Alcohol intake: never Substance use: current Substance use type: marijuana Last use: 02/08/2024 Do You Feel Safe in your Home?: Yes Lack of Transportation: No Lack of Food: Never True Current Housing: I Have Housing Concerned About Future Housing: No Difficulty Paying Gas/Electric Bills: No Difficulty Paying for Meds: No Currently Unemployed: No Education: Grade School Difficulty w/ Childcare or Family Care: No Spiritual care concerns: No Same Day Admit/Disch: Med Pre-admit Medications Home Medications Medication Instructions Recorded Confirmed Type clopidogrel 75 mg tablet 75 mg PO DAILY 03/18/22 02/10/24 History pantoprazole 40 mg tablet,delayed 40 mg PO DAILY 03/18/22 02/10/24 History release aspirin 81 mg tablet,delayed 81 mg PO DAILY 08/14/22 02/10/24 History release levothyroxine 75 mcg tablet 75 mcg PO DAILY 08/14/22 02/10/24 History propranolol 10 mg tablet 20 mg PO DAILY 08/14/22 02/10/24 History simvastatin 40 mg tablet 40 mg PO DAILY 08/14/22 02/10/24 History paroxetine HCl 40 mg tablet 60 mg PO DAILY 08/15/22 02/10/24 History Nebulizer Machine #1 ea 08/19/22 02/10/24 Rx buspirone 10 mg tablet 10 mg PO BID #1 tablet 08/19/22 02/10/24 Rx albuterol sulfate 90 mcg/actuation 2 inh inhalation Q4H PRN Dyspnea 09/02/23 02/10/24 Rx aerosol inhaler or wheezing #6.7 grams ipratropium 0.5 mg-albuterol 3 mg 3 ml inhalation Q4H PRN shortness 09/02/23 02/10/24 Rx (2.5 mg base)/3 mL nebulization of breath or wheezing #90 mL soln umeclidinium 62.5 mcg-vilanterol 1 inh inhalation DAILY #60 ea 09/02/23 02/10/24 Rx 25 mcg/actuation powdr for inhalation (Anoro Ellipta) aripiprazole 5 mg tablet 5 mg PO HS 01/01/24 02/10/24 History famotidine 40 mg tablet 40 mg PO DAILY 01/01/24 02/10/24 History ferrous sulfate 325 mg (65 mg 325 mg PO BID 01/01/24 02/10/24 History iron) tablet potassium chloride 20 mEq 20 meq PO BID 01/01/24 02/10/24 History tablet,extended release guaifenesin 600 mg tablet, 1,200 mg PO Q12HR #14 tabs 01/03/24 02/10/24 Rx extended release 12 hr (Mucus Relief ER) hydrocodone 5 mg-acetaminophen 325 1 tablet PO Q6-8H PRN Pain Rated 01/03/24 02/10/24 Rx mg tablet 7-10 #20 tabs levofloxacin 750 mg tablet 750 mg PO DAILY #5 tabs 01/03/24 02/10/24 Rx prednisone 20 mg tablet 40 mg PO DAILY #6 tabs 01/03/24 02/10/24 Rx azelastine 137 mcg (0.1 %) nasal 2 spray intranasal Q12H #30 mL 01/08/24 02/10/24 Rx spray benzonatate 200 mg capsule 200 mg PO BID PRN cough #20 caps 01/08/24 02/10/24 Rx cyclobenzaprine 10 mg tablet 10 mg PO .HS PRN muscle spasm #30 01/08/24 02/10/24 Rx tabs empagliflozin 10 mg tablet 10 mg PO DAILY #30 tabs 01/27/24 02/10/24 Rx (Jardiance) azithromycin 250 mg tablet See Rx Instructions PO .COMPLEX #6 02/11/24 Rx tabs furosemide 20 mg tablet 20 mg PO DAILY #30 tabs 02/11/24 Rx prednisone 20 mg tablet 40 mg PO DAILY #8 tabs 02/11/24 Rx Review of Systems Review of Systems All systems reviewed & are unremarkable except as noted in HPI and below Exam Narrative: * GENERAL: Alert and oriented x 3. No acute distress. * EYES: EOMI. No scleral icterus. PERRLA. * HEENT: Moist mucous membranes. * LUNGS: diminished with scant wheezing to auscultation bilaterally. No accessory muscle use. Non-productive cough * CARDIOVASCULAR: Regular rate and rhythm. No murmur. No JVD. S1-S2 * ABDOMEN: Soft, non tenderness and non-distended. No palpable masses. * EXTREMITIES: No edema. Non-tender * SKIN: No rashes or lesions. Skin warm, dry. * NEUROLOGIC: No focal neurological deficits. CN II-XII grossly intact * PSYCHIATRIC: Appropriate mood and affect. Good judgement and insight. No visual or auditory hallucinations. No suicidal or homicidal ideation. DS: Data Data Completed and Pending Labs on day of discharge: Labs from last 24 hours 02/11/24 02/11/24 02/10/24 08:30 05:01 19:22 WBC 5.5 8.8 RBC 5.66 H 5.36 Hgb 12.7 12.0 Hct 42.2 39.8 MCV 74.6 L 74.3 L MCH 22.4 L 22.4 L MCHC 30.1 L 30.2 L RDW 16.4 H 16.8 H Plt Count 297 292 MPV 9.9 9.3 Immature Gran % (Auto) 0.7 H 0.5 H Neut % (Auto) 92.1 H 83.0 H Lymph % (Auto) 5.5 L 7.9 L [place] % (Auto) 0.9 L 7.3 Eos % (Auto) 0.4 L 0.6 L Baso % (Auto) 0.4 0.7 Lymph # (Auto) 0.30 L 0.69 L [place] # (Auto) 0.05 L 0.64 Eos # (Auto) 0.02 0.05 Baso # (Auto) 0.02 0.06 Abs Immat Gran (auto) 0.04 H 0.04 H Absolute Neuts (auto) 5.06 7.27 H Absolute Nucleated RBC 0.00 0.00 Nucleated RBC % 0.0 0.0 D-Dimer 0.51 H Sodium 137 133 L Potassium 3.5 3.4 L Chloride 100 96 L Carbon Dioxide 33 H 32 Anion Gap 4 5 BUN 6 L 5 L Creatinine 0.91 0.96 Estim Creat Clear Calc 69 Not Reportable Estimated GFR > 60 59 Glucose 169 H 128 H Hemoglobin A1c 6.4 H Calculated Osmolality 285 275 L Lactic Acid 0.9 1.9 Calcium 9.3 9.1 Total Bilirubin 0.4 0.6 AST 17 16 ALT 21 17 Alkaline Phosphatase 138 H 133 H Troponin I 9.6 Total Protein 7.2 6.8 Albumin 2.7 L 2.7 L Influenza A (RT-PCR) Influenza B (RT-PCR) RSV (RT-PCR) SARS-CoV-2 RNA (RT-PCR) 02/10/24 17:43 WBC RBC Hgb Hct MCV MCH MCHC RDW Plt Count MPV Immature Gran % (Auto) Neut % (Auto) Lymph % (Auto) [place] % (Auto) Eos % (Auto) Baso % (Auto) Lymph # (Auto) [place] # (Auto) Eos # (Auto) Baso # (Auto) Abs Immat Gran (auto) Absolute Neuts (auto) Absolute Nucleated RBC Nucleated RBC % D-Dimer Sodium Potassium Chloride Carbon Dioxide Anion Gap BUN Creatinine Estim Creat Clear Calc Estimated GFR Glucose Hemoglobin A1c Calculated Osmolality Lactic Acid Calcium Total Bilirubin AST ALT Alkaline Phosphatase Troponin I Total Protein Albumin Influenza A (RT-PCR) Negative Influenza B (RT-PCR) Negative RSV (RT-PCR) Negative SARS-CoV-2 RNA (RT-PCR) Positive A Imaging Radiologist's impression: XR chest 1V portable Ordering provider: Rodrigo Novak MD History: 63 years Female with . sob . Comparison: None. FINDINGS: MEDIASTINUM: The cardiac silhouette is slightly enlarged. Congestive evelyn. LUNGS: No effusions or pneumothorax. Opacification in the left lower lobe area. Bilateral interstitial changes. OTHER: No free air under the diaphragm. IMPRESSION: Left lower lobe atelectasis versus pneumonia. Cardiomegaly with congestive evelyn and interstitial changes which may indicate cardiac decompensation with pulmonary edema versus pneumonitis. DS: Summary Hospital Course Reason for hospitalization: Acute on chronic respiratory failure with hypoxia secondary to COPD, CHF and COVID Status at Discharge Functional status at discharge: independent ambulation Overall status at discharge: patient is back to baseline Time Spent with Patient Time attestation: Total time spent providing and/or coordinating discharge services: Time spent: Greater than 30 minutes DS: Admitting Diagnosis Discharge Date 02/11/2024 Admitting Diagnosis Acute on chronic respiratory failure with hypoxia secondary to COPD, CHF and COVID DS: Discharge Diagnosis Discharge Diagnosis (1) Acute and chronic respiratory failure with hypoxia: Code(s): J96.21 - Acute and chronic respiratory failure with hypoxia Status: Acute (2) Pneumonia: Qualifiers: Laterality: left Lung location: lower lobe of lung Pneumonia type: due to unspecified organism Qualified Code(s): J18.9 - Pneumonia, unspecified organism Code(s): J18.9 - Pneumonia, unspecified organism Status: Acute (3) Acute exacerbation of CHF (congestive heart failure): Qualifiers: Heart failure type: unspecified Qualified Code(s): I50.9 - Heart failure, unspecified Code(s): I50.9 - Heart failure, unspecified Status: Acute (4) Acute exacerbation of chronic obstructive pulmonary disease: Code(s): J44.1 - Chronic obstructive pulmonary disease with (acute) exacerbation Status: Acute (5) COVID: Code(s): U07.1 - COVID-19 Status: Acute Plan Disposition: discharge to home Discharge Plan Discharge Attending physician on discharge: Eliel Corley Discharging Clinician: Carline Champagne Anticipated Discharge Date/Time: 02/11/24 10:58 Patient Disposition: Home, Self-Care Activity: may shower and as tolerated Diet: heart healthy and diabetic Discharge Instructions: You Are being discharged after diagnosis of COVID-19 and acute on chronic respiratory failure with hypoxia. You were currently back to baseline with your oxygen requirements continue with 3 L as indicated. continue with supportive care at home can use acetaminophen for fever or mild pain, I encourage oral hydration and activity as tolerated. if symptoms worsen and you were having difficulty breathing or chest pain please seek medical attention. due to your underlying COPD I have also included 4 days steroids please take as directed as well azithromycin. continue to use your duo nebs at home in inhalers as needed you were also found to have a mild exacerbation of your CHF and we are given IV Lasix and transition due to oral Lasix to be taken at home daily, I encourage a low sodium diet. I encouraged immediate smoking cessation please review attached information regarding COVID-19 How can you care for yourself at home? ? Keep track of any new symptoms or changes in your symptoms. ? Rest until you feel better. ? Be safe with medicines. Take your medicines exactly as prescribed. Call your doctor if you think you are having a problem with your medicine. ? Do not drive after taking a prescription pain medicine. ? Ensure to follow-up with primary care physician as indicated and provide updated medication list provided to you at discharge. When should you call for help? Call 911 anytime you think you may need emergency care. For example, call if: ? You passed out (lost consciousness). Call your doctor now or seek immediate medical care if: ? You have new symptoms like fever, difficulty breathing, Chest pain, vomiting, or rash. ? You have new or different pain. ? You are confused and are having trouble thinking clearly. ? Your symptoms are getting worse. Watch closely for changes in your health, and be sure to contact your doctor if: ? You do not get better as expected. Patient Instructions: Antibiotic Form, Furosemide (By mouth), Heart Failure (DC), COPD (Chronic Obstructive Pulmonary Disease) (DC), Low-Sodium Diet (DC), Dyspnea Scale and Exercise (DC), COVID-19 (Coronavirus Disease 2019) (DC), How to Recover from COVID-19 at Home (GEN) Patient Language: Australian Stand Alone Forms: General Discharge Information Follow-up/Referrals: Rebeca Jansen ANGIOGRAPHER [Primary Care Provider] - 2 weeks Discharge Medications: New prednisone 20 mg tablet 40 mg PO DAILY Qty: 8 0RF azithromycin 250 mg tablet See Rx Instructions .ROUTE .COMPLEX Qty: 6 0RF Rx Instructions: For 250 mg dose pack: take 500 mg today (day 1), then 250 mg for 4 days (days 2-5) furosemide 20 mg tablet 20 mg PO DAILY Qty: 30 0RF Continued clopidogrel 75 mg tablet 75 mg PO DAILY pantoprazole 40 mg tablet,delayed release (DR/EC) 40 mg PO DAILY aspirin 81 mg tablet,delayed release (DR/EC) 81 mg PO DAILY simvastatin 40 mg tablet 40 mg PO DAILY levothyroxine 75 mcg tablet 75 mcg PO DAILY propranolol 10 mg tablet 20 mg PO DAILY paroxetine HCl 40 mg tablet 60 mg PO DAILY (DME) Nebulizer Machine See Rx Instructions .Route .MEDSUPPLY Qty: 1 0RF Rx Instructions: As directed buspirone 10 mg tablet 10 mg PO BID Qty: 1 0RF famotidine 40 mg tablet 40 mg PO DAILY ferrous sulfate 325 mg (65 mg iron) Tablet 325 mg PO BID aripiprazole 5 mg tablet 5 mg PO HS potassium chloride 20 mEq tablet extended release 20 meq PO BID hydrocodone-acetaminophen 5-325 mg Tablet 1 tablet PO Q6-8H PRN (Reason: Pain Rated 7-10) Qty: 20 0RF guaifenesin [Mucus Relief ER] 600 mg Tablet Extended Release 12hr 1,200 mg PO Q12HR Qty: 14 0RF Anoro Ellipta 62.5-25 mcg/actuation blister with device 1 inh inhalation DAILY Qty: 60 6RF albuterol sulfate 90 mcg/actuation HFA aerosol inhaler 2 inh INHALATION Q4H PRN (Reason: Dyspnea or wheezing) Qty: 6.7 6RF Rx Instructions: as directed ipratropium-albuterol 0.5 mg-3 mg(2.5 mg base)/3 mL solution for nebulization 3 ml inhalation Q4H PRN (Reason: shortness of breath or wheezing) Qty: 90 3RF benzonatate 200 mg capsule 200 mg PO BID PRN (Reason: cough) Qty: 20 0RF azelastine 137 mcg (0.1 %) spray,non-aerosol 2 spray intranasal Q12H Qty: 30 0RF Rx Instructions: administer into each nostril cyclobenzaprine 10 mg tablet 10 mg PO .HS PRN (Reason: muscle spasm) Qty: 30 2RF Rx Instructions: Can cause drowsiness. Jardiance 10 mg tablet 10 mg PO DAILY Qty: 30 0RF Discontinued prednisone 20 mg tablet 40 mg PO DAILY Qty: 6 0RF levofloxacin 750 mg tablet 750 mg PO DAILY Qty: 5 0RF Date of admission: 02/10/24 21:13 Primary Care Provider: Rebeca Jansen Admitting Provider: Eliel Corley Attending physician on admission: Carline Champagne Condition: Stable Quality VTE Prophylaxis VTE prophylaxis: pharmacologic ordered -Patient's previous records reviewed on admission -ER notes reviewed in detail on admission -discussed all findings and current treatment plan with patient/Family/POA -Consultations reviewed for recommendations -Patient's disposition for safe discharge discussed with case folder Dictation performed by [employer] direct speech recognition software, therefore terra cotta roofer variants and typographical errors may occur. Hospitalist [facility] Advance Care Plan I have confirmed that the patient's Advanced Care Plan is present, code status is documented, or surrogate decision maker is listed in patient medical record.: Yes Medication Reconciliation I have utilized all available resources to obtain, update and review the patients current medications (includes all prescriptions, OTC, herbals, cannabis, and nutritional supplements).: Yes The patient is not eligible for med reconciliation; the patient is in a emergent medical situation where delaying treatment would jeopardize the patients health.: No Heart Failure (Exclusion) Patient has history of Heart Transplant or Left Ventricular Assistive Device?: No IF YES, STOP HERE Heart Failure (Qualifier) Patient has current or prior documentation of LVEF less than or equal to 40%, or mod/servere depressed LVSF?: No IF NO, STOP HERE
[2024-02-11 12:00] VITALS: BP 115/70; PULSE 78; RESP 14; TEMP 36.5; O2SAT 96
[2024-02-11] MEDS: dexAMETHasone SOD PHOS INJ 10 MG/ML 1 ML VIAL 6 MG IV PUSH (12:05)
[2024-02-11 12:18] LABS: Glucose Point of Care 197 mg/dl (65-105)
--- NOTE | 2024-02-11 14:08 | PC.NURSE ---
Pt discharged to home with family care. Pt has O2 at home and a portable tank in the truck. All medications and S&S of COPD excerebration or worsening COVID reviewed with pt and spouse. Pt has a follow up appointment with her PCP marycarmen 02/12/24.
--- NOTE | 2024-02-13 09:47 | PC.NURSE ---
Doesn't feel cpap is helping, using home oxygen and nebs as needed, states saw Rebeca yesterday and will see her again on the , no questions
== END 2024-02-11 13:40 | disposition home or self-care (01) ==
LOC: CHSED 21:00 → CHS2ND 22:00
PROVIDERS: Admitting Provider Internal Medicine; Emergency Provider Emergency Medicine; PCP Nurse Practitioner Family; Visit Provider Nurse Practitioner Family
DX: U07.1 COVID-19 (principal); J96.21 Acute and chronic respiratory failure with hypoxia; J44.0 Chronic obstructive pulmonary disease with (acute) lower respiratory infection; J44.1 Chronic obstructive pulmonary disease with (acute) exacerbation; J18.9 Pneumonia, unspecified organism; I50.9 Heart failure, unspecified; Z99.81 Dependence on supplemental oxygen; I25.10 Atherosclerotic heart disease of native coronary artery without angina pectoris; G47.33 Obstructive sleep apnea (adult) (pediatric); E66.01 Morbid (severe) obesity due to excess calories; Z68.42 Body mass index [BMI] 45.0-49.9, adult; E03.9 Hypothyroidism, unspecified; F41.9 Anxiety disorder, unspecified; F32.A Depression, unspecified; K57.90 Diverticulosis of intestine, part unspecified, without perforation or abscess without bleeding; G43.909 Migraine, unspecified, not intractable, without status migrainosus; M81.0 Age-related osteoporosis without current pathological fracture; M19.90 Unspecified osteoarthritis, unspecified site; Z87.891 Personal history of nicotine dependence; Z79.51 Long term (current) use of inhaled steroids; Z79.82 Long term (current) use of aspirin; Z79.899 Other long term (current) drug therapy; Z95.5 Presence of coronary angioplasty implant and graft; Z85.41 Personal history of malignant neoplasm of cervix uteri; Z90.710 Acquired absence of both cervix and uterus
CPT/HCPCS: 36415; 71045; 80053; 82948; 83036; 83605; 84484; 85025; 85380; 87040; 87637; 93005; 96365; 96367; 96372; 96375; 96376; 99285; A9270; G0378; J0248; J1100; J1650; J1940; J1956; J2919

== ENCOUNTER 2024-02-12 08:28 | Emergency (ER) | payer OTHER, SELFPAY ==
--- NOTE | ~2024-02-12 | XR_ITS ---
EXAMINATION: XR chest 1V portable DATE: 02/12/2024 08:56 INDICATION: Shortness of breath. TECHNIQUE: A single frontal view of the chest was obtained. COMPARISON: Chest single view 02/10/2024, chest CT 01/01/2024 FINDINGS: There is no pneumonia, pleural effusion, or pneumothorax. The heart size is normal. There i s an old healed right rib fracture. IMPRESSION: 1. No acute cardiopulmonary disease. Reviewed, dictated and finalized at location A. TRIMMER
[2024-02-12 08:32] VITALS: BP 145/75; PULSE 87; RESP 24; TEMP 36.6; O2SAT 85
[2024-02-12 08:34] VITALS: O2SAT 100
[2024-02-12 08:40] VITALS: O2SAT 98
[2024-02-12] MEDS: methylPREDNISolone SOD SUCC 125 MG VIAL IV PUSH (09:00)
[2024-02-12 09:02] LABS: Basophils Absolute Auto 0.01 K/mm3 (0.00-0.10); Basophils Percent Auto 0.1 % (0.0-1.0); Hematocrit 40.7 % (35.0-49.0); Immature Granulocyte Absolute 0.07 K/mm3 (0.00-0.00); Immature Granulocyte Percent A 0.6 % (0.0-0.0); Lymphocytes Absolute Auto 1.16 K/mm3 (1.10-4.50); Lymphocytes Percent Auto 10.1 % (18.0-42.0); Mean Corpuscular HGB Conc 29.5 g/dL (32-36); Mean Corpuscular Volume 74.5 fL (78.0-102.0); Mean Platelet Volume 9.4 fl (9.2-11.8); Monocytes Absolute Auto 1.07 K/mm3 (0.10-0.90); Monocytes Percent Auto 9.4 % (2.0-11.0); Neutrophils Absolute Auto 9.13 K/mm3 (1.70-7.20); Neutrophils Percent Auto 79.8 % (50.0-70.0); Platelet Count Result 323 K/mm3 (150-420); Red Blood Count 5.46 M/mm3 (4.20-5.40); Red Cell Distribution Width 16.8 % (11.6-14.4); White Blood Count 11.4 K/mm3 (4.8-10.8)
[2024-02-12 09:08] VITALS: PULSE 77; RESP 20; O2SAT 98
[2024-02-12] MEDS: IPRATROPIUM 0.5 MG/ALBUTEROL SULFATE 2.5 MG AMPUL.NEB 3 ML INHALATION (09:10)
[2024-02-12 09:15] VITALS: PULSE 78; RESP 20; O2SAT 100
[2024-02-12 09:25] VITALS: O2SAT 96
[2024-02-12 09:27] LABS: Lactic Acid Reflex 0.8 mmol/L (0.4-2.0)
[2024-02-12 09:34] LABS: Alanine Aminotransferase 16 U/L (14-59); Albumin Level 2.8 g/dL (3.4-5.0); Alkaline Phosphatase 118 U/L (46-116); Anion Gap 6 mmol/L (4-12); Aspartate Amino Transferase 18 U/L (15-37); Bilirubin,Total 0.3 mg/dL (0.00-1.00); Blood Urea Nitrogen 15 mg/dL (7-18); Calcium 9.2 mg/dL (8.5-10.1); Carbon Dioxide 35 mmol/L (21-32); Chloride 98 mmol/L (98-108); Estimated CRCL calculation 63 ml/min; Estimated Glomerular Filt Rate 57; Glucose 118 mg/dL (70-99); NT Pro B Type Natriuretic Pept 435 pg/mL (0-125); Osmolality Calculated 289 mOsm/kg (285-295); Potassium 3.3 mmol/L (3.5-5.1); Sodium 139 mmol/L (136-145); Total Protein 6.9 g/dL (6.4-8.2)
--- NOTE | 2024-02-12 09:37 | ED.SOB ---
HPI - SOB/Dyspnea General Chief Complaint: Shortness of Breath/Dyspnea Stated Complaint: shortness of breath Source: patient Mode of arrival: wheelchair Limitations: no limitations History of Present Illness HPI Narrative: this is a 63-year-old female with history of COPD recently discharged from the hospital with some pneumonia and diagnosis of COVID, patient does wear 3L of oxygen at home and had a episode where she desaturated down to the upper 80s and fall short of breath and was concerned and presented to the emergency department. Patient mildly short of breath with no cough or congestion no peripheral edema no chest pain no fever chills. MD elicited complaint: shortness of breath Pertinent past history: COPD Onset (ago): hour(s) Context: recent illness Timing: intermittent and improved Severity: mild Related Data Home Medications Medication Instructions Recorded Confirmed clopidogrel 75 mg tablet 75 mg PO DAILY 03/18/22 02/12/24 pantoprazole 40 mg tablet,delayed 40 mg PO DAILY 03/18/22 02/10/24 release aspirin 81 mg tablet,delayed 81 mg PO DAILY 08/14/22 02/10/24 release levothyroxine 75 mcg tablet 75 mcg PO DAILY 08/14/22 02/10/24 propranolol 10 mg tablet 20 mg PO DAILY 08/14/22 02/10/24 simvastatin 40 mg tablet 40 mg PO DAILY 08/14/22 02/10/24 paroxetine HCl 40 mg tablet 60 mg PO DAILY 08/15/22 02/10/24 aripiprazole 5 mg tablet 5 mg PO HS 01/01/24 02/10/24 famotidine 40 mg tablet 40 mg PO DAILY 01/01/24 02/10/24 ferrous sulfate 325 mg (65 mg 325 mg PO BID 01/01/24 02/10/24 iron) tablet potassium chloride 20 mEq 20 meq PO BID 01/01/24 02/10/24 tablet,extended release Allergies Allergy/AdvReac Type Severity Reaction Status Date / Time codeine Allergy Severe Anaphylaxis Verified 02/10/24 19:12 Penicillins Allergy Severe Anaphylaxis Verified 02/10/24 19:12 morphine Allergy Unknown Unknown Verified 02/10/24 19:12 Review of Systems Review of Systems: All systems reviewed & are unremarkable except as noted in HPI and below PMFSH Past Medical History Medical History Anxiety Cervical cancer Chronic back pain Chronic obstructive pulmonary disease Chronic respiratory failure with hypoxia, on home oxygen therapy Coronary artery disease Depression Diverticulosis Hypothyroidism Migraines Morbid obesity Nicotine abuse Obstructive sleep apnea Osteoarthritis Osteoporosis Surgical History Surgical History History of cardiac catheterization History of chest tube placement History of coronary artery stent placement History of hysterectomy History of open reduction and internal fixation (ORIF) procedure Repair left femur fracture. History of surgery on right wrist Family History Family History Other Hypertension Social History Social History Social History: Surrogate medical decision maker: Ana Maria Ross, sibling. Code status: Full code. Smoking packs per day: 1.5 Smoking cigarettes per day: 30.0 Years smoked: 40 Smoking pack-years: 60.00 Smoking status: Former smoker Tobacco type: cigarettes Second hand tobacco smoke exposure: Yes Smoking end date: 04/10/23 Additional smoking assessment comments: Patient states she quit smoking last . Alcohol intake: never Substance use: current Substance use type: marijuana Last use: 02/08/2024 Do You Feel Safe in your Home?: Yes Lack of Transportation: No Lack of Food: Never True Current Housing: I Have Housing Concerned About Future Housing: No Difficulty Paying Gas/Electric Bills: No Difficulty Paying for Meds: No Currently Unemployed: No Education: Grade School Difficulty w/ Childcare or Family Care: No Spiritual care concerns: No Exam Const: General: healthy appearing and no acute distress Nutritional Appearance: well nourished Orientation/consciousness: patient oriented x3 Limitations: no limitations HENMT: Head: normal to inspection Eyes: Conjunctivae: conjunctivae normal Pupils: Equal, round and reactive pupils present EOM: EOMs intact bilaterally Neck: Neck: normal visual inspection and no lymphadenopathy Chest: Chest palpation & inspection: normal inspection of the chest Resp: Effort & Inspection: normal respiratory effort Auscultation: clear to auscultation bilaterally Cardio: Rate: regular rate Rhythm: regular rhythm GI: GI Palp: Yes Soft to palpation Auscultation: normal bowel sounds Skin: General skin exam: normal color Rashes: no rashes Extrem: General: normal to inspection Course Course Emergency Course: X-ray performed shows no acute cardiopulmonary abnormalities the patient satting at 96% on 5L labs reviewed and white count mildly elevated but has improved since discharge, patient received DuoNeb and IV Solu-Medrol. Patient symptoms have improved and will discharge home. Vital Signs Vital signs: Vital Signs Temperature 36.6 C 02/12/24 08:32 Pulse Rate 87 02/12/24 08:32 Respiratory Rate 24 H 02/12/24 08:32 Blood Pressure 145/75 H 02/12/24 08:32 Pulse Oximetry 85 L 02/12/24 08:32 Oxygen Delivery High Flow Therapy with Fa 02/12/24 08:32 Oxygen Flow Rate 3 02/12/24 08:32 Temperature 36.6 C 02/12/24 08:32 Pulse Rate 78 02/12/24 09:15 Respiratory Rate 20 02/12/24 09:15 Blood Pressure 145/75 H 02/12/24 08:32 Pulse Oximetry 96 02/12/24 09:25 Oxygen Delivery Nasal Cannula 02/12/24 09:25 Oxygen Flow Rate 5 02/12/24 09:25 MDM - SOB/Dyspnea Lab Data 02/12/24 08:57 02/12/24 08:57 Labs: Lab Results 02/12/24 Range/Units 08:57 WBC 11.4 H (4.8-10.8) K/mm3 RBC 5.46 H (4.20-5.40) M/mm3 Hgb 12.0 (12.0-15.0) g/dL Hct 40.7 (35.0-49.0) % MCV 74.5 L (78.0-102.0) fL MCH 22.0 L (27.0-31.0) pg MCHC 29.5 L (32-36) g/dL RDW 16.8 H (11.6-14.4) % Plt Count 323 (150-420) K/mm3 MPV 9.4 (9.2-11.8) fl Immature Gran % (Auto) 0.6 H (0.0-0.0) % Neut % (Auto) 79.8 H (50.0-70.0) % Lymph % (Auto) 10.1 L (18.0-42.0) % [place] % (Auto) 9.4 (2.0-11.0) % Eos % (Auto) 0.0 L (1.0-6.0) % Baso % (Auto) 0.1 (0.0-1.0) % Lymph # (Auto) 1.16 (1.10-4.50) K/mm3 [place] # (Auto) 1.07 H (0.10-0.90) K/mm3 Eos # (Auto) 0.00 L (0.02-0.50) K/mm3 Baso # (Auto) 0.01 (0.00-0.10) K/mm3 Abs Immat Gran (auto) 0.07 H (0.00-0.00) K/mm3 Absolute Neuts (auto) 9.13 H (1.70-7.20) K/mm3 Absolute Nucleated RBC 0.00 (0.00-0.00) K/mm3 Nucleated RBC % 0.0 (0-0.0) % Sodium 139 (136-145) mmol/L Potassium 3.3 L (3.5-5.1) mmol/L Chloride 98 (98-108) mmol/L Carbon Dioxide 35 H (21-32) mmol/L Anion Gap 6 (4-12) mmol/L BUN 15 (7-18) mg/dL Creatinine 0.99 (0.55-1.02) mg/dL Estim Creat Clear Calc 63 ml/min Estimated GFR 57 L (59 - ) Glucose 118 H (70-99) mg/dL Calculated Osmolality 289 (285-295) mOsm/kg Lactic Acid 0.8 (0.4-2.0) mmol/L Calcium 9.2 (8.5-10.1) mg/dL Total Bilirubin 0.3 (0.00-1.00) mg/dL AST 18 (15-37) U/L ALT 16 (14-59) U/L Alkaline Phosphatase 118 H (46-116) U/L NT-Pro-B Natriuret Pep 435 H (0-125) pg/mL Total Protein 6.9 (6.4-8.2) g/dL Albumin 2.8 L (3.4-5.0) g/dL Critical Care Time Critical Care Time Critical Care Time: No Discharge Plan Discharge Clinical Impression: Chronic obstructive pulmonary disease (COPD) Qualifiers: COPD type: unspecified COPD Qualified Code(s): J44.9 - Chronic obstructive pulmonary disease, unspecified Patient Disposition: Home, Self-Care Condition: Stable Instructions: Antibiotic Form, COPD (Chronic Obstructive Pulmonary Disease) (ED) Additional Instructions: patient advised to continue her home oxygen can increase it to keep her saturations around 90% take medication as prescribed discharge from the hospital and follow with primary care physician within the next 3 to 4 days for further evaluation and treatment. Prescriptions: No Action clopidogrel 75 mg tablet 75 mg PO DAILY pantoprazole 40 mg tablet,delayed release (DR/EC) 40 mg PO DAILY aspirin 81 mg tablet,delayed release (DR/EC) 81 mg PO DAILY simvastatin 40 mg tablet 40 mg PO DAILY levothyroxine 75 mcg tablet 75 mcg PO DAILY propranolol 10 mg tablet 20 mg PO DAILY paroxetine HCl 40 mg tablet 60 mg PO DAILY (DME) Nebulizer Machine See Rx Instructions .Route .MEDSUPPLY Qty: 1 0RF Rx Instructions: As directed buspirone 10 mg tablet 10 mg PO BID Qty: 1 0RF famotidine 40 mg tablet 40 mg PO DAILY ferrous sulfate 325 mg (65 mg iron) Tablet 325 mg PO BID aripiprazole 5 mg tablet 5 mg PO HS potassium chloride 20 mEq tablet extended release 20 meq PO BID hydrocodone-acetaminophen 5-325 mg Tablet 1 tablet PO Q6-8H PRN (Reason: Pain Rated 7-10) Qty: 20 0RF guaifenesin [Mucus Relief ER] 600 mg Tablet Extended Release 12hr 1,200 mg PO Q12HR Qty: 14 0RF prednisone 20 mg tablet 40 mg PO DAILY Qty: 8 0RF azithromycin 250 mg tablet See Rx Instructions .ROUTE .COMPLEX Qty: 6 0RF Rx Instructions: For 250 mg dose pack: take 500 mg today (day 1), then 250 mg for 4 days (days 2-5) furosemide 20 mg tablet 20 mg PO DAILY Qty: 30 0RF Anoro Ellipta 62.5-25 mcg/actuation blister with device 1 inh inhalation DAILY Qty: 60 6RF albuterol sulfate 90 mcg/actuation HFA aerosol inhaler 2 inh INHALATION Q4H PRN (Reason: Dyspnea or wheezing) Qty: 6.7 6RF Rx Instructions: as directed ipratropium-albuterol 0.5 mg-3 mg(2.5 mg base)/3 mL solution for nebulization 3 ml inhalation Q4H PRN (Reason: shortness of breath or wheezing) Qty: 90 3RF benzonatate 200 mg capsule 200 mg PO BID PRN (Reason: cough) Qty: 20 0RF azelastine 137 mcg (0.1 %) spray,non-aerosol 2 spray intranasal Q12H Qty: 30 0RF Rx Instructions: administer into each nostril cyclobenzaprine 10 mg tablet 10 mg PO .HS PRN (Reason: muscle spasm) Qty: 30 2RF Rx Instructions: Can cause drowsiness. Jardiance 10 mg tablet 10 mg PO DAILY Qty: 30 0RF Follow-up/Referrals: Rebeca Jansen NP [Primary Care Provider] - Time of Disposition: 09:41
[2024-02-12] MEDS: POTASSIUM BICARBONATE 25 MEQ TABEF 50 MEQ PO (09:40)
== END 2024-02-12 09:48 | disposition home or self-care (01) ==
PROVIDERS: Emergency Provider Emergency Medicine; PCP Nurse Practitioner Family
DX: J44.9 Chronic obstructive pulmonary disease, unspecified (principal); J96.11 Chronic respiratory failure with hypoxia; Z99.81 Dependence on supplemental oxygen; I25.10 Atherosclerotic heart disease of native coronary artery without angina pectoris; E03.9 Hypothyroidism, unspecified; G47.33 Obstructive sleep apnea (adult) (pediatric); F41.9 Anxiety disorder, unspecified; F32.A Depression, unspecified; M81.0 Age-related osteoporosis without current pathological fracture; E66.01 Morbid (severe) obesity due to excess calories; Z68.42 Body mass index [BMI] 45.0-49.9, adult; Z95.5 Presence of coronary angioplasty implant and graft; Z87.891 Personal history of nicotine dependence; F12.90 Cannabis use, unspecified, uncomplicated; Z79.02 Long term (current) use of antithrombotics/antiplatelets; Z79.82 Long term (current) use of aspirin; Z79.84 Long term (current) use of oral hypoglycemic drugs; Z79.51 Long term (current) use of inhaled steroids
CPT/HCPCS: 36415; 71045; 80053; 83605; 83880; 85025; 94640; 96374; 99284; A9270; J2919

== ENCOUNTER 2024-04-28 13:01 | Outpatient (CLI) | payer OTHER, SELFPAY ==
--- OUTSIDE RECORDS SUMMARY | 2024-04-28 13:08 | XMS_ITS | Encounter Summary ---
Author Organization [facility] Address [facility] [place] [address] Care Team Providers Care Residential Field Manager Name Role Phone Lilia Stark MD Primary Care Provider [phone] Brooke Castro MD Unavailable Encounter Details Date Type Department Care Team (Late st Contact Info) Description 11/14/2021 Hospital Orders Only [facility] Loom Technician Pre/Post [address] [place] [address] Naif Braxton MD [address] [place] [address] Social History Tobacco Use Types Packs/Day Years Used Date Smoking Tobacco: Every Day Cigarettes 1 40 Alcohol Use Standard Drinks/Week Comments No 0 (1 standard drink = 0.6 oz pur e alcohol) Comments Unknown Sex and Gender Information Value Date Recorded Sex Assigned at Not on file Legal Sex Female 11:03 AM CDT Gender Identity Not on file Sexual Orientation Not on file COVID-19 Exposure Response Date Recorded In the last 10 days, have yo u been in contact with someone who was confirmed or suspected to have Coronavirus/COVID-19? No / Unsure 11/16/2021 9:15 AM CDT documented as of this encounter Plan of Treatment Upcoming Encounters Date Type Department Care Team (Late st Contact Info) Description 11/29/2024 10:[address] [facility] [address] [place] [address] Brooke Castro MD [address] [place] [address] 12/09/2024 9:45 AM CDT Office Visit [facility] [address] [phone] Brooke Castro MD [address] [place] [address] documented as of this encounter Visit Diagnoses Not on filedocumented in this encounter Additional Health Concerns Infection Onset Date Last Indicated Resolved Time COVID-19 Confirmed Comment:02/02/23 per H&P(SB) Per [facility] policy, patient should be eligible for removal of COVID isolation on 02/15/23 (SB) 02/03/2023 02/03/2023 02/28/2023 12: 32 AM NICK SETTER documented as of this encounter Care Teams Residential Field Manager Relationship Specialty Start Date End Date Lilia Stark MD [address] [place] [address] [place] [address] PCP - General FAMILY PRACTICE 06/03/17 Brooke Castro MD [address] [place] [address] [place] Mechanical Systems Designer CARDIOVASCULAR DISEASE 10/03/21 documented as of this encounter
--- OUTSIDE RECORDS SUMMARY | 2024-04-28 13:08 | XMS_ITS | Encounter Summary ---
Author Organization [facility] Address [address] [place] [address] Care Team Providers Care Ultrasonic Hand Solderer Name Role Phone Lilia Stark MD Primary Care Provider [phone] Brooke Castro MD Unavailable Encounter Details Date Type Department Care Team (Late st Contact Info) Description 02/10/2023 Hospital Follow-up Call [facility] [address] [place] [address] Ana Maria Fisher RN Social History Tobacco Use Types Packs/Day Years Used Date Smoking Tobacco: Every Day Cigarettes 1 50 Smokeless Tobacco: Never Alcohol Use Standard Drinks/Week Comments No 0 (1 standard drink = 0.6 oz pur e alcohol) [facility] Utilities Answer Date Recorded In the past 12 months has e [employer], gas, oil, or water [employer] threatened to shut off services in your home? No 02/02/2023 Humiliation, Afraid, Rape, and Kick questionnair e Answer Date Recorded Within the last year, have y ou been afraid of your partner or ex-partner? No 02/02/2023 Within the last year, have y ou been humiliated or emotionally abused in other ways by your partner or ex-partner? No Within the last year, have y ou been kicked, hit, slapped, or otherwise physically hurt by your partner or ex-partner? No 02/02/2023 Within the last year, have y ou been raped or forced to have any kind of sexual activity by your partner or ex-partner? No 02/02/2023 Overall Financial Resource Strain (CARDIA) Answe r Date Recorded How hard is it for you to pa y for the very basics like food, housing, medical care, and heating? Not hard at all 02/02/2023 Hunger Vital Sign Answer Date Recorded Within the past 12 months, y ou worried that your food would run out before you got the money to buy more. Never true 02/03/20 23 Within the past 12 months, t he food you bought just didn't last and you didn't have money to get more. Never true 02/02/2023 PRAPARE - Transportation Answer Date Re corded In the past 12 months, has l ack of transportation kept you from medical appointments or from getting medications? No 01/09 In the past 12 months, has l ack of transportation kept you from meetings, work, or from getting things needed for daily living? No 02/02/2023 Housing Stability Vital Sign Answer Pato e Recorded In the last 12 months, was t here a time when you were not able to pay the mortgage or rent on time? No 02/02/2023 In the last 12 months, how many places have you lived? 1 02/02/2023 In the last 12 months, was t here a time when you did not have a steady place to sleep or slept in a half-way (including now)? No 02/02/2023 Comments Unknown Sex and Gender Information Value Date Recorded Sex Assigned at Not on file Legal Sex Female 11:03 AM CDT Gender Identity Not on file Sexual Orientation Not on file documented as of this encounter Functional Status * Are you deaf or do you have serious difficulty hearing Answer Date of Assessment Author Status No 02/02/2023 6:45 AM BODY SHOP MANAGER MckeonShanaira Q, R N Active * Are you blind or do you have serious difficulty seeing, even when wearing glasses? Answer Date of Assessment Author Status No 02/02/2023 6:45 AM BODY SHOP MANAGER Mckeon Yagaira Q, R N Active * Do you have serious difficulty walking or climbing stairs? Answer Date of Assessment Author Status No 02/02/2023 6:45 AM BODY SHOP MANAGER Mckeon, Yagaira Q, R N Active * Do you have difficulty dressing or bathing? Answer Date of Assessment Author Status No 02/02/2023 6:45 AM BODY SHOP MANAGER MckeonShanaira Q, R N Active * Because of a physical, mental, or emotional condition, do you have difficulty doing errands alone such as visiting a doctor's office or shopping? Answer Date of Assessment Author Status No 02/02/2023 6:45 AM BODY SHOP MANAGER Haile Mckeon R N Active documented as of this encounter Mental Status * Because of a physical, mental, or emotional condition, do you have serious difficulty concentrating, remembering, or making decisions? Answer Entry Date Author Status No 02/02/2023 6:45 AM BODY SHOP MANAGER Haile Mckeon R N Active documented in this encounter Plan of Treatment Upcoming Encounters Date Type Department Care Team (Late st Contact Info) Description 11/29/2024 10:00 AM CDT Appointment [facility] [address] [place] [address] Brooke Castro MD [address] [place], [place] [id number] 12/09/2024 9:45 AM CDT Office Visit [facility] [address] [phone] Brooke Castro MD [address] [place] [address] documented as of this encounter Goals Goal Patient Goal Type Associated Problems Recent Progress Patient-Stated? Author Patient will return to prior living situation and remain independent in ADLs upon discharge from hospital Lifestyle No Narcisa Benedict RN documented as of this encounter Visit Diagnoses Not on filedocumented in this encounter Additional Health Concerns Infection Onset Date Last Indicated Resolved Time COVID-19 Confirmed Comment:02/02/23 per H&P(SB) Per [facility] policy, patient should be eligible for removal of COVID isolation on 02/15/23 (SB) 02/03/2023 02/03/2023 02/28/2023 12: 32 AM BODY SHOP MANAGER documented as of this encounter Care Teams Ultrasonic Hand Solderer Relationship Specialty Start Date End Date Lilia Stark MD [address] [place] [address] [place] [address] PCP - General FAMILY PRACTICE 06/03/17 Brooke Castro MD [address] [place] [address] [place] Tongue Trimmer CARDIOVASCULAR DISEASE 10/03/21 documented as of this encounter
--- OUTSIDE RECORDS SUMMARY | 2024-04-28 13:08 | XMS_ITS | Clinical Summary ---
Author Organization [facility] Address [address] [place] [address] Care Team Providers Care Bomb Squad Commander Name Role Phone Lilia Stark MD Primary Care Provider [phone] Brooke Castro MD Unavailable Allergies Active Allergy Reactions Criticality Noted Date Comments Codeine Swelling 06/02/2017 Morphine And Codeine Itching 06/02/2017 Penicillins Unknown 06/02/2017 Medications hydrochlorothiazi de 25 MG tablet Take 1 tablet (25 mg total) by mouth every morning. Active levothyroxine 75 MCG tablet Take 1 tablet (75 mcg total) by mouth every morning. Active paroxetine 40 MG tablet Take 1.5 tablets (60 mg total) by mouth every morning. Active albuterol sulfate HFA 108 (90 Base) MCG/ACT inhaler Inhale 2 puffs into the lungs every 6 (six) hours as needed for Wheezing. Active vitamin D2, ergocalciferol, 20554 UNITS capsuleIndication s:take 1 capsule by mouth every Friday and Friday Take 1 capsule (50,000 Units total) by mouth 2 (two) times a week. Indications: take 1 capsule by mouth every Friday and Friday Active aspirin EC (ECOTRIN) 81 MG tablet Take 1 tablet (81 mg total) by mouth daily. Active pantoprazole EC (PROTONIX) 40 MG tablet Take 1 tablet (40 mg total) by mouth daily. Active propranolol (INDERAL) 10 MG tablet Take 1 tablet (10 mg total) by mouth daily. Active clopidogrel (PLAVIX) 75 MG tablet Take 1 tablet (75 mg total) by mouth daily. 90 tablet 3 2 Active ARIPiprazole (ABILIFY) 5 MG tablet Take 1 tablet (5 mg total) by mouth nightly at bedtime. at bedtime 3 Active simvastatin (ZOCOR) 40 MG tablet Take 1 tablet (40 mg total) by mouth daily. Active OXYGEN CONCENTRATOR SUPPLY, DME,Indications:C OVID-19,Acute hypoxic respiratory failure ([facility]/HCC) 1 Device by Nasal route continuous. Nasal cannula needed. Portable oxygen tanks 3L pulse dose 1 Device 12 3 Active cloNIDine (CATAPRES) 0.1 MG tablet Take 1 tablet (0.1 mg total) by mouth as needed. Take one tablet daily as needed for blood pressures greater than 160/90 60 tablet 1 4 Active Active Problems Problem Noted Date Diagnosed Date Acute hypoxic respiratory failure ([facility]/H CC) 02/02/2023 Hyperlipidemia Syncope and collapse Fatigue Hypertension Family History Medical History Relation Comments Hyperlipidemia Father Hypertension Father Diabetes Mother Relation Status Comments Father Alive Mother Alive Social History Tobacco Use Types Packs/Day Years Used Date Smoking Tobacco: Every Day Cigarettes 1 50 Smokeless Tobacco: Never Tobacco Cessation:Ready to Q uit: Not Asked; Counseling Given: Not Answered Alcohol Use Standard Drinks/Week Comments No 0 (1 standard drink = 0.6 oz pur e alcohol) [facility] Utilities Answer Date Recorded In the past 12 months has e Vine, gas, oil, or water [employer] threatened to shut off services in your [...] place to sleep or slept in a custodial (including now)? No 02/02/2023 Comments Unknown Sex and Gender Information Value Date Recorded Sex Assigned at Not on file Legal Sex Female 11:03 AM CDT Gender Identity Not on file Sexual Orientation Not on file Last Filed Vital Signs Vital Sign Reading Time Taken Comments Blood Pressure 121/81 12/08/2023 1:50 PM CDT Pulse 59 12/08/2023 1:50 PM CDT Temperature 36.7 C (98.1 F) 02/06/2023 8:34 AM CONTROL SYSTEMS ENG Respiratory Rate 16 12/08/2023 1:50 PM CDT Oxygen Saturation 97% 12/08/2023 1:50 PM CDT Inhaled Oxygen Concentration - - Weight 123.4 kg (272 lb) 12/08/2023 1:50 PM CDT Height 157.5 cm (5' 2 ) 12/08/2023 1:50 PM CDT Body Mass Index 49.75 12/08/2023 1:50 PM CDT Plan of Treatment Upcoming Encounters Date Type Department Care Team (Late st Contact Info) Description 11/29/2024 10:00 AM CDT Appointment [facility] [address] [place] [address] Brooke Castro MD [address], [place] [id number] 12/09/2024 9:45 AM CDT Office Visit [facility] [address] [phone] Brooke Castro MD [address], [place] [phone] Health Maintenance Due Date Last Done Comments Colorectal Cancer Screening Colonoscopy (10 Years) 1960 Kidney Health Evaluation 1960 Annual Physical 05/16/1963 Pneumococcal Vaccine: Pediatrics (0 to 5 Years) and At-Risk Patients (6 to 64 Years) (1 of 2 - PCV) 1966 Diabetes: Retinopathy Eye Exam 1978 Hepatitis C 1978 Mammogram Screening 2000 Lung Cancer Screening 2010 Zoster Vaccines (1 of 2) 2010 RSV Immunization or 60+ Years (1 - Risk 60-74 years 1-dose series) 2020 Hemoglobin A1C 08/04/2023 02/03/2023 ASCVD LDL 09/07/2023 09/06/2022 Lipid Panel 09/07/2023 09/06/2022 COVID-19 Vaccine ( season) 2023 11/09/2020, 10/19/2020 Influenza Adult (#1) 2023 11/19/2022, 12/14/2021, 03/05/2021, Additional history exists DTaP, Tdap and Td Vaccines (3 - Td or Tdap) 09/06/2024 09/06/2014, 07/18/2011 Meningococcal B Vaccine Aged Out No l onger eligible based on patient's age to complete this topic Meningococcal Vaccine Aged Out No grace viridiana eligible based on patient's age to complete this topic RSV Immunizations Under 20 Months Aged Out No longer eligible based on patient's age to complete this topic Goals Goal Patient Goal Type Associated Problems Recent Progress Patient-Stated? Author Patient will return to prior living situation and remain independent in ADLs upon discharge from hospital Lifestyle Narcisa Price RN Medical Devices Implanted Type Area Superintendent Maintenance Device Identifier Shelf Expiration Date Model / Serial / Lot Rca P: Xience Skypoint 3.5x28 Rocky Stent- 2 Implanted:Qty : 1 on 11/16/2021 by Naif Braxton MD Stent Coronary RCA [employer] 06/22/2023 [id number] Procedures Procedure Name Priority Date/Time Associated Diagnosis Comments HEMOGLOBIN, GLYCOSYLATED Routine 02/03/2023 6:54 AM CONTROL SYSTEMS ENG LIPID PANEL Routine 09/06/2022 Mixed hyperlipidemia from Last 3 Months or Most Recently Relevant to Health Maintenance Results * (ABNORMAL) HEMOGLOBIN, GLYCOSYLATED (02/03/2023 6:54 AM CONTROL SYSTEMS ENG) HGB A1C 6.2(H) <5.7 % 02/03/2023 3:04 PM CONTROL SYSTEMS ENG [facility] ESTIMATED AVG GLUCOSE 131(H) 74 - 114 MG/DL 02/03/2023 3:04 PM CONTROL SYSTEMS ENG [facility] 02/03/2023 6:54 AM CONTROL SYSTEMS ENG Tina Maynard MD LABORATORY Final Result [facility] [address] [place] [address], [id number] * LIPID PANEL (09/06/2022) CHOLESTEROL 241 HDL 78 TRIGLYCERIDES 103 LDL (CALCULATED) 142 09/06/2022 Brooke Castro MD LABORATORY Final Result from Last 3 Months or Most Recently Relevant to Health Maintenance Insurance [employer] Advance Directives * Full Code (Latest Code Status on File) Date Activated Date Inactivated Comments 02/02/2023 10:02 AM 02/06/2023 6:23 PM Care Teams Bomb Squad Commander Relationship Specialty Start Date End Date Lilia Stark MD [address] [place] [address] [place] [address] PCP - General FAMILY PRACTICE 06/03/17 Brooke Castro MD [address] [place] [address] Daggett Crimper Operator CARDIOVASCULAR DISEASE 10/03/21
[2024-04-28 13:18] LABS: Basophils Absolute Auto 0.06 K/mm3 (0.00-0.10); Basophils Percent Auto 0.7 % (0.0-1.0); Eosinophils Absolute Auto 0.18 K/mm3 (0.02-0.50); Eosinophils Percent Auto 2.2 % (1.0-6.0); Hematocrit 44.4 % (35.0-49.0); Hemoglobin 12.9 g/dL (12.0-15.0); Immature Granulocyte Absolute 0.03 K/mm3 (0.00-0.00); Immature Granulocyte Percent A 0.4 % (0.0-0.0); Lymphocytes Absolute Auto 2.03 K/mm3 (1.10-4.50); Mean Corpuscular HGB Conc 29.1 g/dL (32-36); Mean Corpuscular Hemoglobin 23.1 pg (27.0-31.0); Mean Corpuscular Volume 79.4 fL (78.0-102.0); Mean Platelet Volume 9.8 fl (9.2-11.8); Monocytes Absolute Auto 0.37 K/mm3 (0.10-0.90); Monocytes Percent Auto 4.6 % (2.0-11.0); Neutrophils Absolute Auto 5.44 K/mm3 (1.70-7.20); Neutrophils Percent Auto 67.1 % (50.0-70.0); Platelet Count Result 322 K/mm3 (150-420); Red Blood Count 5.59 M/mm3 (4.20-5.40); Red Cell Distribution Width 17.5 % (11.6-14.4); White Blood Count 8.1 K/mm3 (4.8-10.8)
[2024-04-28 13:55] LABS: Alanine Aminotransferase 21 U/L (14-59); Albumin Level 3.2 g/dL (3.4-5.0); Alkaline Phosphatase 150 U/L (46-116); Anion Gap 5 mmol/L (4-12); Aspartate Amino Transferase 15 U/L (15-37); Bilirubin,Total 0.5 mg/dL (0.00-1.00); Blood Urea Nitrogen 7 mg/dL (7-18); Calcium 9.3 mg/dL (8.5-10.1); Carbon Dioxide 34 mmol/L (21-32); Chloride 101 mmol/L (98-108); Estimated Glomerular Filt Rate 55; Free T4 Free Thyroxine 1.02 ng/dL (0.76-1.46); Glucose 130 mg/dL (70-99); Iron 32 ug/dL (50-170); NT Pro B Type Natriuretic Pept 330 pg/mL (0-125); Osmolality Calculated 290 mOsm/kg (285-295); Potassium 4.4 mmol/L (3.5-5.1); Sodium 140 mmol/L (136-145)
[2024-04-28 14:21] LABS: HIV 1 P24 AG Negative (Negative); HIV 1/2 AB Negative (Negative)
[2024-04-29 11:49] LABS: Hepatitis A Antibody IgM NON-REACTIVE (NON-REACTIVE); Hepatitis B Core Antibody NON-REACTIVE (NON-REACTIVE); Hepatitis B Surface Antigen NON-REACTIVE (NON-REACTIVE); Hepatitis C Virus Antibody NON-REACTIVE (NON-REACTIVE)
[2024-04-30 03:28] LABS: Total Triiodothyronine (T3) 94 ng/dL (76-181)
[2024-04-30 03:28] LABS: Vitamin D 25 Hydroxy 86 ng/mL (30-100)
== END 2024-04-28 13:02 | disposition home or self-care (01) ==
LOC: CHSLAB 13:01
PROVIDERS: PCP Nurse Practitioner Family; Visit Provider Nurse Practitioner Family
DX: Z20.2 Contact with and (suspected) exposure to infections with a predominantly sexual mode of transmission (principal); E03.9 Hypothyroidism, unspecified; I50.9 Heart failure, unspecified; Z11.3 Encounter for screening for infections with a predominantly sexual mode of transmission; Z79.899 Other long term (current) drug therapy; E87.6 Hypokalemia
CPT/HCPCS: 36415; 80053; 80074; 82306; 83540; 83880; 84439; 84443; 84480; 85025; 86592; 86695; 86696; 87806

== ENCOUNTER 2024-08-09 12:57 | Outpatient (CLI) | payer OTHER, SELFPAY ==
[2024-08-09 13:30] LABS: Hematocrit 44.9 % (37.0-47.0); Hemoglobin 13.7 g/dL (12.0-15.0)
[2024-08-09 13:45] LABS: Anion Gap 2 mmol/L (4-12); Blood Urea Nitrogen 9 mg/dL (7-17); Calcium 9.6 mg/dL (8.4-10.2); Carbon Dioxide 34 mmol/L (22-30); Chloride 103 mmol/L (98-107); Estimated Glomerular Filt Rate > 60; Glucose 103 mg/dL (65-110); Sodium 139 mmol/L (137-145)
== END 2024-08-09 12:58 | disposition home or self-care (01) ==
LOC: ANHSURGERY 13:00
PROVIDERS: Anesthesiology; PCP Nurse Practitioner Family; Visit Provider Plastic Surgery
DX: Z78.9 Other specified health status (principal); I10 Essential (primary) hypertension
CPT/HCPCS: 36415; 80048; 85014; 85018

== ENCOUNTER 2024-08-11 00:06 | Day surgery (SDC) | payer OTHER, SELFPAY ==
--- NOTE | 2024-08-06 14:10 | PC.NURSE ---
Report to the Outpatient Waiting Room, entrance under the green pavilion located off [facility], at time _9:45 AM on date __08/11/24 . Planned Procedure Time: __11:45 .? Time changes happen often and if your time is changed the preop area will call you the afternoon before. - You and your visitor will be asked to self-screen and do not enter if you have any COVID symptoms. Please call surgeon if you need to reschedule. - A mask is optional within the hospital at this time. NOTHING TO DRINK OR EAT 8 HOURS PRIOR TO SURGERY PER DR WHITE Take only the following medications with a SIP of water on the morning of surgery: __ANORO ELLIPTA,PROPRANOLOL,PAROXETINE,LEVOTHYROXINE, DO NOT STOP ANY OF YOUR OTHER PRESCRIPTION MEDICATIONS PRIOR TO SURGERY EXCEPT THE FOLLOWING Hold all vitamins and supplements for 3 days per anesthesiologist. Medications to discontinue per physician __ASPIRIN AND CLOPIDOGREL PER DR SWARTZ Date to take last dose Please no make-up, nail arabic, hairspray, perfume, deodorant, or body powder the day of surgery.? No jewelry (including any body piercings) or valuables the day of surgery, leave them at home.? Please take a shower or bath the night before, or the morning of, surgery with an antibacterial soap.? Wear comfortable, loose fitting clothing.? Children are encouraged to wear pajamas. - Jewelry must be removed prior to entering the operating room.? Rings and piercings that are not removed may be cut off. - The hospital will not accept responsibility for valuables.? - Please leave all valuables, including medications, at home the day of surgery. If you are going home after surgery, a licensed dedicated truck driver must drive you home.? - NO public transportation without another adult if you receive anesthesia. - We recommend that an adult stay with you for 24 hours following discharge. - We also recommend that you do not drive, make important decision, drink alcoholic beverages, or take any drugs that were not prescribed by your health care provider for at least 24 hours after your discharge time. For Pediatric surgeries, we recommend two adults accompany the child home. Follow any additional instructions given to you from your surgeon. Telephone instructions given to ___PATIENT and asked if any additional questions and then verbalized understanding. Patient advised to call surgeon office or pre surgery nurse liaison [phone] if any additional questions.
[2024-08-06 14:24] VITALS: BMI 43.9
--- NOTE | 2024-08-11 06:49 | WPDHPUPDATE1 ---
History and Physical Update Update Date/Time: 08/11/24 06:49 Patient seen and examined in pre-operative holding area. No interval change in medical history or symptoms. Patient recalls previous discussion of benefits and alternatives to procedure. Continues to desire to proceed with left index finger mass excision. Reviewed procedure, post-op expectations and risks including but not limited to bleeding, infection, injury to tendon/nerve/vessel, decreased hand function, stiffness, RSD, no change or worsening of symptoms, recurrence. I discussed the possible use of assistants and their participation in the case. Patient stated understanding and signed the consent form wishing to proceed.
--- NOTE | 2024-08-11 06:50 | W.PM.PROC2 ---
Procedure Note - Detailed Date of Procedure 08/11/24 Pre-op Diagnosis left index finger mass Post-op Diagnosis Same Procedure Performed left index finger mass excision Surgeon Jefferson Cordoba MD Automobile Service Station Mechanic bev swain pa-c Anesthesia MAC Description of Procedure INFORMED CONSENT: The patient was seen and examined and marked in the pre-op area.? The patient signed the consent form. PROCEDURE IN DETAIL:The patient taken back to OR on the stretcher in supine position. Time out performed with anesthesia, surgeon and staff agreeing on patient's name site and surgery to be performed SCDs were placed on the lower extremities and inflated. A tourniquet was placed on {left} upper extremity and antibiotics given IV After anesthesia administered sedation I injected {5}cc 1%lido and 0.5% marcaine plain for digital block in the palm The?{left upper extremity}?was prepped and draped in sterile fashion the??{left upper extremity} was? exsanguinated with Esmarch bandage and tourniquet inflated to 250mmHg I proceeded with making a semicircular excision over the dorsum of the left index finger mass through skin and dermis with 15 blade. I proceeded with spreading with littler scissors and used 15 blade to elevate skin flap above the mass which was very closely adherent to the dermis but proceeded into deeper tissues close to or abutting periosteum of proximal phalanx and the extensor tendons. I proceeded with circumferential dissection of this mass off of all adjacent tissues. I irrigated with normal saline, excised excess loose skin now that the mass was removed and closed with 4-0 chromic. A dressing of xerfoorm, 4x4, bart, and tube gauze was applied after the tourniquet was let down noting the hand was warm and well perfused. The patient was then awaken from anesthesia and transferred to the recovery room in stable condition.? Complications - none EBL- 0cc Disposition - home in stable condition bev swain pa-c was essential for positioning, retraction, closure and dressing placement [facility] Billing Surgery - Charge Forward: Surgery Billing ([id number] for bev)
[2024-08-11 09:50] VITALS: BP 148/106; PULSE 80; RESP 16; TEMP 36.3; O2SAT 96
--- NOTE | 2024-08-11 10:30 | P.PNAN_ITS ---
Anes - Initial Pre Proc Eval Procedure: Operation Date: 08/11/24 11:45 Proposed Procedures p Left Index Finger Mass Excision - Jefferson Cordoba MD Date/Time: 08/11/24 10:30 Surgeon: Jefferson Cordoba MD Pre Op Diagnosis: left finger mass Patient Data Age: 64 Gender: F Height: 1.57 m Weight: 121 kg Last Vital Signs Temp 36.3 C L 08/11/24 09:50 Pulse 80 08/11/24 09:50 Resp 16 08/11/24 09:50 BP 148/106 H 08/11/24 09:50 Pulse Ox 96 08/11/24 09:50 O2 Del Method Room Air 08/11/24 09:50 Allergies Allergy/AdvReac Type Severity Reaction Status Date / Time codeine Allergy Severe Anaphylaxis Verified 08/06/24 13:59 Penicillins Allergy Severe Anaphylaxis Verified 08/06/24 13:59 morphine AdvReac Unknown Nausea and Verified 08/11/24 07:13 Vomiting Home Medications ?Medication ?Instructions ?Recorded ?Confirmed ?Type Nebulizer Machine #1 ea 08/19/22 05/12/24 Rx albuterol sulfate 90 mcg/actuation 2 inh inhalation Q4H PRN Dyspnea 09/02/23 08/06/24 Rx aerosol inhaler or wheezing #6.7 grams ipratropium 0.5 mg-albuterol 3 mg 3 ml inhalation Q4H PRN shortness 09/02/23 08/06/24 Rx (2.5 mg base)/3 mL nebulization of breath or wheezing #90 mL soln aripiprazole 5 mg tablet 5 mg PO HS #90 tabs 04/12/24 08/06/24 Rx aspirin 81 mg tablet,delayed 81 mg PO DAILY #90 tabs 04/12/24 08/06/24 Rx release clopidogrel 75 mg tablet 75 mg PO DAILY #90 tabs 04/12/24 08/06/24 Rx ferrous sulfate 325 mg (65 mg 325 mg PO DAILY #90 tabs 04/12/24 08/06/24 Rx iron) tablet hydrochlorothiazide 25 mg tablet 25 mg PO DAILY #90 tabs 04/12/24 08/06/24 Rx hydroxyzine HCl 25 mg tablet 25 mg PO TID PRN anxiety #20 tabs 04/12/24 08/06/24 Rx levothyroxine 75 mcg capsule 75 mcg PO DAILY #90 caps 04/12/24 08/06/24 Rx mupirocin 2 % topical ointment 1 applic topical BID #22 grams 04/12/24 08/06/24 Rx pantoprazole 40 mg tablet,delayed 40 mg PO DAILY #90 tabs 04/12/24 08/06/24 Rx release paroxetine HCl 40 mg tablet 60 mg (1.5 x 40 mg) PO DAILY #135 04/12/24 08/06/24 Rx tabs potassium chloride 20 mEq 20 meq PO DAILY #90 tabs 04/12/24 08/06/24 Rx tablet,extended release propranolol 10 mg tablet 20 mg (2 x 10 mg) PO DAILY #180 04/12/24 08/06/24 Rx tabs simvastatin 40 mg tablet 40 mg PO DAILY #90 tabs 04/12/24 08/06/24 Rx umeclidinium 62.5 mcg-vilanterol 1 inh inhalation DAILY #60 ea 04/12/24 08/06/24 Rx 25 mcg/actuation powdr for inhalation (Anoro Ellipta) furosemide 20 mg tablet See Rx Instructions .Route 06/16/24 08/06/24 Rx .COMPLEX #90 tabs Patient hx anesthesia problems: none Family hx anesthesia problems: none Results Review: All pre-operative results and documents have been reviewed as part of the pre- operative evaluation. [facility] Past Medical History Medical History Chronic respiratory failure with hypoxia, on home oxygen therapy Morbid obesity Osteoarthritis Coronary artery disease Cervical cancer Obstructive sleep apnea Chronic obstructive pulmonary disease Hypothyroidism Diverticulosis Migraines Chronic back pain Nicotine abuse Osteoporosis Anxiety Depression Surgical History Surgical History History of hysterectomy History of coronary artery stent placement History of cardiac catheterization History of open reduction and internal fixation (ORIF) procedure Repair left femur fracture. History of surgery on right wrist History of chest tube placement Family History Family History Other Hypertension Social History Social History Social History: Surrogate medical decision maker: Ana Maria Ross, sibling. Code status: Full code. Smoking packs per day: 1.5 Smoking cigarettes per day: 30.0 Years smoked: 40 Smoking pack-years: 60.00 Smoking status: Former smoker Tobacco type: cigarettes Second hand tobacco smoke exposure: Yes Smoking end date: 04/10/23 Additional smoking assessment comments: Patient states she quit smoking last . Alcohol intake: never Substance use: current Substance use type: marijuana Last use: 08/06/24 Do You Feel Safe in your Home?: Yes Lack of Transportation: No Lack of Food: Never True Current Housing: I Have Housing Concerned About Future Housing: No Difficulty Paying Gas/Electric Bills: No Difficulty Paying for Meds: No Currently Unemployed: No Education: Grade School Difficulty w/ Childcare or Family Care: No Living arrangements: with family Spiritual care concerns: No Anes - Eval Final PreProcedure Day of Procedure 08/11/24 10:30 Patient weight: morbidly obese Heart: regular rate and rhythm Lungs: clear to auscultation Airway: Mallampati scale class II Neurological: alert and oriented Last oral intake: >/= 8 hours ASA classification: IV Emergent: no Anesthetic plan: proceed Anesthesia type and monitoring: general GIVS and standard monitoring Results Review: All pre-operative results and documents have been reviewed as part of the pre- operative evaluation. Informed Consent: The patient's anesthetic plan and its attendant risks and benefits were discussed with the patient/family/POA. Questions were solicited and answers provided to the satisfaction of the patient/family/POA.
[2024-08-11] MEDS: LACTATED RINGERS 1,000 ML 30 ML IV CONT (10:35)
[2024-08-11] MEDS: ceFAZolin 3 GM/D5W 100 ML 100 ML IVPB (11:23)
[2024-08-11] MEDS: BUPivacaine HCL 0.5% 10 ML AMP INFILTRATE (11:34)
[2024-08-11] MEDS: LIDOCAINE 1% LOCAL INJ 10 ML VIAL INFILTRATE (11:34)
--- NOTE | 2024-08-11 11:36 | S_PTH ---
PATIENT: Karina Ricks LOC: [facility] U#:[id number] AGE/SX: 64/F ROOM: RE08/11/[address]: Jefferson Cordoba MD : 1960 BED: DIS: 08/11/2024 SPEC #: [id number] RECD: 08/11/24 12:50 STATUS: JHONATAN RERed #: [id number] RAMON: 08/11/24 11:[address]: Jefferson Cordoba DEPT: [facility] Surgical RECD BY: Marie Jensen ENTERED: 08/11/24 12:51 SP TYPE: Surgical OTHR DR: Rebeca Jansen, PAOLO Tissues: A - Mass Procedures: Hematoxylin and Eosin Stain Gross and Microscopic Level 3
[2024-08-11 11:50] VITALS: BP 129/78; PULSE 83; RESP 18; O2SAT 94
[2024-08-11 12:15] VITALS: BP 137/86; PULSE 73; RESP 18; O2SAT 96
== END 2024-08-11 12:32 | disposition home or self-care (01) ==
PROVIDERS: PCP Nurse Practitioner Family; Visit Provider Plastic Surgery
PROC: (CPT 11423; principal; 2024-08-11 11:45)
DX: L72.0 Epidermal cyst (principal); J44.9 Chronic obstructive pulmonary disease, unspecified; E03.9 Hypothyroidism, unspecified; M81.0 Age-related osteoporosis without current pathological fracture; F41.9 Anxiety disorder, unspecified; F32.A Depression, unspecified; I50.9 Heart failure, unspecified; I25.10 Atherosclerotic heart disease of native coronary artery without angina pectoris; G47.33 Obstructive sleep apnea (adult) (pediatric); J96.11 Chronic respiratory failure with hypoxia; M19.90 Unspecified osteoarthritis, unspecified site; G89.29 Other chronic pain; M54.9 Dorsalgia, unspecified; F12.90 Cannabis use, unspecified, uncomplicated; E66.01 Morbid (severe) obesity due to excess calories; Z68.42 Body mass index [BMI] 45.0-49.9, adult; Z79.51 Long term (current) use of inhaled steroids; Z79.82 Long term (current) use of aspirin; Z79.02 Long term (current) use of antithrombotics/antiplatelets; Z99.81 Dependence on supplemental oxygen; Z98.890 Other specified postprocedural states; Z95.5 Presence of coronary angioplasty implant and graft; Z87.891 Personal history of nicotine dependence; Z85.41 Personal history of malignant neoplasm of cervix uteri; Z87.19 Personal history of other diseases of the digestive system
CPT/HCPCS: 11423; 88304; J0690; J2003; J2250; J2704; J7120

== ENCOUNTER 2025-02-16 15:09 | Outpatient (NON) | payer OTHER, SELFPAY ==
--- NOTE | 2025-02-16 | CY_PTH ---
PATIENT: Karina Ricks LOC: [facility]#:[id number] AGE/SX: 64/F ROOM: RE02/16/[address]: Rebeca Jansen NP : 1960 BED: DIS: 02/16/2025 SPEC #: [id number] RECD: 02/16/25 15:42 STATUS: ENT REQ #: [id number] RAMON: 02/16/25 00:[address]: Rebeca Jansen DEPT: [facility] Cytology RECD BY: Chantelle Roper MLT, (ASCP) Tissues: A - Pap Smear Procedures: Pap Smear
--- OUTSIDE RECORDS SUMMARY | 2025-02-16 20:10 | XMS_ITS | Encounter Summary ---
Author Organization [facility] Address [address] [place] [address] Care Team Providers Care Business Case Analyst Name Role Phone Lilia Stark MD Primary Care Provider [phone] Brooke Castro MD Unavailable Encounter Details Date Type Department Care Team (Late st Contact Info) Description 11/14/2021 Hospital Orders Only [facility] Pre/Post [address], [place] [phone] Naif Braxton MD [address], [place] [phone] Social History Tobacco Use Types Packs/Day Years [...] AM CDT documented as of this encounter Functional Status * Calculated C-SSRS Risk Score (Lifetime/Recent) Answer Date of Assessment Author Status No Risk Indicated 11/16/2021 9:45 AM CDT Leeann Burgos RN Active * [place] Suicide Severity Rating Scale (Screener/Recent Self-Report) Question Answer Date of Assessment Author Status 1. Wish to be (Past 1 Month) No 11/16/2021 9:45 AM CDT Janee Burgos RN Acti ve 2. Non-Specific Active Suicidal Thoughts (Past 1 Month) No 11/16/2021 9:45 AM QUINTONT Janee Burgos RN Acti ve 6. Suicidal Behavior (Lifetime) No 11/16/2021 9:45 AM Janee Reyes, RN Acti ve documented as of this encounter Plan of Treatment Not on file documented as of this encounter Visit Diagnoses Not on filedocumented in this encounter Additional Health Concerns Infection Onset Date Last Indicated Resolved Time COVID-19 Confirmed Comment:02/02/23 per H&P(SB) Per [facility] policy, patient should be eligible for removal of COVID isolation on 02/15/23 (SB) 02/03/2023 02/03/2023 02/28/2023 12: 32 AM INTERNET MARKETING ANALYST documented as of this encounter Care Teams Business Case Analyst Relationship Specialty Start Date End Date Lilia Stark MD [address] [place] [address] [place] [address] PCP - General FAMILY PRACTICE 06/03/17 Brooke Castro MD [address] [place] [address] [place] Talking Books Library Clerk CARDIOVASCULAR DISEASE 10/03/21 documented as of this encounter
--- OUTSIDE RECORDS SUMMARY | 2025-02-16 20:10 | XMS_ITS | Encounter Summary ---
Author Organization [facility] Address [address] [place] [address] Care Team Providers Care Animal Anatomy Teacher Name Role Phone Lilia Stark MD Primary Care Provider [phone] Brooke Castro MD Unavailable Encounter Details Date Type Department Care Team (Late st Contact Info) Description 02/10/2023 Hospital Follow-up Call [facility] Cardiovascular Care Unit [address] [place] [address] Ana Maria Fisher RN Social History Tobacco Use Types Packs/Day Years Used Date Smoking Tobacco: Every Day Cigarettes 1 50 Smokeless Tobacco: Never Alcohol Use Standard Drinks/Week Comments No 0 (1 standard drink = 0.6 oz pur e alcohol) [facility] Utilities Answer Date Recorded In the past 12 months has e [employer], gas, oil, or water [employer] threatened to shut off services in your [...] place to sleep or slept in a group home (including now)? No 02/02/2023 Comments Unknown Sex and Gender Information Value Date Recorded Sex Assigned at Not on file Legal Sex Female 11:03 AM CDT Gender Identity Not on file Sexual Orientation Not on file documented as of this encounter Functional Status * Are you deaf or do you have serious difficulty hearing Answer Date of Assessment Author Status No 02/02/2023 6:45 AM BARIATRIC SURGEON MkceonShanaira Q, R N Active * Are you blind or do you have serious difficulty seeing, even when wearing glasses? Answer Date of Assessment Author Status No 02/02/2023 6:45 AM BARIATRIC SURGEON Mckeon Yagaira Q, R N Active * Do you have serious difficulty walking or climbing stairs? Answer Date of Assessment Author Status No 02/02/2023 6:45 AM BARIATRIC SURGEON Mckeon, Yagaira Q, R N Active * Do you have difficulty dressing or bathing? Answer Date of Assessment Author Status No 02/02/2023 6:45 AM BARIATRIC SURGEON MckeonShanaira Q, R N Active * Because of a physical, mental, or emotional condition, do you have difficulty doing errands alone such as visiting a doctor's office or shopping? Answer Date of Assessment Author Status No 02/02/2023 6:45 AM BARIATRIC SURGEON Haile Mckeon R N Active documented as of this encounter Mental Status * Because of a physical, mental, or emotional condition, do you have serious difficulty concentrating, remembering, or making decisions? Answer Entry Date Author Status No 02/02/2023 6:45 AM BARIATRIC SURGEON Haile Mckeon R N Active documented in this encounter Plan of Treatment Not on file documented as of this encounter Goals Goal [...] Time COVID-19 Confirmed Comment:02/02/23 per H&P(SB) Per [facility] policy, patient should be eligible for removal of COVID isolation on 02/15/23 (SB) 02/03/2023 02/03/2023 02/28/2023 12: 32 AM BARIATRIC SURGEON documented as of this encounter Care Teams Animal Anatomy Teacher Relationship Specialty Start Date End Date Lilia Stark MD [address] [place] [address] [place] [address] PCP - General FAMILY PRACTICE 06/03/17 Brooke Castro MD [address] [place] [address] [place] [employer] Grounds Director CARDIOVASCULAR DISEASE 10/03/21 documented as of this encounter
--- OUTSIDE RECORDS SUMMARY | 2025-02-16 20:10 | XMS_ITS | Clinical Summary ---
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 Active vitamin D2, ergocalciferol, 21768 UNITS capsuleIndication s:take 1 capsule by mouth [...] CONCENTRATOR SUPPLY, DME,Indications:C OVID-19,Acute hypoxic respiratory failure (CMS/HCC HHS/HCC) 1 Device by Nasal route continuous. Nasal cannula needed. Portable oxygen tanks 3L pulse dose 1 Device 12 3 Active cloNIDine (CATAPRES) 0.1 MG tablet Take 1 tablet (0.1 mg total) by mouth as needed. Take one tablet daily as needed for blood pressures greater than 160/90 60 tablet 1 4 Active Active Problems Problem Noted Date Diagnosed Date Acute hypoxic respiratory failure 02/02/2023 Hyperlipidemia Syncope and collapse Fatigue Hypertension Encounters Date Type Department Care Team Description 12/08/2024 Telephone [facility] [address] [place] [address] Brooke Castro MD Appointment Reminder 12/07/2024 Orders Only [facility] [address] [place] [address] Brooke Castro MD from Last 3 Months Family History Medical History Relation Comments Hyperlipidemia [...] drink = 0.6 oz pur e alcohol) [facility] Utilities Answer Date Recorded In the [facility] [employer], [employer], or water [employer] threatened to shut off services in your [...] place to sleep or slept in a senior care (including now)? No 02/02/2023 Comments Unknown Sex [...] 36.7 C (98.1 F) 02/06/2023 8:34 AM [employer] Respiratory Rate 16 12/08/2023 1:50 PM CDT Oxygen Saturation 97% 12/08/2023 1:50 PM CDT Inhaled Oxygen Concentration - - Weight 123.4 kg (272 lb) 12/08/2023 1:50 PM CDT Height 157.5 cm (5' 2) 12/08/2023 1:50 PM CDT Body Mass Index 49.75 12/08/2023 1:50 PM CDT Plan of Treatment Health Maintenance Due Date Last Done Comments Colorectal Cancer Screening Colonoscopy (10 Years) 1960 Annual Physical 05/16/1963 Hepatitis C 1978 Pneumococcal Vaccine: 50+ Years (1 of 2 - PCV) 05/16/1979 Mammogram Screening 2000 Zoster Vaccines (1 of 2) 2010 RSV Immunization or 60+ Years (1 - Risk 60-74 years 1-dose series) 2020 DTaP, Tdap and Td Vaccines (3 - Td or Tdap) 09/06/2024 09/06/2014, 07/18/2011 COVID-19 Vaccine (3 - season) 2024 11/09/2020, 10/19/2020 Influenza Adult (#1) 2024 11/19/2022, 12/14/2021, 03/05/2021, Additional history exists Hepatitis A Vaccines Aged Out No long er eligible based on patient's age to complete this topic Meningococcal B Vaccine Aged Out No l [...] from hospital Lifestyle No Narcisa Benedict RN Medical Devices Implanted Type Area Programming Development Project Manager Device Identifier Shelf Expiration Date Model / Serial / Lot Rca P: [employer] Skypoint [id number] Rocky Stent- 2 Implanted:Qty : 1 on 11/16/2021 by Naif Braxton MD Stent Coronary [employer] 06/22/2023 [id number] / / Insurance [place] MEDICA[place] Advance Directives * Full Code (Latest Code Status on File) Date Activated Date Inactivated Comments 02/02/2023 10:02 AM 02/06/2023 6:23 PM Care Teams 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
--- OUTSIDE RECORDS SUMMARY | 2025-02-16 20:11 | XMS_ITS | Data Portability ---
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 Reaction Reaction Severity Criticality Documentation Date Start Date Code Code System Note Provider Name and Address Organization Details Recorded Time 8556 Product containin g penicilli n (product) medicatio n Not available Not available Not available 05/08/2022 74972 8001 SNOMED A CHILD Not Available [facility] 3 05:05:57 8557 morphine medicatio n itching Not available Not available 05/08/2022 7052 RxNorm Not Available [facility] 3 05:05:57 8558 codeine medicatio n other Not available Not available 05/08/2022 2670 RxNorm SWELL ING Not Available [facility] 3 05:05:57 Medications Name Sig Start Date Stop Date Status Note LastModified by Organization Details LastModified Time furosemide 40 mg tablet TAKE 1 TO 2 TABLETS BY MOUTH ONCE DAILY NEEDED FOR EDEMA active Not Available Not Available No t Available methocarba mol 500 mg tablet TAKE 1 TO 2 TABLETS BY MOUTH EVERY 6 HOURS active Not Available Not Available No t Available metformin 500 mg tablet TAKE 1 TABLET BY MOUTH TWICE DAILY 12/09 completed Not Available Not Available Not Available nystatin 100,000 unit/mL oral suspension 10 ml swish and swallow q6 hours x 7 days active Not Available Not Available No t Available doxycyclin e hyclate 100 mg capsule Take 1 capsule by mouth twice daily for 7 days active Not Available Not Available No t Available paroxetine 10 mg tablet TAKE 1 TABLET BY MOUTH WITH ONE (40MG) TABLET DAILY 12/09 completed Not Available Not Available Not Available atorvastat in 20 mg tablet active Not Available Not Available Not Available nicotine 14 mg/24 hr daily transderma l patch 1 patch daily for 4 weeks then start 7 mg patch 07/27 completed Not Available Not Available Not Available ipratropiu m 0.5 mg-albuter ol 3 mg (2.5 mg base)/3 mL nebulizati on soln USE 1 AMPULE IN NEBULIZE R EVERY 4 HOURS WHILE AWAKE. RT NEEDED FOR SHORTNES S OF BREATH/W HEEZING. active Not Available Not Available No t Available clindamyci n HCl 300 mg capsule Take 1 capsule every 6 hours by oral route for 7 days. active Not Available Not Available No t Available albuterol sulfate 2.5 mg/3 mL (0.083 %) solution for nebulizati on USE ONE VIAL IN NEBULIZE R 4 TIMES DAILY active Not Available Not Available No t Available azithromyc in 250 mg tablet TAKE 2 TABLETS BY MOUTH ON DAY 1 AND THEN TAKE 1 TABLET BY MOUTH ONCE A DAY ON DAY 2 THROUGH DAY 5 active Not Available Not Available No t Available benzonatat e 200 mg capsule TAKE 1 CAPSULE BY MOUTH TWICE DAILY NEEDED FOR COUGH active Not Available Not Available No t Available metoprolol succinate ER 50 mg tablet,ext ended release 24 hr TAKE ONE TABLET BY MOUTH ONCE DAILY 10/01 completed Not Available Not Available Not Available valacyclov ir 1 gram tablet Take 1 tablet every 12 hours by oral route for 7 days. active Not Available Not Available No t Available hydrocodon e 5 mg-acetami nophen 325 mg tablet active Not Available Not Available No t Available meloxicam 15 mg tablet Take 1 tablet every day by oral route. active Not Available Not Available No t Available famotidine 40 mg tablet TAKE 1 TABLET BY MOUTH ONCE DAILY active Not Available Not Available No t Available prednisone 20 mg tablet TAKE 3 TABLETS BY MOUTH ONCE DAILY FOR 3 DAYS, THEN 2 DAILY FOR 3 DAYS, THEN 1 DAILY FOR 3 DAYS, THEN 1/2 DAILY FOR 3 DAYS, THEN STOP active Not Available Not Available No t Available venlafaxin e ER 150 mg capsule,ex tended release 24 hr 02/09 completed Not Available Not Available Not Available Advair Diskus 100 mcg-50 mcg/dose powder for inhalation Inhale 1 puff twice a day by inhalati on route as directed . 11/10 completed Not Available Not Available Not Available clopidogre l 75 mg tablet TAKE 1 TABLET BY MOUTH ONCE DAILY active Not Available Not Available No t Available ciprofloxa fadi 250 mg tablet Take 1 tablet every 12 hours by oral route for 7 days. 05/10 completed Not Available Not Available Not Available Paxil 40 mg tablet Take 1.5 tablets every day by oral route. active Not Available Not Available No t Available hydrocodon e 10 mg-acetami nophen 325 mg tablet TAKE 1 TABLET BY MOUTH 4 TIMES DAILY NEEDED (MUST LAST 30 DAYS) 03/24 completed Not Available Not Available Not Available aspirin 81 mg tablet,del ayed release TAKE 1 TABLET BY MOUTH EVERY DAY 2023 active Not Available Not Available Not Avai lable tramadol 50 mg tablet TAKE ONE TABLET BY MOUTH EVERY 6 HOURS NEEDED 03/16 completed Not Available Not Available Not Available ketorolac 30 mg/mL (1 mL) injection solution 1 ml IM x 1 09/29 completed Not Available Not Available Not Available simvastati n 40 mg tablet TAKE 1 TABLET BY MOUTH EACH EVENING 2023 active Not Available Not Available Not Avai lable levothyrox ine 25 mcg tablet Take 1 tablet every day by oral route for 90 days. 11/02 completed Not Available Not Available Not Available levothyrox ine 75 mcg tablet active Not Available Not Available Not Available Kenalog 40 mg/mL suspension for injection 1 ml IM x 1 12/26 completed [facility] [phone] Not Available Not Available Not Available propranolo l 10 mg tablet TAKE 2 TABLETS BY MOUTH EVERY DAY active Not Available Not Available No t Available ceftriaxon e 1 gram solution for injection 1 gram IM x 1 12/26 completed [facility] [phone] Not Available Not Available Not Available propranolo l 40 mg tablet Take 1 tablet twice a day by oral route. active Not Available Not Available No t Available hydrocodon e 10 mg-acetami nophen 500 mg tablet Take 1 tablet 3 times a day by oral route around the clock. 11/10 completed Not Available Not Available Not Available potassium chloride ER 20 mEq tablet,ext ended release(pa rt/cryst) TAKE 1 BY MOUTH TWICE DAILY active Not Available Not Available No t Available clindamyci n 1 % topical gel APPLY A THIN LAYER TO THE AFFECTED AREA(S) BY TOPICAL ROUTE 2 TIMES PER DAY 10/01 completed Not Available Not Available Not Available oxycodone- acetaminop hen 10 mg-325 mg tablet TAKE 1 TABLET BY MOUTH EVERY 12 HOURS NEEDED active Not Available Not Available No t Available Flagyl 500 mg tablet Take 1 tablet every 8 hours by oral route for 7 days. active Not Available Not Available No t Available diazepam 2 mg tablet 07/27 completed Not Available Not Available Not Available baclofen 10 mg tablet TAKE ONE TABLET BY MOUTH THREE TIMES DAILY NEEDED 06/04 completed Not Available Not Available Not Available Soma 350 mg tablet Take 1 tablet 3 times a day by oral route. 07/21 completed Not Available Not Available Not Available benzonatat e 100 mg capsule 07/09 completed Not Available Not Available Not Available levothyrox ine 50 mcg tablet TAKE ONE TABLET BY MOUTH ONCE DAILY 08/07 completed Not Available Not Available Not Available cephalexin 500 mg capsule 09/29 completed Not Available Not Available Not Available pantoprazo le 40 mg tablet,del ayed release TAKE 1 TABLET BY MOUTH EVERY DAY active Not Available Not Available No t Available cyanocobal chao (vit B-12) 1,000 mcg/mL injection solution Inject 1 mL every month by subcutan eous route. 04/29 completed Not Available Not Available Not Available Cipro 500 mg tablet Take 1 tablet every 12 hours by oral route for 7 days. active Not Available Not Available No t Available nitrofuran toin macrocryst al 100 mg capsule Take 1 capsule twice a day by oral route for 7 days. 10/22 completed Not Available Not Available Not Available triamcinol one acetonide 0.1 % topical ointment APPLY TOPICALL Y TWICE DAILY NEEDED 10/01 completed Not Available Not Available Not Available ranitidine 150 mg tablet TAKE 1 TABLET BY MOUTH TWICE A DAY NEEDED 08/04 completed Not Available Not Available Not Available dexamethas one 4 mg tablet TAKE 1 TABLET BY MOUTH TWICE DAILY active Not Available Not Available No t Available buspirone 10 mg tablet active Not Available Not Available Not Available promethazi ne 25 mg/mL injection solution Take 1 mL by injectio n route. 10/01 completed Not Available Not Available Not Available promethazi ne 25 mg tablet TAKE 1 TABLET BY MOUTH EVERY 4 HOURS NEEDED active Not Available Not Available No t Available Advair Diskus 250 mcg-50 mcg/dose powder for inhalation Inhale 1 puff twice a day by inhalati on route. active Not Available Not Available No t Available nicotine 21 mg/24 hr daily transderma l patch APPLY 1 PATCH TOPICALL Y ONCE DAILY active Not Available Not Available No t Available nitroglyce rin 0.4 mg sublingual tablet DISSOLVE ONE TABLET UNDER THE TONGUE EVERY 5 MINUTES NEEDED FOR CHEST PAIN. DO NOT EXCEED A TOTAL OF 3 DOSES IN 15 MINUTES active Not Available Not Available No t Available gabapentin 300 mg capsule TAKE ONE CAPSULE BY MOUTH AT BEDTIME 06/04 completed Not Available Not Available Not Available omeprazole 20 mg capsule,de layed release active Not Available Not Available Not Available Xylocaine with Epinephrin e 1 %-1:100,00 0 injection solution 1 ml sc x 1 10/22 completed Not Available Not Available Not Available diclofenac sodium 75 mg tablet,del ayed release TAKE ONE TABLET BY MOUTH TWICE DAILY 07/14 completed Not Available Not Available Not Available cephalexin 500 mg tablet Take 1 tablet every 12 hours by oral route for 7 days. 09/01 completed Not Available Not Available Not Available hydrochlor othiazide 25 mg tablet TAKE 1 TABLET BY MOUTH ONCE DAILY active Not Available Not Available No t Available zolpidem 5 mg tablet TAKE 1 TABLET BY MOUTH EVERY DAY AT BEDTIME NEEDED active Not Available Not Available No t Available furosemide 20 mg tablet TAKE 2 TABLETS BY MOUTH ONCE DAILY FOR 4 DAYS active Not Available Not Available No t Available mirtazapin e 15 mg tablet TAKE ONE TABLET BY MOUTH AT BEDTIME 10/01 completed Not Available Not Available Not Available lorazepam 1 mg tablet 1 po bid prn anxiety 10/01 completed Not Available Not Available Not Available azelastine 137 mcg (0.1 %) nasal spray USE 2 SPRAY(S) IN EACH NOSTRIL EVERY 12 HOURS active Not Available Not Available No t Available diazepam 10 mg tablet TAKE 1 TABLET BY MOUTH TWICE DAILY active Not Available Not Available No t Available levofloxac in 500 mg tablet Take 1 tablet every 24 hours by oral route for 5 days. 12/08 completed Not Available Not Available Not Available levofloxac in 750 mg tablet Take 1 tablet every day by oral route for 7 days. active Not Available Not Available No t Available methylpred nisolone 4 mg tablets in a dose pack TAKE BY MOUTH DIRECTED ON INSIDE OF PACKAGE active Not Available Not Available No t Available albuterol sulfate HFA 90 mcg/actuat ion aerosol inhaler INHALE 2 PUFFS BY MOUTH EVERY 4 HOURS NEEDED active Not Available Not Available No t Available ferrous sulfate 325 mg (65 mg iron) tablet,del ayed release Take 1 tablet every day by oral route. 09/19 completed Not Available Not Available Not Available Vitamin D2 1,250 mcg (50,000 unit) capsule TAKE 1 CAPSULE BY MOUTH EVERY FRIDAY AND active Not Available Not Available No t Available ketoconazo le 2 % topical cream active Not Available Not Available Not Available clobetasol 0.05 % scalp solution APPLY TO THE AFFECTED SCALP AREA BY TOPICAL ROUTE 2 TIMES PER DAY IN THE MORNING AND EVENING x 7 days 12/26 completed Not Available Not Available Not Available ondansetro n 4 mg disintegra ting tablet active Not Available Not Available Not Available fluticason e propionate 50 mcg/actuat ion nasal spray,susp ension USE 2 SPRAY(S) IN EACH NOSTRIL ONCE DAILY active Not Available Not Available No t Available metformin ER 500 mg tablet,ext ended release 24 hr TAKE 1 TABLET BY MOUTH ONCE DAILY WITH FOOD active Not Available Not Available No t Available doxycyclin e hyclate 100 mg tablet TAKE 1 TABLET BY MOUTH TWICE A DAY FOR 7 DAYS 09/12 completed Not Available Not Available Not Available ipratropiu m bromide 0.02 % solution for inhalation Inhale 2.5 mL every 6 hours by inhalati on route. 10/01 completed Not Available Not Available Not Available diazepam 5 mg tablet TAKE 1 TABLET BY MOUTH TWICE DAILY NEEDED 03/05 completed Not Available Not Available Not Available amoxicilli n 875 mg-potassi um clavulanat e 125 mg tablet TAKE 1 TABLET BY MOUTH TWICE DAILY FOR 4 DAYS 02/12 completed Not Available Not Available Not Available nicotine 7 mg/24 hr daily transderma l patch Apply 1 patch every day by transder mal route for 14 days. active Not Available Not Available No t Available paroxetine ER 37.5 mg tablet,ext ended release 24 hr Take 1 tablet every day by oral route. 09/19 completed Not Available Not Available Not Available Bactrim DS 800 mg-160 mg tablet Take 1 tablet every 12 hours by oral route for 5 days. active Not Available Not Available No t Available azithromyc in 500 mg tablet TAKE 1 TABLET BY MOUTH ONCE DAILY FOR 5 DAYS active Not Available Not Available No t Available ezetimibe 10 mg tablet TAKE 1 TABLET BY MOUTH ONCE DAILY active Not Available Not Available No t Available aripiprazo le 10 mg tablet TAKE 1 TABLET BY MOUTH ONCE DAILY active Not Available Not Available No t Available Premarin 0.45 mg tablet TAKE ONE TABLET BY MOUTH ONCE DAILY 11/20 completed Not Available Not Available Not Available Premarin 0.3 mg tablet Take 1 tablet every day by oral route. 09/28 completed Not Available Not Available Not Available aripiprazo le 5 mg tablet TAKE 1 TABLET BY MOUTH EVERY NIGHT AT BEDTIME active Not Available Not Available No t Available clobetasol 0.05 % lotion APPLY A THIN LAYER TO THE AFFECTED AREA(S) BY TOPICAL ROUTE 2 TIMES PER DAY prn rash active Not Available Not Available No t Available bupropion HCl XL 300 mg 24 hr tablet, extended release Take 1 tablet every day by oral route. 03/31 completed Not Available Not Available Not Available bupropion HCl XL 150 mg 24 hr tablet, extended release TAKE ONE TABLET BY MOUTH ONCE DAILY active Not Available Not Available No t Available Spiriva with HandiHaler 18 mcg and inhalation capsules INHALE ONE DOSE BY MOUTH ONCE DAILY 10/27 completed Not Available Not Available Not Available nitrofuran toin monohydrat e/macrocry stals 100 mg capsule TAKE 1 CAPSULE BY MOUTH EVERY 12 HOURS FOR 7 DAYS active Not Available Not Available No t Available vareniclin e tartrate 0.5 mg (11)-1 mg (42) tablets in a dose pack TAKE DIRECTED active Not Available Not Available No t Available aripiprazo le 2 mg tablet 2 po qday active Not Available Not Available No t Available Symbicort 160 mcg-4.5 mcg/actuat ion HFA aerosol inhaler INHALE TWO (2) PUFFS BY MOUTH TWICE DAILY active Not Available Not Available No t Available FeroSul 325 mg (65 mg iron) tablet TAKE 1 TABLET BY MOUTH TWICE DAILY active Not Available Not Available No t Available Pristiq 50 mg tablet,ext ended release Take 1 tablet every day by oral route. 11/17 completed Sample Qty: 28. 4 week supply Not Available Not Available Not Available diclofenac 1 % topical gel Apply to affected areas QID per package instruct ions active Not Available Not Available No t Available venlafaxin e ER 150 mg tablet,ext ended release 24 hr Take 1 tablet every day by oral route. 01/06 completed Not Available Not Available Not Available quetiapine ER 50 mg tablet,ext ended release 24 hr TAKE 1 TABLET BY MOUTH EVERY NIGHT AT BEDTIME 08/04 completed Not Available Not Available Not Available quetiapine ER 150 mg tablet,ext ended release 24 hr Take 1 tablet every day by oral route. 04/21 completed Not Available Not Available Not Available GaviLyte-N 420 gram oral solution 10/01 completed Not Available Not Available Not Available ketorolac 30 mg/mL injection solution 1 ml IM x 1 01/16 completed Not Available Not Available Not Available levothyrox ine 25 mcg capsule Take 1 capsule every day by oral route. active Not Available Not Available No t Available Combivent Respimat 20 mcg-100 mcg/actuat ion solution for inhalation Inhale 1 puff 4 times a day by inhalati on route. 12/01 completed Not Available Not Available Not Available esomeprazo le strontium 49.3 mg capsule,de layed release Take 1 capsule every day by oral route. 11/25 completed Not Available Not Available Not Available potassium chloride ER 20 mEq tablet,ext ended release TAKE 1 TABLET BY MOUTH TWICE DAILY active Not Available Not Available No t Available Anoro Ellipta 62.5 mcg-25 mcg/actuat ion powder for inhalation INHALE 1 PUFF BY MOUTH ONCE DAILY active Not Available Not Available No t Available Jardiance 10 mg tablet active Not Available Not Available Not Available Spiriva Respimat 2.5 mcg/actuat ion solution for inhalation Inhale 2 puffs every day by inhalati on route. 10/01 completed Not Available Not Available Not Available Movantik 25 mg tablet Take 1 tablet every day by oral route. 10/01 completed Not Available Not Available Not Available Rexulti 2 mg tablet Take 1 tablet every day by oral route. 03/05 completed Not Available Not Available Not Available naloxone 4 mg/actuati on nasal spray CALL 911. ADMINIST ER A SINGLE SPRAY INTRANAS ALLY INTO ONE NOSTRIL UPON SIGNS OF OPIOID OVERDOSE . MAY REPEAT AFTER 3 MINUTES IF NO RESPONSE . active Not Available Not Available No t Available Vitals Date Recorded Body height Body mass index (BMI) Body weight Body temperature Heart rate Oxygen saturation Systolic And Diastolic Provider Name and Address Organization Details Last Updated DateTime 4 157.48 cm 48.8 kg/m2 622202. 16 g 96.8 [degF] 90 /min 82 % 128/76 mm[Hg] Yousuf Fisher RN [facility] [employer] [facility] 4 14:14:22 Date Recorded Body height Body mass index (BMI) Body weight Body temperature Heart rate Oxygen saturation Systolic And Diastolic Provider Name and Address Organization Details Last Updated DateTime 4 157.48 cm 49.6 kg/m2 702839. 53 g 96.4 [degF] 74 /min 78 % 130/74 mm[Hg] Yousuf Fisher RN [facility] [employer] [facility] 4 15:40:43 Date Recorded Body height Body mass index (BMI) Body weight Body temperature Oxygen saturation Heart rate Systolic And Diastolic Provider Name and Address Organization Details Last Updated DateTime 3 157.48 cm 47.7 kg/m2 039650. 61 g 97.5 [degF] 80 % 86 /min 136/78 mm[Hg] Yousuf Fisher RN [facility] [employer] [facility] 3 16:28:14 Date Recorded Body height Body mass index (BMI) Body weight Body temperature Heart rate Oxygen saturation Systolic And Diastolic Provider Name and Address Organization Details Last Updated DateTime 3 157.48 cm 48.3 kg/m2 064296. 39 g 97 [degF] 137 /min 83 % 156/82 mm[Hg] Yousuf Fisher RN [employer] [facility] [employer] 3 15:18:34 Social History Question Answer Notes LastModified by Organizat ion Details LastModified Time Tobacco Smoking Status Former Smoker quit 05/03 Melchor Stark MD [address] [address], [place], [address], [facility] [employer] 06/19/2023 15:59:57 Do You Wear A Helmet When Biking? No [id number] Information not available 05/08/2022 What Is Your Level Of Caffeine Consumption? Occasional [id number] Information not available 05/08/2022 How Much Tobacco Do You Chew? None [id number] Information not available 05/08/2022 In The 14 Days Before Symptom Onset, Have You Had Close Contact With A Laboratory-confir med COVID-19 While That Case Was Ill? No [id number] Information not available 05/08/2022 In The 14 Days Before Symptom Onset, Have You Had Close Contact With A Person Who Is Under Investigation For COVID-19 While That Person Was Ill? No [id number] Information not available 05/08/2022 What Type Of Diet Are You Following? REGULAR [id number] Information not available 05/08/2022 Which Illicit Or Recreational Drugs Have You Used? No [id number] Information not available 05/08/2022 What Is The Highest Grade Or Level Of School You Have Completed Or The Highest Degree You Have Received? [id number] Information not available 05/08/2022 Have There Been Any Changes To Your Family Or Social Situation? No [id number] Information not available 05/08/2022 Are There Any Guns Present In Your Home? No [id number] Information not available 05/08/2022 Have You Ever Been Counseled For Unhealthy Alcohol Use? No [id number] Information not available 05/08/2022 What Is Your Relationship Status? [id number] Information not available 05/08/2022 Do You Use Your Seat Belt Or Car Seat Routinely? No [id number] Information not available 05/08/2022 At What Age Did You Start Smoking Tobacco? 12 [id number] Information not available 05/08/2022 Are There Any Smokers In Your House? No MIGRATION.44302 [id number] Information not available 05/08/2022 How Much Tobacco Do You Smoke? 1 PPW MIGRATION.47845 [id number] Information not available 05/08/2022 Do You Participate In Social PredictionIO? No MIGRATION.27386 04430 Information not available 05/08/2022 Do You Use Sunscreen Routinely? Yes [id number].[id number] Information not available 05/08/2022 Have You Recently Traveled Abroad? Yes MIGRATION.14046 [id number] Information not available 05/08/2022 Are You Currently In School? No MIGRATION.27967 [id number] Information not available 05/08/2022 Sex: Unknown Functional Status Question Answer Note LastModified by [employer] Details LastModified Time Do you use any illicit or recreational drugs? No MIGRATION.[id number] Information not available 05/08/2022 What is your level of alcohol consumption? Occasional MIGRATION.[id number] Information not available 05/08/2022 Do you or have you ever used smokeless tobacco? Never used smokeless tobacco MIGRATION.[id number] Information not available 05/08/2022 Do you or have you ever used e-cigarettes or vape? Never used electronic cigarettes MIGRATION.678247 2609 Information not available 05/08/2022 What is your exercise level? Occasional MIGRATION.[id number] Information not available 05/08/2022 Mental Status Question Answer Note LastModified by Organizat ion Details LastModified Time Do you feel stressed (tense, restless, nervous, or anxious, or unable to sleep at night)? [id number] [id number] Information not available 05/08/2022 Family History Relationship Description Onset Age of this Age Resolved Age Notes LastModified by Organization Details LastModified Time Unspecified Relation Heart disease [id number] Not available 05/08/2022 04:42:36 Unspecified Relation Family history of malignant neoplasm [id number] Not available 05/08/2022 04:42:36 Medical History Condition Response BLINDNESS N RHEUMATIC FEVER N BLADDER PROBLEMS N KIDNEY STONES N MRSA N OTHER # 1 N POLIO N LUNG DISEASE/DISORDER Y RADIATION / CHEMOTHERAPY N COPD Y Other # 2 N BLOOD DISEASES N SURGERY N EAR OR HEARING PROBLEMS N MUMPS N BOWEL PROBLEMS N FEMALE PROBLEMS / INFECTIONS N DEPRESSION (INCLUDING POST ) N STROKE/TIA N THYROID DISEASE N ULCERS N BENIGN PROSTATIC HYPERPLASIA N MEASLES N CERVICALGIA N TB SKIN TEST N MYOCARDIAL INFARCTION N PARAPELGIA N OBESITY N GERD/NAUSEA N ANEURYSM N URINARY/BLADDER/KIDNEY PROBLEMS N CORONARY ARTERY DISEASE (CAD) N MENIERE'S DISEASE N ADDICTION CONCERNS N ENDOMETRIOSIS N USE OF BLOOD THINNERS Y SKIN PROBLEMS N EMPHYSEMA N GASTROINTESTINAL DISORDER N MUSCLE,JOINT OR BONE PROBLEMS N GASTROINTESTINAL BLEEDING N BLOOD CLOTS N ASTHMA N CATARACTS N ERECTILE DYSFUNCTION N GI PROBLEMS N CHF N Low Testosterone N NEUROPATHY N INFERTILITY N AIDS/HIV N FRACTURES N CHEMOTHERAPY / RADIATION N VISION/EYE PROBLEMS N LIVER DISEASE N MALE HYPOGONADISM N HYPERTENSION N TOURETTE'S N ANXIETY DISORDER N BLOOD TRANSFUSION N ANEMIA/BLOOD DISORDER N CHRONIC EAR INFECTIONS N BRONCHITIS N TUBERCULOSIS N GLAUCOMA N FOOT PROBLEM N DIVERTICULITIS N CHICKENPOX N SLEEP APNEA N ALLERGIES/HAYFEVER N INFECTIOUS DISEASE N HEART ARRHYTHMIA N PROSTATE N INSOMNIA N HIGH CHOLESTEROL / HYPERLIPIDEMIA N HYPERTHYROIDISM N EYE PROBLEMS N EATING DISORDER N EDEMA N CHRONIC PAIN SYNDROME N CAROTID BLOCKAGE N CONSTIPATION N BACK / NECK PROBLEMS N HAVE YOU BEEN HOSPITALIZED OR SEEN IN [facility] IN THE PAST YEAR ? N ATHEROSCLEROSIS N BREAST PROBLEMS N DIALYSIS N ECZEMA N FIBROMYALGIA N OSTEOPOROSIS Y ARTHRITIS N NO SIGNIFICANT PAST MEDICAL HISTORY N APPENDICITIS N DIABETES, TYPE N BAD TEETH N HEARTBURN / REFLUX N ADD/ADHD N AUTISM SPECTRUM DISORDER (ASD) N HEPATITIS / LIVER DISEASE N PULMONARY DISEASE N GOUT N SLEEP DISORDER N ALZHEIMER'S DISEASE N PAIN N HERPES N DEMENTIA N HEADACHES/MIGRAINES N SEIZURES/EPILEPSY N VASCULAR DISEASE N PACEMAKER N DIZZINESS N HEART DISEASE/HEART PROBLEMS N KIDNEY DISEASE N DEVELOPMENTAL OR BEHAVIORAL DISORDERS N MULTIPLE SCLEROSIS N SCARLET FEVER N MENTAL DISORDER/ILLNESS N CARDIAC ARRHYTHMIA N CANCER: SPECIFY Y PNEUMONIA N ATRIAL FIBRILLATION N Gall Stones N PULMONARY EMBOLISM N AUTOIMMUNE DISEASE N Gynecological History Statement/Question Response Date of LMP Breast Problems no Obstetrics History GPAL:G 1 P 0 0 0 1 Type Value Living 1 Total 1 Immunizations Vaccine Type Date Status Note Provider Nam e and Address Organization Details Recorded Time COVID-19, mRNA, LNP-S, PF, 30 mcg/0.3 mL dose 1 completed Chantelle Pollack APRN [address], [place], [address], [facility] 11/20/2023 08:57:02 COVID-19, mRNA, LNP-S, PF, 30 mcg/0.3 mL dose 1 completed Chantelle Pollack APRN [address], [place], [address], [facility] [place] [facility] 11/20/2023 08:57:02 DTaP, unspecified formulation 2 completed Chantelle Pollack APRN [address], [place], [address], [facility] [place] [facility] 11/20/2023 08:57:02 Influenza, split virus, quadrivalent, PF 3 completed Yousuf Fisher RN [facility] [place] [facility] 11/19/2022 17:19:31 Influenza, split virus, quadrivalent, PF 9 completed Not Available [facility] 05/08/2022 05:05:25 Influenza, split virus, quadrivalent, PF 8 completed Not Available [facility] 05/08/2022 05:05:25 Influenza, split virus, quadrivalent, PF 7 completed Not Available [facility] 05/08/2022 05:05:25 Influenza, split virus, quadrivalent, PF 2 completed Chantelle Pollack APRN [address], [place], [address], [facility] 11/20/2023 08:57:02 Influenza, split virus, quadrivalent, PF 1 completed Not Available [facility] 05/08/2022 05:05:26 Tdap 5 completed Not Available [facility] 05/08/2022 05:05:26 Influenza, split virus, quadrivalent, preservative 6 completed Not Available [facility] 05/08/2022 05:05:26 Influenza, split virus, quadrivalent, PF 5 completed Not Available [facility] 05/08/2022 05:05:26 Past Encounters Encounter ID Performer Location Encounter Start Date Encounter Closed Date Diagnosis/Indication Diagnosis SNOMED-CT Code Diagnosis ICD10 Code Diagnosis IMO Codes Diagnosis Note [id number] Melchor Stark MD [facility] [place] [address] [place] [address] 07/25/2020 00:00:00 07/25/2020 14:32:21 [id number] Melchor Stark MD [facility] [place] [address] [place] [address] 10/25/2020 00:00:00 11/05/2020 22:13:40 [id number] Melchor Stark MD [facility] [place] [address] [place] [address] 01/25/2021 00:00:00 01/29/2021 08:33:49 [id number] Melchor Stark MD [facility] Primary [facility] [place] [address] [place] [address] 03/05/2021 00:00:00 03/05/2021 15:06:03 [id number] Melchor Stark MD [facility] [place] [address] [place] [address] 04/09/2021 00:00:00 04/09/2021 14:09:21 [id number] Melchor Stark MD [facility] Primary [facility] [place] [address] [place] [address] 08/09/2021 00:00:00 08/09/2021 09:36:27 [id number] Melchor Stark MD [facility] Primary [facility] [place] [address] [place] [address] 09/12/2021 00:00:00 09/12/2021 12:46:24 [id number] Melchor Stark MD [facility] Primary [facility] [place] [address] [place] [address] 09/19/2021 00:00:00 10/04/2021 16:54:14 [id number] KARL Bowman S[facility] [place] [address] [place] [address] 11/13/2021 00:00:00 11/13/2021 20:29:27 [id number] Melchor Stark MD [facility] Primary Care [place] [address] [place] [address] 12/13/2021 00:00:00 01/01/2022 07:43:17 [id number] Melchor Stark MD [facility] Primary [facility] [place] [address] [place] [address] 12/31/2021 00:00:00 01/07/2022 12:04:44 [id number] Melchor Stark MD [facility] Primary Care [place] [address] [place] [address] 01/16/2022 00:00:00 01/16/2022 12:14:24 [id number] Melchor Stark MD [facility] Primary Care [place] [address] [place] [address] 02/13/2022 00:00:00 03/07/2022 18:40:29 [id number] Melchor Stark MD [facility] Primary [facility] [place] [address] [place] [address] 03/13/2022 00:00:00 03/14/2022 11:15:51 [id number] Melchor Stark MD [facility] Primary Care [place] [address] [place] [address] 04/01/2022 00:00:00 04/08/2022 18:20:26 [id number] Melchor Stark MD [facility] Primary Care [place] [address] [place] [address] 04/29/2022 00:00:00 05/05/2022 20:32:37 [id number] Dionisio Ureña MD [facility] [address] [facility] [address] [place] [address] 05/01/2022 00:00:00 05/01/2022 17:55:10 [id number] Melchor Stark MD [facility] Primary Care [facility] [address] [facility] [address] [place] [address] 05/28/2022 12:17:58 05/28/2022 12:41:54 Abscess 312603079 L02.91 soap and water dailywarm compresses biddoxycyc line 100 mg po bid x 7 daysmammog abner/US normalwill get further evaluation if it does not resolve in 4-6 weeks Degenerati on of intervertebral disc 17298746 M51.9 pill count today:oxyc odone/apap #13 (prescribe d 04/29/22)hy drocodone/ apap #32 (prescribe d 04/29/22) [id number] Melchor Stark MD [facility] Primary Care [facility] [address] [facility] [address] [place] [address] 07/09/2022 14:02:49 07/09/2022 14:23:50 Hoarse 33213790 R49.0 [id number] Melchor Stark MD [facility] Primary Care [facility] [address] [facility] [address] [place] [address] 08/26/2022 13:57:36 08/26/2022 17:27:20 Chronic obstructive pulmonary disease 01685937 J44.9 Will start her on steroid inhaler, refer to pulmonolog y for continued care. Congestive heart failure 93172203 I50.9 Had f/u with cardiology (Dr. Castro) 08/22/22. Repeat labs already already by them for CMP, Lipids, BNP in 2 weeks. Follow-up scheduled 02/11/23. Finish current doses of lasix and potassium. Transition of care 33718 66233 105 Z75.8 Admitted 08/16/22-08/08 05/02 for CHF/COPD exacerbati on Degenerati on of intervertebral disc 93256601 M51.9 Needs refill pain medication .UDS up to date. [id number] Melchor Stark MD [facility] Primary Care [address] [place] [address] 10/09/2022 14:23:43 10/09/2022 14:56:37 Congestive heart failure 77348883 I50.9 check labsincrea se furosemide to 40 mg up to 2 per daypotassi um 20 meq bidf/u on Friday or sooner if neededrevi ewed s/s that warrant urgent/herman rgent eval in meantime Type 2 shanna betes mellitus 19482534 E11.9 Hyperlipidemia 29084148 E78.5 Essential hypertension 64402174 I10 Iron defic iency anemia 81677446 D50.9 Hypothyroidism 53329552 E03.9 Cobalamin deficiency 190 830778 E53.8 [id number] Melchor Stark MD [facility] Primary Care [address] [place] [address] 10/14/2022 16:35:59 10/14/2022 17:41:47 Edema of lower extremity 252401063 R60.0 improvedok to lower furosemide to 40 mg once per daycontinu e potassium daily as wellcheck bmpf/u in 4 weeks [id number] Melchor Stark MD [facility] Primary Care [address] [place] [address] 11/19/2022 16:36:53 11/19/2022 17:14:52 Administration of influenza vaccine 95084701 Z23 [id number] Melchor Stark MD [facility] Primary Care [address] [place] [address] 02/12/2023 16:21:17 02/12/2023 17:56:02 Transition of care [id number] 105 Z75.8 COVID-19 174848845 U07.1 J18.9 start prednisone taperneb treatment given in office with significan t improvemen t in symptomso2 sat improved to 93 on room air after nebpt advised to use her 3 lpm oxygen continuous lyok to use nebs at home q4 hours prnf/u in 1 week or sooner if needed Tobacco user 137362122 Z 72.0 Insomnia 501005801 G47.0 0 [id number] Melchor Stark MD [facility] Care [address] [place] [address] 02/18/2023 15:11:35 02/18/2023 15:34:00 Heartburn 24152492 R12 likely due to recent steroid usecontinu e PPIfamotid ine 40 mg dailyf/u in 4 weeks, will be done with steroids in 2 days Degenerati on of intervertebral disc 71844488 M51.9 stable, refil given Renewal of prescription 962860232 Z76.0 [id number] Melchor Stark MD [address] [address] 03/24/2023 14:06:48 03/24/2023 14:59:28 Chronic obstructive pulmonary disease 25079616 J44.9 Degenerati on of intervertebral disc 19689813 M51.9 stable, refill given Renewal of prescription 111640812 Z76.0 [id number] Melchor Stark MD [address] [address] 06/19/2023 15:33:04 06/19/2023 16:23:31 Transition of care 7722783504 105 Z75.8 Chronic ob structive pulmonary disease 64522620 J44.9 remain smoke free now 2 monthswear o2 at 3lpm continuous and bipap with all sleep Degenerati on of intervertebral disc 74347856 M51.9 stable, refill given Type 2 shanna betes mellitus 11749640 E11.9 Hyperlipidemia 75741591 E78.5 Essential hypertension 67803615 I10 Iron defic iency anemia 31102466 D50.9 Hypothyroidism 99130639 E03.9 Cobalamin deficiency 190 912270 E53.8 [id number] FRANK Gill [facility] Primary Care [address] [place] [address] 08/28/2023 15:18:42 08/28/2023 16:50:23 Health Concerns Section Related Observation LastModified by Organization Detai ls LastModified Time None Recorded Concern Status LastModified by Organization Details LastModified Time None Recorded Advance Directives Directive None Recorded Payers Insurance Date Sequence Insurance Name Policy Number Policy Perera Covered Member ID Perera Member ID Guarantor Name 02/08/2024 1 [facility] (MEDICAID HMO) [id number] Karina Ricks [id number] Karina Ricks Notes Date Note Type Note Provider Name and Address Organization Details Recorded Time 3 text/html ROS as noted in the HPI here for hospital f/uhas completed course of augmentinon 3 lpm oxygen continuousbreathing still feels tight, +cough and wheezing. Melchor Stark MD [address], [place], [address], [facility] [employer] [facility] 03/06/2023 08:05:34 3 text/html ROS as noted in the HPI breathing betterthis am ate rice, sat in epigastric area and she threw it back up, having GERD Melchor Stark MD [address], [place], [address], [facility] [employer] 03/06/2023 19:04:36 4 text/html ROS as noted in the HPI still using oxygen, but sob is overall better, energy is better. Melchor Stark MD [address], [place], [address], [facility] [employer] [place] 04/09/2023 18:11:12 4 text/html ROS as noted in the HPI still using oxygen, but sob is overall better, energy is better. has remained smoke free for 2 months Melchor Stark MD [address], [place], [address], [facility] [employer] [facility] [employer] [place] 07/27/2023 21:34:45 OBGyn Episode No OBEpisode recorded.
== END 2025-02-16 15:10 | disposition home or self-care (01) ==
LOC: CHSLAB 15:11
PROVIDERS: PCP Nurse Practitioner Family; Visit Provider Nurse Practitioner Family
DX: N76.0 Acute vaginitis (principal); Z11.4 Encounter for screening for human immunodeficiency virus [HIV]; Z12.4 Encounter for screening for malignant neoplasm of cervix; Z11.51 Encounter for screening for human papillomavirus (HPV); Z11.8 Encounter for screening for other infectious and parasitic diseases; Z11.3 Encounter for screening for infections with a predominantly sexual mode of transmission
CPT/HCPCS: 87491; 87591; 87624; 88175; G0145